=== PATIENT | male | born 1990 | race Caucasian/White ===

== ENCOUNTER 2020-04-01 19:19 | Emergency (ER) | payer OTHER, MEDICAID, SELFPAY ==
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
[2020-04-01 19:28] VITALS: BP 135/86; PULSE 89; RESP 20; TEMP 36.4; O2SAT 100; BMI 23.1
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
[2020-04-01] MEDS: IBUPROFEN 400 MG TABLET PO (20:22)
[2020-04-01] MEDS: ACETAMINOPHEN 325 MG TABLET 650 MG PO (20:22)
[2020-04-01] MEDS: LIDOCAINE PATCH 1 EACH ADH..PATCH 2 EACH TOP (20:22)
[2020-04-01 20:25] VITALS: BP 133/64; PULSE 72; RESP 18; O2SAT 99
== END 2020-04-01 20:36 | disposition home or self-care (01) ==
PROVIDERS: Emergency Provider Nurse Practitioner Family; PCP Family Medicine
DX: S20.20XA Contusion of thorax, unspecified, initial encounter (principal); R07.81 Pleurodynia; R06.02 Shortness of breath; R05 Cough; W51.XXXA Accidental striking against or bumped into by another person, initial encounter
CPT/HCPCS: 71111; 99283; 99284

== ENCOUNTER 2020-04-04 17:01 | Emergency (ER) | payer OTHER, MEDICAID, SELFPAY ==
[2020-04-04] VITALS (14 sets, daily range): BP systolic 114–120; BP diastolic 68–85; PULSE 80–109; RESP 12–25; TEMP 36.6; O2SAT 97–100; BMI 22.4
[2020-04-04] MEDS: SODIUM CHLORIDE 0.9% 1,000 ML 150 ML IV (17:41)
[2020-04-04 17:42] LABS: Add Manual Diff / Slide Review NO; Basophils Absolute Auto 0 /uL (0-100); Basophils Percent Auto 0.6 % (0-2); Eosinophils Absolute Auto 100 /uL (0-450); Eosinophils Percent Auto 1.6 % (2-4); Hemoglobin 13.7 g/dL (13.5-17.5); Lymphocytes Absolute Auto 1700 /uL (1100-4500); Lymphocytes Percent Auto 24.4 % (25-40); Mean Corpuscular HGB Conc 34.2 % (30-36); Mean Corpuscular Hemoglobin 32.4 PG (26-34); Mean Corpuscular Volume 94.8 fL (80-100); Monocytes Absolute Auto 1000 /uL (0-900); Monocytes Percent Auto 13.9 % (3-14); Neutrophils Absolute Auto 4100 /uL (1500-7000); Neutrophils Percent Auto 59.5 % (50-75); Platelet Count 250 X10^3/uL (150-400); Red Blood Cell Count 4.22 X10^6/uL (4.5-5.9); Red Cell Distribution Width 13.1 % (11.6-14.8); White Blood Cell Count 6.8 X10^3/uL (4.5-11.0)
--- NOTE | 2020-04-04 17:48 | ED_ITS ---
HPI - Psych <Lesia Coelho MD - Last Filed: 04/05/20 07:13> General Chief Complaint: Psychiatric Symptoms Stated Complaint: states borderline episode Time Seen by Provider: 04/04/20 17:13 Source: patient Mode of arrival: Ambulatory History of Present Illness HPI Narrative: 29-year-old gentleman with borderline personality disorder who comes in after an overdose. He states he took 10 1 mg clonazepam and ?a lot? of alcohol last night and then repeated a combination this morning with at least 30 1 mg clonazepam and alot of alcohol. He apparently called his primary care doctor's office and they advised him to come to the emergency room. He was able to write his skateboard to the emergency room by the time he arrives he is so somnolent it is difficult to carry on any type of conversation. He states that he has not done any other self-harm and the last time he did any cutting was about a month ago. He denies taking any other medications. States that he does not use any narcotics or amphetamines. He does note that he use some acid 5 days ago and ?it was quite nice?. Related Data Previous Rx's Medication Instructions Recorded bupropion HCl 200 mg tablet,12 hr See Rx Instructions .ROUTE 11/13/19 sustained-release .COMPLEX #180 tab clonazepam 1 mg tablet See Rx Instructions .ROUTE 02/15/20 .COMPLEX #60 tab lidocaine 2 patch TOP Q24H PRN #30 each 04/01/20 Allergies Allergy/AdvReac Type Severity Reaction Status Date / Time olanzapine AdvReac Severe suicidal Verified 04/04/20 17:14 ideations Review of Systems <Lesia Coelho MD - Last Filed: 04/05/20 07:13> Review of Systems ROS Unobtainable: Unobtainable due to medical condition <Destin Hopson MD - Last Filed: 04/05/20 06:04> Constitutional Constitutional: Denies chills, Denies fatigue, Denies fever(s), Denies frequent falls, Denies lethargy and Denies weakness Eyes Eyes: Denies change in vision, Denies eye discharge, Denies irritation and Denies loss of vision ENT Ears, Nose, Mouth, and Throat: Denies change in voice, Denies dizziness, Denies neck pain, Denies sore throat and Denies throat swelling Cardiovascular Cardiovascular: Denies chest pain, Denies irregular heart rhythm, Denies lightheadedness, Denies palpitations, Denies dyspnea, Denies dyspnea on exertion and Denies orthopnea Respiratory Respiratory: Denies cough, Denies dyspnea, Denies dyspnea on exertion and Denies wheezing Gastrointestinal Gastrointestinal: Denies abdominal pain, Denies change in bowel habits, Denies diarrhea, Denies nausea and Denies vomiting Musculoskeletal Musculoskeletal: Denies neck pain and Denies numbness Integumentary/Breasts Skin/Breast: Denies pruritus, Denies erythema, Denies rash and Denies wounds Neurologic Neurologic: Denies behavioral changes, Denies confusion, Denies dizziness, Denies frequent falls, Denies loss of vision, Denies numbness and Denies weakness Psychiatric Psychiatric: Denies anxiety, Denies behavioral changes, Denies confusion, Denies depression, Denies homicidal ideation and Denies suicidal ideation Endocrine Endocrine: Denies fatigue, Denies flushing and Denies palpitations Hematologic/Lymphatic Hematologic/Lymphatic: Denies easy bruising Allergic/Immunologic Allergic/Immunologic: Denies urticaria, Denies throat swelling and Denies w heezing Patient History <Lesia Coelho MD - Last Filed: 04/05/20 07:13> Medical History (Updated 04/05/20 @ 02:40 by Destin Hopson MD) ADHD (Chronic) Anxiety (Acute) Cervical somatic dysfunction (Acute) Chronic neck and back pain (Acute) Cranial somatic dysfunction (Acute) Depression (Acute) Fractures (Resolved) History of bipolar disorder (Chronic) Migraines (Acute) Overdose (Acute) Partial blindness (Chronic) Pelvic somatic dysfunction (Acute) Personality disorder (Chronic) PTSD (post-traumatic stress disorder) (Chronic) Right shoulder pain (Acute) Scoliosis (Chronic) Segmental and somatic dysfunction of abdomen and other regions (Acute) Segmental and somatic dysfunction of lumbar region (Acute) Segmental and somatic dysfunction of sacral region (Acute) Segmental and somatic dysfunction of thoracic region (Acute) Segmental and somatic dysfunction of upper extremity (Acute) Surgical History Anesthesia (Resolved) History of removal of cyst (Resolved ~2017) Family History Father Mental health problem Mother Thyroid cancer Breast cancer Social History Smoking Status: Current every day smoker Smokeless tobacco user: other alcohol intake: current substance use type: does not use and former substance user Smoking Status: Current every day smoker tobacco type: vaping alcohol intake frequency: a few times a week Substance Use Type: does not use Exam <Lesia Coelho MD - Last Filed: 04/05/20 07:13> Narrative Exam Narrative: General: Very somnolent but maintaining his airway. Mid position with sluggish pupils HEENT: Moist mucous membranes, normal sclera Mid position with sluggish pupils Neck: No JVD, supple Respiratory: Lungs are clear to auscultation, no wheezing no rales no rhonchi. Somewhat shallow but Full and symmetrical air movement Cardiac: Regular rate and rhythm no murmurs no bruits Abdomen: Soft nontender good bowel tones, no flank pain Skin: Warm and dry, no rashes. Healed scars on his left forearm from cutting. Wounds clearly healing with no evidence of infection on his left anterior boyle from self-harm Neurologic: Slowed but moving all extremities Extremities: No new trauma, well perfused Psych: Very somnolent Initial Vital Signs Initial Vital Signs: Vital Signs Temperature 97.9 F 04/04/20 17:14 Pulse Rate 109 H 04/04/20 17:14 Respiratory Rate 15 04/04/20 17:14 Blood Pressure 116/68 04/04/20 17:14 Pulse Oximetry 99 04/04/20 17:14 <Destin Hopson MD - Last Filed: 04/05/20 06:04> Initial Vital Signs Initial Vital Signs: Vital Signs Temperature 97.9 F 04/04/20 17:14 Pulse Rate 109 H 04/04/20 17:14 Respiratory Rate 15 04/04/20 17:14 Blood Pressure 116/68 04/04/20 17:14 Pulse Oximetry 99 04/04/20 17:14 Const General: cooperative and well developed Nutritional Appearance: well nourished HENMT Head: normocephalic and atraumatic Ears: external ears normal and TM's normal bilaterally Nose: external nose normal and No nasal discharge Face and sinus: sinuses nontender, face symmetric, no sinus tenderness and No dry mucous membranes Mouth: oral mucosae normal and moist mucous membranes Teeth and gingiva: dentition normal Throat: tonsils normal and uvula midline Eyes General: appearance normal, both eyes and all related structures Eyelids: eyelids normal Conjunctivae: conjunctivae normal Sclera: sclerae normal Pupils: PERRL EOM: EOM intact bilaterally Neck Neck: normal visual inspection, trachea midline, No lymphadenopathy, No midline deformity and No JVD Lymphatic: No lymphedema Chest Chest: normal inspection of the chest Resp Effort & Inspection: normal respiratory effort, able to speak in complete sentences, no respiratory distress and no use of accessory muscles Auscultation: clear to auscultation bilaterally, no rales, no rhonchi and no wheezes Cardio Rate: regular rate Rhythm: regular rhythm Heart Sounds: no click, no gallops, no murmurs and no rubs Pulses: normal peripheral pulses GI Inspection: non-distended Palpation: soft, no hepatosplenomegaly, No guarding, No pulsatile mass and No tender Auscultation: normal bowel sounds Back/Spine/Pelvis Back: No CVA tenderness Cervical Spine: cervical ROM normal and No pain with cervical ROM Thoracic/Lumbar Spine: thoracic and lumbar spine normal to inspection Skin General: no rashes or lesions noted, No jaundice and No petechiae Neuro General: patient alert, patient oriented x3, gait normal and no focal motor deficits Speech: speech normal Extrem General: full ROM, no clubbing, cyanosis or edema, no pedal edema and no calf tenderness Psych Appearance: well kempt Mental Status: mental status grossly normal Attitude: cooperative Thought Content: normal and suicidality Judgment: judgment good Course <Lesia Coelho MD - Last Filed: 04/05/20 07:13> Orders Ordered: Discontinued Medications Hydroxyzine Pamoate (Vistaril) 50 mg PO NOW ONE Stop: 04/05/20 01:14 Last Admin: 04/05/20 01:17 Dose: 50 mg Documented by: MMCFARL Sodium Chloride (Normal Saline 0.9%) 1,000 mls @ 150 mls/hr IV CONT DARLEEN Last Infusion: 04/04/20 23:25 Dose: 0 mls/hr Documented by: Admin: 04/04/20 17:41 Dose: 150 mls/hr Documented by: ROHAN Lidocaine (Lidoderm) 1 each TOP NOW ONE Stop: 04/04/20 19:25 Last Admin: 04/04/20 19:28 Dose: 1 each Documented by: JEVON Nicotine (Nicoderm) 21 mg TOP NOW ONE Stop: 04/04/20 20:59 Last Admin: 04/04/20 21:01 Dose: 21 mg Documented by: JEVON Vital Signs Vital signs: Vital Signs - 8 hr 04/04/20 23:30 04/05/20 00:00 04/05/20 00:01 Pulse Rate 101 H 103 H 103 H Respiratory Rate 22 20 23 Blood Pressure 114/85 120/72 Pulse Oximetry 98 97 97 04/05/20 00:30 04/05/20 01:00 04/05/20 01:30 Pulse Rate 109 H 102 H 102 H Respiratory Rate 19 16 17 Blood Pressure 128/74 127/71 133/78 Pulse Oximetry 98 97 04/05/20 02:00 04/05/20 02:30 04/05/20 03:00 Pulse Rate 93 H 95 H 92 H Respiratory Rate 22 21 23 Blood Pressure 123/76 Pulse Oximetry 96 97 04/05/20 03:30 Pulse Rate 104 H Respiratory Rate 17 Blood Pressure Pulse Oximetry 97 <Destin Hopson MD - Last Filed: 04/05/20 06:04> Course Course Narrative: Time 1805. Sign-out from Dr. Raya. Patient needs admission for observation for intentional overdose/suicide ideation/attempt. Benzodiaz epines taken as well as alcohol. At this time patient is awake alert oriented x4. Denies any fall or injury. Not combative. He is cooperative. Understands need for admission tonight. I spoke with patient and states a lot personal stress has triggered his actions. Decision to Admit Date: 04/04/20 Decision to Admit time: 20:21 Orders Ordered: Discontinued Medications Hydroxyzine Pamoate (Vistaril) 50 mg PO NOW ONE Stop: 04/05/20 01:14 Last Admin: 04/05/20 01:17 Dose: 50 mg Documented by: JEVON Sodium Chloride (Normal Saline 0.9%) 1,000 mls @ 150 mls/hr IV CONT DARLEEN Last Infusion: 04/04/20 23:25 Dose: 0 mls/hr Documented by: Admin: 04/04/20 17:41 Dose: 150 mls/hr Documented by: ROHAN Lidocaine (Lidoderm) 1 each TOP NOW ONE Stop: 04/04/20 19:25 Last Admin: 04/04/20 19:28 Dose: 1 each Documented by: JEVON Nicotine (Nicoderm) 21 mg TOP NOW ONE Stop: 04/04/20 20:59 Last Admin: 04/04/20 21:01 Dose: 21 mg Documented by: ALICIAFARL Reevaluation(s) Reevaluation #1: I did speak with patient. He admits taking clonazepam/Klonopin. He states past drug screens for employers were negative for benzodiazepines. At this time patient is awake alert and arousable to voice. Is somnolent Time: 20:21 Reevaluation #2: Patient is now awake alert. Is not not obtunded. No respiratory compromise. Awake alert oriented x4. Getting very anxious. Time: 22:44 Reevaluation #3: Patient aware needs to be admitted tonight. He is on a hold Time: 02:39 Consultations Consultation #1: Spoke with asaf, nurse practitioner/hospitalist as well as social Work Dago. At this time patient is not medically cleared. Will need intermittent. I did review with laboratory staff that there is a high false negative for Klonopin Time: 20:22 Consultation #2: s/w Jean with [facility], he will set up teleconference now with patient Time: 00:28 Consultation #3: Jean SPEAR, has approved hold and arranged for txr to [facility] Time: 02:39 Vital Signs Vital signs: Vital Signs - 8 hr 04/04/20 23:30 04/05/20 00:00 04/05/20 00:01 Pulse Rate 101 H 103 H 103 H Respiratory Rate 22 20 23 Blood Pressure 114/85 120/72 Pulse Oximetry 98 97 97 04/05/20 00:30 04/05/20 01:00 04/05/20 01:30 Pulse Rate 109 H 102 H 102 H Respiratory Rate 19 16 17 Blood Pressure 128/74 127/71 133/78 Pulse Oximetry 98 97 04/05/20 02:00 04/05/20 02:30 04/05/20 03:00 Pulse Rate 93 H 95 H 92 H Respiratory Rate 22 21 23 Blood Pressure 123/76 Pulse Oximetry 96 97 04/05/20 03:30 Pulse Rate 104 H Respiratory Rate 17 Blood Pressure Pulse Oximetry 97 MDM - Psych <Lesia Coelho MD - Last Filed: 04/05/20 07:13> Medical Records Attestation: I reviewed the patient's medical records. Lab Data Attestation: I reviewed the patient's lab results. Result diagrams: 04/04/20 17:28 04/04/20 17:28 Labs: Lab Results 04/04/20 04/04/20 04/04/20 Range/Units 17:28 17:28 17:38 WBC 6.8 (4.5-11.0) X10^3/uL RBC 4.22 L (4.5-5.9) X10^6/uL Hgb 13.7 (13.5-17.5) g/dL Hct 40.0 L (41-53) % MCV 94.8 (80-100) fL MCH 32.4 (26-34) PG MCHC 34.2 (30-36) % RDW 13.1 (11.6-14.8) % Plt Count 250 (150-400) X10^3/uL Neut % (Auto) 59.5 (50-75) % Lymph % (Auto) 24.4 L (25-40) % [place] % (Auto) 13.9 (3-14) % Eos % (Auto) 1.6 L (2-4) % Baso % (Auto) 0.6 (0-2) % Neut # (Auto) 4100 (8973-3989) /uL Lymph # (Auto) 1700 (0247-3538) /uL [place] # (Auto) 1000 H (0-900) /uL Eos # (Auto) 100 (0-450) /uL Baso # (Auto) 0 (0-100) /uL Sodium 139 (137-145) mmol/L Potassium 3.9 (3.4-5.1) mmol/L Chloride 103 (98-107) mmol/L Carbon Dioxide 29 (22-32) mmol/L BUN 10 (9-20) mg/dL Creatinine 0.89 (0.66-1.25) mg/dL Estimated GFR > 60.0 (>60) mL/min BUN/Creatinine Ratio 11.2 (6-22) Glucose 98 (70-100) mg/dL Calcium 8.8 (8.4-10.2) mg/dL Total Bilirubin 0.7 (0.2-1.3) mg/dL AST 39 (17-59) IU/L ALT 16 (<50) IU/L Alkaline Phosphatase 61 (38-126) U/L Total Protein 7.1 (6.3-8.2) g/dL Albumin 4.1 (3.5-5.0) g/dL Globulin 3.0 (1.7-4.1) g/dL Albumin/Globulin Ratio 1.4 (1.0-2.8) Lipase 46 (23-300) U/L Salicylates < 1.0 (<20) mg/dL U Opiates 300ng/mL cut Negative (Negative) Ur Oxycodone Screen Negative (Negative) Urine Methadone Screen Negative (Negative) Acetaminophen < 10 L (10-30) ug/mL Ur Barbiturates Screen Negative (Negative) U Tricyclic Antidepress Negative (Negative) Ur Phencyclidine Scrn Negative (Negative) Ur Amphetamines Screen Negative (Negative) U Methamphetamines Scrn Negative (Negative) Ur MDMA Scrn (Ecstasy) Negative (Negative) U Benzodiazepines Scrn Negative (Negative) Urine Cocaine Screen Negative (Negative) U Marijuana (THC) Screen Negative (Negative) Ethyl Alcohol 76 H ( - 10) mg/dL COVID-19 PCR (Negative) 04/04/20 04/04/20 Range/Units 20:04 21:00 WBC (4.5-11.0) X10^3/uL RBC (4.5-5.9) X10^6/uL Hgb (13.5-17.5) g/dL Hct (41-53) % MCV (80-100) fL MCH (26-34) PG MCHC (30-36) % RDW (11.6-14.8) % Plt Count (150-400) X10^3/uL Neut % (Auto) (50-75) % Lymph % (Auto) (25-40) % [place] % (Auto) (3-14) % Eos % (Auto) (2-4) % Baso % (Auto) (0-2) % Neut # (Auto) (8286-5124) /uL Lymph # (Auto) (4482-0048) /uL [place] # (Auto) (0-900) /uL Eos # (Auto) (0-450) /uL Baso # (Auto) (0-100) /uL Sodium (137-145) mmol/L Potassium (3.4-5.1) mmol/L Chloride (98-107) mmol/L Carbon Dioxide (22-32) mmol/L BUN (9-20) mg/dL Creatinine (0.66-1.25) mg/dL Estimated GFR (>60) mL/min BUN/Creatinine Ratio (6-22) Glucose (70-100) mg/dL Calcium (8.4-10.2) mg/dL Total Bilirubin (0.2-1.3) mg/dL AST (17-59) IU/L ALT (<50) IU/L Alkaline Phosphatase (38-126) U/L Total Protein (6.3-8.2) g/dL Albumin (3.5-5.0) g/dL Globulin (1.7-4.1) g/dL Albumin/Globulin Ratio (1.0-2.8) Lipase (23-300) U/L Salicylates (<20) mg/dL U Opiates 300ng/mL cut Negative (Negative) Ur Oxycodone Screen Negative (Negative) Urine Methadone Screen Negative (Negative) Acetaminophen (10-30) ug/mL Ur Barbiturates Screen Negative (Negative) U Tricyclic Antidepress Negative (Negative) Ur Phencyclidine Scrn Negative (Negative) Ur Amphetamines Screen Negative (Negative) U Methamphetamines Scrn Negative (Negative) Ur MDMA Scrn (Ecstasy) Negative (Negative) U Benzodiazepines Scrn Negative (Negative) Urine Cocaine Screen Negative (Negative) U Marijuana (THC) Screen Negative (Negative) Ethyl Alcohol ( - 10) mg/dL COVID-19 PCR Negative (Negative) MDM Narrative Medical decision making narrative: 29-year-old gentleman with borderline personality disorder with a suicide attempt last night with 10 mg of clonazepam and alcohol. States he continued to drink through the evening and this morning took an additional 30 mg of clonazepam and has continued to drink through the day. <Destin Hopson MD - Last Filed: 04/05/20 06:04> Lab Data Attestation: I reviewed the patient's lab results. Labs: Lab Results 04/04/20 04/04/2020 Range/Units 17:28 17:28 17:38 WBC 6.8 (4.5-11.0) X10^3/uL RBC 4.22 L (4.5-5.9) X10^6/uL Hgb 13.7 (13.5-17.5) g/dL Hct 40.0 L (41-53) % MCV 94.8 (80-100) fL MCH 32.4 (26-34) PG MCHC 34.2 (30-36) % RDW 13.1 (11.6-14.8) % Plt Count 250 (150-400) X10^3/uL Neut % (Auto) 59.5 (50-75) % Lymph % (Auto) 24.4 L (25-40) % [place] % (Auto) 13.9 (3-14) % Eos % (Auto) 1.6 L (2-4) % Baso % (Auto) 0.6 (0-2) % Neut # (Auto) 4100 (3865-2630) /uL Lymph # (Auto) 1700 (3267-0399) /uL [place] # (Auto) 1000 H (0-900) /uL Eos # (Auto) 100 (0-450) /uL Baso # (Auto) 0 (0-100) /uL Sodium 139 (137-145) mmol/L Potassium 3.9 (3.4-5.1) mmol/L Chloride 103 (98-107) mmol/L Carbon Dioxide 29 (22-32) mmol/L BUN 10 (9-20) mg/dL Creatinine 0.89 (0.66-1.25) mg/dL Estimated GFR > 60.0 (>60) mL/min BUN/Creatinine Ratio 11.2 (6-22) Glucose 98 (70-100) mg/dL Calcium 8.8 (8.4-10.2) mg/dL Total Bilirubin 0.7 (0.2-1.3) mg/dL AST 39 (17-59) IU/L ALT 16 (<50) IU/L Alkaline Phosphatase 61 (38-126) U/L Total Protein 7.1 (6.3-8.2) g/dL Albumin 4.1 (3.5-5.0) g/dL Globulin 3.0 (1.7-4.1) g/dL Albumin/Globulin Ratio 1.4 (1.0-2.8) Lipase 46 (23-300) U/L Salicylates < 1.0 (<20) mg/dL U Opiates 300ng/mL cut Negative (Negative) Ur Oxycodone Screen Negative (Negative) Urine Methadone Screen Negative (Negative) Acetaminophen < 10 L (10-30) ug/mL Ur Barbiturates Screen Negative (Negative) U Tricyclic Antidepress Negative (Negative) Ur Phencyclidine Scrn Negative (Negative) Ur Amphetamines Screen Negative (Negative) U Methamphetamines Scrn Negative (Negative) Ur MDMA Scrn (Ecstasy) Negative (Negative) U Benzodiazepines Scrn Negative (Negative) Urine Cocaine Screen Negative (Negative) U Marijuana (THC) Screen Negative (Negative) Ethyl Alcohol 76 H ( - 10) mg/dL COVID-19 PCR (Negative) 04/04/20 04/04/20 Range/Units 20:04 21:00 WBC (4.5-11.0) X10^3/uL RBC (4.5-5.9) X10^6/uL Hgb (13.5-17.5) g/dL Hct (41-53) % MCV (80-100) fL MCH (26-34) PG MCHC (30-36) % RDW (11.6-14.8) % Plt Count (150-400) X10^3/uL Neut % (Auto) (50-75) % Lymph % (Auto) (25-40) % [place] % (Auto) (3-14) % Eos % (Auto) (2-4) % Baso % (Auto) (0-2) % Neut # (Auto) (9375-9488) /uL Lymph # (Auto) (4741-6406) /uL [place] # (Auto) (0-900) /uL Eos # (Auto) (0-450) /uL Baso # (Auto) (0-100) /uL Sodium (137-145) mmol/L Potassium (3.4-5.1) mmol/L Chloride (98-107) mmol/L Carbon Dioxide (22-32) mmol/L BUN (9-20) mg/dL Creatinine (0.66-1.25) mg/dL Estimated GFR (>60) mL/min BUN/Creatinine Ratio (6-22) Glucose (70-100) mg/dL Calcium (8.4-10.2) mg/dL Total Bilirubin (0.2-1.3) mg/dL AST (17-59) IU/L ALT (<50) IU/L Alkaline Phosphatase (38-126) U/L Total Protein (6.3-8.2) g/dL Albumin (3.5-5.0) g/dL Globulin (1.7-4.1) g/dL Albumin/Globulin Ratio (1.0-2.8) Lipase (23-300) U/L Salicylates (<20) mg/dL U Opiates 300ng/mL cut Negative (Negative) Ur Oxycodone Screen Negative (Negative) Urine Methadone Screen Negative (Negative) Acetaminophen (10-30) ug/mL Ur Barbiturates Screen Negative (Negative) U Tricyclic Antidepress Negative (Negative) Ur Phencyclidine Scrn Negative (Negative) Ur Amphetamines Screen Negative (Negative) U Methamphetamines Scrn Negative (Negative) Ur MDMA Scrn (Ecstasy) Negative (Negative) U Benzodiazepines Scrn Negative (Negative) Urine Cocaine Screen Negative (Negative) U Marijuana (THC) Screen Negative (Negative) Ethyl Alcohol ( - 10) mg/dL COVID-19 PCR Negative (Negative) ECG Data Attestation: I personally reviewed and interpreted this ECG as follows: Interpretation: Normal sinus rhythm, normal EKG, ventricular rate 87. MDM Narrative Medical decision making narrative: After conversation with hospitalist, Asaf as well as social Work Dago, option for tonight is for patient to be boarded in the emergency department. Can be observed on monitor. DCR may be involved if patient tries to leave involuntary. At this time he is voluntary. Klonopin long half life and needs to be observed here. Patient would likely go Against Medical Advice if admitted to hospitalist. However, at this time he is voluntary to stay for help. <Destin Hopson MD - Last Filed: 04/05/20 06:04> Restraint [id number] Evaluation [id number] #1: Date: 04/04/20 Time: 23:04 Patient Appearance: Well Groomed Level of Consciousness: Alert and Restless Speech Pattern: Clear Mood Description: Anxious Ability to Follow Directions: Good Hallucination Type: None Thought Process: Goal-directed Respirations: Normal respiratory rate Cardiac: Regular Rate Circulation: Moves all extremities Behavior necessitating restraint: Attempt to self harm Other risks: Patient is not restraint by chemical or by physical restraints Restraint risks explained to patient: Yes Restraint risks explained to family: No (No family present) Patient's response to restraint use: Patient cooperative at this time. [id number] #2: Date: 04/05/20 Time: 03:05 Patient Appearance: Well Groomed Level of Consciousness: Alert Speech Pattern: Clear Mood Description: Calm Ability to Follow Directions: Good Hallucination Type: None Thought Process: Goal-directed Respirations: Normal respiratory rate Cardiac: Regular Rate Circulation: Moves all extremities Behavior necessitating restraint: Suicide attempt Other risks: Patient is on chemical or physical restraining Restraint risks explained to patient: Yes Restraint risks explained to family: No (Family not present) Patient's response to restraint use: Patient cooperative. Not combative Discharge Plan Departure Patient Disposition: [facility] Clinical Impression: Suicide attempt Overdose Qualifiers: Encounter type: initial encounter Injury intent: intentional self-harm Qualified Code(s): T50.902A - Poisoning by unspecified drugs, medicaments and biological substances, intentional self-harm, initial encounter Discharge Date/Time: 04/05/20 04:28 Prescriptions: No Action bupropion HCl 200 mg tablet sustained-release 12 hr See Rx Instructions .ROUTE .COMPLEX Qty: 180 RF: 1 clonazepam 1 mg tablet See Rx Instructions .ROUTE .COMPLEX Qty: 60 RF: 0 lidocaine 5 % adhesive patch,medicated 2 patch TOP Q24H PRN (Reason: Bilateral rib pain) Qty: 30 RF: 0 Referrals: Min Tinsley DO [Primary Care Provider] -
--- NOTE | 2020-04-04 17:52 | CM.SWNOTE ---
NETWORK PROJECT MANAGER note NETWORK PROJECT MANAGER consult requested for patient. Patient is a 29 y/o male who presents to ED by direction of his PCP, Dr. Tinsley. Patient attempted suicide by overdose on clonazapam earlier in day. NETWORK PROJECT MANAGER staffs with Dr. Coelho. Per Dr. Coelho, patient will not be medically cleared until tomorrow and will likely be admitted due to quantity of medication consumed. Per Dr. Coelho, patient did reach out to PCP after attempt, and voluntarily came to ED on his skateboard. Due to level of intoxication and time until medical clearance, NETWORK PROJECT MANAGER will meet with patient to complete assessment following day. Plan: NETWORK PROJECT MANAGER will meet with patient following day to complete MH/TAMAR assessment. LANEY Villafuerte
[2020-04-04 18:01] LABS: Acetaminophen < 10 ug/mL (10-30); Alanine Aminotransferase 16 IU/L (<50); Albumin 4.1 g/dL (3.5-5.0); Albumin Globulin Ratio 1.4 (1.0-2.8); Alkaline Phosphatase 61 U/L (38-126); Aspartate Aminotransferase 39 IU/L (17-59); BUN Creatinine Ratio 11.2 (6-22); Bilirubin Total 0.7 mg/dL (0.2-1.3); Blood Urea Nitrogen 10 mg/dL (9-20); Calcium 8.8 mg/dL (8.4-10.2); Carbon Dioxide 29 mmol/L (22-32); Chloride 103 mmol/L (98-107); Estimated Glomerular Filt Rate > 60.0 mL/min (>60); Ethanol (ETOH) 76 mg/dL; Glucose 98 mg/dL (70-100); HEMOLYSIS < 15 (0-50); Lipase 46 U/L (23-300); Potassium 3.9 mmol/L (3.4-5.1); Salicylate < 1.0 mg/dL (<20); Sodium 139 mmol/L (137-145); Total Protein 7.1 g/dL (6.3-8.2)
[2020-04-04 18:02] LABS: UR Morphine/Opiate cutoff 300 Negative (Negative); Ur Creatinine Normal (Normal); Ur Specific Gravity Normal (Normal); Urine Amphetamines Negative (Negative); Urine Barbiturates Negative (Negative); Urine Benzodiazepines Negative (Negative); Urine Cocaine Negative (Negative); Urine MDMA Negative (Negative); Urine Methadone Negative (Negative); Urine Methamphetamines Negative (Negative); Urine Oxycodone Negative (Negative); Urine Phencyclidine Negative (Negative); Urine Tetrahydrocannabinol Negative (Negative); Urine Tricyclic Antidepressant Negative (Negative); Urine pH Normal (Normal)
--- NOTE | 2020-04-04 18:49 | PC.NURSE ---
Ariadne Garnett on Pt 1:1 @6694. Pt just returned from CT. Pt Is calm and tearful lying on gurerin. Pt shares a variety of emotions surrounding a current break up and the concern he has surrounding his mothers cancer diagnosis. Pt is cooperative
[2020-04-04] MEDS: LIDOCAINE PATCH 1 EACH ADH..PATCH TOP (19:28)
[2020-04-04 20:13] LABS: UR Morphine/Opiate cutoff 300 Negative (Negative); Ur Creatinine Normal (Normal); Ur Specific Gravity Normal (Normal); Urine Amphetamines Negative (Negative); Urine Barbiturates Negative (Negative); Urine Benzodiazepines Negative (Negative); Urine Cocaine Negative (Negative); Urine MDMA Negative (Negative); Urine Methadone Negative (Negative); Urine Methamphetamines Negative (Negative); Urine Oxycodone Negative (Negative); Urine Phencyclidine Negative (Negative); Urine Tetrahydrocannabinol Negative (Negative); Urine Tricyclic Antidepressant Negative (Negative); Urine pH Normal (Normal)
--- NOTE | 2020-04-04 20:27 | PC.NURSE ---
ACCOUNT ASSOCIATE in Rm with Pt
--- NOTE | 2020-04-04 20:35 | CM.SWNOTE ---
PROPERTY TECHNICIAN note PROPERTY TECHNICIAN notified by Dr. Hopson that patient was not accepted for admission due to negative result for benzodiazepines on toxicology screen. Dr. Hopson asked patient again if he did indeed take the medication and patient answers yes. Per Dr. Hopson, patient not medically cleared at this time due to reported high dose of benzodiazepines taken earlier in day. Per report from chaz Loza, patient is voluntary and wants inpatient hospitalization. Shortly after this conversation, PROPERTY TECHNICIAN is informed that [facility]/DCR is on the phone regarding patient. PROPERTY TECHNICIAN is informed that hospitalist had instructed ED staff to call DCR to get DCR in the queue if patient needed to be detained. At this point, patient is voluntary and has not indicated that he is not voluntary. PROPERTY TECHNICIAN speaks to [facility] and informs them that patient is voluntary at this time, and [facility] ED will reach out to [facility] if patient becomes involuntary. PROPERTY TECHNICIAN calls Hospitalist Dr. To to discuss patient situation. Dr. To discusses that- due to no positive benzodiazepine lab, there is not an admittable diagnosis for patient. Dr. To explains that if patient were to be admitted as voluntary and attempt to leave, they cannot stop them if they decide to leave. Dr. To and PROPERTY TECHNICIAN discuss potential to board patient in ED overnight while waiting for medical clearance and assess for next steps following day. PROPERTY TECHNICIAN discusses this with Dr. Hopson, who indicates support for plan. PROPERTY TECHNICIAN enters room and meets with patient. Patient appears oriented, but very drowsy. PROPERTY TECHNICIAN explains role and briefly discusses patient's presentation to ED today and goals. Patient states he is wanting to be admitted, and describes wanting intensive psychiatric and group support. PROPERTY TECHNICIAN discusses patient remaining in ED overnight and working with PROPERTY TECHNICIAN following day on placement at a behavioral health hospital, and patient indicates agreement. Dr. To updated on plan. PROPERTY TECHNICIAN informs Dr. Hopson of this. Plan: Patient to remain voluntarily in ED until medically clear. Due to severity of reported suicide attempt, if patient attempt to leave prior to medical clearance or formal behavioral health assessment, ED staff will call [facility] and request DCR consult. LANEY Arango
--- NOTE | 2020-04-04 20:37 | PC.NURSE ---
technical planner alerted RN pt in room scratching L arm with fingernails making it bleed superficially. Pt was asked what happened, pt stated he was texting his Mom and got emotional and began scratching his L forearm to make it bleed. Pt phone removed from room and locked up with pt belongings. refinery pipeline operator placed directly at bedside, Dr Hopson and LANEY Loza notified.
--- NOTE | 2020-04-04 20:37 | PC.NURSE ---
Pt cutting Left forearm with fingernails, Nurse notified
[2020-04-04] MEDS: NICOTINE 21 MG PATCH TOP (21:01)
[2020-04-04 21:26] LABS: COVID19 -Nasal RAPID Negative (Negative)
--- NOTE | 2020-04-04 21:55 | PC.NURSE ---
Sitter at bedside
--- NOTE | 2020-04-04 22:03 | PC.NURSE ---
YEAST CAKE CUTTER: pt disconnected his own IV tubing before asking to go to the bathroom. Pt was told not to do that again and to let the nurse do it. Pt ambulated to the bathroom and was supervised during bathroom visit. Pt is in bed and YEAST CAKE CUTTER is at the door monitoring pt.
--- NOTE | 2020-04-04 23:20 | PC.NURSE ---
Pt taking off monitor equipment stating he wants to leave, Nurse notified
--- NOTE | 2020-04-04 23:39 | PC.NURSE ---
Pt is stating I am just going to leave and maybe come back Sitter encouraging Pt to remain calm and the staff is trying to locate a DCR to speak with him as soon as possible. Pt indicated he may wait
[2020-04-05] VITALS (9 sets, daily range): BP systolic 120–133; BP diastolic 71–78; PULSE 92–109; RESP 16–23; O2SAT 96–98
--- NOTE | 2020-04-05 00:29 | PC.NURSE ---
DCR Jean Barrera evaluating pt on ipad with sitter at Door.
--- NOTE | 2020-04-05 00:32 | PC.NURSE ---
Pt speaking with DCR via tablet
--- NOTE | 2020-04-05 01:00 | PC.NURSE ---
Pt on Rm phone with DCR
[2020-04-05] MEDS: hydrOXYzine pamoate 25 MG CAPSULE 50 MG PO (01:17)
--- NOTE | 2020-04-05 02:01 | PC.NURSE ---
Pt lying on gurney. Having difficulty falling asleep
--- NOTE | 2020-04-05 02:15 | PC.NURSE ---
Ambulate to Restroom. snacks provided
--- NOTE | 2020-04-05 02:55 | PC.NURSE ---
Pt requests phone call to family member, request granted by Nurse. Pt has returned to and is lying on gurney.
--- NOTE | 2020-04-05 04:00 | PC.NURSE ---
Pt accepted to [facility] Dr, PT received paperwork for admission from DCR Jean Hughes and video conferenced with DCR again to discuss admission details. [facility] given [facility]. Transportation scheduled for 0400 picker tender helper from ER. Dr. Hopson aware.
--- NOTE | 2020-04-05 04:01 | PC.NURSE ---
Pt speaking with DCR via tablet
--- NOTE | 2020-04-05 04:27 | PC.NURSE ---
Pt has left ED with NWA to care facility. End Pt 1:1
== END 2020-04-05 04:28 | disposition short-term general hospital (02) ==
PROVIDERS: Emergency Medicine; Emergency Provider Emergency Medicine; PCP Family Medicine
DX: T42.4X2A Poisoning by benzodiazepines, intentional self-harm, initial encounter (principal); T51.92XA Toxic effect of unspecified alcohol, intentional self-harm, initial encounter
CPT/HCPCS: 36415; 80053; 80305; 80320; 80329; 83690; 85025; 87635; 93005; 96360; 96361; 99285; G0480

== ENCOUNTER 2020-10-10 14:57 | Emergency (ER) | payer OTHER, MEDICAID, SELFPAY ==
[2020-10-10 15:00] VITALS: BP 126/90; PULSE 85; RESP 14; TEMP 36.8; O2SAT 96; BMI 22.4
--- NOTE | 2020-10-10 15:12 | DI.RAD.S_ITS ---
PROCEDURE: XR WRIST RT MIN 3V INDICATIONS: fx 2 weeks ago with continued pain TECHNIQUE: 4 views of the wrist were acquired. COMPARISON: None. FINDINGS: Bones: There is a comminuted distal radial metaphyseal fracture with intra-articular involvement. There is impaction and dorsal angulation. Displaced ulnar styloid fracture is present. There is an old 5th metacarpal head and neck fracture. The 5th metacarpal head is lucent. Scaphoid view: Scaphoid appears intact. Soft tissues: No suspicious soft tissue calcifications. Soft tissue swelling around the wrist. IMPRESSION: 1. Comminuted intra-articular fracture with impaction and dorsal angulation of the radial metaphysis. 2. Ulnar styloid fracture. 3. Old 5th metacarpal head and neck fracture. There is lucency of the 5th metacarpal head. Recommend x-ray of the hand for follow-up evaluation. Dictated by: Hiwot Miller M.D. on 10/10/2020 at 15:55 Approved by: Hiwot Miller M.D. on 10/10/2020 at 15:58
--- NOTE | 2020-10-10 15:12 | ED.GENADULT ---
HPI - General Adult General Chief complaint: Extremity Injury, Upper Stated complaint: rt wrist injury Time Seen by Provider: 10/10/20 15:02 Source: patient Mode of arrival: Ambulatory Limitations: no limitations History of Present Illness HPI narrative: Patient is a 30-year-old male who arrives with the splint on his right upper extremity that was [place] when he broke his wrist 2 weeks ago. He was told he needed follow-up with Orthopedics when he returns home. He contacted his primary doctor for referral and they could not get him in until the end of this month. He did not call any orthopedic facilities near here. He is having quite a bit of discomfort in his right wrist. Related Data Previous Rx's Medication Instructions Recorded lidocaine 2 patch TOP Q24H PRN #30 each 04/01/20 quetiapine 100 mg tablet See Rx Instructions .ROUTE 07/04/20 .COMPLEX #30 tab bupropion HCl 200 mg tablet,12 hr See Rx Instructions .ROUTE 10/09/20 sustained-release .COMPLEX #180 tab tramadol 50 mg tablet See Rx Instructions .ROUTE 10/09/20 .COMPLEX #60 tab tramadol [Ultram] 50 mg PO Q6H PRN #10 tab 10/10/20 Allergies Allergy/AdvReac Type Severity Reaction Status Date / Time risperidone [From Risperdal] Allergy Verified 10/10/20 15:04 olanzapine AdvReac Severe suicidal Verified 10/10/20 15:04 ideations Review of Systems Constitutional Constitutional: Denies fever(s) Musculoskeletal Comments: Right wrist pain Integumentary/Breasts Skin/Breast: Denies lesions and Denies rash Neurologic Neurologic: Denies behavioral changes Psychiatric Psychiatric: Denies behavioral changes Hematologic/Lymphatic On Anticoagulants: No Allergic/Immunologic Allergic/Immunologic: Denies urticaria Patient History Medical History ADHD Anxiety Cervical somatic dysfunction Chronic neck and back pain Cranial somatic dysfunction Depression Fractures History of bipolar disorder Migraines Overdose Partial blindness Pelvic somatic dysfunction Personality disorder PTSD (post-traumatic stress disorder) Right shoulder pain Scoliosis Segmental and somatic dysfunction of abdomen and other regions Segmental and somatic dysfunction of lumbar region Segmental and somatic dysfunction of sacral region Segmental and somatic dysfunction of thoracic region Segmental and somatic dysfunction of upper extremity Surgical History Anesthesia History of removal of cyst (~2018) Family History Father Mental health problem Mother Thyroid cancer Breast cancer Social History Smoking Status: Current every day smoker Smokeless tobacco user: other alcohol intake: current substance use type: does not use and former substance user Smoking Status: Current every day smoker tobacco type: vaping alcohol intake frequency: a few times a week Substance Use Type: does not use Exam Initial Vital Signs Initial Vital Signs: Vital Signs Temperature 98.3 F 10/10/20 15:00 Pulse Rate 85 10/10/20 15:00 Respiratory Rate 14 10/10/20 15:00 Blood Pressure 126/90 10/10/20 15:00 Pulse Oximetry 96 10/10/20 15:00 Const General: cooperative and comfortable Limitations: mental status not altered HENMT Head: normal to inspection and normocephalic Cardio Pulses: radial pulses present Skin Lesions: no lesions Rashes: no rashes Neuro General: patient alert and patient awake Sensory Exam: no sensory deficits noted Extrem Other: Right forearm in a volar and posterior splint Psych Appearance: grossly normal and well kempt Procedures Orthopedic Splinting/Casting Injury #1: Side: right Upper Extremity Injury Location: wrist Upper Extremity Immobilizer: thumb spica Post splinting neuro exam: no change Post splinting vascular exam: no change Placed by: Nursing Course Orders Ordered: ED Orders 10/10/20 15:12 XR wrist RT min 3V Stat Vital Signs Vital signs: Vital Signs - 8 hr 10/10/20 15:00 Temperature 98.3 F Pulse Rate 85 Respiratory Rate 14 Blood Pressure 126/90 Pulse Oximetry 96 Medical Decision Making Imaging Data Extremity x-ray #1: Attestation: I personally reviewed and interpreted this imaging study as follows: My Impression: Distal radius, ulnar styloid fracture MDM Narrative Medical decision making narrative: Patient is neurovascularly intact. X-rays obtained today do show a distal radius and ulnar styloid fracture. He was switched from the bulky splint that he was placed in at the prior facility to a thumb spica splint. I also contacted his primary doctor who placed a referral for him to see Orthopedics. I also gave the patient the contact information for orthopedic follow-up. He was given return precautions and follow-up instructions. He expressed understanding and agreement. Discharge Plan Departure Patient Disposition: Home Clinical Impression: Distal radius fracture, right, Fracture of right ulnar styloid Instructions: DI for Wrist Fracture, How to Take Care of Your Splint Activity Restrictions/Additional Instructions: The splint that was placed today needs to stay on and stay clean and stay dry. Dr. Tinsley placed a referral in for you to see Orthopedics. Your also given the phone number for the [facility]. Contact them at [phone] for a follow-up. The splint needs to stay on in stay clean and stay dry. Return to the emergency department for any new or worsening symptoms. Prescriptions: New tramadol [Ultram] 50 mg tablet 50 mg PO Q6H PRN (Reason: pain) Qty: 10 RF: 0 No Action quetiapine 100 mg tablet See Rx Instructions .ROUTE .COMPLEX Qty: 30 RF: 5 bupropion HCl 200 mg tablet sustained-release 12 hr See Rx Instructions .ROUTE .COMPLEX Qty: 180 RF: 1 tramadol 50 mg tablet See Rx Instructions .ROUTE .COMPLEX Qty: 60 RF: 0 lidocaine 5 % adhesive patch,medicated 2 patch TOP Q24H PRN (Reason: Bilateral rib pain) Qty: 30 RF: 0 Referrals: Oni Ovalle MD [Physician] - Min Tinsley DO [Primary Care Provider] -
== END 2020-10-10 16:38 | disposition home or self-care (01) ==
PROVIDERS: Emergency Provider Emergency Medicine; PCP Family Medicine
DX: S52.501A Unspecified fracture of the lower end of right radius, initial encounter for closed fracture (principal); S52.611A Displaced fracture of right ulna styloid process, initial encounter for closed fracture
CPT/HCPCS: 29125; 73110; 99282; 99283

== ENCOUNTER → 2020-10-17 12:21 | Outpatient (CLI) | payer OTHER, MEDICAID, SELFPAY ==
[2020-10-17 12:59] LABS: COVID19 -Nasal RAPID Negative (Negative)
== END ==
PROVIDERS: PCP Family Medicine; Visit Provider Physician Assistant
DX: Z20.822 Contact with and (suspected) exposure to COVID-19 (principal)
CPT/HCPCS: 87635

== ENCOUNTER 2020-10-18 09:44 | Day surgery (SDC) | payer OTHER, MEDICAID, SELFPAY ==
[2020-10-18] VITALS (10 sets, daily range): BP systolic 122–139; BP diastolic 81–94; PULSE 68–111; RESP 9–17; TEMP 36.2–36.9; O2SAT 96–99; BMI 22.6
[2020-10-18] MEDS: ACETAMINOPHEN 325 MG TABLET 975 MG PO (10:37)
[2020-10-18] MEDS: LACTATED RINGERS 1,000 ML 42 ML IV (10:37)
[2020-10-18] MEDS: SCOPOLAMINE 1 PATCH TOP (10:37)
--- NOTE | 2020-10-18 10:47 | PM.PREOP ---
Pre-operative Note Interval Note History & Physical reviewed/Exam performed by Physician: Yes Changes to H&P: No
--- NOTE | 2020-10-18 10:47 | PM.OP.1 ---
Operative Date/Time/Diagnoses Date of procedure: 10/18/20 Time of procedure: 10:59 Pre-op diagnosis: Right distal radius fracture displaced Post-op diagnosis: same Procedure & Clinicians Procedure: Right hip closed reduction and percutaneous pinning Same procedure as scheduled: Yes Indications: This is a 30-year-old gentleman who fell on his outstretched right hand and sustained a fracture of his right distal radius which was displaced is brought the operating room for closed reduction and pinning. Surgeon: Macey Walton Anesthesia Type: General Operative Notes Findings: Displaced right distal radius fracture which was reduced and fixed with 4 pins Closure Type: not applicable Specimen(s): none sent Blood products transfused: none Procedure in detail: Patient is brought to the operating room. He was given IV antibiotics. A time-out was performed. He underwent the induction of a general anesthesia. His right arm was meticulously reduced after it was prepped and draped sterilely. And Marcaine was injected. It was then fixed with 4 number 0.62 K-wires. Acceptable reduction was achieved. Fixation was stable. He was placed in short-arm sugar-tong splint. He tolerated the procedure well. He was transferred recovery room in satisfactory condition. Improved alignment was achieved. He had had some collapse of his fracture in the interval healing. Complications: none Post-operative Condition: stable Disposition: same day surgery Plan for aftercare: Elevate right wrist. Leave splint on. Follow-up x-rays in splint in 10 days or so.
--- NOTE | 2020-10-18 10:48 | SUR.PREOP ---
Pt ready for surgery. Declined Gabapentin as pt states causes stutter. Anesth notified by Renea MOE. Dr Walton at bedside. VVO received for Ancef 2mg IV.
[2020-10-18] MEDS: CEFAZOLIN 2 GM/100 ML FROZ.PIGGY IV (10:53)
--- NOTE | 2020-10-18 11:18 | SUR.OPER ---
Addendum entered by Renea Johnston R.N. 10/18/20 11:33: Warm blankets to patient prior to sterile draping. Original Note: Supine on padded OR bed, head on pillow, left arm secured on padded arm boards at <90 degrees abduction, Right arm on padded arm board extension and in control of the surgeon, legs uncrossed, safety belt at thigh, tape over blanket over lower legs.
[2020-10-18] MEDS: BUPIVACAINE 0.5% (PF) VIAL 30 ML INJ (11:25)
[2020-10-18] MEDS: HYDROMORPHONE 2 MG INJ IV ×4 (11:53→12:12)
[2020-10-18] MEDS: OXYCODONE IR 5 MG TABLET PO ×2 (12:07→12:56)
--- NOTE | 2020-10-18 12:09 | SUR.PHASEI ---
Pt arrived to PACU with patent airway, c/o pain to to arm, medicated with dilaudid and oxycodone. Dr. Walton to bedside spoke with pt and showed pt pictures.
--- NOTE | 2020-10-18 12:20 | SUR.PHASEI ---
Report to PAYAL Patel
== END 2020-10-18 13:21 | disposition home or self-care (01) ==
PROVIDERS: PCP Family Medicine; Referring Provider Orthopaedic Surgery; Visit Provider Orthopaedic Surgery
PROC: (CPT 25606; principal; 2020-10-18 10:45)
DX: S52.501A Unspecified fracture of the lower end of right radius, initial encounter for closed fracture (principal); S52.611A Displaced fracture of right ulna styloid process, initial encounter for closed fracture; Y93.72 Activity, wrestling; F17.210 Nicotine dependence, cigarettes, uncomplicated; F32.9 Major depressive disorder, single episode, unspecified
CPT/HCPCS: 25606; J0690; J1100; J1170; J1885; J2250; J2405; J2704; J3010

== ENCOUNTER 2020-11-08 18:41 | Emergency (ER) | payer OTHER, MEDICAID, SELFPAY ==
[2020-11-08 18:43] VITALS: BP 132/84; PULSE 126; RESP 12; TEMP 35.9; O2SAT 96; BMI 23.7
--- NOTE | 2020-11-08 19:51 | ED_ITS ---
HPI - Extremity Injury (Upper) General Chief Complaint: Extremity Injury, Upper Stated Complaint: RIGHT WRIST INJURY Time Seen by Provider: 11/08/20 19:51 Source: patient Mode of arrival: Ambulatory Limitations: no limitations History of Present Illness HPI narrative: Patient is a 30-year-old male who of right wrist on 10/18/2020. He is had sudden onset of intense increased pain today for an unknown reason he had a severe anxiety attack and cut his cast off. He states that he is supposed to have 4 pins that are sticking out of the skin however I only see 1 of them. He denies any fever or chills. He has some numbness between the 1st and 2nd digit. He is also having increased pain he is out of his pain medication. MD complaint: injury to: right Related Data Home Medications Medication Instructions Recorded Confirmed bupropion HCl 200 mg PO BID 10/18/20 11/08/20 ibuprofen 800 mg PO Q8H PRN 10/18/20 11/08/20 [id number] acid 1 tab PO DAILY 10/18/20 11/08/20 [Centrum] quetiapine 100 mg PO BEDTIME 10/18/20 11/08/20 tramadol 50 mg PO TID PRN 10/18/20 11/08/20 Previous Rx's Medication Instructions Recorded hydrocodone-acetaminophen 1 tab PO Q6H PRN #20 tab 10/18/20 clotrimazole 1 % topical cream 1 applic TOPICAL BID 28 Days #30 g 11/08/20 hydrocodone-acetaminophen 1 tab PO Q6H PRN #10 tab 11/08/20 Allergies Allergy/AdvReac Type Severity Reaction Status Date / Time risperidone [From Risperdal] Allergy Verified 11/08/20 18:48 olanzapine AdvReac Severe suicidal Verified 11/08/20 18:48 ideations Review of Systems Review of Systems Narrative: GENERAL: Denies chills,fever HEENT: Denies throat pain RESPIRATORY: Denies dyspnea, cough, wheezing CARDIOVASCULAR: Denies chest pain, palpitations GASTROINTESTINAL: Denies nausea, vomiting MUSCULOSKELETAL: See HPI SKIN: No rash, no laceration, no pruritus NEUROLOGIC: Denies weakness, dizziness, headache, numbness 8 point review of systems is negative except for those stated above and HPI Patient History Medical History ADHD Anxiety Cervical somatic dysfunction Chronic neck and back pain Cranial somatic dysfunction Depression Fractures History of bipolar disorder Migraines Overdose Partial blindness Pelvic somatic dysfunction Personality disorder PTSD (post-traumatic stress disorder) Right shoulder pain Scoliosis Segmental and somatic dysfunction of abdomen and other regions Segmental and somatic dysfunction of lumbar region Segmental and somatic dysfunction of sacral region Segmental and somatic dysfunction of thoracic region Segmental and somatic dysfunction of upper extremity Surgical History Anesthesia History of removal of cyst (~2018) Family History Father Mental health problem Mother Thyroid cancer Breast cancer Social History household members: family Smoking Status: Current every day smoker Smokeless tobacco user: other alcohol intake: current substance use type: does not use and former substance user Smoking Status: Current every day smoker tobacco type: vaping alcohol intake frequency: a few times a week Substance Use Type: does not use Exam Initial Vital Signs Initial Vital Signs: Vital Signs Temperature 96.6 F L 11/08/20 18:43 Pulse Rate 126 H 11/08/20 18:43 Respiratory Rate 12 11/08/20 18:43 Blood Pressure 132/84 11/08/20 18:43 Pulse Oximetry 96 11/08/20 18:43 GENERAL: Well-appearing, well-nourished and in no acute distress. CARDIOVASCULAR: peripheral pulses in tact, cap refill <2 sec RESPIRATORY: No respiratory distress, speaks in full sentences without difficulty EXTREMITIES: Normal range of motion, no clubbing or edema. Neurovascularly intact Right wrist of ulnar pain is visible however the other pins are not as visible however patient moves wrist I can see the tips of the pins. Pin sites are erythematous no significant drainage or streaking. NEUROLOGICAL: Cranial nerves II through XII grossly intact. Normal gait and speech. SKIN: Warm, dry, no petechiae, no rashes or lesions. Course Orders Ordered: ED Orders 11/08/20 20:00 XR wrist RT min 3V Stat Discontinued Medications Hydrocodone Bitart/Acetaminophen (Hydrocodone/Acet 5/325 Tablet) 2 tab PO NOW ONE Stop: 11/08/20 20:02 Last Admin: 11/08/20 20:10 Dose: 2 tab Documented by: JGODFREY Hydrocodone Bitart/Acetaminophen (Hydrocodone/Acet 5/325 Prepack) [facility] Stop: 11/08/20 21:22 Vital Signs Vital signs: Vital Signs - 8 hr 11/08/20 18:43 Temperature 96.6 F L Pulse Rate 126 H Respiratory Rate 12 Blood Pressure 132/84 Pulse Oximetry 96 [facility] - Extremity Injury (Upper) Imaging Data Extremity x-ray #1: Radiologist's Impression: PROCEDURE: XR WRIST RT MIN 3V INDICATIONS: post op abnormal hardware position TECHNIQUE: 3 views of the wrist were acquired. COMPARISON: [facility], CR, XR WRIST RT MIN 3V, 10/10/2020, 15:29. FINDINGS: Open reduction and internal fixation of distal radial metaphyseal fracture with 4 surgical pins. There is improved alignment. Ulnar styloid fracture is noted. Old 5th metacarpal fracture is noted. Soft tissue swelling. IMPRESSION: 1. ORIF of distal radial metaphyseal fracture. 2. Ulnar styloid fracture. 3. Old 5th metacarpal fracture. Dictated by: Hiwot Miller M.D. on 11/08/2020 at 20:36 [facility] Narrative Medical decision making narrative: 8:[address] Ovalle, stated on the patient's symptoms test results has reviewed x-rays. At this times recommends Santos wanting in follow-up in clinic. Patient is given prescription for hydrocodone stating that he will not be getting any more. Discharge Plan Departure Patient Disposition: Home Clinical Impression: Fracture of right wrist Qualifiers: Encounter type: subsequent encounter Fracture healing: with routine healing Instructions: DI for Wrist Fracture Activity Restrictions/Additional Instructions: *You have been diagnosed with right wrist fracture *What to do: Keep splint on at all times, use sling as needed *Continue to take medications as directed--> SENT TO [facility] 1 tablet every 6 hours only if needed for severe pain *Follow up with your primary care provider in 2-3 days *Return to ER if you should have increasing pain, weakness, fever, redness or any new, worsening or concerning symptoms CONTROLLED SUBSTANCE DISCHARGE (Narcotoic/benzodiazepine/Flexeril/Phenergan) 1. You have been prescribed narcotic medications, it does have acetaminophen/Tylenol/paracetamol in it, DO NOT TAKE MORE THAN 4,00mg in 24 hours of Tylenol. TRAMADOL DOES NOT CONTAIN TYLENOL 2. Please understand that we cannot provide further refills of narcotics, benzodiazepines or controlled substances through the ED and her pain management will need to be through your provider. 3. While on these medications you cannot drive or operate heavy machinery. 4. You cannot sign legal documents or perform any duties such as this. 5. As long as you're taking opiate pain medications he should also be taking a stool softener such as Colace, Dulcolax, MiraLAX or prune juice, to help avoid constipation. Prescriptions: New hydrocodone-acetaminophen 5-325 mg tablet 1 tab PO Q6H PRN (Reason: pain) Qty: 10 RF: 0 No Action clotrimazole 1 % cream 1 applic topical BID 28 Days Qty: 30 RF: 1 ibuprofen 800 mg Tablet 800 mg PO Q8H PRN (Reason: Pain (Scale Score 4-6)) RF: 0 Centrum 18-400 mg-mcg Tablet 1 tab PO DAILY RF: 0 tramadol 50 mg tablet 50 mg PO TID PRN (Reason: Moderate Pain (Scale Score 5-6)) RF: 0 quetiapine 100 mg tablet 100 mg PO BEDTIME RF: 0 bupropion HCl 200 mg tablet sustained-release 12 hr 200 mg PO BID RF: 0 hydrocodone-acetaminophen 5-325 mg tablet 1 tab PO Q6H PRN (Reason: pain) Qty: 20 RF: 0 Referrals: Macey Walton MD [Physician] - Min Tinsley DO [Primary Care Provider] -
--- NOTE | 2020-11-08 20:00 | DI.RAD.S_ITS ---
PROCEDURE: XR WRIST RT MIN 3V INDICATIONS: post op abnormal hardware position TECHNIQUE: 3 views of the wrist were acquired. COMPARISON: [facility], CR, XR WRIST RT MIN 3V, 10/10/2020, 15:29. FINDINGS: Open reduction and internal fixation of distal radial metaphyseal fracture with 4 surgical pins. There is improved alignment. Ulnar styloid fracture is noted. Old 5th metacarpal fracture is noted. Soft tissue swelling. IMPRESSION: 1. ORIF of distal radial metaphyseal fracture. 2. Ulnar styloid fracture. 3. Old 5th metacarpal fracture. Dictated by: Hiwot Miller M.D. on 11/08/2020 at 20:36 Approved by: Hiwot Miller M.D. on 11/08/2020 at 20:38
[2020-11-08] MEDS: HYDROCODONE/ACET 5/325 TABLET 2 TAB PO (20:10)
[2020-11-08] MEDS: HYDROCODONE/ACET 5/325 PREPACK 1 BOTTLE MISC (21:27)
[2020-11-08 21:29] VITALS: BP 132/87; PULSE 91; RESP 17; O2SAT 99
== END 2020-11-08 21:31 | disposition home or self-care (01) ==
PROVIDERS: Emergency Provider Emergency Medicine; PCP Family Medicine
DX: S62.101D Fracture of unspecified carpal bone, right wrist, subsequent encounter for fracture with routine healing (principal)
CPT/HCPCS: 29105; 73110; 99283

== ENCOUNTER → 2020-11-12 16:00 | Outpatient (CLI) | payer OTHER, MEDICAID, SELFPAY ==
[2020-11-12 17:47] LABS: Urine N gonorrhoeae NOT DETECTED
[2020-11-12 18:45] LABS: Urine Chlamydia NOT DETECTED
== END ==
PROVIDERS: PCP Family Medicine; Visit Provider Physician Assistant
DX: Z72.51 High risk heterosexual behavior (principal); Z11.3 Encounter for screening for infections with a predominantly sexual mode of transmission
CPT/HCPCS: 87491; 87591

== ENCOUNTER 2020-12-26 11:49 | Emergency (ER) | payer OTHER, MEDICAID, SELFPAY ==
[2020-12-26] VITALS (27 sets, daily range): BP systolic 97–129; BP diastolic 53–79; PULSE 74–133; RESP 12–29; O2SAT 91–99; BMI 22.4
[2020-12-26 12:10] LABS: Add Manual Diff / Slide Review NO; Basophils Absolute Auto 100 /uL (0-100); Basophils Percent Auto 0.7 % (0-2); Eosinophils Absolute Auto 200 /uL (0-450); Eosinophils Percent Auto 1.6 % (2-4); Hematocrit 41.6 % (41-53); Hemoglobin 13.8 g/dL (13.5-17.5); Lymphocytes Absolute Auto 2100 /uL (1100-4500); Lymphocytes Percent Auto 21.4 % (25-40); Mean Corpuscular HGB Conc 33.2 % (30-36); Mean Corpuscular Hemoglobin 31.5 PG (26-34); Mean Corpuscular Volume 94.9 fL (80-100); Monocytes Absolute Auto 900 /uL (0-900); Monocytes Percent Auto 9.6 % (3-14); Neutrophils Absolute Auto 6500 /uL (1500-7000); Neutrophils Percent Auto 66.7 % (50-75); Platelet Count 251 X10^3/uL (150-400); Red Blood Cell Count 4.39 X10^6/uL (4.5-5.9); Red Cell Distribution Width 12.8 % (11.6-14.8); White Blood Cell Count 9.7 X10^3/uL (4.5-11.0)
--- NOTE | 2020-12-26 12:13 | PC.NURSE ---
Patient is sitting in his room. He is calm and compliant at this time.
[2020-12-26] MEDS: METOCLOPRAMIDE 10 MG/2 ML INJ IV (12:15)
[2020-12-26] MEDS: ACTIVATED CHARCOAL/SORBIT 50 GM/240 ML PO (12:16)
[2020-12-26 12:21] LABS: Acetaminophen < 10 ug/mL (10-30); Alanine Aminotransferase 20 IU/L (<50); Albumin 4.6 g/dL (3.5-5.0); Albumin Globulin Ratio 1.5 (1.0-2.8); Alkaline Phosphatase 63 U/L (38-126); Aspartate Aminotransferase 31 IU/L (17-59); BUN Creatinine Ratio 13.1 (6-22); Bilirubin Total 0.7 mg/dL (0.2-1.3); Blood Urea Nitrogen 13 mg/dL (9-20); Calcium 9.2 mg/dL (8.4-10.2); Carbon Dioxide 20 mmol/L (22-32); Chloride 106 mmol/L (98-107); Estimated Glomerular Filt Rate > 60.0 mL/min (>60); Ethanol (ETOH) < 10 mg/dL; Globulin 3.1 g/dL (1.7-4.1); Glucose 121 mg/dL (70-100); HEMOLYSIS 25 (0-50); Potassium 4.1 mmol/L (3.4-5.1); Salicylate < 1.0 mg/dL (<20); Sodium 138 mmol/L (137-145); Total Protein 7.7 g/dL (6.3-8.2)
[2020-12-26] MEDS: SODIUM CHLORIDE 0.9% 1,000 ML 130 ML IV ×2 (12:45→22:17)
--- NOTE | 2020-12-26 12:54 | PC.NURSE ---
episode of increased heart rate and activity sinus tachycardia. pt states i dont feel good, i stopped breathing, im going to tonight. IVF rate changed to bolus infusion, pt on cardiac, nibp, pulse ox monitor. md aware will cont to monitor. resp even unlabored.
[2020-12-26 12:58] LABS: Free T4, Direct Thyroxine 1.05 ng/dL (0.78-2.19)
[2020-12-26 13:12] LABS: Thyroid Stimulating Hormone 1.48 uIU/mL (0.47-4.68)
--- NOTE | 2020-12-26 13:36 | CM.SWNOTE ---
PUBLISHING AGENT Assessment PUBLISHING AGENT - [employer] Sales Representative Assessment PUBLISHING AGENT/[employer] Sales Representative Assessment Time Spent with Patient Start date 12/26/20 Visit Start Time 12:10 End date 12/26/20 Visit End Time 12:30 Total time Care Management spent on 30 patient visit-in minutes Mental Health Screening Include Onset, Duration, Intensity Presenting Problem Patient presents to this ED 15 minutes after taking 20 tablets of his 100 mg Seroquel with intent to kill self, patient brought self to ED endorsing he no longer wanted to harm himself, stating I thought I was being dumb. Precipitating Event(s) Patient endorses ongoing SI Patient Strengths Patient shows some insight Current Behavioral Health Provider(s) Patient denies any current MH Include Facility, Provider, Ph. # provider and reports that his PCP Dr. Min Tinsley (Ph. # [phone]) prescribes his medication. Per medical note from March 2020, patient was going to set up appt with [facility]. Per patient's report he does not have any current providers but would be interested in establishing care. Psych. Hx Mental Health and Chemical Patient has hx of ADHD, Dependency Anxiety, Depression, Bipolar Disorder, overdoses, Borderline Personality Disorder, and PTSD Patient denies current substance use, medical reports show he was a former substance user (LSD). Patient endorses current rx of Wellbutrin 200 mg twice a day, Tremadol 50 mg three times a day and Seroquel 100 mg daily. Family Hx of Behavioral Abuse None reported Psychiatric Hospitalizations (date(s)/ Patient reports hx of 13 location) suicidal attempts and 10 previous hospitalizations. Patient reports he has been hospitalized in [place], [place] and locally in [facility]. PUBLISHING AGENT reviews medical history, patient was admitted for involuntary treatment on at [facility] in [place], [place]. Psychosocial information & Support Patient is a 30 year old male Systems who resides in [place]. Patient does not discuss his support system. PUBLISHING AGENT observes that patient is actively texting on his phone prior to and after meeting with patient . Patient's mother resides in [place]. School/Work Patient reports he works two jobs at the [employer] and at [employer] in the [employer]. Legal Concerns Legal Matters - Outstanding Issues Patient denies legal issues. Mental Status Orientation (Person/Place/Time) A/Ox4 Stated Mood sleepy Affect (Congruent with Mood?) Euthymic, full range, congruent with mood Thought Content - Specify/Describe Patient denies obsessions, Obsessions, Delusions, Hallucinations paranoia, delusions, hallucinations. Patient states I am not in a state of psychosis Thought Processes (Axpsefa-Xkukufmi-Vlak somewhat coherent Mtldpztd-Omijcyra-Aspuhvbqmc- Mrmmzwedwwdhzr-Ducdipb-Yfxcxxxsekfp- Thought Blocking) Speech (Fjzlln-Jelp-Dwfwhpb-Rapid-Soft- slurred, slow and soft Loud-Pressured) Motor (Vyamiu-Irnqejckx-Rucx-Other) slow Insight (Rgup-Tcge-Wkhl/Limited) Fair Judgement (Lhed-Dgrr-Rhpp/Limited) Poor/limited Impulse Control (Adequate-Impaired) Adequate during assessment Memory (Reojjydfm-Vsckvi-Tjoiqz, Adequate during assessment, Impaired-Intact) not formally assessed Concentration (Intact-Impaired) somewhat intact Attention (Intact-Impaired) somewhat intact Behavior (Appropriate-Inappropriate) Appropriate Risk Assessment Suicidal Ideation (Plan) Yes Homicidal Ideation (Plan) No Comment Patient denies HI. Patient endorses ongoing SI and patient has viable scars on left arm from self harm cuts. Patient endorses he last cut himself 4 months ago. Patient endorses SA today and previously this year with ways and means of overdosing on medication. Patient states he has a total of 13 suicide attempts in his life. Patient states his BPD dx and concern for a reaction to Zyprexa have played a role in his SI and SA. Per Randy, patient was seen at [facility] in [place], [place] on with endorsement of SI. Intervention Intervention PUBLISHING AGENT enters room and meets with patient. Patient discusses his recent SA today of taking 20 tablets of his Seroquel with remorse afterwords but endorses his intent to kill self when taking the medication. Patient endorses SA less than a year ago as well (March 2020). Patient endorses ongoing SI and self harm 4 months ago. Patient states he has no current MH provider and that his PCP is his prescriber of his medications and endorses that he would like to have a MH provider. PUBLISHING AGENT discusses that patient will need to stay at this ED until he is medically clear, patient indicates agreement and understanding. PUBLISHING AGENT discusses inpatient behavioral health hospitalization, patient states he is open to voluntary treatment. It is the opinion of this PUBLISHING AGENT that patient is appropriate and will benefit from voluntary inpatient behavioral health hospitalization. PUBLISHING AGENT reviews the above with ED provider Dr. Coelho who indicates agreement and understanding. Plan RA Plan PUBLISHING AGENT to seek voluntary inpatient behavioral health treatment when patient is medically clear LANEY Shea
--- NOTE | 2020-12-26 13:56 | CM.SWNOTE ---
Addendum entered by Teresa Everett 12/26/20 18:16: [facility] intake willing to take a look when medically clear, would like to see stable CK and ETG upon acceptance. It was reported that they will take another look at labs later tonight or tomorrow. [facility] intake reports that clinicals are still being reviewed. LANEY Shea Addendum entered by Teresa Everett 12/26/20 17:00: CONSTRUCTION SAFETY CONSULTANT faxes clinicals to [facility] for review, intake reports they have one bed available. LANEY Shea Addendum entered by Teresa Everett 12/26/20 14:04: After assessment with patient, patient provides consent for CONSTRUCTION SAFETY CONSULTANT to contact PCP Dr. Tinsley with [facility]. CONSTRUCTION SAFETY CONSULTANT leaves informing Dr. Tinsley that patient is present in this ED due to recent SA. LANEY Shea Original Note: CONSTRUCTION SAFETY CONSULTANT note CONSTRUCTION SAFETY CONSULTANT calls [facility] intake, it is reported that they have beds and will review clinicals with understanding that patient will be medically clear around 1800. CONSTRUCTION SAFETY CONSULTANT faxes clinicals. CONSTRUCTION SAFETY CONSULTANT calls [facility] intake, it is reported that they currently have beds and will review clinicals when patient is medically clear. CONSTRUCTION SAFETY CONSULTANT to call back if needed when patient is medically clear. Plan: CONSTRUCTION SAFETY CONSULTANT to continue to seek voluntary inpatient behavioral health hospitalization for patient LANEY Shea
--- NOTE | 2020-12-26 14:05 | ED_ITS ---
HPI - Psych <Lesia Coelho MD - Last Filed: 12/26/20 18:16> General Chief Complaint: Psychiatric Symptoms Stated Complaint: took 20 seroquel about 15 minutes ago Time Seen by Provider: 12/26/20 12:02 Source: patient Mode of arrival: Ambulatory History of Present Illness HPI Narrative: 30-year-old gentleman who took 200 mg (20, 100 mg pills) in attempt to kill himself just prior to arrival. Shortly after taking the pills he changed his mind and came voluntarily to the emergency department. He has had prior suicide attempts. Poison Control was contacted and they recommended a minimum of 6-8 hours of monitoring. Since he is evaluated within an hour of ingestion activated charcoal was also recommended. Patient was amenable to consuming this and not noting any nausea at this time. Poison Control suggests that he could be at risk for neuroleptic malignant syndrome due to the large dose of Seroquel. Related Data Home Medications Medication Instructions Recorded Confirmed bupropion HCl 200 mg PO BID 10/18/20 11/12/20 ibuprofen 800 mg PO Q8H PRN 10/18/20 11/12/20 [id number] acid 1 tab PO DAILY 10/18/20 11/12/20 [Centrum] quetiapine 100 mg PO BEDTIME 10/18/20 11/12/20 tramadol 50 mg PO TID PRN 10/18/20 11/12/20 Previous Rx's Medication Instructions Recorded hydrocodone-acetaminophen 1 tab PO Q6H PRN #20 tab 10/18/20 clotrimazole 1 % topical cream 1 applic TOPICAL BID 28 Days #30 g 11/08/20 hydrocodone-acetaminophen 1 tab PO Q6H PRN #10 tab 11/08/20 Allergies Allergy/AdvReac Type Severity Reaction Status Date / Time risperidone [From Risperdal] Allergy Verified 12/26/20 11:57 olanzapine AdvReac Severe suicidal Verified 12/26/20 11:57 ideations Review of Systems <Lesia Coelho MD - Last Filed: 12/26/20 18:16> Review of Systems ROS Unobtainable: Unobtainable due to mental status/LOC Patient History <Lesia Coelho MD - Last Filed: 12/26/20 18:16> Medical History ADHD Anxiety Cervical somatic dysfunction Chronic neck and back pain Cranial somatic dysfunction Depression Fractures History of bipolar disorder Migraines Overdose Partial blindness Pelvic somatic dysfunction Personality disorder PTSD (post-traumatic stress disorder) Right shoulder pain Routine screening for STI (sexually transmitted infection) Scoliosis Segmental and somatic dysfunction of abdomen and other regions Segmental and somatic dysfunction of lumbar region Segmental and somatic dysfunction of sacral region Segmental and somatic dysfunction of thoracic region Segmental and somatic dysfunction of upper extremity Surgical History Anesthesia History of removal of cyst (~2018) Family History Father Mental health problem Mother Thyroid cancer Breast cancer Social History household members: family Smoking Status: Current every day smoker Smokeless tobacco user: other alcohol intake: current substance use type: does not use and former substance user Smoking Status: Current every day smoker tobacco type: vaping alcohol intake frequency: a few times a week Substance Use Type: does not use Exam <Lesia Coelho MD - Last Filed: 12/26/20 18:16> Narrative Exam Narrative: General: Healthy appearing, 15 minutes after ingestion, in no acute distress. HEENT: Moist mucous membranes, normal sclera with reactive pupils, Respiratory: Lungs are clear to auscultation, no wheezing no rales no rhonchi. Full and symmetrical air movement Cardiac: Regular rate and rhythm no murmurs no bruits Abdomen: Soft, nontender, good bowel tones, no flank pain Skin: Warm and dry, no rashes Neurologic: Grossly neurologically intact with no obvious asymmetries or abnormalities Extremities: No trauma, well perfused Psych: Poor eye contact, unwilling to cooperate with history Initial Vital Signs Initial Vital Signs: Vital Signs Pulse Rate 133 H 12/26/20 11:57 Respiratory Rate 15 12/26/20 11:57 Blood Pressure 128/76 12/26/20 11:57 Pulse Oximetry 98 12/26/20 11:57 <Sarita Blum DO - Last Filed: 12/27/20 01:20> Initial Vital Signs Initial Vital Signs: Vital Signs Pulse Rate 133 H 12/26/20 11:57 Respiratory Rate 15 12/26/20 11:57 Blood Pressure 128/76 12/26/20 11:57 Pulse Oximetry 98 12/26/20 11:57 Course <Lesia Coelho MD - Last Filed: 12/26/20 18:16> Orders Ordered: ED Orders 12/26/20 16:25 Urinalysis and Microscopic Stat Urine Culture Stat Urine Drug Screen, Rapid Stat 12/26/20 18:36 EKG-12 Lead Stat 12/26/20 18:50 Creatine Kinase Stat Sodium Chloride (Normal Saline 0.9%) 1,000 mls @ 130 mls/hr IV CONT DARLEEN Last Admin: 12/26/20 22:17 Dose: 130 mls/hr Documented by: Infusion: 12/26/20 20:27 Dose: 130 mls/hr Documented by: Admin: 12/26/20 12:45 Dose: 130 mls/hr Documented by: JOSEPH Discontinued Medications Charcoal/Sorbitol (Activated Charcoal/Sorbit 50 Gm/240 Ml) 50 gm PO NOW ONE Stop: 12/26/20 12:03 Last Admin: 12/26/20 12:16 Dose: 50 gm Documented by: JOSEPH Metoclopramide HCl (Metoclopramide 10 Mg/2 Ml Inj) 10 mg IV NOW ONE Stop: 12/26/20 12:03 Last Admin: 12/26/20 12:15 Dose: 10 mg Documented by: JOSEPH Vital Signs Vital signs: Vital Signs - 8 hr 12/26/20 17:30 12/26/20 18:00 12/26/20 18:30 Pulse Rate 102 H 100 H 95 H Respiratory Rate 13 14 13 Blood Pressure 118/70 106/68 114/71 Pulse Oximetry 97 91 95 12/26/20 19:00 12/26/20 19:30 12/26/20 20:00 Pulse Rate 91 H 92 H 87 Respiratory Rate 17 13 17 Blood Pressure 119/73 118/69 118/73 Pulse Oximetry 96 96 97 12/26/20 20:30 12/26/20 21:00 12/26/20 21:30 Pulse Rate 87 87 85 Respiratory Rate 22 17 13 Blood Pressure Pulse Oximetry 98 95 97 12/26/20 22:00 12/26/20 22:30 12/26/20 22:51 Pulse Rate 83 81 93 H Respiratory Rate 12 19 Blood Pressure 129/79 Pulse Oximetry 98 99 97 12/26/20 23:00 12/26/20 23:30 12/27/20 00:00 Pulse Rate 74 77 73 Respiratory Rate 15 16 13 Blood Pressure 126/60 114/61 109/58 L Pulse Oximetry 98 98 100 12/27/20 00:30 Pulse Rate 72 Respiratory Rate 13 Blood Pressure 109/58 L Pulse Oximetry 97 <Sarita Blum, - Last Filed: 12/27/20 01:20> Orders Ordered: ED Orders 12/26/20 16:25 Urinalysis and Microscopic Stat Urine Culture Stat Urine Drug Screen, Rapid Stat 12/26/20 18:36 EKG-12 Lead Stat 12/26/20 18:50 Creatine Kinase Stat Sodium Chloride (Normal Saline 0.9%) 1,000 mls @ 130 mls/hr IV CONT DARLEEN Last Admin: 12/26/20 22:17 Dose: 130 mls/hr Documented by: Infusion: 12/26/20 20:27 Dose: 130 mls/hr Documented by: Admin: 12/26/20 12:45 Dose: 130 mls/hr Documented by: JOSEPH Discontinued Medications Charcoal/Sorbitol (Activated Charcoal/Sorbit 50 Gm/240 Ml) 50 gm PO NOW ONE Stop: 12/26/20 12:03 Last Admin: 12/26/20 12:16 Dose: 50 gm Documented by: JOSEPH Metoclopramide HCl (Metoclopramide 10 Mg/2 Ml Inj) 10 mg IV NOW ONE Stop: 12/26/20 12:03 Last Admin: 12/26/20 12:15 Dose: 10 mg Documented by: JOSEPH Vital Signs Vital signs: Vital Signs - 8 hr 12/26/20 17:30 12/26/20 18:00 12/26/20 18:30 Pulse Rate 102 H 100 H 95 H Respiratory Rate 13 14 13 Blood Pressure 118/70 106/68 114/71 Pulse Oximetry 97 91 95 12/26/20 19:00 12/26/20 19:30 12/26/20 20:00 Pulse Rate 91 H 92 H 87 Respiratory Rate 17 13 17 Blood Pressure 119/73 118/69 118/73 Pulse Oximetry 96 96 97 12/26/20 20:30 12/26/20 21:00 12/26/20 21:30 Pulse Rate 87 87 85 Respiratory Rate 22 17 13 Blood Pressure Pulse Oximetry 98 95 97 12/26/20 22:00 12/26/20 22:30 12/26/20 22:51 Pulse Rate 83 81 93 H Respiratory Rate 12 19 Blood Pressure 129/79 Pulse Oximetry 98 99 97 12/26/20 23:00 12/26/20 23:30 12/27/20 00:00 Pulse Rate 74 77 73 Respiratory Rate 15 16 13 Blood Pressure 126/60 114/61 109/58 L Pulse Oximetry 98 98 100 12/27/20 00:30 Pulse Rate 72 Respiratory Rate 13 Blood Pressure 109/58 L Pulse Oximetry 97 MDM - Psych <Lesia Coelho MD - Last Filed: 12/26/20 18:16> Medical Records Attestation: I reviewed the patient's medical records. Lab Data Attestation: I reviewed the patient's lab results. Result diagrams: 12/26/20 12:04 12/26/20 12:04 Labs: Lab Results 12/26/20 12/26/20 12/26/20 Range/Units 12:04 12:04 12:04 WBC 9.7 (4.5-11.0) X10^3/uL RBC 4.39 L (4.5-5.9) X10^6/uL Hgb 13.8 (13.5-17.5) g/dL Hct 41.6 (41-53) % MCV 94.9 (80-100) fL MCH 31.5 (26-34) PG MCHC 33.2 (30-36) % RDW 12.8 (11.6-14.8) % Plt Count 251 (150-400) X10^3/uL Neut % (Auto) 66.7 (50-75) % Lymph % (Auto) 21.4 L (25-40) % [place] % (Auto) 9.6 (3-14) % Eos % (Auto) 1.6 L (2-4) % Baso % (Auto) 0.7 (0-2) % Neut # (Auto) 6500 (7339-1120) /uL Lymph # (Auto) 2100 (0620-0236) /uL [place] # (Auto) 900 (0-900) /uL Eos # (Auto) 200 (0-450) /uL Baso # (Auto) 100 (0-100) /uL Sodium 138 (137-145) mmol/L Potassium 4.1 (3.4-5.1) mmol/L Chloride 106 (98-107) mmol/L Carbon Dioxide 20 L (22-32) mmol/L BUN 13 (9-20) mg/dL Creatinine 0.99 (0.66-1.25) mg/dL Estimated GFR > 60.0 (>60) mL/min BUN/Creatinine Ratio 13.1 (6-22) Glucose 121 H (70-100) mg/dL Calcium 9.2 (8.4-10.2) mg/dL Magnesium (1.6-2.3) mg/dL Total Bilirubin 0.7 (0.2-1.3) mg/dL AST 31 (17-59) IU/L ALT 20 (<50) IU/L Alkaline Phosphatase 63 (38-126) U/L Total Creatine Kinase (55-170) U/L Total Protein 7.7 (6.3-8.2) g/dL Albumin 4.6 (3.5-5.0) g/dL Globulin 3.1 (1.7-4.1) g/dL Albumin/Globulin Ratio 1.5 (1.0-2.8) TSH 1.48 (0.47-4.68) uIU/mL Free T4 1.05 (0.78-2.19) ng/dL Urine Color Urine Appearance Urine pH (4.5-8.0) Ur Specific [place] (1.000-1.035) Urine Protein (Negative) Urine Glucose (UA) (Negative) g/dL Urine Ketones (NEGATIVE) Urine Occult Blood (Negative) Urine Nitrate (Negative) Urine Bilirubin (NEGATIVE) Urine Urobilinogen (0.2) E.U./dL Ur Leukocyte Esterase (NEGATIVE) Urine RBC (0-5/HPF) Urine WBC (0-5/HPF) Urine Bacteria (None) Urine Mucus (Negative) Ur Culture Indicated? Salicylates < 1.0 (<20) mg/dL U Opiates 300ng/mL cut (Negative) Ur Oxycodone Screen (Negative) Urine Methadone Screen (Negative) Acetaminophen < 10 L (10-30) ug/mL Ur Barbiturates Screen (Negative) U Tricyclic Antidepress (Negative) Ur Phencyclidine Scrn (Negative) Ur Amphetamines Screen (Negative) U Methamphetamines Scrn (Negative) Ur MDMA Scrn (Ecstasy) (Negative) U Benzodiazepines Scrn (Negative) Urine Cocaine Screen (Negative) U Marijuana (THC) Screen (Negative) Ethyl Alcohol < 10 ( - 10) mg/dL SARS-CoV-2 (PCR) (Negative) 12/26/20 12/26/20 12/26/20 Range/Units 12:04 12:04 16:01 WBC (4.5-11.0) X10^3/uL RBC (4.5-5.9) X10^6/uL Hgb (13.5-17.5) g/dL Hct (41-53) % MCV (80-100) fL MCH (26-34) PG MCHC (30-36) % RDW (11.6-14.8) % Plt Count (150-400) X10^3/uL Neut % (Auto) (50-75) % Lymph % (Auto) (25-40) % [place] % (Auto) (3-14) % Eos % (Auto) (2-4) % Baso % (Auto) (0-2) % Neut # (Auto) (8913-2621) /uL Lymph # (Auto) (8398-2385) /uL [place] # (Auto) (0-900) /uL Eos # (Auto) (0-450) /uL Baso # (Auto) (0-100) /uL Sodium (137-145) mmol/L Potassium (3.4-5.1) mmol/L Chloride (98-107) mmol/L Carbon Dioxide (22-32) mmol/L BUN (9-20) mg/dL Creatinine (0.66-1.25) mg/dL Estimated GFR (>60) mL/min BUN/Creatinine Ratio (6-22) Glucose (70-100) mg/dL Calcium (8.4-10.2) mg/dL Magnesium 2.1 (1.6-2.3) mg/dL Total Bilirubin (0.2-1.3) mg/dL AST (17-59) IU/L ALT (<50) IU/L Alkaline Phosphatase (38-126) U/L Total Creatine Kinase 297 H (55-170) U/L Total Protein (6.3-8.2) g/dL Albumin (3.5-5.0) g/dL Globulin (1.7-4.1) g/dL Albumin/Globulin Ratio (1.0-2.8) TSH (0.47-4.68) uIU/mL Free T4 (0.78-2.19) ng/dL Urine Color Urine Appearance Urine pH (4.5-8.0) Ur Specific [place] (1.000-1.035) Urine Protein (Negative) Urine Glucose (UA) (Negative) g/dL Urine Ketones (NEGATIVE) Urine Occult Blood (Negative) Urine Nitrate (Negative) Urine Bilirubin (NEGATIVE) Urine Urobilinogen (0.2) E.U./dL Ur Leukocyte Esterase (NEGATIVE) Urine RBC (0-5/HPF) Urine WBC (0-5/HPF) Urine Bacteria (None) Urine Mucus (Negative) Ur Culture Indicated? Salicylates (<20) mg/dL U Opiates 300ng/mL cut (Negative) Ur Oxycodone Screen (Negative) Urine Methadone Screen (Negative) Acetaminophen (10-30) ug/mL Ur Barbiturates Screen (Negative) U Tricyclic Antidepress (Negative) Ur Phencyclidine Scrn (Negative) Ur Amphetamines Screen (Negative) U Methamphetamines Scrn (Negative) Ur MDMA Scrn (Ecstasy) (Negative) U Benzodiazepines Scrn (Negative) Urine Cocaine Screen (Negative) U Marijuana (THC) Screen (Negative) Ethyl Alcohol ( - 10) mg/dL SARS-CoV-2 (PCR) Negative (Negative) 12/26/20 12/26/20 12/26/20 Range/Units 16:25 16:25 18:50 WBC (4.5-11.0) X10^3/uL RBC (4.5-5.9) X10^6/uL Hgb (13.5-17.5) g/dL Hct (41-53) % MCV (80-100) fL MCH (26-34) PG MCHC (30-36) % RDW (11.6-14.8) % Plt Count (150-400) X10^3/uL Neut % (Auto) (50-75) % Lymph % (Auto) (25-40) % [place] % (Auto) (3-14) % Eos % (Auto) (2-4) % Baso % (Auto) (0-2) % Neut # (Auto) (2288-8993) /uL Lymph # (Auto) (0456-9337) /uL [place] # (Auto) (0-900) /uL Eos # (Auto) (0-450) /uL Baso # (Auto) (0-100) /uL Sodium (137-145) mmol/L Potassium (3.4-5.1) mmol/L Chloride (98-107) mmol/L Carbon Dioxide (22-32) mmol/L BUN (9-20) mg/dL Creatinine (0.66-1.25) mg/dL Estimated GFR (>60) mL/min BUN/Creatinine Ratio (6-22) Glucose (70-100) mg/dL Calcium (8.4-10.2) mg/dL Magnesium (1.6-2.3) mg/dL Total Bilirubin (0.2-1.3) mg/dL AST (17-59) IU/L ALT (<50) IU/L Alkaline Phosphatase (38-126) U/L Total Creatine Kinase 201 H (55-170) U/L Total Protein (6.3-8.2) g/dL Albumin (3.5-5.0) g/dL Globulin (1.7-4.1) g/dL Albumin/Globulin Ratio (1.0-2.8) TSH (0.47-4.68) uIU/mL Free T4 (0.78-2.19) ng/dL Urine Color Yellow Urine Appearance Clear Urine pH 6.5 (4.5-8.0) Ur Specific [place] >=1.030 H (1.000-1.035) Urine Protein 1+ H (Negative) Urine Glucose (UA) Negative (Negative) g/dL Urine Ketones Negative (NEGATIVE) Urine Occult Blood Negative (Negative) Urine Nitrate Negative (Negative) Urine Bilirubin Negative (NEGATIVE) Urine Urobilinogen 0.2 (0.2) E.U./dL Ur Leukocyte Esterase Trace H (NEGATIVE) Urine RBC None seen (0-5/HPF) Urine WBC 5-10/hpf H (0-5/HPF) Urine Bacteria None seen (None) Urine Mucus 3+ H (Negative) Ur Culture Indicated? Specimen cultured Salicylates (<20) mg/dL U Opiates 300ng/mL cut Negative (Negative) Ur Oxycodone Screen Negative (Negative) Urine Methadone Screen Negative (Negative) Acetaminophen (10-30) ug/mL Ur Barbiturates Screen Negative (Negative) U Tricyclic Antidepress Positive H (Negative) Ur Phencyclidine Scrn Negative (Negative) Ur Amphetamines Screen Negative (Negative) U Methamphetamines Scrn Negative (Negative) Ur MDMA Scrn (Ecstasy) Negative (Negative) U Benzodiazepines Scrn Negative (Negative) Urine Cocaine Screen Negative (Negative) U Marijuana (THC) Screen Negative (Negative) Ethyl Alcohol ( - 10) mg/dL SARS-CoV-2 (PCR) (Negative) MDM Narrative Medical decision making narrative: 30-year-old gentleman with a history of depression and suicide attempts as well as personality disorder presents within minutes of taking 2 g of Seroquel in a suicide attempt. In consultation with poison Control charcoal was administered. He actually tolerated this well. Did not want to interact or answer many questions on initial evaluation and within 30-45 minutes was sleeping soundly. Throughout his 6 hours of observation he has continued to sleep soundly. Labs are unremarkable. personal care worker has found to facilities that may be willing to consider him for inpatient care. Prior to falling completely asleep he did indicate that he would be willing to voluntarily cooperate with inpatient care and he did voluntarily present to the emergency department shortly after his ingestion He is medically cleared after 6 hours. Still quite sedated. Care is turned over to Dr. Blum <Sarita Blum, DO - Last Filed: 12/27/20 01:20> Lab Data Labs: Lab Results 12/26/20 12/26/20 12/26/20 Range/Units 12:04 12:04 12:04 WBC 9.7 (4.5-11.0) X10^3/uL RBC 4.39 L (4.5-5.9) X10^6/uL Hgb 13.8 (13.5-17.5) g/dL Hct 41.6 (41-53) % MCV 94.9 (80-100) fL MCH 31.5 (26-34) PG MCHC 33.2 (30-36) % RDW 12.8 (11.6-14.8) % Plt Count 251 (150-400) X10^3/uL Neut % (Auto) 66.7 (50-75) % Lymph % (Auto) 21.4 L (25-40) % [place] % (Auto) 9.6 (3-14) % Eos % (Auto) 1.6 L (2-4) % Baso % (Auto) 0.7 (0-2) % Neut # (Auto) 6500 (1108-1231) /uL Lymph # (Auto) 2100 (4016-3392) /uL [place] # (Auto) 900 (0-900) /uL Eos # (Auto) 200 (0-450) /uL Baso # (Auto) 100 (0-100) /uL Sodium 138 (137-145) mmol/L Potassium 4.1 (3.4-5.1) mmol/L Chloride 106 (98-107) mmol/L Carbon Dioxide 20 L (22-32) mmol/L BUN 13 (9-20) mg/dL Creatinine 0.99 (0.66-1.25) mg/dL Estimated GFR > 60.0 (>60) mL/min BUN/Creatinine Ratio 13.1 (6-22) Glucose 121 H (70-100) mg/dL Calcium 9.2 (8.4-10.2) mg/dL Magnesium (1.6-2.3) mg/dL Total Bilirubin 0.7 (0.2-1.3) mg/dL AST 31 (17-59) IU/L ALT 20 (<50) IU/L Alkaline Phosphatase 63 (38-126) U/L Total Creatine Kinase (55-170) U/L Total Protein 7.7 (6.3-8.2) g/dL Albumin 4.6 (3.5-5.0) g/dL Globulin 3.1 (1.7-4.1) g/dL Albumin/Globulin Ratio 1.5 (1.0-2.8) TSH 1.48 (0.47-4.68) uIU/mL Free T4 1.05 (0.78-2.19) ng/dL Urine Color Urine Appearance Urine pH (4.5-8.0) Ur Specific [place] (1.000-1.035) Urine Protein (Negative) Urine Glucose (UA) (Negative) g/dL Urine Ketones (NEGATIVE) Urine Occult Blood (Negative) Urine Nitrate (Negative) Urine Bilirubin (NEGATIVE) Urine Urobilinogen (0.2) E.U./dL Ur Leukocyte Esterase (NEGATIVE) Urine RBC (0-5/HPF) Urine WBC (0-5/HPF) Urine Bacteria (None) Urine Mucus (Negative) Ur Culture Indicated? Salicylates < 1.0 (<20) mg/dL U Opiates 300ng/mL cut (Negative) Ur Oxycodone Screen (Negative) Urine Methadone Screen (Negative) Acetaminophen < 10 L (10-30) ug/mL Ur Barbiturates Screen (Negative) U Tricyclic Antidepress (Negative) Ur Phencyclidine Scrn (Negative) Ur Amphetamines Screen (Negative) U Methamphetamines Scrn (Negative) Ur MDMA Scrn (Ecstasy) (Negative) U Benzodiazepines Scrn (Negative) Urine Cocaine Screen (Negative) U Marijuana (THC) Screen (Negative) Ethyl Alcohol < 10 ( - 10) mg/dL SARS-CoV-2 (PCR) (Negative) 12/26/20 12/26/20 12/26/20 Range/Units 12:04 12:04 16:01 WBC (4.5-11.0) X10^3/uL RBC (4.5-5.9) X10^6/uL Hgb (13.5-17.5) g/dL Hct (41-53) % MCV (80-100) fL MCH (26-34) PG MCHC (30-36) % RDW (11.6-14.8) % Plt Count (150-400) X10^3/uL Neut % (Auto) (50-75) % Lymph % (Auto) (25-40) % [place] % (Auto) (3-14) % Eos % (Auto) (2-4) % Baso % (Auto) (0-2) % Neut # (Auto) (9533-0962) /uL Lymph # (Auto) (7272-4844) /uL [place] # (Auto) (0-900) /uL Eos # (Auto) (0-450) /uL Baso # (Auto) (0-100) /uL Sodium (137-145) mmol/L Potassium (3.4-5.1) mmol/L Chloride (98-107) mmol/L Carbon Dioxide (22-32) mmol/L BUN (9-20) mg/dL Creatinine (0.66-1.25) mg/dL Estimated GFR (>60) mL/min BUN/Creatinine Ratio (6-22) Glucose (70-100) mg/dL Calcium (8.4-10.2) mg/dL Magnesium 2.1 (1.6-2.3) mg/dL Total Bilirubin (0.2-1.3) mg/dL AST (17-59) IU/L ALT (<50) IU/L Alkaline Phosphatase (38-126) U/L Total Creatine Kinase 297 H (55-170) U/L Total Protein (6.3-8.2) g/dL Albumin (3.5-5.0) g/dL Globulin (1.7-4.1) g/dL Albumin/Globulin Ratio (1.0-2.8) TSH (0.47-4.68) uIU/mL Free T4 (0.78-2.19) ng/dL Urine Color Urine Appearance Urine pH (4.5-8.0) Ur Specific [place] (1.000-1.035) Urine Protein (Negative) Urine Glucose (UA) (Negative) g/dL Urine Ketones (NEGATIVE) Urine Occult Blood (Negative) Urine Nitrate (Negative) Urine Bilirubin (NEGATIVE) Urine Urobilinogen (0.2) E.U./dL Ur Leukocyte Esterase (NEGATIVE) Urine RBC (0-5/HPF) Urine WBC (0-5/HPF) Urine Bacteria (None) Urine Mucus (Negative) Ur Culture Indicated? Salicylates (<20) mg/dL U Opiates 300ng/mL cut (Negative) Ur Oxycodone Screen (Negative) Urine Methadone Screen (Negative) Acetaminophen (10-30) ug/mL Ur Barbiturates Screen (Negative) U Tricyclic Antidepress (Negative) Ur Phencyclidine Scrn (Negative) Ur Amphetamines Screen (Negative) U Methamphetamines Scrn (Negative) Ur MDMA Scrn (Ecstasy) (Negative) U Benzodiazepines Scrn (Negative) Urine Cocaine Screen (Negative) U Marijuana (THC) Screen (Negative) Ethyl Alcohol ( - 10) mg/dL SARS-CoV-2 (PCR) Negative (Negative) 12/26/20 12/26/20 12/26/20 Range/Units 16:25 16:25 18:50 WBC (4.5-11.0) X10^3/uL RBC (4.5-5.9) X10^6/uL Hgb (13.5-17.5) g/dL Hct (41-53) % MCV (80-100) fL MCH (26-34) PG MCHC (30-36) % RDW (11.6-14.8) % Plt Count (150-400) X10^3/uL Neut % (Auto) (50-75) % Lymph % (Auto) (25-40) % [place] % (Auto) (3-14) % Eos % (Auto) (2-4) % Baso % (Auto) (0-2) % Neut # (Auto) (8450-6410) /uL Lymph # (Auto) (6811-6433) /uL [place] # (Auto) (0-900) /uL Eos # (Auto) (0-450) /uL Baso # (Auto) (0-100) /uL Sodium (137-145) mmol/L Potassium (3.4-5.1) mmol/L Chloride (98-107) mmol/L Carbon Dioxide (22-32) mmol/L BUN (9-20) mg/dL Creatinine (0.66-1.25) mg/dL Estimated GFR (>60) mL/min BUN/Creatinine Ratio (6-22) Glucose (70-100) mg/dL Calcium (8.4-10.2) mg/dL Magnesium (1.6-2.3) mg/dL Total Bilirubin (0.2-1.3) mg/dL AST (17-59) IU/L ALT (<50) IU/L Alkaline Phosphatase (38-126) U/L Total Creatine Kinase 201 H (55-170) U/L Total Protein (6.3-8.2) g/dL Albumin (3.5-5.0) g/dL Globulin (1.7-4.1) g/dL Albumin/Globulin Ratio (1.0-2.8) TSH (0.47-4.68) uIU/mL Free T4 (0.78-2.19) ng/dL Urine Color Yellow Urine Appearance Clear Urine pH 6.5 (4.5-8.0) Ur Specific [place] >=1.030 H (1.000-1.035) Urine Protein 1+ H (Negative) Urine Glucose (UA) Negative (Negative) g/dL Urine Ketones Negative (NEGATIVE) Urine Occult Blood Negative (Negative) Urine Nitrate Negative (Negative) Urine Bilirubin Negative (NEGATIVE) Urine Urobilinogen 0.2 (0.2) E.U./dL Ur Leukocyte Esterase Trace H (NEGATIVE) Urine RBC None seen (0-5/HPF) Urine WBC 5-10/hpf H (0-5/HPF) Urine Bacteria None seen (None) Urine Mucus 3+ H (Negative) Ur Culture Indicated? Specimen cultured Salicylates (<20) mg/dL U Opiates 300ng/mL cut Negative (Negative) Ur Oxycodone Screen Negative (Negative) Urine Methadone Screen Negative (Negative) Acetaminophen (10-30) ug/mL Ur Barbiturates Screen Negative (Negative) U Tricyclic Antidepress Positive H (Negative) Ur Phencyclidine Scrn Negative (Negative) Ur Amphetamines Screen Negative (Negative) U Methamphetamines Scrn Negative (Negative) Ur MDMA Scrn (Ecstasy) Negative (Negative) U Benzodiazepines Scrn Negative (Negative) Urine Cocaine Screen Negative (Negative) U Marijuana (THC) Screen Negative (Negative) Ethyl Alcohol ( - 10) mg/dL SARS-CoV-2 (PCR) (Negative) ECG Data Attestation: I personally reviewed and interpreted this ECG as follows: Prior ECG tracings: available for review Interpretation: Normal sinus rhythm rate 133 p.r. interval 118 QRS 80 QTC 464 his sinus tachycardia no ST changes EKG 2. Normal sinus rhythm rate 96 QRS [address] changes MDM Narrative Medical decision making narrative: Patient signed out to me by Dr. England. He has been monitored in the emergency department for over 6 hours and is currently medically cleared. His CPK of 297 is not clinically significant and his QTC is not elongated. I have seen evaluated patient myself. He remains sleepy but easily arousable. Not able to tell me much of what happened but is willing to be hospitalized. His social Work has been in to see and evaluate patient. He has been accepted at [facility]. Patient's prior QTC is 415, at this time none are greater than 500 and considered clinically significant. Discharge Plan Departure Patient Disposition: Xfer [facility] Clinical Impression: Suicide attempt Referrals: Min Tinsley DO [Primary Care Provider] -
[2020-12-26 16:25] LABS: COVID19 -Nasal RAPID Negative (Negative)
[2020-12-26 16:33] LABS: Bacteria Urine None Seen; RBC Urine None Seen (0-5/HPF)
[2020-12-26 16:37] LABS: Appearance Urine UA CLEAR; Bilirubin Urine UA NEGATIVE (NEGATIVE); Color Urine UA YELLOW; Glucose Urine UA NEGATIVE (Negative); Ketones Urine UA NEGATIVE (NEGATIVE); Leukocyte Esterase Urine UA TRACE (NEGATIVE); Nitrite Urine UA NEGATIVE (Negative); Occult Blood Urine UA NEGATIVE (Negative); Protein Urine UA 1+ (Negative); Specific Gravity Urine UA >=1.030 (1.000-1.035); Urobilinogen Urine UA 0.2 E.U./dL (0.2); pH Urine UA 6.5 (4.5-8.0)
[2020-12-26 16:41] LABS: UR Morphine/Opiate cutoff 300 Negative (Negative); Ur Creatinine Normal (Normal); Ur Specific Gravity Normal (Normal); Urine Amphetamines Negative (Negative); Urine Barbiturates Negative (Negative); Urine Benzodiazepines Negative (Negative); Urine Cocaine Negative (Negative); Urine MDMA Negative (Negative); Urine Methadone Negative (Negative); Urine Methamphetamines Negative (Negative); Urine Oxycodone Negative (Negative); Urine Phencyclidine Negative (Negative); Urine Tetrahydrocannabinol Negative (Negative); Urine Tricyclic Antidepressant Positive (Negative); Urine pH Normal (Normal)
--- NOTE | 2020-12-26 16:41 | PC.NURSE ---
Pt awakens to voice and light touch on shoulder. Pt able to independently use urinal for sample needed. Denies pain. Reports still feels drowsy. Warm blanket provided.
[2020-12-26 16:49] LABS: Culture Indicated Urine Specimen Cultured; Mucus Urine 3+ (Negative); WBC Urine 5-10/HPF (0-5/HPF)
[2020-12-26 17:20] LABS: Creatine Kinase 297 U/L (55-170)
[2020-12-26 17:21] LABS: Magnesium 2.1 mg/dL (1.6-2.3)
[2020-12-26 19:22] LABS: Creatine Kinase 201 U/L (55-170)
--- NOTE | 2020-12-26 20:31 | PC.NURSE ---
Pt awake, stands at bedside to use urinal. Snack offered and pt states I'm thirsty too. Water also provided. Given warm blanket.
--- NOTE | 2020-12-26 20:31 | PC.NURSE ---
At 20:30 patient stated he needed to use the restroom. After using the urinal he stated he needed to wash his hands, At 20:35 patient eating string cheese and drinking glass of water.
--- NOTE | 2020-12-26 21:15 | PC.NURSE ---
pt. changed into paper scrubs, personal belongings gathered and lock away including a vape. Pt. is calm and laying in bed comfortably, oral fluids offered. Pt. safety monitoring continued.
--- NOTE | 2020-12-26 22:00 | PC.NURSE ---
Pt. up to the bathroom with steady gait. back to bed and continues to sleep.
--- NOTE | 2020-12-26 22:46 | PC.NURSE ---
snacks provided, pt. is calm.
[2020-12-27] VITALS: BP 109/58; PULSE 73; RESP 13; O2SAT 100
[2020-12-27 00:30] VITALS: BP 109/58; PULSE 72; RESP 13; O2SAT 97
[2020-12-27 01:00] VITALS: BP 101/58; PULSE 69; RESP 14; O2SAT 97
--- NOTE | 2020-12-27 01:25 | PC.NURSE ---
Pt picked up by transport. Cooperative with care and ambulated to stretcher.
== END 2020-12-27 01:27 ==
PROVIDERS: Emergency Medicine; Emergency Provider Emergency Medicine; PCP Family Medicine
DX: T43.592A Poisoning by other antipsychotics and neuroleptics, intentional self-harm, initial encounter (principal); Z20.822 Contact with and (suspected) exposure to COVID-19; R00.0 Tachycardia, unspecified
CPT/HCPCS: 36415; 80053; 80305; 80320; 80329; 81001; 82550; 83735; 84439; 84443; 85025; 87086; 87635; 93005; 93010; 96361; 96374; 99285; C9803; G0480; J2765

== ENCOUNTER 2021-01-24 17:32 | Emergency (ER) | payer OTHER, MEDICAID, SELFPAY ==
[2021-01-24] VITALS (62 sets, daily range): BP systolic 69–135; BP diastolic 34–75; PULSE 57–126; RESP 11–30; TEMP 36.4; O2SAT 84–100
[2021-01-24] MEDS: SODIUM CHLORIDE 0.9% 1,000 ML 1000 ML IV ×2 (17:50→19:16)
[2021-01-24 17:53] LABS: Add Manual Diff / Slide Review NO; Basophils Absolute Auto 100 /uL (0-100); Eosinophils Absolute Auto 200 /uL (0-450); Eosinophils Percent Auto 2.6 % (2-4); Hematocrit 40.5 % (41-53); Hemoglobin 13.7 g/dL (13.5-17.5); Lymphocytes Absolute Auto 3100 /uL (1100-4500); Mean Corpuscular HGB Conc 33.8 % (30-36); Mean Corpuscular Hemoglobin 31.5 PG (26-34); Mean Corpuscular Volume 93.3 fL (80-100); Monocytes Absolute Auto 900 /uL (0-900); Monocytes Percent Auto 10.6 % (3-14); Neutrophils Absolute Auto 4300 /uL (1500-7000); Neutrophils Percent Auto 49.8 % (50-75); Platelet Count 265 X10^3/uL (150-400); Red Blood Cell Count 4.34 X10^6/uL (4.5-5.9); Red Cell Distribution Width 12.6 % (11.6-14.8); White Blood Cell Count 8.6 X10^3/uL (4.5-11.0)
[2021-01-24 17:55] LABS: Bacteria Urine None Seen
[2021-01-24 17:57] LABS: Appearance Urine UA CLEAR; Bilirubin Urine UA NEGATIVE (NEGATIVE); Color Urine UA YELLOW; Glucose Urine UA NEGATIVE (Negative); Ketones Urine UA NEGATIVE (NEGATIVE); Leukocyte Esterase Urine UA NEGATIVE (NEGATIVE); Nitrite Urine UA NEGATIVE (Negative); Occult Blood Urine UA NEGATIVE (Negative); Protein Urine UA NEGATIVE (Negative); Specific Gravity Urine UA 1.015 (1.000-1.035); Urobilinogen Urine UA 0.2 E.U./dL (0.2)
[2021-01-24 18:01] LABS: UR Morphine/Opiate cutoff 300 Positive (Negative); Ur Creatinine Normal (Normal); Ur Specific Gravity Normal (Normal); Urine Amphetamines Negative (Negative); Urine Barbiturates Negative (Negative); Urine Benzodiazepines Negative (Negative); Urine Cocaine Negative (Negative); Urine MDMA Negative (Negative); Urine Methadone Negative (Negative); Urine Methamphetamines Negative (Negative); Urine Oxycodone Negative (Negative); Urine Phencyclidine Negative (Negative); Urine Tetrahydrocannabinol Negative (Negative); Urine Tricyclic Antidepressant Negative (Negative); Urine pH Normal (Normal)
[2021-01-24 18:09] LABS: Acetaminophen < 10 ug/mL (10-30); Alanine Aminotransferase 17 IU/L (<50); Albumin 4.5 g/dL (3.5-5.0); Albumin Globulin Ratio 1.6 (1.0-2.8); Alkaline Phosphatase 55 U/L (38-126); Aspartate Aminotransferase 28 IU/L (17-59); Bilirubin Total 0.3 mg/dL (0.2-1.3); Blood Urea Nitrogen 12 mg/dL (9-20); Calcium 8.9 mg/dL (8.4-10.2); Carbon Dioxide 25 mmol/L (22-32); Chloride 103 mmol/L (98-107); Estimated Glomerular Filt Rate > 60.0 mL/min (>60); Ethanol (ETOH) 99 mg/dL; Globulin 2.8 g/dL (1.7-4.1); Glucose 93 mg/dL (70-100); HEMOLYSIS < 15 (0-50); Salicylate < 1.0 mg/dL (<20); Sodium 139 mmol/L (137-145); Total Protein 7.3 g/dL (6.3-8.2)
[2021-01-24 18:13] LABS: Culture Indicated Urine Cult Not Indicated; Mucus Urine 1+ (Negative); RBC Urine 0-1/HPF (0-5/HPF); Squamous Epithelial Cell Urine 0-1 /HPF (0-5/HPF); Transitional Epi Cells Urine 0-1/HPF (0-5/HPF); WBC Urine 0-1/HPF (0-5/HPF)
[2021-01-24 18:16] LABS: Lithium < 0.2 mmol/L (0.6-1.2)
[2021-01-24] MEDS: SODIUM CHLORIDE 0.9% 1,000 ML 125 ML IV (18:32)
[2021-01-24 18:35] LABS: Free T4, Direct Thyroxine 1.03 ng/dL (0.78-2.19)
[2021-01-24 18:49] LABS: Thyroid Stimulating Hormone 1.26 uIU/mL (0.47-4.68)
[2021-01-24 18:50] LABS: COVID19 - ADMIT (NP swab/PCR) Negative (Negative)
--- NOTE | 2021-01-24 19:59 | ED_ITS ---
HPI - Overdose <Lesia Coelho MD - Last Filed: 01/26/21 04:24> General Chief Complaint: Unresponsive Stated Complaint: BIPOLAR DISORDER Time Seen by Provider: 01/24/21 17:45 Source: family Mode of arrival: Family Vehicle History of Present Illness HPI Narrative: Gentleman with bipolar type 1 disorder, a history of cutting, multiple prior suicide attempts most recent exactly 1 month ago with Seroquel, presents after another suicide attempt. Mother he was gone all of last night and when he got home this morning he took a handful of pills including Seroquel, Klonopin possibly fluoxetine and Wellbutrin and has been drinking alcohol as well. He has some significant cuts self-induced on his left thigh. Mom was able to get him in to the car but he was unarousable upon arrival in the emergency department. He was protecting his airway and poison Control was contacted. Labs were drawn, fluids were started and initially he was observed. With combination medications described an unknown doses their recommendation was propofol for sedation due to his risk of seizure consider bicarb and magnesium sulfate. Risk for increasing sedation, respiratory rest seizure as well as agitation. Related Data Home Medications Medication Instructions Recorded Confirmed multivitamin-ferrous 1 tab PO DAILY 10/18/20 01/24/21 fumarate-folic acid 18 mg-400 mcg tablet (Centrum) omega-3 fatty acids 1,000 mg 1,000 mg PO DAILY 01/03/21 01/24/21 capsule (Fish Oil Concentrate) vitamin E 200 unit capsule 200 unit PO DAILY 01/03/21 01/24/21 clonazepam 1 mg tablet 1 mg PO TID 01/24/21 01/24/21 Previous Rx's Medication Instructions Recorded bupropion HCl 200 mg tablet,12 hr 200 mg PO BID #60 ea 01/23/21 sustained-release cholecalciferol (vitamin D3) 1,250 1,250 mcg PO QWEEK #8 cap 01/23/21 mcg (50,000 unit) capsule fluoxetine 40 mg capsule 40 mg PO DAILY #90 cap 01/23/21 quetiapine 100 mg tablet 100 mg PO BEDTIME #90 tab 01/23/21 Allergies Allergy/AdvReac Type Severity Reaction Status Date / Time risperidone [From Risperdal] Allergy Verified 01/23/21 14:44 olanzapine AdvReac Severe suicidal Verified 01/23/21 14:44 ideations Review of Systems <Lesia Coelho MD - Last Filed: 01/26/21 04:24> Review of Systems ROS Unobtainable: Unobtainable due to mental status/LOC Patient History <Lesia Coelho MD - Last Filed: 01/26/21 04:24> Medical History ADHD Anxiety Cervical somatic dysfunction Chronic neck and back pain Cranial somatic dysfunction Depression Fractures History of bipolar disorder Migraines Overdose Partial blindness Pelvic somatic dysfunction Personality disorder PTSD (post-traumatic stress disorder) Right shoulder pain Routine screening for STI (sexually transmitted infection) Scoliosis Segmental and somatic dysfunction of abdomen and other regions Segmental and somatic dysfunction of lumbar region Segmental and somatic dysfunction of sacral region Segmental and somatic dysfunction of thoracic region Segmental and somatic dysfunction of upper extremity Surgical History Anesthesia History of removal of cyst (~2018) Family History Father Mental health problem Mother Thyroid cancer Breast cancer Social History household members: family Smoking Status: Current every day smoker Smokeless tobacco user: other alcohol intake: current substance use type: does not use and former substance user Smoking Status: Current every day smoker tobacco type: vaping alcohol intake frequency: a few times a week Substance Use Type: does not use Exam <Lesia Coelho MD - Last Filed: 01/26/21 04:24> Narrative Exam Narrative: General: Obtunded but maintaining airway HEENT: Moist mucous membranes, normal sclera with minimally reactive pupils 2-3 mm. Small cut to the right lower lip Neck: No JVD, supple Respiratory: Lungs are clear to auscultation, no wheezing no rales no rhonchi. Full and symmetrical air movement Cardiac: Regular rate and rhythm no murmurs no bruits Abdomen: Soft, nontender, good bowel tones, no flank pain Skin: Pale but otherwise Warm and dry, sq section to the left anterior thigh approximately 10 x 10 cm with multiple lacerations self-induced in that area total of 12 cm of linear wound deep enough to require repair, multiple more superficial wounds Neurologic: Responding to pain and moving all extremities, GCS equal 7 Extremities: Self induce wounds to the left thigh otherwise well perfused Psych: obtunded Initial Vital Signs Initial Vital Signs: Vital Signs Temperature 97.5 F L 01/24/21 17:42 Pulse Rate 87 01/24/21 17:42 Respiratory Rate 29 H 01/24/21 17:42 Blood Pressure 113/69 01/24/21 17:42 Pulse Oximetry 99 01/24/21 17:42 <Avery Brand DO - Last Filed: 01/25/21 10:37> Initial Vital Signs Initial Vital Signs: Vital Signs Temperature 97.5 F L 01/24/21 17:42 Pulse Rate 87 01/24/21 17:42 Respiratory Rate 29 H 01/24/21 17:42 Blood Pressure 113/69 01/24/21 17:42 Pulse Oximetry 99 01/24/21 17:42 Procedures <Lesia Coelho MD - Last Filed: 01/26/21 04:24> Central Line Placement Right IJ: Time of procedure: 04:45 Time Out Performed: Yes Patient Placed on Monitor/Pulse Ox: Yes MD Prep: mask, gown and gloves Central Line Prep: Chlorhexidine scrub and sterile drapes applied Ultrasound Used for Placement: Yes Central Line Lumen Inserted: triple Post Procedure: good blood return, all ports aspirated, flushed, capped and sterile dressing applied Post Procedure X-Ray: tip of catheter in good position and no pneumothorax seen Patient Tolerated Procedure: Well Intubation Time of Intubation: 20:42 Time out performed: Yes sedative: Etomidate (20mg) paralytic: Succinylcholine (100mg) Assist Device Used: fiber optic device ET Tube Size: 8 (cuffed) Tube Secured Depth (cm): 25 Tube Secured Location: teeth Tube Placement Confirmation: Visualized tube passing through cords, Equal breath sounds bilaterally, No breath sounds over epigastrium, Confirmation by capnometry and Chest Xray Patient Tolerated Procedure: Well Laceration Repair left thigh: Time of procedure: 02:40 Site: lower extremity Side (If applicable): left Size (cm): 12 (total of all wounds repaired) Description: linear (multiple, self induced) Depth: simple, single layer Pre-repair: wound explored, irrigated extensively and deep structures intact Skin layer closed with: nylon Size (cm): 3-0 Number of sutures: 7 Technique: simple, interrupted Course <Lesia Coelho MD - Last Filed: 01/26/21 04:24> Course Course Narrative: increasing hypotention after 2 L of fluid. Levophed started. Increasing sedation in the ER and no longer protecting his airway, intubated no beds avialable at [facility] no beds available at [facility] [place] remains intubated, 15mcg levophed with relative bradycardia in upper 40's, BP 114/51 (map 87) Orders Ordered: Discontinued Medications Bacitracin (Bacitracin Oint 0.9 Gm Pckt) 5 applic TOP NOW ONE Stop: 01/24/21 20:22 Last Admin: 01/25/21 02:24 Dose: 5 applic Documented by: BIENVENIDO Etomidate (Etomidate 2 Mg/Ml 10 Ml Vial) 20 mg IV NOW ONE Stop: 01/24/21 20:17 Last Admin: 01/24/21 20:36 Dose: 20 mg Documented by: MARIA C Fentanyl (Fentanyl 100 Mcg/2 Ml Inj) 50 mcg IV Q1HR PRN PRN Reason: Pain, Severe (7-10) Last Admin: 01/24/21 22:39 Dose: 50 mcg Documented by: MARIA C Admin: 01/24/21 20:55 Dose: 50 mcg Documented by: CELESTINAYLJAS Fentanyl (Fentanyl 100 Mcg/2 Ml Inj) 75 mcg 1 mcg/kg (75 mcg) NASAL NOW ONE Stop: 01/25/21 01:45 Last Admin: 01/25/21 02:27 Dose: Not Given Documented by: BIENVENIDO Sodium Chloride (Normal Saline 0.9%) 1,000 mls @ 1,000 mls/hr IV BOLUS ONE Stop: 01/24/21 18:41 Last Infusion: 01/24/21 18:32 Dose: 0 mls/hr Documented by: MARIA C Admin: 01/24/21 17:50 Dose: 1,000 mls/hr Documented by: MARIA C Sodium Chloride (Normal Saline 0.9%) 1,000 mls @ 125 mls/hr IV CONT DARLEEN Last Infusion: 01/25/21 10:55 Dose: 0 mls/hr Documented by: Admin: 01/25/21 09:49 Dose: 125 mls/hr Documented by: Infusion: 01/25/21 09:48 Dose: 0 mls/hr Documented by: Admin: 01/25/21 02:25 Dose: 125 mls/hr Documented by: Infusion: 01/25/21 02:22 Dose: 0 mls/hr Documented by: Admin: 01/24/21 18:32 Dose: 125 mls/hr Documented by: MARIA C Sodium Chloride (Normal Saline 0.9%) 1,000 mls @ 1,000 mls/hr IV BOLUS ONE Stop: 01/24/21 20:11 Last Infusion: 01/24/21 20:28 Dose: 0 mls/hr Documented by: Admin: 01/24/21 19:16 Dose: 1,000 mls/hr Documented by: FABIO Norepinephrine Bitartrate 4 mg (/ Dextrose) 254 mls @ 30.48 mls/hr IV TITRATE DARLEEN; Protocol Last Titration: 01/25/21 10:57 Dose: 0 mcg/min, 0 mls/hr Documented by: Titration: 01/25/21 09:33 Dose: 0 mcg/min, 0 mls/hr Documented by: Titration: 01/25/21 08:51 Dose: 1 mcg/min, 3.81 mls/hr Documented by: Titration: 01/25/21 08:19 Dose: 2 mcg/min, 7.62 mls/hr Documented by: Titration: 01/24/21 23:06 Dose: 4 mcg/min, 15.24 mls/hr Documented by: Titration: 01/24/21 22:41 Dose: 5 mcg/min, 19.05 mls/hr Documented by: Titration: 01/24/21 22:18 Dose: 6 mcg/min, 22.86 mls/hr Documented by: Titration: 01/24/21 22:07 Dose: 7 mcg/min, 26.67 mls/hr Documented by: Admin: 01/24/21 20:24 Dose: 8 mcg/min, 30.48 mls/hr Documented by: BIENVENIDO Propofol (Propofol) 1,000 mg in 100 mls @ 4.491 mls/hr IV TITRATE DARLEEN; Protocol Last Titration: 01/25/21 10:55 Dose: 0 mcg/kg/min, 0 mls/hr Documented by: Titration: 01/25/21 10:21 Dose: 30 mcg/kg/min, 13.472 mls/hr Documented by: Titration: 01/25/21 10:13 Dose: 20 mcg/kg/min, 8.981 mls/hr Documented by: Titration: 01/25/21 10:02 Dose: 10 mcg/kg/min, 4.491 mls/hr Documented by: Titration: 01/25/21 09:46 Dose: 3 mcg/kg/min, 1.347 mls/hr Documented by: Titration: 01/25/21 08:51 Dose: 5 mcg/kg/min, 2.245 mls/hr Documented by: Titration: 01/25/21 08:13 Dose: 9 mcg/kg/min, 4.042 mls/hr Documented by: Titration: 01/25/21 03:41 Dose: 30 mcg/kg/min, 13.472 mls/hr Documented by: Titration: 01/25/21 02:52 Dose: 40 mcg/kg/min, 17.962 mls/hr Documented by: Admin: 01/25/21 02:15 Dose: 50 mcg/kg/min, 22.453 mls/hr Documented by: Titration: 01/25/21 02:15 Dose: 50 mcg/kg/min, 22.453 mls/hr Documented by: Titration: 01/24/21 22:41 Dose: 60 mcg/kg/min, 26.943 mls/hr Documented by: Titration: 01/24/21 22:35 Dose: 55 mcg/kg/min, 24.698 mls/hr Documented by: Titration: 01/24/21 21:25 Dose: 45 mcg/kg/min, 20.208 mls/hr Documented by: Titration: 01/24/21 21:18 Dose: 45 mcg/kg/min, 20.208 mls/hr Documented by: Titration: 01/24/21 21:08 Dose: 40 mcg/kg/min, 17.962 mls/hr Documented by: Titration: 01/24/21 21:01 Dose: 30 mcg/kg/min, 13.472 mls/hr Documented by: Titration: 01/24/21 20:56 Dose: 20 mcg/kg/min, 8.981 mls/hr Documented by: Admin: 01/24/21 20:46 Dose: 10 mcg/kg/min, 4.491 mls/hr Documented by: ATAYLOR Fentanyl 1,000 mcg/ Dextrose 250 mls @ 13.098 mls/hr IV TITRATE DARLEEN; Protocol Last Titration: 01/25/21 10:56 Dose: 0 mcg/kg/hr, 0 mls/hr Documented by: Titration: 01/25/21 10:14 Dose: 1 mcg/kg/hr, 18.711 mls/hr Documented by: Titration: 01/25/21 10:03 Dose: 0.5 mcg/kg/hr, 9.355 mls/hr Documented by: Titration: 01/25/21 08:52 Dose: 0.27 mcg/kg/hr, 5.052 mls/hr Documented by: Titration: 01/25/21 08:17 Dose: 0.5 mcg/kg/hr, 9.355 mls/hr Documented by: Titration: 01/25/21 02:35 Dose: 1 mcg/kg/hr, 18.711 mls/hr Documented by: Titration: 01/25/21 02:23 Dose: 0.9 mcg/kg/hr, 16.84 mls/hr Documented by: Admin: 01/24/21 23:16 Dose: 0.7 mcg/kg/hr, 13.098 mls/hr Documented by: MARIA C Midazolam HCl (Midazolam 2 Mg/2 Ml Vial) 5 mg IV NOW ONE Stop: 01/25/21 10:19 Last Admin: 01/25/21 10:24 Dose: 5 mg Documented by: FABIO Succinylcholine Chloride (Succinylcholine 200 Mg/10 Ml Vial) 120 mg IV NOW ONE Stop: 01/24/21 20:17 Last Admin: 01/24/21 20:38 Dose: 120 mg Documented by: ATAYLOR Vital Signs Vital signs: Vital Signs - 8 hr 01/25/21 02:50 01/25/21 02:55 01/25/21 03:00 Temperature Pulse Rate 46 L 44 L Respiratory Rate 16 16 Blood Pressure 110/70 107/70 109/71 Pulse Oximetry 100 100 01/25/21 03:05 01/25/21 03:10 01/25/21 03:15 Temperature Pulse Rate 44 L 46 L 46 L Respiratory Rate 16 16 16 Blood Pressure 111/72 111/70 109/68 Pulse Oximetry 100 100 100 01/25/21 03:20 01/25/21 03:25 01/25/21 03:30 Temperature Pulse Rate 45 L 45 L 43 L Respiratory Rate 16 16 16 Blood Pressure 111/70 109/70 110/71 Pulse Oximetry 100 100 100 01/25/21 03:35 01/25/21 03:40 01/25/21 03:45 Temperature Pulse Rate 43 L 44 L 43 L Respiratory Rate 16 16 16 Blood Pressure 114/75 111/74 112/73 Pulse Oximetry 100 100 100 01/25/21 03:50 01/25/21 03:55 01/25/21 04:00 Temperature Pulse Rate 43 L 43 L 43 L Respiratory Rate 16 16 16 Blood Pressure 114/76 115/74 113/75 Pulse Oximetry 100 100 100 01/25/21 04:05 01/25/21 04:10 01/25/21 04:15 Temperature Pulse Rate 42 L 42 L 43 L Respiratory Rate 16 16 16 Blood Pressure 116/76 114/74 117/77 Pulse Oximetry 100 100 100 01/25/21 04:20 01/25/21 04:25 01/25/21 04:30 Temperature Pulse Rate 43 L 42 L 46 L Respiratory Rate 16 16 16 Blood Pressure 114/76 116/76 134/80 Pulse Oximetry 100 100 100 01/25/21 04:35 01/25/21 04:36 01/25/21 04:40 Temperature Pulse Rate 60 61 52 L Respiratory Rate 16 16 16 Blood Pressure 151/92 H 133/82 Pulse Oximetry 100 100 100 01/25/21 04:45 01/25/21 04:50 01/25/21 04:55 Temperature Pulse Rate 47 L 47 L 48 L Respiratory Rate 16 16 16 Blood Pressure 112/71 113/70 109/69 Pulse Oximetry 100 100 100 01/25/21 05:00 01/25/21 05:05 01/25/21 05:10 Temperature Pulse Rate 48 L 47 L 47 L Respiratory Rate 16 16 16 Blood Pressure 108/68 112/68 111/71 Pulse Oximetry 100 100 100 01/25/21 05:15 01/25/21 05:20 01/25/21 05:25 Temperature Pulse Rate 46 L 45 L 45 L Respiratory Rate 16 16 16 Blood Pressure 115/79 113/69 114/70 Pulse Oximetry 100 100 100 01/25/21 05:30 01/25/21 05:35 01/25/21 05:40 Temperature Pulse Rate 45 L 47 L 47 L Respiratory Rate 16 16 16 Blood Pressure 111/69 111/71 108/67 Pulse Oximetry 100 100 100 01/25/21 05:45 01/25/21 05:50 01/25/21 05:55 Temperature Pulse Rate 48 L 53 L 61 Respiratory Rate 16 16 16 Blood Pressure 107/64 108/61 112/63 Pulse Oximetry 100 100 100 01/25/21 06:00 01/25/21 06:05 01/25/21 06:10 Temperature Pulse Rate 63 64 63 Respiratory Rate 16 16 16 Blood Pressure 111/63 113/60 108/57 L Pulse Oximetry 100 100 100 01/25/21 06:15 01/25/21 06:20 01/25/21 06:25 Temperature Pulse Rate 60 50 L 48 L Respiratory Rate 16 16 16 Blood Pressure 109/62 108/65 109/67 Pulse Oximetry 100 100 100 01/25/21 06:30 01/25/21 06:35 01/25/21 06:40 Temperature Pulse Rate 47 L 46 L 45 L Respiratory Rate 16 16 16 Blood Pressure 110/68 114/70 110/70 Pulse Oximetry 100 100 100 01/25/21 06:45 01/25/21 06:50 01/25/21 06:55 Temperature Pulse Rate 45 L 44 L 44 L Respiratory Rate 16 16 16 Blood Pressure 113/72 112/73 114/73 Pulse Oximetry 100 100 100 01/25/21 07:00 01/25/21 07:05 01/25/21 07:10 Temperature Pulse Rate 44 L 44 L 44 L Respiratory Rate 16 16 16 Blood Pressure 114/77 115/77 116/77 Pulse Oximetry 100 100 100 01/25/21 07:15 01/25/21 07:20 01/25/21 07:25 Temperature Pulse Rate 44 L 44 L 43 L Respiratory Rate 16 16 16 Blood Pressure 115/75 115/77 118/78 Pulse Oximetry 100 100 100 01/25/21 07:30 01/25/21 07:35 01/25/21 07:40 Temperature Pulse Rate 43 L 43 L 43 L Respiratory Rate 16 16 16 Blood Pressure 116/75 117/77 118/80 Pulse Oximetry 100 100 100 01/25/21 07:45 01/25/21 07:50 01/25/21 07:55 Temperature Pulse Rate 42 L 42 L 42 L Respiratory Rate 16 16 16 Blood Pressure 119/80 120/81 117/78 Pulse Oximetry 100 100 100 01/25/21 08:00 01/25/21 08:05 01/25/21 08:10 Temperature Pulse Rate 41 L 41 L 41 L Respiratory Rate 16 16 16 Blood Pressure 121/81 121/80 123/89 Pulse Oximetry 100 100 100 01/25/21 08:15 01/25/21 08:20 01/25/21 08:24 Temperature Pulse Rate 42 L 43 L 42 L Respiratory Rate 16 16 16 Blood Pressure 114/73 114/74 114/74 Pulse Oximetry 100 100 100 01/25/21 08:25 01/25/21 08:30 01/25/21 08:35 Temperature Pulse Rate 42 L 43 L 43 L Respiratory Rate 16 16 16 Blood Pressure 113/76 110/73 113/75 Pulse Oximetry 100 100 100 01/25/21 08:40 01/25/21 08:45 01/25/21 08:50 Temperature Pulse Rate 43 L 44 L 44 L Respiratory Rate 16 16 16 Blood Pressure 113/75 112/71 110/72 Pulse Oximetry 100 100 100 01/25/21 08:55 01/25/21 09:00 01/25/21 09:05 Temperature Pulse Rate 45 L 46 L 46 L Respiratory Rate 16 16 16 Blood Pressure 110/71 109/73 106/71 Pulse Oximetry 100 100 100 01/25/21 09:10 01/25/21 09:15 01/25/21 09:20 Temperature Pulse Rate 46 L 46 L 46 L Respiratory Rate 16 16 16 Blood Pressure 108/71 106/69 105/69 Pulse Oximetry 100 100 100 01/25/21 09:25 01/25/21 09:30 01/25/21 09:35 Temperature Pulse Rate 48 L 48 L 49 L Respiratory Rate 16 16 16 Blood Pressure 102/66 102/64 103/66 Pulse Oximetry 100 100 100 01/25/21 09:40 01/25/21 09:45 01/25/21 09:50 Temperature Pulse Rate 48 L 48 L 48 L Respiratory Rate 16 16 16 Blood Pressure 104/67 104/69 103/66 Pulse Oximetry 100 100 100 01/25/21 09:55 01/25/21 10:00 01/25/21 10:01 Temperature Pulse Rate 47 L 82 95 H Respiratory Rate 16 31 H 18 Blood Pressure 104/68 116/75 Pulse Oximetry 100 100 100 01/25/21 10:05 01/25/21 10:10 01/25/21 10:15 Temperature Pulse Rate 53 L 55 L 66 Respiratory Rate 16 16 16 Blood Pressure 115/76 112/75 119/81 Pulse Oximetry 100 100 01/25/21 10:18 01/25/21 10:20 01/25/21 10:25 Temperature 96.6 F L Pulse Rate 59 L 57 L Respiratory Rate 16 16 Blood Pressure 109/68 112/70 Pulse Oximetry 100 100 <Avery Brand DO - Last Filed: 01/25/21 10:37> Orders Ordered: Discontinued Medications Bacitracin (Bacitracin Oint 0.9 Gm Pckt) 5 applic TOP NOW ONE Stop: 01/24/21 20:22 Last Admin: 01/25/21 02:24 Dose: 5 applic Documented by: BIENVENIDO Etomidate (Etomidate 2 Mg/Ml 10 Ml Vial) 20 mg IV NOW ONE Stop: 01/24/21 20:17 Last Admin: 01/24/21 20:36 Dose: 20 mg Documented by: ATAYLOR Fentanyl (Fentanyl 100 Mcg/2 Ml Inj) 50 mcg IV Q1HR PRN PRN Reason: Pain, Severe (7-10) Last Admin: 01/24/21 22:39 Dose: 50 mcg Documented by: MARIA C Admin: 01/24/21 20:55 Dose: 50 mcg Documented by: ATAYLOR Fentanyl (Fentanyl 100 Mcg/2 Ml Inj) 75 mcg 1 mcg/kg (75 mcg) NASAL NOW ONE Stop: 01/25/21 01:45 Last Admin: 01/25/21 02:27 Dose: Not Given Documented by: BIENVENIDO Sodium Chloride (Normal Saline 0.9%) 1,000 mls @ 1,000 mls/hr IV BOLUS ONE Stop: 01/24/21 18:41 Last Infusion: 01/24/21 18:32 Dose: 0 mls/hr Documented by: MARIA C Admin: 01/24/21 17:50 Dose: 1,000 mls/hr Documented by: ATAYLOR Sodium Chloride (Normal Saline 0.9%) 1,000 mls @ 125 mls/hr IV CONT DARLEEN Last Infusion: 01/25/21 10:55 Dose: 0 mls/hr Documented by: Admin: 01/25/21 09:49 Dose: 125 mls/hr Documented by: Infusion: 01/25/21 09:48 Dose: 0 mls/hr Documented by: Admin: 01/25/21 02:25 Dose: 125 mls/hr Documented by: Infusion: 01/25/21 02:22 Dose: 0 mls/hr Documented by: Admin: 01/24/21 18:32 Dose: 125 mls/hr Documented by: ATAYLOR Sodium Chloride (Normal Saline 0.9%) 1,000 mls @ 1,000 mls/hr IV BOLUS ONE Stop: 01/24/21 20:11 Last Infusion: 01/24/21 20:28 Dose: 0 mls/hr Documented by: Admin: 01/24/21 19:16 Dose: 1,000 mls/hr Documented by: FABIO Norepinephrine Bitartrate 4 mg (/ Dextrose) 254 mls @ 30.48 mls/hr IV TITRATE DARLEEN; Protocol Last Titration: 01/25/21 10:57 Dose: 0 mcg/min, 0 mls/hr Documented by: Titration: 01/25/21 09:33 Dose: 0 mcg/min, 0 mls/hr Documented by: Titration: 01/25/21 08:51 Dose: 1 mcg/min, 3.81 mls/hr Documented by: Titration: 01/25/21 08:19 Dose: 2 mcg/min, 7.62 mls/hr Documented by: Titration: 01/24/21 23:06 Dose: 4 mcg/min, 15.24 mls/hr Documented by: Titration: 01/24/21 22:41 Dose: 5 mcg/min, 19.05 mls/hr Documented by: Titration: 01/24/21 22:18 Dose: 6 mcg/min, 22.86 mls/hr Documented by: Titration: 01/24/21 22:07 Dose: 7 mcg/min, 26.67 mls/hr Documented by: Admin: 01/24/21 20:24 Dose: 8 mcg/min, 30.48 mls/hr Documented by: BIENVENIDO Propofol (Propofol) 1,000 mg in 100 mls @ 4.491 mls/hr IV TITRATE DARLEEN; Protocol Last Titration: 01/25/21 10:55 Dose: 0 mcg/kg/min, 0 mls/hr Documented by: Titration: 01/25/21 10:21 Dose: 30 mcg/kg/min, 13.472 mls/hr Documented by: Titration: 01/25/21 10:13 Dose: 20 mcg/kg/min, 8.981 mls/hr Documented by: Titration: 01/25/21 10:02 Dose: 10 mcg/kg/min, 4.491 mls/hr Documented by: Titration: 01/25/21 09:46 Dose: 3 mcg/kg/min, 1.347 mls/hr Documented by: Titration: 01/25/21 08:51 Dose: 5 mcg/kg/min, 2.245 mls/hr Documented by: Titration: 01/25/21 08:13 Dose: 9 mcg/kg/min, 4.042 mls/hr Documented by: Titration: 01/25/21 03:41 Dose: 30 mcg/kg/min, 13.472 mls/hr Documented by: Titration: 01/25/21 02:52 Dose: 40 mcg/kg/min, 17.962 mls/hr Documented by: Admin: 01/25/21 02:15 Dose: 50 mcg/kg/min, 22.453 mls/hr Documented by: Titration: 01/25/21 02:15 Dose: 50 mcg/kg/min, 22.453 mls/hr Documented by: Titration: 01/24/21 22:41 Dose: 60 mcg/kg/min, 26.943 mls/hr Documented by: Titration: 01/24/21 22:35 Dose: 55 mcg/kg/min, 24.698 mls/hr Documented by: Titration: 01/24/21 21:25 Dose: 45 mcg/kg/min, 20.208 mls/hr Documented by: Titration: 01/24/21 21:18 Dose: 45 mcg/kg/min, 20.208 mls/hr Documented by: Titration: 01/24/21 21:08 Dose: 40 mcg/kg/min, 17.962 mls/hr Documented by: Titration: 01/24/21 21:01 Dose: 30 mcg/kg/min, 13.472 mls/hr Documented by: Titration: 01/24/21 20:56 Dose: 20 mcg/kg/min, 8.981 mls/hr Documented by: Admin: 01/24/21 20:46 Dose: 10 mcg/kg/min, 4.491 mls/hr Documented by: ATAYLOR Fentanyl 1,000 mcg/ Dextrose 250 mls @ 13.098 mls/hr IV TITRATE DARLEEN; Protocol Last Titration: 01/25/21 10:56 Dose: 0 mcg/kg/hr, 0 mls/hr Documented by: Titration: 01/25/21 10:14 Dose: 1 mcg/kg/hr, 18.711 mls/hr Documented by: Titration: 01/25/21 10:03 Dose: 0.5 mcg/kg/hr, 9.355 mls/hr Documented by: Titration: 01/25/21 08:52 Dose: 0.27 mcg/kg/hr, 5.052 mls/hr Documented by: Titration: 01/25/21 08:17 Dose: 0.5 mcg/kg/hr, 9.355 mls/hr Documented by: Titration: 01/25/21 02:35 Dose: 1 mcg/kg/hr, 18.711 mls/hr Documented by: Titration: 01/25/21 02:23 Dose: 0.9 mcg/kg/hr, 16.84 mls/hr Documented by: Admin: 01/24/21 23:16 Dose: 0.7 mcg/kg/hr, 13.098 mls/hr Documented by: MARIA C Midazolam HCl (Midazolam 2 Mg/2 Ml Vial) 5 mg IV NOW ONE Stop: 01/25/21 10:19 Last Admin: 01/25/21 10:24 Dose: 5 mg Documented by: FABIO Succinylcholine Chloride (Succinylcholine 200 Mg/10 Ml Vial) 120 mg IV NOW ONE Stop: 01/24/21 20:17 Last Admin: 01/24/21 20:38 Dose: 120 mg Documented by: MARIA C Vital Signs Vital signs: Vital Signs - 8 hr 01/25/21 02:50 01/25/21 02:55 01/25/21 03:00 Temperature Pulse Rate 46 L 44 L Respiratory Rate 16 16 Blood Pressure 110/70 107/70 109/71 Pulse Oximetry 100 100 01/25/21 03:05 01/25/21 03:10 01/25/21 03:15 Temperature Pulse Rate 44 L 46 L 46 L Respiratory Rate 16 16 16 Blood Pressure 111/72 111/70 109/68 Pulse Oximetry 100 100 100 01/25/21 03:20 01/25/21 03:25 01/25/21 03:30 Temperature Pulse Rate 45 L 45 L 43 L Respiratory Rate 16 16 16 Blood Pressure 111/70 109/70 110/71 Pulse Oximetry 100 100 100 01/25/21 03:35 01/25/21 03:40 01/25/21 03:45 Temperature Pulse Rate 43 L 44 L 43 L Respiratory Rate 16 16 16 Blood Pressure 114/75 111/74 112/73 Pulse Oximetry 100 100 100 01/25/21 03:50 01/25/21 03:55 01/25/21 04:00 Temperature Pulse Rate 43 L 43 L 43 L Respiratory Rate 16 16 16 Blood Pressure 114/76 115/74 113/75 Pulse Oximetry 100 100 100 01/25/21 04:05 01/25/21 04:10 01/25/21 04:15 Temperature Pulse Rate 42 L 42 L 43 L Respiratory Rate 16 16 16 Blood Pressure 116/76 114/74 117/77 Pulse Oximetry 100 100 100 01/25/21 04:20 01/25/21 04:25 01/25/21 04:30 Temperature Pulse Rate 43 L 42 L 46 L Respiratory Rate 16 16 16 Blood Pressure 114/76 116/76 134/80 Pulse Oximetry 100 100 100 01/25/21 04:35 01/25/21 04:36 01/25/21 04:40 Temperature Pulse Rate 60 61 52 L Respiratory Rate 16 16 16 Blood Pressure 151/92 H 133/82 Pulse Oximetry 100 100 100 01/25/21 04:45 01/25/21 04:50 01/25/21 04:55 Temperature Pulse Rate 47 L 47 L 48 L Respiratory Rate 16 16 16 Blood Pressure 112/71 113/70 109/69 Pulse Oximetry 100 100 100 01/25/21 05:00 01/25/21 05:05 01/25/21 05:10 Temperature Pulse Rate 48 L 47 L 47 L Respiratory Rate 16 16 16 Blood Pressure 108/68 112/68 111/71 Pulse Oximetry 100 100 100 01/25/21 05:15 01/25/21 05:20 01/25/21 05:25 Temperature Pulse Rate 46 L 45 L 45 L Respiratory Rate 16 16 16 Blood Pressure 115/79 113/69 114/70 Pulse Oximetry 100 100 100 01/25/21 05:30 01/25/21 05:35 01/25/21 05:40 Temperature Pulse Rate 45 L 47 L 47 L Respiratory Rate 16 16 16 Blood Pressure 111/69 111/71 108/67 Pulse Oximetry 100 100 100 01/25/21 05:45 01/25/21 05:50 01/25/21 05:55 Temperature Pulse Rate 48 L 53 L 61 Respiratory Rate 16 16 16 Blood Pressure 107/64 108/61 112/63 Pulse Oximetry 100 100 100 01/25/21 06:00 01/25/21 06:05 01/25/21 06:10 Temperature Pulse Rate 63 64 63 Respiratory Rate 16 16 16 Blood Pressure 111/63 113/60 108/57 L Pulse Oximetry 100 100 100 01/25/21 06:15 01/25/21 06:20 01/25/21 06:25 Temperature Pulse Rate 60 50 L 48 L Respiratory Rate 16 16 16 Blood Pressure 109/62 108/65 109/67 Pulse Oximetry 100 100 100 01/25/21 06:30 01/25/21 06:35 01/25/21 06:40 Temperature Pulse Rate 47 L 46 L 45 L Respiratory Rate 16 16 16 Blood Pressure 110/68 114/70 110/70 Pulse Oximetry 100 100 100 01/25/21 06:45 01/25/21 06:50 01/25/21 06:55 Temperature Pulse Rate 45 L 44 L 44 L Respiratory Rate 16 16 16 Blood Pressure 113/72 112/73 114/73 Pulse Oximetry 100 100 100 01/25/21 07:00 01/25/21 07:05 01/25/21 07:10 Temperature Pulse Rate 44 L 44 L 44 L Respiratory Rate 16 16 16 Blood Pressure 114/77 115/77 116/77 Pulse Oximetry 100 100 100 01/25/21 07:15 01/25/21 07:20 01/25/21 07:25 Temperature Pulse Rate 44 L 44 L 43 L Respiratory Rate 16 16 16 Blood Pressure 115/75 115/77 118/78 Pulse Oximetry 100 100 100 01/25/21 07:30 01/25/21 07:35 01/25/21 07:40 Temperature Pulse Rate 43 L 43 L 43 L Respiratory Rate 16 16 16 Blood Pressure 116/75 117/77 118/80 Pulse Oximetry 100 100 100 01/25/21 07:45 01/25/21 07:50 01/25/21 07:55 Temperature Pulse Rate 42 L 42 L 42 L Respiratory Rate 16 16 16 Blood Pressure 119/80 120/81 117/78 Pulse Oximetry 100 100 100 01/25/21 08:00 01/25/21 08:05 01/25/21 08:10 Temperature Pulse Rate 41 L 41 L 41 L Respiratory Rate 16 16 16 Blood Pressure 121/81 121/80 123/89 Pulse Oximetry 100 100 100 01/25/21 08:15 01/25/21 08:20 01/25/21 08:24 Temperature Pulse Rate 42 L 43 L 42 L Respiratory Rate 16 16 16 Blood Pressure 114/73 114/74 114/74 Pulse Oximetry 100 100 100 01/25/21 08:25 01/25/21 08:30 01/25/21 08:35 Temperature Pulse Rate 42 L 43 L 43 L Respiratory Rate 16 16 16 Blood Pressure 113/76 110/73 113/75 Pulse Oximetry 100 100 100 01/25/21 08:40 01/25/21 08:45 01/25/21 08:50 Temperature Pulse Rate 43 L 44 L 44 L Respiratory Rate 16 16 16 Blood Pressure 113/75 112/71 110/72 Pulse Oximetry 100 100 100 01/25/21 08:55 01/25/21 09:00 01/25/21 09:05 Temperature Pulse Rate 45 L 46 L 46 L Respiratory Rate 16 16 16 Blood Pressure 110/71 109/73 106/71 Pulse Oximetry 100 100 100 01/25/21 09:10 01/25/21 09:15 01/25/21 09:20 Temperature Pulse Rate 46 L 46 L 46 L Respiratory Rate 16 16 16 Blood Pressure 108/71 106/69 105/69 Pulse Oximetry 100 100 100 01/25/21 09:25 01/25/21 09:30 01/25/21 09:35 Temperature Pulse Rate 48 L 48 L 49 L Respiratory Rate 16 16 16 Blood Pressure 102/66 102/64 103/66 Pulse Oximetry 100 100 100 01/25/21 09:40 01/25/21 09:45 01/25/21 09:50 Temperature Pulse Rate 48 L 48 L 48 L Respiratory Rate 16 16 16 Blood Pressure 104/67 104/69 103/66 Pulse Oximetry 100 100 100 01/25/21 09:55 01/25/21 10:00 01/25/21 10:01 Temperature Pulse Rate 47 L 82 95 H Respiratory Rate 16 31 H 18 Blood Pressure 104/68 116/75 Pulse Oximetry 100 100 100 01/25/21 10:05 01/25/21 10:10 01/25/21 10:15 Temperature Pulse Rate 53 L 55 L 66 Respiratory Rate 16 16 16 Blood Pressure 115/76 112/75 119/81 Pulse Oximetry 100 100 01/25/21 10:18 01/25/21 10:20 01/25/21 10:25 Temperature 96.6 F L Pulse Rate 59 L 57 L Respiratory Rate 16 16 Blood Pressure 109/68 112/70 Pulse Oximetry 100 100 MDM - Overdose <Lesia Coelho MD - Last Filed: 01/26/21 04:24> Lab Data Result diagrams: 01/24/21 17:40 01/24/21 17:40 Labs: Lab Results 01/24/21 01/24/21 01/24/21 Range/Units 17:40 17:40 17:40 WBC 8.6 (4.5-11.0) X10^3/uL RBC 4.34 L (4.5-5.9) X10^6/uL Hgb 13.7 (13.5-17.5) g/dL Hct 40.5 L (41-53) % MCV 93.3 (80-100) fL MCH 31.5 (26-34) PG MCHC 33.8 (30-36) % RDW 12.6 (11.6-14.8) % Plt Count 265 (150-400) X10^3/uL Neut % (Auto) 49.8 L (50-75) % Lymph % (Auto) 36.0 (25-40) % Imperial % (Auto) 10.6 (3-14) % Eos % (Auto) 2.6 (2-4) % Baso % (Auto) 1.0 (0-2) % Neut # (Auto) 4300 (7148-5797) /uL Lymph # (Auto) 3100 (4243-5469) /uL Imperial # (Auto) 900 (0-900) /uL Eos # (Auto) 200 (0-450) /uL Baso # (Auto) 100 (0-100) /uL ABG pH (7.35-7.45) ABG pCO2 (35-45) mmHg ABG pO2 (80-100) mmHg ABG HCO3 (22-26) mmol/L ABG Total CO2 (21-31) mmol/L ABG O2 Saturation (95-100) % ABG Base Excess (-2-2) mmol/L FiO2 Sodium 139 (137-145) mmol/L Potassium 4.0 (3.4-5.1) mmol/L Chloride 103 (98-107) mmol/L Carbon Dioxide 25 (22-32) mmol/L BUN 12 (9-20) mg/dL Creatinine 0.75 (0.66-1.25) mg/dL Estimated GFR > 60.0 (>60) mL/min BUN/Creatinine Ratio 16.0 (6-22) Glucose 93 (70-100) mg/dL Calcium 8.9 (8.4-10.2) mg/dL Total Bilirubin 0.3 (0.2-1.3) mg/dL AST 28 (17-59) IU/L ALT 17 (<50) IU/L Alkaline Phosphatase 55 (38-126) U/L Total Protein 7.3 (6.3-8.2) g/dL Albumin 4.5 (3.5-5.0) g/dL Globulin 2.8 (1.7-4.1) g/dL Albumin/Globulin Ratio 1.6 (1.0-2.8) TSH 1.26 (0.47-4.68) uIU/mL Free T4 1.03 (0.78-2.19) ng/dL Urine Color Urine Appearance Urine pH (4.5-8.0) Ur Specific Channing (1.000-1.035) Urine Protein (Negative) Urine Glucose (UA) (Negative) g/dL Urine Ketones (NEGATIVE) Urine Occult Blood (Negative) Urine Nitrate (Negative) Urine Bilirubin (NEGATIVE) Urine Urobilinogen (0.2) E.U./dL Ur Leukocyte Esterase (NEGATIVE) Urine RBC (0-5/HPF) Urine WBC (0-5/HPF) Ur Squamous Epith Cells (0-5/HPF) Ur Transition Epith Cell (0-5/HPF) Urine Bacteria (None) Urine Mucus (Negative) Ur Culture Indicated? Salicylates < 1.0 (<20) mg/dL U Opiates 300ng/mL cut (Negative) Ur Oxycodone Screen (Negative) Urine Methadone Screen (Negative) Acetaminophen < 10 L (10-30) ug/mL Ur Barbiturates Screen (Negative) U Tricyclic Antidepress (Negative) Ur Phencyclidine Scrn (Negative) Ur Amphetamines Screen (Negative) U Methamphetamines Scrn (Negative) Ur MDMA Scrn (Ecstasy) (Negative) U Benzodiazepines Scrn (Negative) Hassell < 0.2 L (0.6-1.2) mmol/L Urine Cocaine Screen (Negative) U Marijuana (THC) Screen (Negative) Ethyl Alcohol 99 H ( - 10) mg/dL SARS-CoV-2 (PCR) (Negative) 01/24/21 01/24/21 01/24/21 Range/Units 17:40 17:40 17:45 WBC (4.5-11.0) X10^3/uL RBC (4.5-5.9) X10^6/uL Hgb (13.5-17.5) g/dL Hct (41-53) % MCV (80-100) fL MCH (26-34) PG MCHC (30-36) % RDW (11.6-14.8) % Plt Count (150-400) X10^3/uL Neut % (Auto) (50-75) % Lymph % (Auto) (25-40) % Imperial % (Auto) (3-14) % Eos % (Auto) (2-4) % Baso % (Auto) (0-2) % Neut # (Auto) (3381-8144) /uL Lymph # (Auto) (6405-7859) /uL Imperial # (Auto) (0-900) /uL Eos # (Auto) (0-450) /uL Baso # (Auto) (0-100) /uL ABG pH (7.35-7.45) ABG pCO2 (35-45) mmHg ABG pO2 (80-100) mmHg ABG HCO3 (22-26) mmol/L ABG Total CO2 (21-31) mmol/L ABG O2 Saturation (95-100) % ABG Base Excess (-2-2) mmol/L FiO2 Sodium (137-145) mmol/L Potassium (3.4-5.1) mmol/L Chloride (98-107) mmol/L Carbon Dioxide (22-32) mmol/L BUN (9-20) mg/dL Creatinine (0.66-1.25) mg/dL Estimated GFR (>60) mL/min BUN/Creatinine Ratio (6-22) Glucose (70-100) mg/dL Calcium (8.4-10.2) mg/dL Total Bilirubin (0.2-1.3) mg/dL AST (17-59) IU/L ALT (<50) IU/L Alkaline Phosphatase (38-126) U/L Total Protein (6.3-8.2) g/dL Albumin (3.5-5.0) g/dL Globulin (1.7-4.1) g/dL Albumin/Globulin Ratio (1.0-2.8) TSH (0.47-4.68) uIU/mL Free T4 (0.78-2.19) ng/dL Urine Color Yellow Urine Appearance Clear Urine pH 6.0 (4.5-8.0) Ur Specific Channing 1.015 (1.000-1.035) Urine Protein Negative (Negative) Urine Glucose (UA) Negative (Negative) g/dL Urine Ketones Negative (NEGATIVE) Urine Occult Blood Negative (Negative) Urine Nitrate Negative (Negative) Urine Bilirubin Negative (NEGATIVE) Urine Urobilinogen 0.2 (0.2) E.U./dL Ur Leukocyte Esterase Negative (NEGATIVE) Urine RBC 0-1/hpf (0-5/HPF) Urine WBC 0-1/hpf (0-5/HPF) Ur Squamous Epith Cells 0-1 /hpf (0-5/HPF) Ur Transition Epith Cell 0-1/hpf (0-5/HPF) Urine Bacteria None seen (None) Urine Mucus 1+ H (Negative) Ur Culture Indicated? Cult not indicated Salicylates (<20) mg/dL U Opiates 300ng/mL cut Positive H (Negative) Ur Oxycodone Screen Negative (Negative) Urine Methadone Screen Negative (Negative) Acetaminophen (10-30) ug/mL Ur Barbiturates Screen Negative (Negative) U Tricyclic Antidepress Negative (Negative) Ur Phencyclidine Scrn Negative (Negative) Ur Amphetamines Screen Negative (Negative) U Methamphetamines Scrn Negative (Negative) Ur MDMA Scrn (Ecstasy) Negative (Negative) U Benzodiazepines Scrn Negative (Negative) Hassell (0.6-1.2) mmol/L Urine Cocaine Screen Negative (Negative) U Marijuana (THC) Screen Negative (Negative) Ethyl Alcohol ( - 10) mg/dL SARS-CoV-2 (PCR) Negative (Negative) 01/24/21 01/25/21 Range/Units 21:34 02:49 WBC (4.5-11.0) X10^3/uL RBC (4.5-5.9) X10^6/uL Hgb (13.5-17.5) g/dL Hct (41-53) % MCV (80-100) fL MCH (26-34) PG MCHC (30-36) % RDW (11.6-14.8) % Plt Count (150-400) X10^3/uL Neut % (Auto) (50-75) % Lymph % (Auto) (25-40) % Imperial % (Auto) (3-14) % Eos % (Auto) (2-4) % Baso % (Auto) (0-2) % Neut # (Auto) (1048-5278) /uL Lymph # (Auto) (9468-1919) /uL Imperial # (Auto) (0-900) /uL Eos # (Auto) (0-450) /uL Baso # (Auto) (0-100) /uL ABG pH 7.36 7.42 (7.35-7.45) ABG pCO2 41.4 39.7 (35-45) mmHg ABG pO2 265 H* 159 H (80-100) mmHg ABG HCO3 24 26 (22-26) mmol/L ABG Total CO2 25 27 (21-31) mmol/L ABG O2 Saturation 100 99 (95-100) % ABG Base Excess -2.0 1.0 (-2-2) mmol/L FiO2 50 30 Sodium (137-145) mmol/L Potassium (3.4-5.1) mmol/L Chloride (98-107) mmol/L Carbon Dioxide (22-32) mmol/L BUN (9-20) mg/dL Creatinine (0.66-1.25) mg/dL Estimated GFR (>60) mL/min BUN/Creatinine Ratio (6-22) Glucose (70-100) mg/dL Calcium (8.4-10.2) mg/dL Total Bilirubin (0.2-1.3) mg/dL AST (17-59) IU/L ALT (<50) IU/L Alkaline Phosphatase (38-126) U/L Total Protein (6.3-8.2) g/dL Albumin (3.5-5.0) g/dL Globulin (1.7-4.1) g/dL Albumin/Globulin Ratio (1.0-2.8) TSH (0.47-4.68) uIU/mL Free T4 (0.78-2.19) ng/dL Urine Color Urine Appearance Urine pH (4.5-8.0) Ur Specific Channing (1.000-1.035) Urine Protein (Negative) Urine Glucose (UA) (Negative) g/dL Urine Ketones (NEGATIVE) Urine Occult Blood (Negative) Urine Nitrate (Negative) Urine Bilirubin (NEGATIVE) Urine Urobilinogen (0.2) E.U./dL Ur Leukocyte Esterase (NEGATIVE) Urine RBC (0-5/HPF) Urine WBC (0-5/HPF) Ur Squamous Epith Cells (0-5/HPF) Ur Transition Epith Cell (0-5/HPF) Urine Bacteria (None) Urine Mucus (Negative) Ur Culture Indicated? Salicylates (<20) mg/dL U Opiates 300ng/mL cut (Negative) Ur Oxycodone Screen (Negative) Urine Methadone Screen (Negative) Acetaminophen (10-30) ug/mL Ur Barbiturates Screen (Negative) U Tricyclic Antidepress (Negative) Ur Phencyclidine Scrn (Negative) Ur Amphetamines Screen (Negative) U Methamphetamines Scrn (Negative) Ur MDMA Scrn (Ecstasy) (Negative) U Benzodiazepines Scrn (Negative) Hassell (0.6-1.2) mmol/L Urine Cocaine Screen (Negative) U Marijuana (THC) Screen (Negative) Ethyl Alcohol ( - 10) mg/dL SARS-CoV-2 (PCR) (Negative) Imaging Data Chest x-ray: Radiologist's Impression: FINDINGS: Surgical changes and devices: ETT tip is approximately 5.6 cm above the asiya. Lungs and pleura: Mild pulmonary vascular congestion is seen. No focal infiltrate. No pleural effusions or pneumothorax. Mediastinum: Mediastinal contours appear normal. Heart size is normal. Bones and chest wall: No suspicious bony lesions. Overlying soft tissues appear unremarkable. IMPRESSION: ETT tip is approximately 5.6 cm above the asiya. No NG tube is seen. Mild pulmonary vascular congestion. No definite focal infiltrate. No pleural effusion or pneumothorax. Dictated by: Sandeep Broussard M.D. on 01/24/2021 at 20:54 ECG Data Interpretation: #17:46 Sinus rhythm at a rate of 89 Normal intervals, normal axis QTC 440 millisecond #2 21:38 Sinus Joe at a rate of 59 No ischemic changes QTC 437 milliseconds Normal intervals, normal axis MDM Narrative Medical decision making narrative: 30-year-old gentleman with suicide attempt. Unknown amount of Seroquel, clonidine, fluoxetine, Wellbutrin and alcohol along with cuts to his left thigh. Over the initial course of his emergency room evaluation became more and more obtunded to the point he was no longer protecting his airway and he was electively intubated without complication. He was resuscitated with 2 L of fluid and Levophed was started prior to intubation. He continues to remain moderately hypotensive and increasingly more bradycardic. Currently sedated with propofol and fentanyl. Wounds to the left thigh were repaired and dressing applied. Continuing to work on bed placement. Beds are not available at [facility], [facility] in [place], [facility], [facility] in [place], [facility] in [place]. At this time phone calls out to [facility] and will continue to work on options. It does not look like there will be ICU beds available at [facility] until at least Wednesday at the very earliest. In the meantime, continuing to board in the ER with continuous management. In consultation with poison Control, thus he continues to have increasing bradycardia we can switch from Levophed over to dopamine and can also use interm ittent rounds of atropine. [address] [facility]. Call to [facility] Pt remains stable on vent. HR mid 40s, BP 114/75. Decreasing propofol, still with fentanyl gtt. Repeat ABG is reassuring. Down to RA with sats maintained. 430 Discussed with [facility]. ICU beds are available. Discussed with Hospitalist who accepts. Requests central line for continue pressors as he re joyce at 15mcg levophed currently. Will place Right IJ central line and arrange for transport. <Avery Brand, - Last Filed: 01/25/21 10:37> Lab Data Labs: Lab Results 01/24/21 01/24/21 01/24/21 Range/Units 17:40 17:40 17:40 WBC 8.6 (4.5-11.0) X10^3/uL RBC 4.34 L (4.5-5.9) X10^6/uL Hgb 13.7 (13.5-17.5) g/dL Hct 40.5 L (41-53) % MCV 93.3 (80-100) fL MCH 31.5 (26-34) PG MCHC 33.8 (30-36) % RDW 12.6 (11.6-14.8) % Plt Count 265 (150-400) X10^3/uL Neut % (Auto) 49.8 L (50-75) % Lymph % (Auto) 36.0 (25-40) % Imperial % (Auto) 10.6 (3-14) % Eos % (Auto) 2.6 (2-4) % Baso % (Auto) 1.0 (0-2) % Neut # (Auto) 4300 (8543-4958) /uL Lymph # (Auto) 3100 (6284-4530) /uL Imperial # (Auto) 900 (0-900) /uL Eos # (Auto) 200 (0-450) /uL Baso # (Auto) 100 (0-100) /uL ABG pH (7.35-7.45) ABG pCO2 (35-45) mmHg ABG pO2 (80-100) mmHg ABG HCO3 (22-26) mmol/L ABG Total CO2 (21-31) mmol/L ABG O2 Saturation (95-100) % ABG Base Excess (-2-2) mmol/L FiO2 Sodium 139 (137-145) mmol/L Potassium 4.0 (3.4-5.1) mmol/L Chloride 103 (98-107) mmol/L Carbon Dioxide 25 (22-32) mmol/L BUN 12 (9-20) mg/dL Creatinine 0.75 (0.66-1.25) mg/dL Estimated GFR > 60.0 (>60) mL/min BUN/Creatinine Ratio 16.0 (6-22) Glucose 93 (70-100) mg/dL Calcium 8.9 (8.4-10.2) mg/dL Total Bilirubin 0.3 (0.2-1.3) mg/dL AST 28 (17-59) IU/L ALT 17 (<50) IU/L Alkaline Phosphatase 55 (38-126) U/L Total Protein 7.3 (6.3-8.2) g/dL Albumin 4.5 (3.5-5.0) g/dL Globulin 2.8 (1.7-4.1) g/dL Albumin/Globulin Ratio 1.6 (1.0-2.8) TSH 1.26 (0.47-4.68) uIU/mL Free T4 1.03 (0.78-2.19) ng/dL Urine Color Urine Appearance Urine pH (4.5-8.0) Ur Specific Channing (1.000-1.035) Urine Protein (Negative) Urine Glucose (UA) (Negative) g/dL Urine Ketones (NEGATIVE) Urine Occult Blood (Negative) Urine Nitrate (Negative) Urine Bilirubin (NEGATIVE) Urine Urobilinogen (0.2) E.U./dL Ur Leukocyte Esterase (NEGATIVE) Urine RBC (0-5/HPF) Urine WBC (0-5/HPF) Ur Squamous Epith Cells (0-5/HPF) Ur Transition Epith Cell (0-5/HPF) Urine Bacteria (None) Urine Mucus (Negative) Ur Culture Indicated? Salicylates < 1.0 (<20) mg/dL U Opiates 300ng/mL cut (Negative) Ur Oxycodone Screen (Negative) Urine Methadone Screen (Negative) Acetaminophen < 10 L (10-30) ug/mL Ur Barbiturates Screen (Negative) U Tricyclic Antidepress (Negative) Ur Phencyclidine Scrn (Negative) Ur Amphetamines Screen (Negative) U Methamphetamines Scrn (Negative) Ur MDMA Scrn (Ecstasy) (Negative) U Benzodiazepines Scrn (Negative) Hassell < 0.2 L (0.6-1.2) mmol/L Urine Cocaine Screen (Negative) U Marijuana (THC) Screen (Negative) Ethyl Alcohol 99 H ( - 10) mg/dL SARS-CoV-2 (PCR) (Negative) 01/24/21 01/24/21 01/24/21 Range/Units 17:40 17:40 17:45 WBC (4.5-11.0) X10^3/uL RBC (4.5-5.9) X10^6/uL Hgb (13.5-17.5) g/dL Hct (41-53) % MCV (80-100) fL MCH (26-34) PG MCHC (30-36) % RDW (11.6-14.8) % Plt Count (150-400) X10^3/uL Neut % (Auto) (50-75) % Lymph % (Auto) (25-40) % Imperial % (Auto) (3-14) % Eos % (Auto) (2-4) % Baso % (Auto) (0-2) % Neut # (Auto) (0665-5558) /uL Lymph # (Auto) (3780-5980) /uL Imperial # (Auto) (0-900) /uL Eos # (Auto) (0-450) /uL Baso # (Auto) (0-100) /uL ABG pH (7.35-7.45) ABG pCO2 (35-45) mmHg ABG pO2 (80-100) mmHg ABG HCO3 (22-26) mmol/L ABG Total CO2 (21-31) mmol/L ABG O2 Saturation (95-100) % ABG Base Excess (-2-2) mmol/L FiO2 Sodium (137-145) mmol/L Potassium (3.4-5.1) mmol/L Chloride (98-107) mmol/L Carbon Dioxide (22-32) mmol/L BUN (9-20) mg/dL Creatinine (0.66-1.25) mg/dL Estimated GFR (>60) mL/min BUN/Creatinine Ratio (6-22) Glucose (70-100) mg/dL Calcium (8.4-10.2) mg/dL Total Bilirubin (0.2-1.3) mg/dL AST (17-59) IU/L ALT (<50) IU/L Alkaline Phosphatase (38-126) U/L Total Protein (6.3-8.2) g/dL Albumin (3.5-5.0) g/dL Globulin (1.7-4.1) g/dL Albumin/Globulin Ratio (1.0-2.8) TSH (0.47-4.68) uIU/mL Free T4 (0.78-2.19) ng/dL Urine Color Yellow Urine Appearance Clear Urine pH 6.0 (4.5-8.0) Ur Specific Channing 1.015 (1.000-1.035) Urine Protein Negative (Negative) Urine Glucose (UA) Negative (Negative) g/dL Urine Ketones Negative (NEGATIVE) Urine Occult Blood Negative (Negative) Urine Nitrate Negative (Negative) Urine Bilirubin Negative (NEGATIVE) Urine Urobilinogen 0.2 (0.2) E.U./dL Ur Leukocyte Esterase Negative (NEGATIVE) Urine RBC 0-1/hpf (0-5/HPF) Urine WBC 0-1/hpf (0-5/HPF) Ur Squamous Epith Cells 0-1 /hpf (0-5/HPF) Ur Transition Epith Cell 0-1/hpf (0-5/HPF) Urine Bacteria None seen (None) Urine Mucus 1+ H (Negative) Ur Culture Indicated? Cult not indicated Salicylates (<20) mg/dL U Opiates 300ng/mL cut Positive H (Negative) Ur Oxycodone Screen Negative (Negative) Urine Methadone Screen Negative (Negative) Acetaminophen (10-30) ug/mL Ur Barbiturates Screen Negative (Negative) U Tricyclic Antidepress Negative (Negative) Ur Phencyclidine Scrn Negative (Negative) Ur Amphetamines Screen Negative (Negative) U Methamphetamines Scrn Negative (Negative) Ur MDMA Scrn (Ecstasy) Negative (Negative) U Benzodiazepines Scrn Negative (Negative) Hassell (0.6-1.2) mmol/L Urine Cocaine Screen Negative (Negative) U Marijuana (THC) Screen Negative (Negative) Ethyl Alcohol ( - 10) mg/dL SARS-CoV-2 (PCR) Negative (Negative) 01/24/21 01/25/21 Range/Units 21:34 02:49 WBC (4.5-11.0) X10^3/uL RBC (4.5-5.9) X10^6/uL Hgb (13.5-17.5) g/dL Hct (41-53) % MCV (80-100) fL MCH (26-34) PG MCHC (30-36) % RDW (11.6-14.8) % Plt Count (150-400) X10^3/uL Neut % (Auto) (50-75) % Lymph % (Auto) (25-40) % Imperial % (Auto) (3-14) % Eos % (Auto) (2-4) % Baso % (Auto) (0-2) % Neut # (Auto) (2142-5739) /uL Lymph # (Auto) (1057-5520) /uL Imperial # (Auto) (0-900) /uL Eos # (Auto) (0-450) /uL Baso # (Auto) (0-100) /uL ABG pH 7.36 7.42 (7.35-7.45) ABG pCO2 41.4 39.7 (35-45) mmHg ABG pO2 265 H* 159 H (80-100) mmHg ABG HCO3 24 26 (22-26) mmol/L ABG Total CO2 25 27 (21-31) mmol/L ABG O2 Saturation 100 99 (95-100) % ABG Base Excess -2.0 1.0 (-2-2) mmol/L FiO2 50 30 Sodium (137-145) mmol/L Potassium (3.4-5.1) mmol/L Chloride (98-107) mmol/L Carbon Dioxide (22-32) mmol/L BUN (9-20) mg/dL Creatinine (0.66-1.25) mg/dL Estimated GFR (>60) mL/min BUN/Creatinine Ratio (6-22) Glucose (70-100) mg/dL Calcium (8.4-10.2) mg/dL Total Bilirubin (0.2-1.3) mg/dL AST (17-59) IU/L ALT (<50) IU/L Alkaline Phosphatase (38-126) U/L Total Protein (6.3-8.2) g/dL Albumin (3.5-5.0) g/dL Globulin (1.7-4.1) g/dL Albumin/Globulin Ratio (1.0-2.8) TSH (0.47-4.68) uIU/mL Free T4 (0.78-2.19) ng/dL Urine Color Urine Appearance Urine pH (4.5-8.0) Ur Specific Channing (1.000-1.035) Urine Protein (Negative) Urine Glucose (UA) (Negative) g/dL Urine Ketones (NEGATIVE) Urine Occult Blood (Negative) Urine Nitrate (Negative) Urine Bilirubin (NEGATIVE) Urine Urobilinogen (0.2) E.U./dL Ur Leukocyte Esterase (NEGATIVE) Urine RBC (0-5/HPF) Urine WBC (0-5/HPF) Ur Squamous Epith Cells (0-5/HPF) Ur Transition Epith Cell (0-5/HPF) Urine Bacteria (None) Urine Mucus (Negative) Ur Culture Indicated? Salicylates (<20) mg/dL U Opiates 300ng/mL cut (Negative) Ur Oxycodone Screen (Negative) Urine Methadone Screen (Negative) Acetaminophen (10-30) ug/mL Ur Barbiturates Screen (Negative) U Tricyclic Antidepress (Negative) Ur Phencyclidine Scrn (Negative) Ur Amphetamines Screen (Negative) U Methamphetamines Scrn (Negative) Ur MDMA Scrn (Ecstasy) (Negative) U Benzodiazepines Scrn (Negative) Hassell (0.6-1.2) mmol/L Urine Cocaine Screen (Negative) U Marijuana (THC) Screen (Negative) Ethyl Alcohol ( - 10) mg/dL SARS-CoV-2 (PCR) (Negative) MDM Narrative Medical decision making narrative: 30-year-old gentleman with suicide attempt. Unknown amount of Seroquel, clonidine, fluoxetine, Wellbutrin and alcohol along with cuts to his left thigh. Over the initial course of his emergency room evaluation became more and more obtunded to the point he was no longer protecting his airway and he was electively intubated without complication. He was resuscitated with 2 L of fluid and Levophed was started prior to intubation. He continues to remain moderately hypotensive and increasingly more bradycardic. Currently sedated with propofol and fentanyl. Wounds to the left thigh were repaired and dressing applied. Continuing to work on bed placement. Beds are not available at [facility], [facility] in [place], [facility], [facility] in [place]. At this time phone calls out to [facility] and will continue to work on options. It does not look like there will be ICU beds available at [facility] until at least Wednesday at the very earliest. In the meantime, continuing to board in the ER with continuous management. In consultation with poison Control, thus he continues to have increasing bradycardia we can switch from Levophed over to dopamine and can also use intermittent rounds of atropine. [address] [facility]. Call to [facility] Pt remains stable on vent. HR mid 40s, BP 114/75. Decreasing propofol, still with fentanyl gtt. Repeat ABG is reassuring. Down to RA with sats maintained. 430 Discussed with [facility]. ICU beds are available. Discussed with Hospitalist who accepts. Requests central line for continue pressors as he remains at 15mcg levophed currently. Will place Right IJ central line and arrange for transport. Dr Brand: Received turned over. Patient continues to be stable. We were able to wean him off of the pressors. He continues to be sedated. Heart rate has ranged anywhere from 40-60. Blood pressure now is a systolic above 100 with a map in the mid 60s. Patient has been accepted at [place]. He continues to be stable for transport. Critical Care Time <Lesia Coelho MD - Last Filed: 01/26/21 04:24> Critical Care Time Critical Care Time: Yes Total Critical Care Time: 187 Attestation: Critical care time is separate from other billable procedures. There is a high probability of a significant, sudden or life-threatening deterioration that requires my full and direct attention, intervention and personal management. This critical care time includes consultation with family and other consulting doctors, review of records, and interpretation of data from labs, EKGs and imaging as well as managements of acute overdose, polypharmacy, respiratory compromise, circulatory and cardiac compromise. Extended medical management of pressors, fluids, ventilator in the ER due to lack of bed availability. Discharge Plan Departure Patient Disposition: [facility] Clinical Impression: Respirations compromised, Laceration, Suicide attempt Overdose Qualifiers: Encounter type: initial encounter Injury intent: intentional self-harm Qualified Code(s): T50.902A - Poisoning by unspecified drugs, medicaments and biological substances, intentional self-harm, initial encounter Bipolar disorder Qualifiers: Active/Remission status: currently active Current bipolar episode type: depressed Current episode severity: severe Psychotic features: with psychotic features Qualified Code(s): F31.5 - Bipolar disorder, current episode depressed, severe, with psychotic features Prescriptions: No Action bupropion HCl 200 mg tablet sustained-release 12 hr 200 mg PO BID Qty: 60 RF: 3 cholecalciferol (vitamin D3) 1,250 mcg (50,000 unit) capsule 1,250 mcg PO QWEEK Qty: 8 RF: 0 fluoxetine 40 mg capsule 40 mg PO DAILY Qty: 90 RF: 3 quetiapine 100 mg tablet 100 mg PO BEDTIME Qty: 90 RF: 1 vitamin E 200 unit capsule 200 unit PO DAILY RF: 0 omega-3 fatty acids [Fish Oil Concentrate] 1,000 mg capsule 1,000 mg PO DAILY RF: 0 clonazepam 1 mg tablet 1 mg PO TID RF: 0 Centrum 18-400 mg-mcg Tablet 1 tab PO DAILY RF: 0 Referrals: Min Tinsley DO [Primary Care Provider] -
--- NOTE | 2021-01-24 20:17 | DI.RAD.S_ITS ---
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 COMPARISON: None. FINDINGS: Surgical changes and devices: ETT tip is approximately 5.6 cm above the asiya. Lungs and pleura: Mild pulmonary vascular congestion is seen. No focal infiltrate. No pleural effusions or pneumothorax. Mediastinum: Mediastinal contours appear normal. Heart size is normal. Bones and chest wall: No suspicious bony lesions. Overlying soft tissues appear unremarkable. IMPRESSION: ETT tip is approximately 5.6 cm above the asiya. No NG tube is seen. Mild pulmonary vascular congestion. No definite focal infiltrate. No pleural effusion or pneumothorax. Dictated by: Sandeep Broussard M.D. on 01/24/2021 at 20:54 Approved by: Sandeep Broussard M.D. on 01/24/2021 at 20:54
[2021-01-24] MEDS: NOREPINEPHRINE 4 MG in DEXTROSE 5% IN WATER 250 ML 30.48 ML IV (20:24)
[2021-01-24] MEDS: ETOMIDATE 2 MG/ML 10 ML VIAL 20 MG IV (20:36)
[2021-01-24] MEDS: SUCCINYLCHOLINE 200 MG/10 ML VIAL 120 MG IV (20:38)
[2021-01-24] MEDS: propofoL 1,000 MG/100 ML VIAL 4.491 MG IV (20:46)
[2021-01-24] MEDS: fentaNYL 100 MCG/2 ML INJ 50 MCG IV ×2 (20:55→22:39)
[2021-01-24 21:48] LABS: PCO2 ABG 41.4 mmHg (35-45); PO2 ABG 265 mmHg (80-100); pH ABG 7.36 (7.35-7.45)
[2021-01-24 21:49] LABS: Fractionated Inspired Oxygen 50; HCO3 ABG 24 mmol/L (22-26); Oxygen Saturation ABG 100 % (95-100); TCO2 ABG 25 mmol/L (21-31)
[2021-01-24] MEDS: fentaNYL 1,000 MCG in DEXTROSE 5% IN WATER 230 ML 13.098 ML IV (23:16)
[2021-01-25] VITALS (129 sets, daily range): BP systolic 96–151; BP diastolic 56–92; PULSE 41–95; RESP 16–31; TEMP 35.9; O2SAT 99–100
[2021-01-25] MEDS: propofoL 1,000 MG/100 ML VIAL 22.453 MG IV (02:15)
[2021-01-25] MEDS: BACITRACIN OINT 0.9 GM PCKT 5 APPLIC TOP (02:24)
[2021-01-25] MEDS: SODIUM CHLORIDE 0.9% 1,000 ML 125 ML IV ×2 (02:25→09:49)
[2021-01-25 03:14] LABS: Fractionated Inspired Oxygen 30; HCO3 ABG 26 mmol/L (22-26); Oxygen Saturation ABG 99 % (95-100); PCO2 ABG 39.7 mmHg (35-45); PO2 ABG 159 mmHg (80-100); TCO2 ABG 27 mmol/L (21-31); pH ABG 7.42 (7.35-7.45)
--- NOTE | 2021-01-25 04:36 | DI.RAD.S_ITS ---
PROCEDURE: XR CHEST 1V INDICATIONS: central line placement TECHNIQUE: One view of the chest was acquired. COMPARISON: [facility], CR, XR CHEST 1V, 01/24/2021, 20:42. FINDINGS: Surgical changes and devices: Right IJ venous central line tip is at the cavoatrial junction. Nasogastric tube in the stomach, and the endotracheal tube is 6.6 cm above the asiya. Lungs and pleura: Lungs are clear. No pleural effusions or pneumothorax. Mediastinum: Mediastinal contours appear normal. Heart size is normal. Bones and chest wall: No suspicious bony lesions. Overlying soft tissues appear unremarkable. IMPRESSION: Lines and tubes in good position. No pneumothorax. Note: Final report is concordant with preliminary interpretation by [facility] Dictated by: Donny Francois M.D. on 01/25/2021 at 7:21 Approved by: Donny Francois M.D. on 01/25/2021 at 7:24
--- NOTE | 2021-01-25 08:24 | PC.NURSE ---
pt is on ACV 16, TV 500, fio2 21 percent. lungs CTA. oral care done by RT. ogt to low continuos suction. titrating drips.
[2021-01-25] MEDS: MIDAZOLAM 2 MG/2 ML VIAL 5 MG IV (10:24)
--- NOTE | 2021-01-25 12:09 | PC.NURSE ---
Mother called and updated on transfer. given number for [facility]. Questions answered.
[2021-01-26 08:44] LABS: Valproic Acid (Depakene) Total < 4 ug/mL (50-100)
--- NOTE | 2021-01-26 16:12 | PC.NURSE ---
Mother Shyanne Multani called to verify if patients belongings were left behind. Confirmed bag of belongings with patients name was left behind in ER locked cabinet. Mother will be by at some point to get belongings.
== END 2021-01-25 12:04 | disposition short-term general hospital (02) ==
PROVIDERS: Emergency Medicine; Emergency Provider Emergency Medicine; PCP Family Medicine
DX: T14.91XA Suicide attempt, initial encounter (principal); T50.912A Poisoning by multiple unspecified drugs, medicaments and biological substances, intentional self-harm, initial encounter; F31.5 Bipolar disorder, current episode depressed, severe, with psychotic features; S81.812A Laceration without foreign body, left lower leg, initial encounter; X78.9XXA Intentional self-harm by unspecified sharp object, initial encounter; R09.89 Other specified symptoms and signs involving the circulatory and respiratory systems; R00.1 Bradycardia, unspecified; Z20.822 Contact with and (suspected) exposure to COVID-19
CPT/HCPCS: 12004; 31500; 36415; 36573; 36600; 51702; 71045; 80053; 80164; 80178; 80305; 80320; 80329; 81001; 82805; 84439; 84443; 85025; 87635; 93005; 93010; 94002; 94003; 94799; 96361; 96365; 96366; 96368; 96375; 96376; 99285; 99291; 99292; C9803; G0480; J0330; J2250; J2704; J3010

== ENCOUNTER 2021-02-02 03:17 | Emergency (ER) | payer OTHER, MEDICAID, SELFPAY ==
[2021-01-27 12:48] VITALS: PULSE 42; RESP 16; O2SAT 100
[2021-02-02 03:35] VITALS: BP 124/69; PULSE 112; RESP 21; TEMP 36.8; O2SAT 100; BMI 23.1
--- NOTE | 2021-02-02 03:44 | ED.WOUNDLAC ---
HPI - Wound/Laceration General Chief Complaint: Wound/Laceration Stated Complaint: needs stitches left mid thigh Time Seen by Provider: 02/02/21 03:28 Source: patient Mode of arrival: Ambulatory Limitations: no limitations History of Present Illness HPI narrative: Patient is a 30-year-old male who is here for evaluation of a laceration to his left thigh. Patient has a known history of mental health issues and has had cutting issues in the past. He states that earlier today he did cut himself in his left thigh. This is not an attempt to kill himself. He knew that it was deep enough that he needed stitches. Related Data Home Medications Medication Instructions Recorded Confirmed multivitamin-ferrous 1 tab PO DAILY 10/18/20 01/24/21 fumarate-folic acid 18 mg-400 mcg tablet (Centrum) omega-3 fatty acids 1,000 mg 1,000 mg PO DAILY 01/03/21 01/24/21 capsule (Fish Oil Concentrate) vitamin E 200 unit capsule 200 unit PO DAILY 01/03/21 01/24/21 clonazepam 1 mg tablet 1 mg PO TID 01/24/21 01/24/21 Previous Rx's Medication Instructions Recorded bupropion HCl 200 mg tablet,12 hr 200 mg PO BID #60 ea 01/23/21 sustained-release cholecalciferol (vitamin D3) 1,250 1,250 mcg PO QWEEK #8 cap 01/23/21 mcg (50,000 unit) capsule fluoxetine 40 mg capsule 40 mg PO DAILY #90 cap 01/23/21 quetiapine 100 mg tablet 100 mg PO BEDTIME #90 tab 01/23/21 Allergies Allergy/AdvReac Type Severity Reaction Status Date / Time risperidone [From Risperdal] Allergy Verified 01/23/21 14:44 olanzapine AdvReac Severe suicidal Verified 01/23/21 14:44 ideations Review of Systems Musculoskeletal Comments: Pain to left upper thigh Integumentary/Breasts Comments: Cut to left upper thigh Neurologic Neurologic: Denies behavioral changes Psychiatric Psychiatric: Denies behavioral changes, Reports depression and Denies suicidal ideation Hematologic/Lymphatic On Anticoagulants: No Patient History Medical History ADHD Anxiety Cervical somatic dysfunction Chronic neck and back pain Cranial somatic dysfunction Depression Fractures History of bipolar disorder Migraines Overdose Partial blindness Pelvic somatic dysfunction Personality disorder PTSD (post-traumatic stress disorder) Right shoulder pain Routine screening for STI (sexually transmitted infection) Scoliosis Segmental and somatic dysfunction of abdomen and other regions Segmental and somatic dysfunction of lumbar region Segmental and somatic dysfunction of sacral region Segmental and somatic dysfunction of thoracic region Segmental and somatic dysfunction of upper extremity Surgical History Anesthesia History of removal of cyst (~2018) Family History Father Mental health problem Mother Thyroid cancer Breast cancer Social History household members: family Smoking Status: Current every day smoker Smokeless tobacco user: other alcohol intake: current substance use type: does not use and former substance user Smoking Status: Current every day smoker tobacco type: vaping alcohol intake frequency: a few times a week Substance Use Type: does not use Exam Initial Vital Signs Initial Vital Signs: Vital Signs Temperature 98.2 F 02/02/21 03:35 Pulse Rate 112 H 02/02/21 03:35 Respiratory Rate 21 02/02/21 03:35 Blood Pressure 124/69 02/02/21 03:35 Pulse Oximetry 100 02/02/21 03:35 Const General: cooperative HENMT Head: normal to inspection and normocephalic Resp Effort & Inspection: normal respiratory effort Cardio Rate: regular rate Skin Other: Patient with multiple lacerations to his left leg. There is 1 laceration that is 5 cm long. No active bleeding Neuro General: patient alert, patient awake and moves all extremities Extrem Other: Cut the left lower extremity Psych Appearance: grossly normal and well kempt Procedures Laceration Repair Laceration 1: Site: lower extremity Side (If applicable): left Size (cm): 5 Description: linear Depth: simple, single layer Local Anesthetic: lidocaine 1% and with bicarb Amount of anesthesia used (mL): 5 Pre-repair: wound explored and deep structures intact Skin layer closed with: nylon Size (cm): 5-0 Number of sutures: 6 Technique: simple, interrupted Course Orders Ordered: Discontinued Medications Bacitracin (Bacitracin Oint 0.9 Gm Pckt) 1 applic TOP NOW ONE Stop: 02/02/21 03:44 Lidocaine/Sodium Bicarbonate (Lido 1%/Sod Bicarb 8.4% (10ml) 10 Ml Syringe) 10 ml INJ NOW ONE Stop: 02/02/21 03:44 Vital Signs Vital signs: Vital Signs - 8 hr 02/02/21 03:35 Temperature 98.2 F Pulse Rate 112 H Respiratory Rate 21 Blood Pressure 124/69 Pulse Oximetry 100 MDM - Wound/Laceration MDM Narrative Medical decision making narrative: Patient denies suicidal homicidal ideation. The laceration was closed as described above. He was given care instructions and return precautions. He expressed understanding and agreement. Discharge Plan Departure Patient Disposition: Home Clinical Impression: Laceration Instructions: DI for Laceration Repair Activity Restrictions/Additional Instructions: The stitches do need to be removed in 7-10 days. Until then keep them covered with a bandage. You can shower like normal use soap and water like normal. You can also use topical antibiotic ointment. Contact your primary doctor for follow-up. Return to the emergency department for any new or worsening symptoms Prescriptions: No Action bupropion HCl 200 mg tablet sustained-release 12 hr 200 mg PO BID Qty: 60 RF: 3 cholecalciferol (vitamin D3) 1,250 mcg (50,000 unit) capsule 1,250 mcg PO QWEEK Qty: 8 RF: 0 fluoxetine 40 mg capsule 40 mg PO DAILY Qty: 90 RF: 3 quetiapine 100 mg tablet 100 mg PO BEDTIME Qty: 90 RF: 1 vitamin E 200 unit capsule 200 unit PO DAILY RF: 0 omega-3 fatty acids [Fish Oil Concentrate] 1,000 mg capsule 1,000 mg PO DAILY RF: 0 clonazepam 1 mg tablet 1 mg PO TID RF: 0 Centrum 18-400 mg-mcg Tablet 1 tab PO DAILY RF: 0 Referrals: Min Tinsley DO [Primary Care Provider] -
[2021-02-02 04:19] VITALS: BP 117/71; PULSE 91; RESP 18; O2SAT 97
[2021-02-02] MEDS: LIDO 1%/SOD BICARB 8.4% (10ML) 10 ML SYRINGE INJ (04:21)
[2021-02-02] MEDS: BACITRACIN OINT 0.9 GM PCKT 1 APPLIC TOP (04:22)
== END 2021-02-02 04:21 | disposition home or self-care (01) ==
PROVIDERS: Emergency Provider Emergency Medicine; PCP Family Medicine
DX: S71.112A Laceration without foreign body, left thigh, initial encounter (principal); X78.9XXA Intentional self-harm by unspecified sharp object, initial encounter
CPT/HCPCS: 12002; 99283

== ENCOUNTER 2021-03-04 19:29 | Emergency (ER) | payer OTHER, MEDICAID, SELFPAY ==
[2021-01-27 12:48] VITALS: PULSE 42; RESP 16; O2SAT 100
[2021-03-04 19:36] VITALS: PULSE 101; O2SAT 96
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
[2021-03-04 19:44] VITALS: BP 126/86; PULSE 99; RESP 15; TEMP 37.1; O2SAT 98; BMI 21.8
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
[2021-03-04 20:00] VITALS: BP 121/78; PULSE 94; O2SAT 95
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
--- NOTE | 2021-03-04 22:01 | PC.NURSE ---
Addendum entered by Tiffany Bhakta R.N. 03/04/21 22:15: Pt denied SI/HI Original Note: Patient left AMA at 2763
== END 2021-03-04 21:57 | disposition left against medical advice (07) ==
PROVIDERS: Emergency Provider Emergency Medicine; PCP Family Medicine
DX: R07.89 Other chest pain (principal); F10.10 Alcohol abuse, uncomplicated; V89.2XXA Person injured in unspecified motor-vehicle accident, traffic, initial encounter; Z91.5 Personal history of self-harm
CPT/HCPCS: 70450; 71045; 72125; 93005; 93010; 99284

== ENCOUNTER 2021-03-31 01:11 | Emergency (ER) | payer OTHER, MEDICAID, SELFPAY ==
[2021-01-27 12:48] VITALS: PULSE 42; RESP 16; O2SAT 100
[2021-03-31] VITALS (12 sets, daily range): BP systolic 119–144; BP diastolic 69–74; PULSE 83–117; RESP 14–24; TEMP 37.3; O2SAT 96–100; BMI 23.7
--- NOTE | 2021-03-31 01:19 | ED.PSYCH ---
HPI - Psych <Alfredo Marcus, DO - Last Filed: 04/04/21 03:26> General Chief Complaint: Psychiatric Symptoms Stated Complaint: Left Wrist cut, Time Seen by Provider: 03/31/21 01:13 Source: patient and EMS Mode of arrival: EMS History of Present Illness HPI Narrative: 30-year-old male nonsmoker, heavy drinker with history of anxiety, depression, suicidality presents by EMS for evaluation of severe depression and suicide attempt. The circumstances are unclear on arrival but patient was significantly drunk and had performed a deep cut to the left wrist and attempt to kill himself. He states he drinks a 0.5 gal of alcohol daily so his consumption today is unchanged. Additionally he took his routine nighttime meds including Wellbutrin, Klonopin, Seroquel. He denies any additional medications or street drugs. He states that he is actively suicidal. He denies any homicidal ideation. Patient has been hospitalized at mental health institutions is recently is a few months ago at [facility]. He is not currently under the care of a psychologist or therapist. While EMS was bring patient into the emergency department he reached out to grab 1 of their multi tools on their belt an attempt to continue hurting himself. He was taken to room 6 and was violent, punching and kicking at people, attempts at verbal deescalation did not work and soft restraints were placed. Related Data Home Medications Medication Instructions Recorded Confirmed multivitamin-ferrous 1 tab PO DAILY 10/18/20 03/31/21 fumarate-folic acid 18 mg-400 mcg tablet (Centrum) omega-3 fatty acids 1,000 mg 1,000 mg PO DAILY 01/03/21 03/31/21 capsule (Fish Oil Concentrate) vitamin E 200 unit capsule 200 unit PO DAILY 01/03/21 03/31/21 Previous Rx's Medication Instructions Recorded cholecalciferol (vitamin D3) 1,250 1,250 mcg PO QWEEK #8 cap 01/23/21 mcg (50,000 unit) capsule bupropion HCl 200 mg tablet,12 hr 200 mg PO BID #60 ea 03/14/21 sustained-release clonazepam 1 mg tablet 1 mg PO TID PRN #90 tab 03/14/21 quetiapine 100 mg tablet See Rx Instructions .ROUTE 03/24/21 .COMPLEX #30 tab Allergies Allergy/AdvReac Type Severity Reaction Status Date / Time risperidone [From Risperdal] Allergy Verified 03/31/21 18:32 olanzapine AdvReac Severe suicidal Verified 03/31/21 18:32 ideations Review of Systems <Alfredo Marcus DO - Last Filed: 04/04/21 03:26> Review of Systems Narrative: GENERAL: Denies chills, fatigue, malaise, fever, sweats. HEENT: Denies sinus pain, ear pain, sore throat, difficulty swallowing, dizziness. RESPIRATORY: Denies dyspnea, cough, wheezing, hemoptysis, sputum. CARDIOVASCULAR: Denies chest pain, palpitations, orthopnea, edema, GASTROINTESTINAL: Denies nausea, vomiting, abdominal pain, diarrhea, constipation, melena. : Denies dysuria, frequency, incontinence, hematuria, urinary retention. MUSCULOSKELETAL: denies weakness, joint pain, or bony pain SKIN: See HPI NEUROLOGIC: Denies weakness, headache, numbness, change in speech, confusion, seizures, incoordination. PSYCHIATRIC: See HPI 12 point review of systems is negative except for those stated above Patient History <Alfredo Marcus DO - Last Filed: 04/04/21 03:26> Medical History ADHD Anxiety Cervical somatic dysfunction Chronic neck and back pain Cranial somatic dysfunction Depression Fractures History of bipolar disorder History of suicide attempt Migraines Overdose Partial blindness Pelvic somatic dysfunction Personality disorder PTSD (post-traumatic stress disorder) Rib pain on right side Right shoulder pain Routine screening for STI (sexually transmitted infection) Scoliosis Segmental and somatic dysfunction of abdomen and other regions Segmental and somatic dysfunction of lumbar region Segmental and somatic dysfunction of rib cage Segmental and somatic dysfunction of sacral region Segmental and somatic dysfunction of thoracic region Segmental and somatic dysfunction of upper extremity Surgical History Anesthesia History of removal of cyst (~2018) Family History Father Mental health problem Mother Thyroid cancer Breast cancer Social History household members: family Smoking Status: Current every day smoker Smokeless tobacco user: other alcohol intake: current substance use type: does not use and former substance user Smoking Status: Current every day smoker tobacco type: vaping alcohol intake frequency: 3 or more drinks per day Alcohol type: hard liquor Substance Use Type: does not use Exam <Alfredo Marcus, DO - Last Filed: 04/04/21 03:26> Narrative Exam Narrative: GENERAL: [30 year old patient appears stated age. Tearful, crying, agitated, violent speech is largely clear HEAD: Atraumatic. Normocephalic. EYES: Pupils equal round and reactive. Extraocular motions intact. No scleral icterus. No injection or drainage. ENT: Nose without bleeding, purulent drainage. Throat without erythema, tonsillar hypertrophy or exudate. Airway patent. NECK: Trachea midline. Non tender CARDIOVASCULAR: Tachycardic but regular rhythm without murmurs, gallops, or rubs. RESPIRATORY: Clear to auscultation. Breath sounds equal bilaterally. No wheezes, rales, or rhonchi. GASTROINTESTINAL: Abdomen soft, non-tender, nondistended. EXTREMITIES:8cm deep laceration on volar surface of left forearm. No FB noted. When visualized in bloodless field a complete transection of flexor carpi radialis is noted. No numbness, tingling, or weakness noted. Cap refill <2s No edema or joint tenderness. No arterial involvement noted. Compartments soft. BACK: Nontender without deformity or crepitance. No flank tenderness. NEURO: AOx3. SKIN: No rash or erythema of visible areas Initial Vital Signs Initial Vital Signs: Vital Signs Temperature 99.1 F 03/31/21 01:12 Pulse Rate 117 H 03/31/21 01:12 Respiratory Rate 14 03/31/21 01:12 Blood Pressure 136/69 03/31/21 01:12 Pulse Oximetry 98 03/31/21 01:12 <Avery Brand, DO - Last Filed: 04/01/21 08:20> Initial Vital Signs Initial Vital Signs: Vital Signs Temperature 99.1 F 03/31/21 01:12 Pulse Rate 117 H 03/31/21 01:12 Respiratory Rate 14 03/31/21 01:12 Blood Pressure 136/69 03/31/21 01:12 Pulse Oximetry 98 03/31/21 01:12 <Sarita Blum, DO - Last Filed: 04/03/21 00:07> Initial Vital Signs Initial Vital Signs: Vital Signs Temperature 99.1 F 03/31/21 01:12 Pulse Rate 117 H 03/31/21 01:12 Respiratory Rate 14 03/31/21 01:12 Blood Pressure 136/69 03/31/21 01:12 Pulse Oximetry 98 03/31/21 01:12 Procedures <Alfredo Marcus DO - Last Filed: 04/04/21 03:26> Laceration Repair Laceration 1: Site: upper extremity Side (If applicable): left Size (cm): 8 Description: linear and clean Depth: involves muscle layer and involves tendon Local Anesthetic: bupivacaine 0.5% Pre-repair: wound explored Skin layer closed with: nylon Size (cm): 4-0 Number of sutures: 8 Course <Alfredo Marcus DO - Last Filed: 04/04/21 03:26> Orders Ordered: Discontinued Medications Bupivacaine HCl (Bupivacaine 0.5% (Pf) Vial) 5 ml SUBCUT NOW ONE Stop: 03/31/21 01:15 Last Admin: 03/31/21 02:20 Dose: 5 ml Documented by: RUSSELL Bupropion HCl (Bupropion Xl 150 Mg Tab) 200 mg PO NOW ONE Stop: 03/31/21 09:28 Last Admin: 03/31/21 09:44 Dose: Not Given Documented by: KATHLEEN Bupropion HCl (Bupropion Sr 100 Mg Tab) 200 mg PO NOW ONE Stop: 03/31/21 09:46 Last Admin: 03/31/21 10:10 Dose: 200 mg Documented by: FABIO Bupropion HCl (Bupropion Sr 100 Mg Tab) 200 mg PO BID DARLEEN Last Admin: 04/02/21 07:44 Dose: 200 mg Documented by: Admin: 04/01/21 20:51 Dose: 200 mg Documented by: Admin: 04/01/21 09:31 Dose: 200 mg Documented by: MIKE Clonazepam (Clonazepam 0.5 Mg Tablet) 1 mg PO NOW ONE Stop: 03/31/21 09:28 Last Admin: 03/31/21 10:10 Dose: 1 mg Documented by: FABIO Clonazepam (Clonazepam 0.5 Mg Tablet) 1 mg PO NOW ONE Stop: 03/31/21 15:48 Last Admin: 03/31/21 16:02 Dose: 1 mg Documented by: MIKE Clonazepam (Clonazepam 0.5 Mg Tablet) 1 mg PO TID PRN PRN Reason: Anxiety Last Admin: 04/02/21 03:35 Dose: 1 mg Documented by: Admin: 04/01/21 12:54 Dose: 1 mg Documented by: Admin: 04/01/21 09:31 Dose: 1 mg Documented by: MIKE Fish Oil (Fish Oil 1,000 Mg Capsule) 1,000 mg PO DAILY [facility] Last Admin: 04/02/21 07:43 Dose: 1,000 mg Documented by: Admin: 04/01/21 09:50 Dose: 1,000 mg Documented by: MIKE Fluoxetine HCl (Fluoxetine 20 Mg Capsule) 60 mg PO NOW ONE Stop: 03/31/21 09:28 Last Admin: 03/31/21 10:10 Dose: 60 mg Documented by: FABIO Fluoxetine HCl (Fluoxetine 20 Mg Capsule) 20 mg PO NOW ONE Stop: 03/31/21 10:12 Last Admin: 03/31/21 10:34 Dose: 20 mg Documented by: KATHLEEN Fluoxetine HCl (Fluoxetine 20 Mg Capsule) 80 mg PO DAILY [facility] Last Admin: 04/02/21 07:44 Dose: 80 mg Documented by: Admin: 04/01/21 09:31 Dose: 80 mg Documented by: MIKE Lorazepam (Lorazepam 2 Mg/Ml Inj) 1 mg IV NOW ONE Stop: 03/31/21 02:16 Last Admin: 03/31/21 02:20 Dose: 1 mg Documented by: RUSSELL Lorazepam (Lorazepam 2 Mg/Ml Inj) 1 mg IV NOW ONE Stop: 03/31/21 03:45 Last Admin: 03/31/21 03:47 Dose: 1 mg Documented by: LAWRENCE Lorazepam (Lorazepam 2 Mg/Ml Inj) 1 mg IV NOW ONE Stop: 03/31/21 13:13 Last Admin: 03/31/21 13:19 Dose: 1 mg Documented by: FABIO Lorazepam (Lorazepam 0.5 Mg Tablet) 1 mg PO NOW ONE Stop: 03/31/21 20:40 Last Admin: 03/31/21 21:15 Dose: 1 mg Documented by: LAWRENCE Lorazepam (Lorazepam 0.5 Mg Tablet) 1 mg PO NOW ONE Stop: 04/01/21 10:29 Last Admin: 04/01/21 10:47 Dose: 1 mg Documented by: MIKE Lorazepam (Lorazepam 0.5 Mg Tablet) 1 mg PO NOW ONE Stop: 04/01/21 15:59 Last Admin: 04/01/21 16:03 Dose: 1 mg Documented by: CAMELIA Lorazepam (Lorazepam 0.5 Mg Tablet) 1 mg PO NOW ONE Stop: 04/01/21 20:23 Last Admin: 04/01/21 20:51 Dose: 1 mg Documented by: MIKE Lorazepam (Lorazepam 0.5 Mg Tablet) 1 mg PO NOW ONE Stop: 04/02/21 07:32 Last Admin: 04/02/21 07:39 Dose: 1 mg Documented by: JOSEPH Multivitamins (Multivitamin 1 Tablet) 1 tab PO DAILY [facility] Last Admin: 04/02/21 07:43 Dose: 1 tab Documented by: Admin: 04/01/21 09:50 Dose: 1 tab Documented by: MIKE Nicotine (Nicotine 21 Mg Patch) 21 mg TOP NOW ONE Stop: 03/31/21 01:31 Last Admin: 03/31/21 01:38 Dose: 21 mg Documented by: LAWRENCE Nicotine (Nicotine 21 Mg Patch) 21 mg TOP NOW ONE Stop: 03/31/21 13:13 Last Admin: 03/31/21 13:19 Dose: 21 mg Documented by: FABIO Nicotine (Nicotine 21 Mg Patch) 21 mg TOP DAILY [facility] Last Admin: 04/02/21 07:42 Dose: 21 mg Documented by: Admin: 04/01/21 12:54 Dose: 21 mg Documented by: MIKE Ondansetron HCl (Ondansetron 4 Mg/2 Ml Inj) 4 mg IV NOW ONE Stop: 03/31/21 02:54 Last Admin: 03/31/21 05:07 Dose: Not Given Documented by: LAWRENCE Quetiapine Fumarate (Quetiapine 25 Mg Tablet) 100 mg PO NOW ONE Stop: 03/31/21 20:40 Last Admin: 03/31/21 21:15 Dose: 100 mg Documented by: LAWRENCE Quetiapine Fumarate (Quetiapine 100 Mg Tablet) 100 mg PO BEDTIME [facility] Last Admin: 04/01/21 20:51 Dose: 100 mg Documented by: MIKE Quetiapine Fumarate (Quetiapine 25 Mg Tablet) 100 mg PO NOW ONE Stop: 04/01/21 20:23 Last Admin: 04/01/21 20:51 Dose: Not Given Documented by: MIKE Consultations Consultation #1: discussed tendon injury with orthopedics. Skin closure only for now, can be seen in follow up. Vital Signs Vital signs: Vital Signs - 8 hr 04/01/21 23:03 Temperature 97.9 F Pulse Rate 80 Respiratory Rate 18 Blood Pressure 103/60 Pulse Oximetry 97 <Avery Brand DO - Last Filed: 04/01/21 08:20> Orders Ordered: Discontinued Medications Bupivacaine HCl (Bupivacaine 0.5% (Pf) Vial) 5 ml SUBCUT NOW ONE Stop: 03/31/21 01:15 Last Admin: 03/31/21 02:20 Dose: 5 ml Documented by: RUSSELL Bupropion HCl (Bupropion Xl 150 Mg Tab) 200 mg PO NOW ONE Stop: 03/31/21 09:28 Last Admin: 03/31/21 09:44 Dose: Not Given Documented by: KATHLEEN Bupropion HCl (Bupropion Sr 100 Mg Tab) 200 mg PO NOW ONE Stop: 03/31/21 09:46 Last Admin: 03/31/21 10:10 Dose: 200 mg Documented by: FABIO Bupropion HCl (Bupropion Sr 100 Mg Tab) 200 mg PO BID DARLEEN Last Admin: 04/02/21 07:44 Dose: 200 mg Documented by: Admin: 04/01/21 20:51 Dose: 200 mg Documented by: Admin: 04/01/21 09:31 Dose: 200 mg Documented by: MIKE Clonazepam (Clonazepam 0.5 Mg Tablet) 1 mg PO NOW ONE Stop: 03/31/21 09:28 Last Admin: 03/31/21 10:10 Dose: 1 mg Documented by: FABIO Clonazepam (Clonazepam 0.5 Mg Tablet) 1 mg PO NOW ONE Stop: 03/31/21 15:48 Last Admin: 03/31/21 16:02 Dose: 1 mg Documented by: MIKE Clonazepam (Clonazepam 0.5 Mg Tablet) 1 mg PO TID PRN PRN Reason: Anxiety Last Admin: 04/02/21 03:35 Dose: 1 mg Documented by: Admin: 04/01/21 12:54 Dose: 1 mg Documented by: Admin: 04/01/21 09:31 Dose: 1 mg Documented by: MIKE Fish Oil (Fish Oil 1,000 Mg Capsule) 1,000 mg PO DAILY [facility] Last Admin: 04/02/21 07:43 Dose: 1,000 mg Documented by: Admin: 04/01/21 09:50 Dose: 1,000 mg Documented by: MIKE Fluoxetine HCl (Fluoxetine 20 Mg Capsule) 60 mg PO NOW ONE Stop: 03/31/21 09:28 Last Admin: 03/31/21 10:10 Dose: 60 mg Documented by: FABIO Fluoxetine HCl (Fluoxetine 20 Mg Capsule) 20 mg PO NOW ONE Stop: 03/31/21 10:12 Last Admin: 03/31/21 10:34 Dose: 20 mg Documented by: KATHLEEN Fluoxetine HCl (Fluoxetine 20 Mg Capsule) 80 mg PO DAILY [facility] Last Admin: 04/02/21 07:44 Dose: 80 mg Documented by: Admin: 04/01/21 09:31 Dose: 80 mg Documented by: MIKE Lorazepam (Lorazepam 2 Mg/Ml Inj) 1 mg IV NOW ONE Stop: 03/31/21 02:16 Last Admin: 03/31/21 02:20 Dose: 1 mg Documented by: RUSSELL Lorazepam (Lorazepam 2 Mg/Ml Inj) 1 mg IV NOW ONE Stop: 03/31/21 03:45 Last Admin: 03/31/21 03:47 Dose: 1 mg Documented by: LAWRENCE Lorazepam (Lorazepam 2 Mg/Ml Inj) 1 mg IV NOW ONE Stop: 03/31/21 13:13 Last Admin: 03/31/21 13:19 Dose: 1 mg Documented by: FABIO Lorazepam (Lorazepam 0.5 Mg Tablet) 1 mg PO NOW ONE Stop: 03/31/21 20:40 Last Admin: 03/31/21 21:15 Dose: 1 mg Documented by: LAWRENCE Lorazepam (Lorazepam 0.5 Mg Tablet) 1 mg PO NOW ONE Stop: 04/01/21 10:29 Last Admin: 04/01/21 10:47 Dose: 1 mg Documented by: MIKE Lorazepam (Lorazepam 0.5 Mg Tablet) 1 mg PO NOW ONE Stop: 04/01/21 15:59 Last Admin: 04/01/21 16:03 Dose: 1 mg Documented by: CAMELIA Lorazepam (Lorazepam 0.5 Mg Tablet) 1 mg PO NOW ONE Stop: 04/01/21 20:23 Last Admin: 04/01/21 20:51 Dose: 1 mg Documented by: MIKE Lorazepam (Lorazepam 0.5 Mg Tablet) 1 mg PO NOW ONE Stop: 04/02/21 07:32 Last Admin: 04/02/21 07:39 Dose: 1 mg Documented by: JOSEPH Multivitamins (Multivitamin 1 Tablet) 1 tab PO DAILY [facility] Last Admin: 04/02/21 07:43 Dose: 1 tab Documented by: Admin: 04/01/21 09:50 Dose: 1 tab Documented by: MIKE Nicotine (Nicotine 21 Mg Patch) 21 mg TOP NOW ONE Stop: 03/31/21 01:31 Last Admin: 03/31/21 01:38 Dose: 21 mg Documented by: LAWRENCE Nicotine (Nicotine 21 Mg Patch) 21 mg TOP NOW ONE Stop: 03/31/21 13:13 Last Admin: 03/31/21 13:19 Dose: 21 mg Documented by: FABIO Nicotine (Nicotine 21 Mg Patch) 21 mg TOP DAILY [facility] Last Admin: 04/02/21 07:42 Dose: 21 mg Documented by: Admin: 04/01/21 12:54 Dose: 21 mg Documented by: MIKE Ondansetron HCl (Ondansetron 4 Mg/2 Ml Inj) 4 mg IV NOW ONE Stop: 03/31/21 02:54 Last Admin: 03/31/21 05:07 Dose: Not Given Documented by: LAWRENCE Quetiapine Fumarate (Quetiapine 25 Mg Tablet) 100 mg PO NOW ONE Stop: 03/31/21 20:40 Last Admin: 03/31/21 21:15 Dose: 100 mg Documented by: LAWRENCE Quetiapine Fumarate (Quetiapine 100 Mg Tablet) 100 mg PO BEDTIME [facility] Last Admin: 04/01/21 20:51 Dose: 100 mg Documented by: MIKE Quetiapine Fumarate (Quetiapine 25 Mg Tablet) 100 mg PO NOW ONE Stop: 04/01/21 20:23 Last Admin: 04/01/21 20:51 Dose: Not Given Documented by: MIKE Vital Signs Vital signs: Vital Signs - 8 hr 04/01/21 23:03 Temperature 97.9 F Pulse Rate 80 Respiratory Rate 18 Blood Pressure 103/60 Pulse Oximetry 97 <Sarita Blum, - Last Filed: 04/03/21 00:07> Orders Ordered: Discontinued Medications Bupivacaine HCl (Bupivacaine 0.5% (Pf) Vial) 5 ml SUBCUT NOW ONE Stop: 03/31/21 01:15 Last Admin: 03/31/21 02:20 Dose: 5 ml Documented by: RUSSELL Bupropion HCl (Bupropion Xl 150 Mg Tab) 200 mg PO NOW ONE Stop: 03/31/21 09:28 Last Admin: 03/31/21 09:44 Dose: Not Given Documented by: KATHLEEN Bupropion HCl (Bupropion Sr 100 Mg Tab) 200 mg PO NOW ONE Stop: 03/31/21 09:46 Last Admin: 03/31/21 10:10 Dose: 200 mg Documented by: FABIO Bupropion HCl (Bupropion Sr 100 Mg Tab) 200 mg PO BID [facility] Last Admin: 04/02/21 07:44 Dose: 200 mg Documented by: Admin: 04/01/21 20:51 Dose: 200 mg Documented by: Admin: 04/01/21 09:31 Dose: 200 mg Documented by: MIKE Clonazepam (Clonazepam 0.5 Mg Tablet) 1 mg PO NOW ONE Stop: 03/31/21 09:28 Last Admin: 03/31/21 10:10 Dose: 1 mg Documented by: FABIO Clonazepam (Clonazepam 0.5 Mg Tablet) 1 mg PO NOW ONE Stop: 03/31/21 15:48 Last Admin: 03/31/21 16:02 Dose: 1 mg Documented by: MIKE Clonazepam (Clonazepam 0.5 Mg Tablet) 1 mg PO TID PRN PRN Reason: Anxiety Last Admin: 04/02/21 03:35 Dose: 1 mg Documented by: Admin: 04/01/21 12:54 Dose: 1 mg Documented by: Admin: 04/01/21 09:31 Dose: 1 mg Documented by: MIKE Fish Oil (Fish Oil 1,000 Mg Capsule) 1,000 mg PO DAILY [facility] Last Admin: 04/02/21 07:43 Dose: 1,000 mg Documented by: Admin: 04/01/21 09:50 Dose: 1,000 mg Documented by: MIKE Fluoxetine HCl (Fluoxetine 20 Mg Capsule) 60 mg PO NOW ONE Stop: 03/31/21 09:28 Last Admin: 03/31/21 10:10 Dose: 60 mg Documented by: FABIO Fluoxetine HCl (Fluoxetine 20 Mg Capsule) 20 mg PO NOW ONE Stop: 03/31/21 10:12 Last Admin: 03/31/21 10:34 Dose: 20 mg Documented by: KATHLEEN Fluoxetine HCl (Fluoxetine 20 Mg Capsule) 80 mg PO DAILY DARLEEN Last Admin: 04/02/21 07:44 Dose: 80 mg Documented by: Admin: 04/01/21 09:31 Dose: 80 mg Documented by: MIKE Lorazepam (Lorazepam 2 Mg/Ml Inj) 1 mg IV NOW ONE Stop: 03/31/21 02:16 Last Admin: 03/31/21 02:20 Dose: 1 mg Documented by: RUSSELL Lorazepam (Lorazepam 2 Mg/Ml Inj) 1 mg IV NOW ONE Stop: 03/31/21 03:45 Last Admin: 03/31/21 03:47 Dose: 1 mg Documented by: LAWRENCE Lorazepam (Lorazepam 2 Mg/Ml Inj) 1 mg IV NOW ONE Stop: 03/31/21 13:13 Last Admin: 03/31/21 13:19 Dose: 1 mg Documented by: FABIO Lorazepam (Lorazepam 0.5 Mg Tablet) 1 mg PO NOW ONE Stop: 03/31/21 20:40 Last Admin: 03/31/21 21:15 Dose: 1 mg Documented by: LAWRENCE Lorazepam (Lorazepam 0.5 Mg Tablet) 1 mg PO NOW ONE Stop: 04/01/21 10:29 Last Admin: 04/01/21 10:47 Dose: 1 mg Documented by: MIKE Lorazepam (Lorazepam 0.5 Mg Tablet) 1 mg PO NOW ONE Stop: 04/01/21 15:59 Last Admin: 04/01/21 16:03 Dose: 1 mg Documented by: CAMELIA Lorazepam (Lorazepam 0.5 Mg Tablet) 1 mg PO NOW ONE Stop: 04/01/21 20:23 Last Admin: 04/01/21 20:51 Dose: 1 mg Documented by: MIKE Lorazepam (Lorazepam 0.5 Mg Tablet) 1 mg PO NOW ONE Stop: 04/02/21 07:32 Last Admin: 04/02/21 07:39 Dose: 1 mg Documented by: JOSEPH Multivitamins (Multivitamin 1 Tablet) 1 tab PO DAILY [facility] Last Admin: 04/02/21 07:43 Dose: 1 tab Documented by: Admin: 04/01/21 09:50 Dose: 1 tab Documented by: MIKE Nicotine (Nicotine 21 Mg Patch) 21 mg TOP NOW ONE Stop: 03/31/21 01:31 Last Admin: 03/31/21 01:38 Dose: 21 mg Documented by: LAWRENCE Nicotine (Nicotine 21 Mg Patch) 21 mg TOP NOW ONE Stop: 03/31/21 13:13 Last Admin: 03/31/21 13:19 Dose: 21 mg Documented by: FABIO Nicotine (Nicotine 21 Mg Patch) 21 mg TOP DAILY [facility] Last Admin: 04/02/21 07:42 Dose: 21 mg Documented by: Admin: 04/01/21 12:54 Dose: 21 mg Documented by: MIKE Ondansetron HCl (Ondansetron 4 Mg/2 Ml Inj) 4 mg IV NOW ONE Stop: 03/31/21 02:54 Last Admin: 03/31/21 05:07 Dose: Not Given Documented by: LAWRENCE Quetiapine Fumarate (Quetiapine 25 Mg Tablet) 100 mg PO NOW ONE Stop: 03/31/21 20:40 Last Admin: 03/31/21 21:15 Dose: 100 mg Documented by: LAWRENCE Quetiapine Fumarate (Quetiapine 100 Mg Tablet) 100 mg PO BEDTIME [facility] Last Admin: 04/01/21 20:51 Dose: 100 mg Documented by: MIKE Quetiapine Fumarate (Quetiapine 25 Mg Tablet) 100 mg PO NOW ONE Stop: 04/01/21 20:23 Last Admin: 04/01/21 20:51 Dose: Not Given Documented by: MIKE Vital Signs Vital signs: Vital Signs - 8 hr 04/01/21 23:03 Temperature 97.9 F Pulse Rate 80 Respiratory Rate 18 Blood Pressure 103/60 Pulse Oximetry 97 MDM - Psych <Alfredo Marcus DO - Last Filed: 04/04/21 03:26> Lab Data Result diagrams: 03/31/21 01:23 03/31/21 01:23 Labs: Lab Results 03/31/21 03/31/21 03/31/21 Range/Units 01: 01:23 02:00 WBC 5.2 (4.5-11.0) X10^3/uL RBC 4.26 L (4.5-5.9) X10^6/uL Hgb 13.6 (13.5-17.5) g/dL Hct 41.1 (41-53) % MCV 96.4 (80-100) fL MCH 31.9 (26-34) PG MCHC 33.1 (30-36) % RDW 13.4 (11.6-14.8) % Plt Count 292 (150-400) X10^3/uL Neut % (Auto) 67.0 (50-75) % Lymph % (Auto) 24.5 L (25-40) % [place] % (Auto) 7.0 (3-14) % Eos % (Auto) 0.3 L (2-4) % Baso % (Auto) 1.2 (0-2) % Neut # (Auto) 3500 (4514-2005) /uL Lymph # (Auto) 1300 (4161-7484) /uL [place] # (Auto) 400 (0-900) /uL Eos # (Auto) 0 (0-450) /uL Baso # (Auto) 100 (0-100) /uL Sodium 144 (137-145) mmol/L Potassium 4.2 (3.4-5.1) mmol/L Chloride 109 H (98-107) mmol/L Carbon Dioxide 23 (22-32) mmol/L BUN 8 L (9-20) mg/dL Creatinine 0.94 (0.66-1.25) mg/dL Estimated GFR > 60.0 (>60) mL/min BUN/Creatinine Ratio 8.5 (6-22) Glucose 99 (70-100) mg/dL Calcium 8.6 (8.4-10.2) mg/dL Total Bilirubin 0.3 (0.2-1.3) mg/dL AST 41 (17-59) IU/L ALT 24 (<50) IU/L Alkaline Phosphatase 76 (38-126) U/L Total Protein 7.5 (6.3-8.2) g/dL Albumin 4.5 (3.5-5.0) g/dL Globulin 3.0 (1.7-4.1) g/dL Albumin/Globulin Ratio 1.5 (1.0-2.8) U Opiates 300ng/mL cut Negative (Negative) Ur Oxycodone Screen Negative (Negative) Urine Methadone Screen Negative (Negative) Ur Barbiturates Screen Negative (Negative) U Tricyclic Antidepress Negative (Negative) Ur Phencyclidine Scrn Negative (Negative) Ur Amphetamines Screen Negative (Negative) U Methamphetamines Scrn Negative (Negative) Ur MDMA Scrn (Ecstasy) Negative (Negative) U Benzodiazepines Scrn Negative (Negative) Urine Cocaine Screen Negative (Negative) U Marijuana (THC) Screen Negative (Negative) Ethyl Alcohol 252 H ( - 10) mg/dL SARS-CoV-2 (PCR) (Negative) 03/31/21 03/31/21 03/31/21 Range/Units 09:50 13:10 13:25 WBC (4.5-11.0) X10^3/uL RBC (4.5-5.9) X10^6/uL Hgb (13.5-17.5) g/dL Hct (41-53) % MCV (80-100) fL MCH (26-34) PG MCHC (30-36) % RDW (11.6-14.8) % Plt Count (150-400) X10^3/uL Neut % (Auto) (50-75) % Lymph % (Auto) (25-40) % [place] % (Auto) (3-14) % Eos % (Auto) (2-4) % Baso % (Auto) (0-2) % Neut # (Auto) (6223-0191) /uL Lymph # (Auto) (9542-4269) /uL [place] # (Auto) (0-900) /uL Eos # (Auto) (0-450) /uL Baso # (Auto) (0-100) /uL Sodium (137-145) mmol/L Potassium (3.4-5.1) mmol/L Chloride (98-107) mmol/L Carbon Dioxide (22-32) mmol/L BUN (9-20) mg/dL Creatinine (0.66-1.25) mg/dL Estimated GFR (>60) mL/min BUN/Creatinine Ratio (6-22) Glucose (70-100) mg/dL Calcium (8.4-10.2) mg/dL Total Bilirubin (0.2-1.3) mg/dL AST (17-59) IU/L ALT (<50) IU/L Alkaline Phosphatase (38-126) U/L Total Protein (6.3-8.2) g/dL Albumin (3.5-5.0) g/dL Globulin (1.7-4.1) g/dL Albumin/Globulin Ratio (1.0-2.8) U Opiates 300ng/mL cut (Negative) Ur Oxycodone Screen (Negative) Urine Methadone Screen (Negative) Ur Barbiturates Screen (Negative) U Tricyclic Antidepress (Negative) Ur Phencyclidine Scrn (Negative) Ur Amphetamines Screen (Negative) U Methamphetamines Scrn (Negative) Ur MDMA Scrn (Ecstasy) (Negative) U Benzodiazepines Scrn (Negative) Urine Cocaine Screen (Negative) U Marijuana (THC) Screen (Negative) Ethyl Alcohol 101 H 19 H ( - 10) mg/dL SARS-CoV-2 (PCR) Negative (Negative) Urine Dip Bedside Urine Glucose Negative Bedside Urine Bilirubin - Negative Bedside Urine Ketone - Negative Urine Specific [place] 1.015 Bedside Urine Occult Blood - Negative Bedside Urine pH 6 Bedside Urine Protein - Negative Bedside Urine Urobilinogen - Negative Bedside Urine Nitrite - Negative Bedside Urine Leukocytes - Negative Esterase <Avery Brand, DO - Last Filed: 04/01/21 08:20> Lab Data Labs: Lab Results 03/31/21 03/31/21 03/31/21 Range/Units 01:23 01:23 02:00 WBC 5.2 (4.5-11.0) X10^3/uL RBC 4.26 L (4.5-5.9) X10^6/uL Hgb 13.6 (13.5-17.5) g/dL Hct 41.1 (41-53) % MCV 96.4 (80-100) fL MCH 31.9 (26-34) PG MCHC 33.1 (30-36) % RDW 13.4 (11.6-14.8) % Plt Count 292 (150-400) X10^3/uL Neut % (Auto) 67.0 (50-75) % Lymph % (Auto) 24.5 L (25-40) % [place] % (Auto) 7.0 (3-14) % Eos % (Auto) 0.3 L (2-4) % Baso % (Auto) 1.2 (0-2) % Neut # (Auto) 3500 (4886-9415) /uL Lymph # (Auto) 1300 (1781-4416) /uL [place] # (Auto) 400 (0-900) /uL Eos # (Auto) 0 (0-450) /uL Baso # (Auto) 100 (0-100) /uL Sodium 144 (137-145) mmol/L Potassium 4.2 (3.4-5.1) mmol/L Chloride 109 H (98-107) mmol/L Carbon Dioxide 23 (22-32) mmol/L BUN 8 L (9-20) mg/dL Creatinine 0.94 (0.66-1.25) mg/dL Estimated GFR > 60.0 (>60) mL/min BUN/Creatinine Ratio 8.5 (6-22) Glucose 99 (70-100) mg/dL Calcium 8.6 (8.4-10.2) mg/dL Total Bilirubin 0.3 (0.2-1.3) mg/dL AST 41 (17-59) IU/L ALT 24 (<50) IU/L Alkaline Phosphatase 76 (38-126) U/L Total Protein 7.5 (6.3-8.2) g/dL Albumin 4.5 (3.5-5.0) g/dL Globulin 3.0 (1.7-4.1) g/dL Albumin/Globulin Ratio 1.5 (1.0-2.8) U Opiates 300ng/mL cut Negative (Negative) Ur Oxycodone Screen Negative (Negative) Urine Methadone Screen Negative (Negative) Ur Barbiturates Screen Negative (Negative) U Tricyclic Antidepress Negative (Negative) Ur Phencyclidine Scrn Negative (Negative) Ur Amphetamines Screen Negative (Negative) U Methamphetamines Scrn Negative (Negative) Ur MDMA Scrn (Ecstasy) Negative (Negative) U Benzodiazepines Scrn Negative (Negative) Urine Cocaine Screen Negative (Negative) U Marijuana (THC) Screen Negative (Negative) Ethyl Alcohol 252 H ( - 10) mg/dL SARS-CoV-2 (PCR) (Negative) 03/31/21 03/31/21 03/31/21 Range/Units 09:50 13:10 13:25 WBC (4.5-11.0) X10^3/uL RBC (4.5-5.9) X10^6/uL Hgb (13.5-17.5) g/dL Hct (41-53) % MCV (80-100) fL MCH (26-34) PG MCHC (30-36) % RDW (11.6-14.8) % Plt Count (150-400) X10^3/uL Neut % (Auto) (50-75) % Lymph % (Auto) (25-40) % [place] % (Auto) (3-14) % Eos % (Auto) (2-4) % Baso % (Auto) (0-2) % Neut # (Auto) (4382-5210) /uL Lymph # (Auto) (8780-2249) /uL [place] # (Auto) (0-900) /uL Eos # (Auto) (0-450) /uL Baso # (Auto) (0-100) /uL Sodium (137-145) mmol/L Potassium (3.4-5.1) mmol/L Chloride (98-107) mmol/L Carbon Dioxide (22-32) mmol/L BUN (9-20) mg/dL Creatinine (0.66-1.25) mg/dL Estimated GFR (>60) mL/min BUN/Creatinine Ratio (6-22) Glucose (70-100) mg/dL Calcium (8.4-10.2) mg/dL Total Bilirubin (0.2-1.3) mg/dL AST (17-59) IU/L ALT (<50) IU/L Alkaline Phosphatase (38-126) U/L Total Protein (6.3-8.2) g/dL Albumin (3.5-5.0) g/dL Globulin (1.7-4.1) g/dL Albumin/Globulin Ratio (1.0-2.8) U Opiates 300ng/mL cut (Negative) Ur Oxycodone Screen (Negative) Urine Methadone Screen (Negative) Ur Barbiturates Screen (Negative) U Tricyclic Antidepress (Negative) Ur Phencyclidine Scrn (Negative) Ur Amphetamines Screen (Negative) U Methamphetamines Scrn (Negative) Ur MDMA Scrn (Ecstasy) (Negative) U Benzodiazepines Scrn (Negative) Urine Cocaine Screen (Negative) U Marijuana (THC) Screen (Negative) Ethyl Alcohol 101 H 19 H ( - 10) mg/dL SARS-CoV-2 (PCR) Negative (Negative) Urine Dip Bedside Urine Glucose Negative Bedside Urine Bilirubin - Negative Bedside Urine Ketone - Negative Urine Specific [place] 1.015 Bedside Urine Occult Blood - Negative Bedside Urine pH 6 Bedside Urine Protein - Negative Bedside Urine Urobilinogen - Negative Bedside Urine Nitrite - Negative Bedside Urine Leukocytes - Negative Esterase MDM Narrative Medical decision making narrative: Dr Brand 0930: Received turned over. Reviewed patient's history and physical exam. Patient is calm. He is out of restraints. He is alert oriented x3. His morning medicines were ordered. I re-evaluated his left arm wound. It appears well. No active bleeding. He is able to flex his wrist and also his fingers but does have some discomfort with this. A bandage was replaced. Patient reports that he still is having thoughts of hurting himself. He has a very flat affect. States that he is feeling anxious. Plan will be is to get him his morning medicines. Will continue to observe until high school social science teacher available most likely with placement afterwards. 1730: Patient is medically cleared. Patient has been seen by social work. Patient remains suicidal. This appears to be a chronic issue for him but I suspect that the alcohol use/abuse is a disinhibition which then makes the chances of suicide attempts/completion is a higher. DCR was contacted who will come and evaluate the patient the emergency department. Care was turned over to Dr. Blum to follow up and disposition. <Sarita Blum, DO - Last Filed: 04/03/21 00:07> Lab Data Labs: Lab Results 03/31/21 03/31/21 03/31/21 Range/Units 01:23 01:23 02:00 WBC 5.2 (4.5-11.0) X10^3/uL RBC 4.26 L (4.5-5.9) X10^6/uL Hgb 13.6 (13.5-17.5) g/dL Hct 41.1 (41-53) % MCV 96.4 (80-100) fL MCH 31.9 (26-34) PG MCHC 33.1 (30-36) % RDW 13.4 (11.6-14.8) % Plt Count 292 (150-400) X10^3/uL Neut % (Auto) 67.0 (50-75) % Lymph % (Auto) 24.5 L (25-40) % [place] % (Auto) 7.0 (3-14) % Eos % (Auto) 0.3 L (2-4) % Baso % (Auto) 1.2 (0-2) % Neut # (Auto) 3500 (8313-6640) /uL Lymph # (Auto) 1300 (7607-8088) /uL [place] # (Auto) 400 (0-900) /uL Eos # (Auto) 0 (0-450) /uL Baso # (Auto) 100 (0-100) /uL Sodium 144 (137-145) mmol/L Potassium 4.2 (3.4-5.1) mmol/L Chloride 109 H (98-107) mmol/L Carbon Dioxide 23 (22-32) mmol/L BUN 8 L (9-20) mg/dL Creatinine 0.94 (0.66-1.25) mg/dL Estimated GFR > 60.0 (>60) mL/min BUN/Creatinine Ratio 8.5 (6-22) Glucose 99 (70-100) mg/dL Calcium 8.6 (8.4-10.2) mg/dL Total Bilirubin 0.3 (0.2-1.3) mg/dL AST 41 (17-59) IU/L ALT 24 (<50) IU/L Alkaline Phosphatase 76 (38-126) U/L Total Protein 7.5 (6.3-8.2) g/dL Albumin 4.5 (3.5-5.0) g/dL Globulin 3.0 (1.7-4.1) g/dL Albumin/Globulin Ratio 1.5 (1.0-2.8) U Opiates 300ng/mL cut Negative (Negative) Ur Oxycodone Screen Negative (Negative) Urine Methadone Screen Negative (Negative) Ur Barbiturates Screen Negative (Negative) U Tricyclic Antidepress Negative (Negative) Ur Phencyclidine Scrn Negative (Negative) Ur Amphetamines Screen Negative (Negative) U Methamphetamines Scrn Negative (Negative) Ur MDMA Scrn (Ecstasy) Negative (Negative) U Benzodiazepines Scrn Negative (Negative) Urine Cocaine Screen Negative (Negative) U Marijuana (THC) Screen Negative (Negative) Ethyl Alcohol 252 H ( - 10) mg/dL SARS-CoV-2 (PCR) (Negative) 03/31/21 03/31/21 03/31/21 Range/Units 09:50 13:10 13:25 WBC (4.5-11.0) X10^3/uL RBC (4.5-5.9) X10^6/uL Hgb (13.5-17.5) g/dL Hct (41-53) % MCV (80-100) fL MCH (26-34) PG MCHC (30-36) % RDW (11.6-14.8) % Plt Count (150-400) X10^3/uL Neut % (Auto) (50-75) % Lymph % (Auto) (25-40) % [place] % (Auto) (3-14) % Eos % (Auto) (2-4) % Baso % (Auto) (0-2) % Neut # (Auto) (8626-2011) /uL Lymph # (Auto) (2282-9161) /uL [place] # (Auto) (0-900) /uL Eos # (Auto) (0-450) /uL Baso # (Auto) (0-100) /uL Sodium (137-145) mmol/L Potassium (3.4-5.1) mmol/L Chloride (98-107) mmol/L Carbon Dioxide (22-32) mmol/L BUN (9-20) mg/dL Creatinine (0.66-1.25) mg/dL Estimated GFR (>60) mL/min BUN/Creatinine Ratio (6-22) Glucose (70-100) mg/dL Calcium (8.4-10.2) mg/dL Total Bilirubin (0.2-1.3) mg/dL AST (17-59) IU/L ALT (<50) IU/L Alkaline Phosphatase (38-126) U/L Total Protein (6.3-8.2) g/dL Albumin (3.5-5.0) g/dL Globulin (1.7-4.1) g/dL Albumin/Globulin Ratio (1.0-2.8) U Opiates 300ng/mL cut (Negative) Ur Oxycodone Screen (Negative) Urine Methadone Screen (Negative) Ur Barbiturates Screen (Negative) U Tricyclic Antidepress (Negative) Ur Phencyclidine Scrn (Negative) Ur Amphetamines Screen (Negative) U Methamphetamines Scrn (Negative) Ur MDMA Scrn (Ecstasy) (Negative) U Benzodiazepines Scrn (Negative) Urine Cocaine Screen (Negative) U Marijuana (THC) Screen (Negative) Ethyl Alcohol 101 H 19 H ( - 10) mg/dL SARS-CoV-2 (PCR) Negative (Negative) Urine Dip Bedside Urine Glucose Negative Bedside Urine Bilirubin - Negative Bedside Urine Ketone - Negative Urine Specific [place] 1.015 Bedside Urine Occult Blood - Negative Bedside Urine pH 6 Bedside Urine Protein - Negative Bedside Urine Urobilinogen - Negative Bedside Urine Nitrite - Negative Bedside Urine Leukocytes - Negative Esterase MDM Narrative Medical decision making narrative: Dr Brand 0930: Received turned over. Reviewed patient's history and physical exam. Patient is calm. He is out of restraints. He is alert oriented x3. His morning medicines were ordered. I re-evaluated his left arm wound. It appears well. No active bleeding. He is able to flex his wrist and also his fingers but does have some discomfort with this. A bandage was replaced. Patient reports that he still is having thoughts of hurting himself. He has a very flat affect. States that he is feeling anxious. Plan will be is to get him his morning medicines. Will continue to observe until high school social science teacher available most likely with placement afterwards. 1730: Patient is medically cleared. Patient has been seen by social work. Patient remains suicidal. This appears to be a chronic issue for him but I suspect that the alcohol use/abuse is a disinhibition which then makes the chances of suicide attempts/completion is a higher. DCR was contacted who will come and evaluate the patient the emergency department. Care was turned over to Dr. Blum to follow up and disposition. I have seen and evaluated patient myself. He is coming cooperative asking for Ativan and his Seroquel. I have spoken with Giovani the DCR who reports that unfortunately at this time no facility is willing to take patient. This is because of his tendon laceration and worried about orthopedic follow-up. A no facility with hospital services has a bed. At this time patient is a walk way. Recommend social work follow-up in the morning to continue looking for bed placement. Nevin 04/02 The patient has been calm and cooperative. He has been accepted at a facility. Transportation has been arranged Restraint Jimi-ak-Hjmk <Alfredo Marcus DO - Last Filed: 04/04/21 03:26> Restraint Sbrr-ek-Aoay Evaluation Mjxu-xu-Ogmt #1: Time: 01:20 Patient Appearance: Disheveled Level of Consciousness: Alert, Appropriate, Awake and Combative Speech Pattern: Clear and Coherent Mood Description: Angry, Anxious, Depressed, Fearful and Hostile Ability to Follow Directions: Good Hallucination Type: None Thought Process: Normal Cardiac: Regular Rate (tachycardic) and Regular Rhythm Circulation: Moves all extremities Behavior necessitating restraint: Agitated, Pulling at lines/tubes, Suicidal, ETOH/Substance Abuse and Attempt to self harm Restraint Risks: Restricted blood flow, Damaged nerves and Damaged tissue Restraint risks explained to patient: No Restraint risks explained to family: No Reaction to Intervention: Awake, Resting Quietly and Pulling at Restraints Discharge Plan Departure Patient Disposition: Xfer Psychiatric Hosp Clinical Impression: Suicidal ideation, Laceration of left forearm Referrals: Min Tinsley DO [Primary Care Provider] -
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
[2021-03-31 01:29] LABS: Add Manual Diff / Slide Review NO; Basophils Absolute Auto 100 /uL (0-100); Basophils Percent Auto 1.2 % (0-2); Eosinophils Absolute Auto 0 /uL (0-450); Eosinophils Percent Auto 0.3 % (2-4); Hematocrit 41.1 % (41-53); Hemoglobin 13.6 g/dL (13.5-17.5); Lymphocytes Absolute Auto 1300 /uL (1100-4500); Lymphocytes Percent Auto 24.5 % (25-40); Mean Corpuscular HGB Conc 33.1 % (30-36); Mean Corpuscular Hemoglobin 31.9 PG (26-34); Mean Corpuscular Volume 96.4 fL (80-100); Monocytes Absolute Auto 400 /uL (0-900); Neutrophils Absolute Auto 3500 /uL (1500-7000); Platelet Count 292 X10^3/uL (150-400); Red Blood Cell Count 4.26 X10^6/uL (4.5-5.9); Red Cell Distribution Width 13.4 % (11.6-14.8); White Blood Cell Count 5.2 X10^3/uL (4.5-11.0)
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
[2021-03-31] MEDS: NICOTINE 21 MG PATCH TOP ×2 (01:38→13:19)
[2021-03-31 01:40] LABS: Alanine Aminotransferase 24 IU/L (<50); Albumin 4.5 g/dL (3.5-5.0); Albumin Globulin Ratio 1.5 (1.0-2.8); Alkaline Phosphatase 76 U/L (38-126); Aspartate Aminotransferase 41 IU/L (17-59); BUN Creatinine Ratio 8.5 (6-22); Bilirubin Total 0.3 mg/dL (0.2-1.3); Blood Urea Nitrogen 8 mg/dL (9-20); Calcium 8.6 mg/dL (8.4-10.2); Carbon Dioxide 23 mmol/L (22-32); Chloride 109 mmol/L (98-107); Estimated Glomerular Filt Rate > 60.0 mL/min (>60); Ethanol (ETOH) 252 mg/dL; Glucose 99 mg/dL (70-100); HEMOLYSIS 35 (0-50); Potassium 4.2 mmol/L (3.4-5.1); Sodium 144 mmol/L (137-145); Total Protein 7.5 g/dL (6.3-8.2)
[2021-03-31 02:09] LABS: UR Morphine/Opiate cutoff 300 Negative (Negative); Ur Creatinine Normal (Normal); Ur Specific Gravity Normal (Normal); Urine Amphetamines Negative (Negative); Urine Barbiturates Negative (Negative); Urine Benzodiazepines Negative (Negative); Urine Cocaine Negative (Negative); Urine MDMA Negative (Negative); Urine Methadone Negative (Negative); Urine Methamphetamines Negative (Negative); Urine Oxycodone Negative (Negative); Urine Phencyclidine Negative (Negative); Urine Tetrahydrocannabinol Negative (Negative); Urine Tricyclic Antidepressant Negative (Negative); Urine pH Normal (Normal)
[2021-03-31] MEDS: LORazepam 2 MG/ML INJ 1 MG IV ×3 (02:20→13:19)
[2021-03-31] MEDS: BUPIVACAINE 0.5% (PF) VIAL 5 ML SUBCUT (02:20)
--- NOTE | 2021-03-31 08:02 | PC.NURSE ---
patient resting in bed
--- NOTE | 2021-03-31 09:35 | PC.NURSE ---
patient calm and cooperative. I heated up his breakfast and he is comfortable in bed now.
[2021-03-31] MEDS: FLUoxetine 20 MG CAPSULE 60 MG PO (10:10)
[2021-03-31] MEDS: clonazePAM 0.5 MG TABLET 1 MG PO ×2 (10:10→16:02)
[2021-03-31] MEDS: buPROPion SR 100 MG TAB 200 MG PO (10:10)
[2021-03-31 10:16] LABS: Ethanol (ETOH) 101 mg/dL
[2021-03-31] MEDS: FLUoxetine 20 MG CAPSULE PO (10:34)
--- NOTE | 2021-03-31 11:45 | PC.NURSE ---
moved patient in bed to room 13 due to emergency department census.
--- NOTE | 2021-03-31 12:30 | PC.NURSE ---
Pt. refused lunch and is laying down in bed calm and quietly. TELEPHONE CLERK at bedside talking w/patient. RN notified and will continue to monitor 1:1.
[2021-03-31 13:28] LABS: Ethanol (ETOH) 19 mg/dL
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
[2021-03-31 14:11] LABS: COVID19 -Nasal RAPID Negative (Negative)
--- NOTE | 2021-03-31 14:42 | PC.NURSE ---
Spoke with RN over at [facility] for possible placement.
--- NOTE | 2021-03-31 15:47 | PC.NURSE ---
went in to see pt, informed him that he will be admitted to a psych facility. Pt seems okay with this at the moment. IV removed per MD verbal order. Pt requesting fish for dinner. Pt is calm and cooperative, laying in bed quietly.
--- NOTE | 2021-03-31 16:06 | PC.NURSE ---
Mother at bedside, okayed by pt
--- NOTE | 2021-03-31 17:33 | PC.NURSE ---
Mother still present at bedside. Pt interacting pleasantly.
--- NOTE | 2021-03-31 18:16 | PC.NURSE ---
Talking with DCR
--- NOTE | 2021-03-31 18:46 | PC.NURSE ---
Patient just got off the phone with DCR, I asked patient if he wanted anything to drink, water? He said yes nicely. And I also asked if he wanted a warm blanket. He did not.
--- NOTE | 2021-03-31 19:52 | CM.SWNOTE ---
CUSTOMER SUPPORT PROFESSIONAL Note Patient meets with DCR via video conference. DCR Giovani speaks with ED provider Dr. Blum afterwards, and is seeking [facility] placement for patient. CUSTOMER SUPPORT PROFESSIONAL calls patient's mother and provides update. Mother states that she would like to be contacted if he gets placement tonight and she can bring by some of patient's belongings. LANEY Shea
--- NOTE | 2021-03-31 20:21 | PC.NURSE ---
Patient just got off the phone with DCR. DCR faxed report. I just checked in with patient to see if he wanted food or anything to drink, warm blankets. He did not want anything. is now in the room talking with patient about the plan for the evening.
--- NOTE | 2021-03-31 21:14 | PC.NURSE ---
Nurse is giving patient night meds and checking in with patient
[2021-03-31] MEDS: QUETIAPINE 25 MG TABLET 100 MG PO (21:15)
[2021-03-31] MEDS: LORazepam 0.5 MG TABLET 1 MG PO (21:15)
--- NOTE | 2021-03-31 21:18 | PC.NURSE ---
Stitches: Last night patients left wrist was stitched back up. Xeroform gauze applied, covered with nonadherent gauze, wrapped in kerlix
--- NOTE | 2021-03-31 22:29 | PC.NURSE ---
Patient has been asleep for over an hour now, tossing and turning every so often.
--- NOTE | 2021-04-01 07:43 | PC.NURSE ---
[facility] in [place] called to inform us they are unable to take patient due to wound care management.
--- NOTE | 2021-04-01 08:55 | PC.NURSE ---
MD called ortho and pt will need a o/p f/u in 1-2 wks. DCR called and updated that ortho will not be an issue for placement. Will inform Teresa DAVISON when she gets in at 1200
[2021-04-01 09:14] VITALS: BP 128/71; PULSE 102; RESP 20; TEMP 37.4; O2SAT 96
[2021-04-01] MEDS: buPROPion SR 100 MG TAB 200 MG PO ×2 (09:31→20:51)
[2021-04-01] MEDS: clonazePAM 0.5 MG TABLET 1 MG PO ×2 (09:31→12:54)
[2021-04-01] MEDS: FLUoxetine 20 MG CAPSULE 80 MG PO (09:31)
[2021-04-01] MEDS: FISH OIL 1,000 MG CAPSULE 1000 MG PO (09:50)
[2021-04-01] MEDS: MULTIVITAMIN 1 TABLET 1 TAB PO (09:50)
[2021-04-01] MEDS: LORazepam 0.5 MG TABLET 1 MG PO ×3 (10:47→20:51)
[2021-04-01] MEDS: NICOTINE 21 MG PATCH TOP (12:54)
--- NOTE | 2021-04-01 14:15 | CM.SWNOTE ---
Addendum entered by Teresa Everett 04/01/21 19:46: BAKERY SUPERVISOR Note BAKERY SUPERVISOR calls [facility] intake, it is reported that they have beds and can review patient. BAKERY SUPERVISOR faxes clinicals. BAKERY SUPERVISOR calls for f/u with [facility], [facility] and [facility]. It is reported that [facility] is still reviewing, [facility] is still reviewing and [facility] conducted nurse to nurse and further f/u is needed with provider. BAKERY SUPERVISOR to dispatch D[facility] at aprox 2000 for needed assessment for [facility] bed. Teresa Everett, BAKERY SUPERVISOR Original Note: BAKERY SUPERVISOR Note BAKERY SUPERVISOR enters room to check in with patient. Patient is calm and communicative, requesting Ativan or Clonazepam for ongoing management of patient's anxiety. BAKERY SUPERVISOR receives call from patient's mother. BAKERY SUPERVISOR informs mother that patient is still present in the ED and no [facility] bed was found for patient last evening. BAKERY SUPERVISOR endorses that BAKERY SUPERVISOR will seek bed for patient today and continue to update mother. Mother endorses that she will visit with patient later today. BAKERY SUPERVISOR calls [facility] for [facility] bed census. BAKERY SUPERVISOR calls [facility] intake, it is reported that they currently have no beds. BAKERY SUPERVISOR calls [facility] intake, it is reported that they have beds and can review patient, BAKERY SUPERVISOR faxes clinicals. [facility] calls back at 1425 to report that they no longer have bed availability for patient. BAKERY SUPERVISOR calls [facility] intake, it is reported that they currently have no beds. BAKERY SUPERVISOR calls [facility] intake, it is reported that they are at capacity. BAKERY SUPERVISOR calls [facility], it is reported that they have beds. BAKERY SUPERVISOR faxes clinicals for review. BAKERY SUPERVISOR calls [facility] in [facility], intake reports that they are not accepting patients outside of [facility]. BAKERY SUPERVISOR calls [facility], it is reported that they have beds and can review patient, BAKERY SUPERVISOR faxes clinicals. BAKERY SUPERVISOR calls [facility] intake, it is reported that they have no male [facility]O beds. BAKERY SUPERVISOR calls [facility] intake, it is reported that they have no beds today but will possibly have beds tomorrow 04/02. BAKERY SUPERVISOR calls [facility] intake, it is reported that they do not have any high acuity beds but could review a lower acuity patient. BAKERY SUPERVISOR reviews patient over the phone and intake reports they do not provide co-occurring treatment and BAKERY SUPERVISOR should review with other hospitals first and then check back with Mack Aguilar. Plan: BAKERY SUPERVISOR to f/u with [facility] and [facility] regarding [facility] referral for patient, continue to seek [facility] bed. LANEY Shea
--- NOTE | 2021-04-01 17:06 | PC.NURSE ---
Spoke with Sandra RN at [facility] in [place], [place]. Report given. Sandra states she will be in touch with LANEY Moore after MD looks over pt's chart.
--- NOTE | 2021-04-01 18:03 | PC.NURSE ---
Patient's girlfriend has come to visit while mom is still in the room. Patient's girlfriend has brought up what place he will be going to. Patient started speaking a bit loud and slight annoyed about what place he will be going to. Nurse has come to speak with girlfriend about needing to go outside of the ER, because patient is only allowed one visitor. Patient is waiting by the door watching everything staff is doing.
--- NOTE | 2021-04-01 19:01 | PC.NURSE ---
Patient got to take a shower and use restroom as needed. Patient was very understanding of the rules and respectful of staff during this time. Patient got to brush teeth and put on new clothing provided by the ER. Patient also got a new cover over his left wrist.
--- NOTE | 2021-04-01 19:04 | PC.NURSE ---
Dressing changed after shower. Non stick with gauze wrap.
--- NOTE | 2021-04-01 19:46 | PC.NURSE ---
Patient is laying down in bed, blankets have been given and lights have been dimmed, just in case patient would like to sleep.
--- NOTE | 2021-04-01 20:15 | PC.NURSE ---
Patient nicely asked for some Ativan, and wanted to know which nurse was taking over his care after shift change.
[2021-04-01] MEDS: QUETIAPINE 100 MG TABLET PO (20:51)
--- NOTE | 2021-04-01 21:15 | PC.NURSE ---
patient is coloring in a coloring book
--- NOTE | 2021-04-01 21:59 | PC.NURSE ---
Patient is talking with DCR about what the latest plan/update. the patient let me know that DCR will call his mom and maybe call him back. Patient also let me know that he is wondering about food/medications.
--- NOTE | 2021-04-01 22:50 | PC.NURSE ---
patient is being very understand of whats going on around him with other patients. and has started falling asleep for the night.
--- NOTE | 2021-04-01 23:02 | PC.NURSE ---
Spoke with Laura with [facility] and gave her a full report. She states that she will have his chart reviewed and call us back. PAYAL Jane informed
[2021-04-01 23:03] VITALS: BP 103/60; PULSE 80; RESP 18; TEMP 36.6; O2SAT 97
--- NOTE | 2021-04-01 23:06 | PC.NURSE ---
Vitals done by [facility]. RN on the phone with a possible location to be placed. Vitals wanted by location
--- NOTE | 2021-04-02 02:08 | PC.NURSE ---
This RN assumed care of patient @ 2300; patient was asleep at that time.
[2021-04-02] MEDS: clonazePAM 0.5 MG TABLET 1 MG PO (03:35)
--- NOTE | 2021-04-02 04:03 | PC.NURSE ---
DARIAN Mackenzie from [facility], called to get report on this patient.
--- NOTE | 2021-04-02 07:28 | PC.NURSE ---
dressing to left forearm changed, old dsg removed, new dsg is abx ointment, with nonadherent gauze and tape.
[2021-04-02] MEDS: LORazepam 0.5 MG TABLET 1 MG PO (07:39)
[2021-04-02] MEDS: NICOTINE 21 MG PATCH TOP (07:42)
[2021-04-02] MEDS: MULTIVITAMIN 1 TABLET 1 TAB PO (07:43)
[2021-04-02] MEDS: FISH OIL 1,000 MG CAPSULE 1000 MG PO (07:43)
[2021-04-02] MEDS: buPROPion SR 100 MG TAB 200 MG PO (07:44)
[2021-04-02] MEDS: FLUoxetine 20 MG CAPSULE 80 MG PO (07:44)
[2021-04-02 07:50] VITALS: BP 120/82; PULSE 90; RESP 18; TEMP 37; O2SAT 99
== END 2021-04-02 07:50 ==
PROVIDERS: Emergency Medicine; Emergency Provider Emergency Medicine; PCP Family Medicine
DX: T14.91XA Suicide attempt, initial encounter (principal); X78.9XXA Intentional self-harm by unspecified sharp object, initial encounter; F10.129 Alcohol abuse with intoxication, unspecified; Y90.8 Blood alcohol level of 240 mg/100 ml or more; Z20.822 Contact with and (suspected) exposure to COVID-19
CPT/HCPCS: 13121; 13122; 36415; 80053; 80305; 80320; 81003; 85025; 87635; 93005; 93010; 96374; 96376; 99285; C9803; A9270; J2060; J2405

== ENCOUNTER 2021-04-08 20:33 | Emergency (ER) | payer OTHER, MEDICAID, SELFPAY ==
[2021-01-27 12:48] VITALS: PULSE 42; RESP 16; O2SAT 100
[2021-04-08 20:35] VITALS: BP 145/64; PULSE 88; RESP 14; TEMP 37; O2SAT 97; BMI 22.4
--- NOTE | 2021-04-08 21:57 | ED_ITS ---
HPI - Wound/Laceration General Chief Complaint: Wound/Laceration Stated Complaint: lt forearm wound check Time Seen by Provider: 04/08/21 21:55 Source: patient Mode of arrival: Ambulatory Limitations: no limitations History of Present Illness HPI narrative: 30-year-old male with left forearm who arrives for wound check. Patient had self-inflicted wound to the left forearm with tendon laceration which is described as complete in his prior chart. This is approximately March 31. He had suture repair of the skin and referral to orthopedic surgery. Patient states that he removed his sutures yesterday and the wound has since opened up. He states otherwise it had been healing well. He has had some serous drainage but no purulent drainage, no rapidly increasing or changing pain, no warmth, no fevers. He does not appreciate major changes to the pain but occasionally will have sharp pain at that location with movement. Patient states from a mental health perspective he has been fairly stable but does not feel that he has had rapid improvement. He feels his Strattera give him ?a weird vibe.He follows with his primary who adjust his medication as the direction of Psychiatry. He used to see local psychiatry but does not currently. He has left a message with [facility] who he is enrolled with currently. He did have a call back but did not answer because he was at work. He does note that he is not always compliant with setting up or following up with phone calls. We discussed some options and ways to help him deal with this particular problem. He does feel safe at this time and does not endorse any thoughts of harming himself or others. Related Data Home Medications Medication Instructions Recorded Confirmed multivitamin-ferrous 1 tab PO DAILY 10/18/20 03/31/21 fumarate-folic acid 18 mg-400 mcg tablet (Centrum) omega-3 fatty acids 1,000 mg 1,000 mg PO DAILY 01/03/21 03/31/21 capsule (Fish Oil Concentrate) vitamin E 200 unit capsule 200 unit PO DAILY 01/03/21 03/31/21 Previous Rx's Medication Instructions Recorded cholecalciferol (vitamin D3) 1,250 1,250 mcg PO QWEEK #8 cap 01/23/21 mcg (50,000 unit) capsule bupropion HCl 200 mg tablet,12 hr 200 mg PO BID #60 ea 03/14/21 sustained-release clonazepam 1 mg tablet 1 mg PO TID PRN #90 tab 03/14/21 quetiapine 100 mg tablet See Rx Instructions .ROUTE 03/24/21 .COMPLEX #30 tab Allergies Allergy/AdvReac Type Severity Reaction Status Date / Time aripiprazole [From Abilify] Allergy Verified 04/08/21 20:40 risperidone [From Risperdal] Allergy Verified 04/08/21 20:40 olanzapine AdvReac Severe suicidal Verified 04/08/21 20:40 ideations Review of Systems Review of Systems ROS Unobtainable: All systems reviewed & are unremarkable except as noted in HPI and below Patient History Medical History ADHD Anxiety Cervical somatic dysfunction Chronic neck and back pain Cranial somatic dysfunction Depression Fractures History of bipolar disorder History of suicide attempt Migraines Overdose Partial blindness Pelvic somatic dysfunction Personality disorder PTSD (post-traumatic stress disorder) Rib pain on right side Right shoulder pain Routine screening for STI (sexually transmitted infection) Scoliosis Segmental and somatic dysfunction of abdomen and other regions Segmental and somatic dysfunction of lumbar region Segmental and somatic dysfunction of rib cage Segmental and somatic dysfunction of sacral region Segmental and somatic dysfunction of thoracic region Segmental and somatic dysfunction of upper extremity Surgical History Anesthesia History of removal of cyst (~2018) Family History Father Mental health problem Mother Thyroid cancer Breast cancer Social History household members: family Smoking Status: Current every day smoker Smokeless tobacco user: other alcohol intake: current substance use type: does not use and former substance user Smoking Status: Current every day smoker tobacco type: vaping alcohol intake frequency: 3 or more drinks per day Alcohol type: hard liquor Substance Use Type: does not use Exam Narrative Exam Narrative: GENERAL: Alert and oriented x three, mild distress. HEENT: Head normocephalic, atraumatic, EOMI, pupils reactive, face symmetric, moist mucous membranes NECK: Supple, full range of motion CARDIOVASCULAR: Regular rate and rhythm without murmurs, rubs or gallops. RESPIRATORY: Breath sounds equal bilaterally, no wheezes rales or rhonchi. EXTREMITIES: Normal range of motion, no clubbing or edema. Neurovascularly intact. Patient has laceration of the left forearm on the flexor side which has some gap edge. There is a small amount of subcutaneous tissue exposure with gap <2.5mm. There is some serous drainage but no purulent drainage. No warmth or erythema. 2+ radial pulse. Full flexion extension at the wrist as well as fingers with active and passive range of motion. No new or additional lacerations or injuries appreciated. All sutures appear to have been removed. NEUROLOGICAL: Cranial nerves II through XII grossly intact. Moving all extremities SKIN: Warm, dry, no petechiae, no rashes or lesions. PSYCH: no suicidal, homicidal ideation. No hallucinations. Initial Vital Signs Initial Vital Signs: Vital Signs Temperature 98.6 F 04/08/21 20:35 Pulse Rate 88 04/08/21 20:35 Respiratory Rate 14 04/08/21 20:35 Blood Pressure 145/64 H 04/08/21 20:35 Pulse Oximetry 97 04/08/21 20:35 Course Orders Ordered: ED Orders 04/08/21 22:15 Wound Culture and Gram Stain Stat Vital Signs Vital signs: Vital Signs - 8 hr 04/08/21 20:35 04/08/21 22:01 04/08/21 22:31 Temperature 98.6 F Pulse Rate 88 91 H 84 Respiratory Rate 14 20 Blood Pressure 145/64 H 132/80 136/79 Pulse Oximetry 97 100 98 MDM - Wound/Laceration MDM Narrative Medical decision making narrative: This is a 30-year-old male who returns for wound check. Patient had a self-inflicted laceration, he did have tendon involvement. He is to follow-up with orthopedic surgery and states he has set up an appointment. He removed his sutures yesterday and what would be a fairly timely manner it approximately 7 days. Patient states that it began to gap in the last 24 hours since moving but he has not appreciate any other infectious changes. He has some localized pain with movements but not any movement in particular and denies any other new injuries. From a mental health perspective he states he is still struggling but feels safe at this time. He has been contacted by [facility] as well as [facility] but has not been able to return there as he has been at work. He is open to having our social human services assistants touch base and he feels that his primary care physician is in good resource for assistance and help him manage his medications. Patient's wound does not appear infected, it is somewhat gapped and will have to heal by secondary intention. Discharge Plan Departure Patient Disposition: Home Clinical Impression: Dehiscence of wound Instructions: Wound Dehiscence Activity Restrictions/Additional Instructions: Follow-up with Dr. Walton for your tendon laceration. It is very important that you see them. Wound today has not completely healed but does not appear infected. It will have to heal by secondary intention or over time. You may put triple antibiotic ointment such as Neosporin on it twice daily. Wound Care: Keep wound(s) clean and dry. Wash daily with soap and water only. Do not use over the counter products (alcohol or peroxide)on the wounds unless instructed by a physician. If wound condition worsens (increased/expanding redness, developing fluid blisters, or worsening pain), either contact your doctor for an urgent re- assessment , or return to the Emergency Department. Return to the Emergency Department for any new or worsening symptoms. Return to the ED, urgent care, or vist a primary care doctor for removal or suture or elijah Return if fever greater than 100.4 Fahrenheit, increased swelling, increasing pain or worsening symptoms such as increased discharge or spreading redness. New weakness, numbness or tingling, inability to move or flex or extend your arm or other new or worsening symptoms. Our social human services assistants will be reaching out to touch base. Healthy continue to have improvement and feel free to return here or reach out to your physician if you may find it helpful. Prescriptions: No Action quetiapine 100 mg tablet See Rx Instructions .ROUTE .COMPLEX Qty: 30 RF: 0 cholecalciferol (vitamin D3) 1,250 mcg (50,000 unit) capsule 1,250 mcg PO QWEEK Qty: 8 RF: 0 bupropion HCl 200 mg tablet sustained-release 12 hr 200 mg PO BID Qty: 60 RF: 3 clonazepam 1 mg tablet 1 mg PO TID PRN (Reason: anxiety) Qty: 90 RF: 0 vitamin E 200 unit capsule 200 unit PO DAILY RF: 0 omega-3 fatty acids [Fish Oil Concentrate] 1,000 mg capsule 1,000 mg PO DAILY RF: 0 Centrum 18-400 mg-mcg Tablet 1 tab PO DAILY RF: 0 Referrals: Min Tinsley DO [Primary Care Provider] -
[2021-04-08 22:01] VITALS: BP 132/80; PULSE 91; O2SAT 100
[2021-04-08 22:31] VITALS: BP 136/79; PULSE 84; RESP 20; O2SAT 98
== END 2021-04-08 22:32 | disposition home or self-care (01) ==
PROVIDERS: Emergency Provider Emergency Medicine; PCP Family Medicine
DX: T81.30XA Disruption of wound, unspecified, initial encounter (principal)
CPT/HCPCS: 87070; 87075; 87205; 99282; 99283

== ENCOUNTER 2021-04-20 16:18 | Emergency (ER) | payer OTHER, MEDICAID, SELFPAY ==
[2021-01-27 12:48] VITALS: PULSE 42; RESP 16; O2SAT 100
[2021-04-20 16:34] VITALS: BP 126/83; PULSE 94; RESP 19; TEMP 36.1; O2SAT 97; BMI 21.2
--- NOTE | 2021-04-20 16:41 | ED_ITS ---
HPI - General Adult General Chief complaint: Urogenital-Male Stated complaint: testicular pain- coming from walk in Time Seen by Provider: 04/20/21 16:33 Source: patient Mode of arrival: Family Vehicle Limitations: no limitations History of Present Illness HPI narrative: Patient is a 30-year-old male. Was sent over from the walk-in clinic for evaluation of bilateral testicular pain. He states that this is been going off and on for the past several weeks. He denies any urinary symptoms. Has had chlamydia in the past. Is not currently having any concern for sexually transmitted infections. He states that he is having ?a bunch? of unprotected sex. He states that there is a lump on his left testicle that is been there for years. It has not enlarged. Denies any abdominal pain. No change in bowel habits. No skin changes. Patient is intoxicated. Related Data Home Medications Medication Instructions Recorded Confirmed multivitamin-ferrous 1 tab PO DAILY 10/18/20 04/15/21 fumarate-folic acid 18 mg-400 mcg tablet (Centrum) omega-3 fatty acids 1,000 mg 1,000 mg PO DAILY 01/03/21 04/15/21 capsule (Fish Oil Concentrate) vitamin E 200 unit capsule 200 unit PO DAILY 01/03/21 04/15/21 Previous Rx's Medication Instructions Recorded cholecalciferol (vitamin D3) 1,250 1,250 mcg PO QWEEK #8 cap 01/23/21 mcg (50,000 unit) capsule bupropion HCl 200 mg tablet,12 hr 200 mg PO BID #60 ea 03/14/21 sustained-release clonazepam 1 mg tablet See Rx Instructions .ROUTE 04/09/21 .COMPLEX #90 tab quetiapine 200 mg tablet 200 mg PO DAILY #30 tab 04/15/21 Allergies Allergy/AdvReac Type Severity Reaction Status Date / Time aripiprazole [From Abilify] Allergy Verified 04/15/21 15:17 risperidone [From Risperdal] Allergy Verified 04/15/21 15:17 olanzapine AdvReac Severe suicidal Verified 04/15/21 15:17 ideations Review of Systems Constitutional Constitutional: Reports system reviewed and no additional complaints, except as documented Gastrointestinal Gastrointestinal: Reports as per HPI and Reports system reviewed and no additional complaints, except as documented Genitourinary Genitourinary: Reports system reviewed and no additional complaints, except as documented and Reports as per HPI Integumentary/Breasts Skin/Breast: Reports system reviewed and no additional complaints, except as documented and Reports as per HPI Hematologic/Lymphatic On Anticoagulants: No Patient History Medical History ADHD Anxiety Cervical somatic dysfunction Chronic neck and back pain Cranial somatic dysfunction Depression Fractures History of bipolar disorder History of suicide attempt Migraines Overdose Partial blindness Pelvic somatic dysfunction Personality disorder PTSD (post-traumatic stress disorder) Rib pain on right side Right shoulder pain Routine screening for STI (sexually transmitted infection) Scoliosis Segmental and somatic dysfunction of abdomen and other regions Segmental and somatic dysfunction of lumbar region Segmental and somatic dysfunction of rib cage Segmental and somatic dysfunction of sacral region Segmental and somatic dysfunction of thoracic region Segmental and somatic dysfunction of upper extremity Suicide attempt by cutting of wrist Surgical History Anesthesia History of removal of cyst (~2018) Family History Father Mental health problem Mother Thyroid cancer Breast cancer Social History household members: family Smoking Status: Current every day smoker Smokeless tobacco user: other alcohol intake: current substance use type: does not use and former substance user Smoking Status: Current every day smoker tobacco type: vaping alcohol intake frequency: 3 or more drinks per day Alcohol type: hard liquor Substance Use Type: does not use Exam Initial Vital Signs Initial Vital Signs: Vital Signs Temperature 97.0 F L 04/20/21 16:34 Pulse Rate 94 H 04/20/21 16:34 Respiratory Rate 19 04/20/21 16:34 Blood Pressure 126/83 04/20/21 16:34 Pulse Oximetry 97 04/20/21 16:34 Const General: cooperative and healthy appearing HENSC Head: normal to inspection and normocephalic Resp Effort & Inspection: normal respiratory effort Auscultation: clear to auscultation bilaterally Cardio Rate: regular rate Rhythm: regular rhythm GI Inspection: normal to inspection Palpation: soft, No firm and No tender External: uncircumcised and no hernia Penis: normal penis Meatus: meatus normal Scrotum: scrotum normal Testes: normal, testicular lie normal, no epidiymal masses, no testicular mass, no testicular swelling and no testicular tenderness Skin General: no rashes or lesions noted Neuro General: patient alert, patient awake and moves all extremities Extrem General: normal to inspection Psych Other: Intoxicated Course Orders Ordered: ED Orders 04/20/21 16:39 US scrotum Stat Vital Signs Vital signs: Vital Signs - 8 hr 04/20/21 16:34 Temperature 97.0 F L Pulse Rate 94 H Respiratory Rate 19 Blood Pressure 126/83 Pulse Oximetry 97 Medical Decision Making Imaging Data Testicular ultrasound: Radiologist's Impression: [address] [id number] ReportSigned Patient: Trav Wong TMR#: [id number]: [id number]:[id number]/Sex: MDate of Service: 04/20/21Loc: EDAccession Number: [id number] Procedure: US scrotum Ordering Provider: Avery Brand D.O. PROCEDURE: US SCROTUM INDICATIONS: BILATERAL TESTICULAR PAIN TECHNIQUE: Real-time scanning was performed of the scrotum and testicles, with image documentation. Color and pulse Doppler interrogation was performed of both testicles. COMPARISON: None. FINDINGS: Right: Testicle is normal in size at 4.1 x 2.9 x 3.4 cm, and homogenous in echotexture. Epididymis is normal in overall size and morphology. No hydrocele. Overlying scrotal skin is normal in thickness. Left: Testicle is normal in size at 4.4 x 2.9 x 3.8 cm, and homogeneous in echotexture. Epididymis is normal in overall size and morphology. No hydrocele. Overlying scrotal skin is normal in thickness. Doppler: Color and pulse Doppler demonstrate normal and symmetric arterial flow in both testicles. Bilateral varicocele can be seen. IMPRESSION: Normal appearing, symmetric testicles, with normal appearing, symmetric intratesticular flow. Bilateral varicoceles are seen. Dictated by: Prasad Gaona M.D. on 04/20/2021 at 16:12 Approved by: Prasad Gaona M.D. on 04/20/2021 at 16:13 [facility] Narrative Medical decision making narrative: Patient is intoxicated. He denies any concern for sexually transmitted infections. His testicular pain today has been going on for several weeks now. Ultrasound does not show any signs of epidi dymitis. No masses seen on ultrasound. No signs of torsion. No indication for antibiotics. Patient stated that his mother can come and pick him up. We will contact his mother. He was given return precautions follow-up instructions. Discharge Plan Departure Patient Disposition: Home Clinical Impression: Pain in both testicles Instructions: Orchitis Activity Restrictions/Additional Instructions: The ultrasound today is reassuring. There is no signs of any twisting of the testicles. No signs of any infection. There was no masses or tumors noted. You can take Tylenol/ibuprofen for any discomfort. You can also wear supportive clothing as needed. Contact your primary doctor for follow-up. Prescriptions: No Action clonazepam 1 mg tablet See Rx Instructions .ROUTE .COMPLEX Qty: 90 RF: 0 cholecalciferol (vitamin D3) 1,250 mcg (50,000 unit) capsule 1,250 mcg PO QWEEK Qty: 8 RF: 0 bupropion HCl 200 mg tablet sustained-release 12 hr 200 mg PO BID Qty: 60 RF: 3 quetiapine 200 mg tablet 200 mg PO DAILY Qty: 30 RF: 5 vitamin E 200 unit capsule 200 unit PO DAILY RF: 0 omega-3 fatty acids [Fish Oil Concentrate] 1,000 mg capsule 1,000 mg PO DAILY RF: 0 Centrum 18-400 mg-mcg Tablet 1 tab PO DAILY RF: 0 Referrals: Min Tinsley DO [Primary Care Provider] -
[2021-04-20 18:00] VITALS: BP 126/75; PULSE 96; RESP 16; O2SAT 96
--- NOTE | 2021-04-20 18:01 | PC.NURSE ---
Pt rouses to staff presence in the room. Remains very intoxicated but is able to answer questions somewhat appropriately. Ambulates with independent gait. Mother present to take him home.
== END 2021-04-20 18:04 | disposition home or self-care (01) ==
PROVIDERS: Emergency Provider Emergency Medicine; PCP Family Medicine
DX: N50.812 Left testicular pain (principal); N50.811 Right testicular pain
CPT/HCPCS: 76870; 99281; 99283

== ENCOUNTER 2021-05-05 20:02 | Emergency (ER) | payer OTHER, MEDICAID, SELFPAY ==
[2021-04-28 10:54] VITALS: PULSE 42; RESP 16; O2SAT 100
[2021-05-05 20:07] VITALS: BP 158/75; PULSE 105; RESP 18; TEMP 36.6; O2SAT 93; BMI 22.8
[2021-05-05 20:47] LABS: Appearance Urine UA CLEAR; Bilirubin Urine UA NEGATIVE (NEGATIVE); Color Urine UA YELLOW; Glucose Urine UA NEGATIVE (Negative); Ketones Urine UA NEGATIVE (NEGATIVE); Leukocyte Esterase Urine UA NEGATIVE (NEGATIVE); Nitrite Urine UA NEGATIVE (Negative); Occult Blood Urine UA NEGATIVE (Negative); Protein Urine UA NEGATIVE (Negative); Urobilinogen Urine UA 0.2 E.U./dL (0.2)
[2021-05-05 20:55] LABS: Bacteria Urine None Seen; Culture Indicated Urine Cult Not Indicated; RBC Urine 0-1/HPF (0-5/HPF); WBC Urine None Seen (0-5/HPF)
[2021-05-05 22:16] LABS: Urine N gonorrhoeae NOT DETECTED
[2021-05-05 22:24] LABS: Urine Chlamydia NOT DETECTED
--- NOTE | 2021-05-05 22:35 | ED.GENADULT ---
HPI - General Adult General Chief complaint: Urogenital-Male Stated complaint: Testicular pain- reoccuring often Time Seen by Provider: 05/05/21 20:15 Source: patient Mode of arrival: Ambulatory History of Present Illness HPI narrative: Patient is a 30-year-old male. He is here for evaluation of bilateral testicular pain. He has had testicular pain in the past. I evaluated him here in the emergency department past for these symptoms. Ultrasound was performed. Showed no abnormalities. He states that his symptoms have continued since his last visit here. No urinary symptoms. No skin rashes. No abdominal pain. Related Data Home Medications Medication Instructions Recorded Confirmed multivitamin-ferrous 1 tab PO DAILY 10/18/20 04/15/21 fumarate-folic acid 18 mg-400 mcg tablet (Centrum) omega-3 fatty acids 1,000 mg 1,000 mg PO DAILY 01/03/21 04/15/21 capsule (Fish Oil Concentrate) vitamin E 200 unit capsule 200 unit PO DAILY 01/03/21 04/15/21 atomoxetine 40 mg capsule 40 mg PO BID 05/05/21 05/05/21 fluoxetine 20 mg capsule 80 mg PO DAILY 05/05/21 05/05/21 lithium carbonate 300 mg capsule 300 mg PO BID 05/05/21 05/05/21 Previous Rx's Medication Instructions Recorded cholecalciferol (vitamin D3) 1,250 1,250 mcg PO QWEEK #8 cap 01/23/21 mcg (50,000 unit) capsule bupropion HCl 200 mg tablet,12 hr 200 mg PO BID #60 ea 03/14/21 sustained-release clonazepam 1 mg tablet See Rx Instructions .ROUTE 04/09/21 .COMPLEX #90 tab quetiapine 200 mg tablet 200 mg PO DAILY #30 tab 04/15/21 tramadol 50 mg tablet See Rx Instructions .ROUTE 04/21/21 .COMPLEX #60 tab Allergies Allergy/AdvReac Type Severity Reaction Status Date / Time aripiprazole [From Abilify] Allergy Verified 05/05/21 20:12 risperidone [From Risperdal] Allergy Verified 05/05/21 20:12 olanzapine AdvReac Severe suicidal Verified 05/05/21 20:12 ideations Review of Systems Gastrointestinal Gastrointestinal: Reports system reviewed and no additional complaints, except as documented Genitourinary Genitourinary: Reports system reviewed and no additional complaints, except as documented and Reports as per HPI Integumentary/Breasts Skin/Breast: Reports system reviewed and no additional complaints, except as documented Patient History Medical History ADHD Anxiety Cervical somatic dysfunction Chronic neck and back pain Cranial somatic dysfunction Depression Fractures History of bipolar disorder History of suicide attempt Migraines Overdose Partial blindness Pelvic somatic dysfunction Personality disorder PTSD (post-traumatic stress disorder) Rib pain on right side Right shoulder pain Routine screening for STI (sexually transmitted infection) Scoliosis Segmental and somatic dysfunction of abdomen and other regions Segmental and somatic dysfunction of lumbar region Segmental and somatic dysfunction of rib cage Segmental and somatic dysfunction of sacral region Segmental and somatic dysfunction of thoracic region Segmental and somatic dysfunction of upper extremity Suicide attempt by cutting of wrist Surgical History Anesthesia History of removal of cyst (~2018) Family History Father Mental health problem Mother Thyroid cancer Breast cancer Social History household members: family Smoking Status: Current every day smoker Smokeless tobacco user: other alcohol intake: current substance use type: does not use and former substance user Smoking Status: Current every day smoker tobacco type: vaping alcohol intake frequency: 3 or more drinks per day Alcohol type: hard liquor Substance Use Type: does not use Exam Initial Vital Signs Initial Vital Signs: Vital Signs Temperature 97.8 F 05/05/21 20:07 Pulse Rate 105 H 05/05/21 20:07 Respiratory Rate 18 05/05/21 20:07 Blood Pressure 158/75 H 05/05/21 20:07 Pulse Oximetry 93 05/05/21 20:07 HENMT Head: normal to inspection and normocephalic GI Inspection: normal to inspection Palpation: soft External: normal external exam and uncircumcised Penis: normal penis Scrotum: scrotum normal Testes: normal, testicular lie normal, epididymides normal and no testicular swelling Skin General: no rashes or lesions noted Neuro General: patient alert, patient awake, patient oriented x3 and moves all extremities Extrem General: normal to inspection and capillary refill normal Course Orders Ordered: ED Orders 05/05/21 20:15 Chlamydia Gonorrhea PCR -URINE Stat Urinalysis and Microscopic Stat Vital Signs Vital signs: Vital Signs - 8 hr 05/05/21 20:07 Temperature 97.8 F Pulse Rate 105 H Respiratory Rate 18 Blood Pressure 158/75 H Pulse Oximetry 93 Medical Decision Making Lab Data Labs: Lab Results 05/05/21 05/05/21 Range/Units 20:15 20:15 Urine Color Yellow Urine Appearance Clear Urine pH 6.0 (4.5-8.0) Ur Specific [place] 1.020 (1.000-1.035) Urine Protein Negative (Negative) Urine Glucose (UA) Negative (Negative) g/dL Urine Ketones Negative (NEGATIVE) Urine Occult Blood Negative (Negative) Urine Nitrate Negative (Negative) Urine Bilirubin Negative (NEGATIVE) Urine Urobilinogen 0.2 (0.2) E.U./dL Ur Leukocyte Esterase Negative (NEGATIVE) Urine RBC 0-1/hpf (0-5/HPF) Urine WBC None seen (0-5/HPF) Urine Bacteria None seen (None) Ur Culture Indicated? Cult not indicated Ur Chlamydia DNA (PCR) Not detected N gonorrhoeae DNA (PCR) Not detected MDM Narrative Medical decision making narrative: Patient has he normal exam. Labs are normal. No fevers. No indication for antibiotics. No indication for repeat ultrasound today. Provided reassurance to the patient. Discharge Plan Departure Patient Disposition: Home Clinical Impression: Persistent testicular pain Instructions: Orchitis Activity Restrictions/Additional Instructions: Your workup here in the emergency department today does not show any signs of an infection. I recommend that you talk with your primary doctor about the indications for referral to see Urology. I also recommended follow-up with your primary doctor. Take all of your medications as directed. Return to the emergency department for any new or worsening symptoms Prescriptions: No Action clonazepam 1 mg tablet See Rx Instructions .ROUTE .COMPLEX Qty: 90 RF: 0 tramadol 50 mg tablet See Rx Instructions .ROUTE .COMPLEX Qty: 60 RF: 0 cholecalciferol (vitamin D3) 1,250 mcg (50,000 unit) capsule 1,250 mcg PO QWEEK Qty: 8 RF: 0 bupropion HCl 200 mg tablet sustained-release 12 hr 200 mg PO BID Qty: 60 RF: 3 quetiapine 200 mg tablet 200 mg PO DAILY Qty: 30 RF: 5 vitamin E 200 unit capsule 200 unit PO DAILY RF: 0 omega-3 fatty acids [Fish Oil Concentrate] 1,000 mg capsule 1,000 mg PO DAILY RF: 0 Centrum 18-400 mg-mcg Tablet 1 tab PO DAILY RF: 0 lithium carbonate 300 mg capsule 300 mg PO BID RF: 0 fluoxetine 20 mg capsule 80 mg PO DAILY RF: 0 atomoxetine 40 mg capsule 40 mg PO BID RF: 0 Referrals: Min Tinsley DO [Primary Care Provider] - Stand Alone Forms: Work Release Note
== END 2021-05-05 22:46 | disposition home or self-care (01) ==
PROVIDERS: Emergency Provider Emergency Medicine; PCP Family Medicine
DX: N50.812 Left testicular pain (principal); N50.811 Right testicular pain
CPT/HCPCS: 81001; 87491; 87591; 99281; 99282

== ENCOUNTER → 2021-05-18 13:19 | Outpatient (CLI) | payer OTHER, MEDICAID, SELFPAY ==
[2021-04-28 10:54] VITALS: PULSE 42; RESP 16; O2SAT 100
--- NOTE | 2021-05-18 13:20 | DI.RAD.S_ITS ---
PROCEDURE: XR SHOULDER LT MIN 2V INDICATIONS: possible dislocation TECHNIQUE: 3 views of the shoulder were acquired. COMPARISON: [facility], CR, XR CHEST 1V, 03/04/2021, 20:14. FINDINGS: Bones: No dislocation is seen. There is an apparent Bankart fracture. The visualized ribs appear intact. Soft tissues: No suspicious soft tissue calcifications. The visualized lung demonstrates an unremarkable appearance. IMPRESSION: No dislocation is seen. Bankart fracture, which reflects prior dislocation. If it would be helpful for clinical management decision making, please consider a dedicated, scheduled shoulder MRI for further evaluation (assuming that there is no contraindication). Dictated by: Prasad Gaona M.D. on 05/18/2021 at 12:39 Approved by: Prasad Gaona M.D. on 05/18/2021 at 12:41
== END ==
PROVIDERS: PCP Family Medicine; Referring Provider Physician Assistant; Visit Provider Physician Assistant
DX: M25.512 Pain in left shoulder (principal)
CPT/HCPCS: 73030

== ENCOUNTER 2021-05-25 16:47 | Emergency (ER) | payer OTHER, MEDICAID, SELFPAY ==
[2021-04-28 10:54] VITALS: PULSE 42; RESP 16; O2SAT 100
[2021-05-25 16:51] VITALS: BP 138/77; PULSE 95; RESP 18; TEMP 36.9; O2SAT 99; BMI 22.4
--- NOTE | 2021-05-25 18:51 | ED_ITS ---
HPI - Extremity Injury (Upper) General Chief Complaint: Extremity Injury, Upper Stated Complaint: LEFT SHOULDER DISLOCATION Time Seen by Provider: 05/25/21 17:28 Source: patient Mode of arrival: Ambulatory Limitations: no limitations History of Present Illness HPI narrative: 30-year-old male daily smoker with history of migraines, bipolar, ADHD, PTSD and substance abuse presents with a chief complaint of ongoing s houlder issues. Patient states that he has chronic issues with his left shoulder and frequently has episodes of dislocation which she has to ?put it back in place ?himself. He denies any specific injury but states that it is come out today few times and he popped it back in. He denies any numbness, tingling or weakness but does have residual ongoing pain. He states that he has attempted to see orthopedics in the past without any success in getting an appointment Related Data Home Medications Medication Instructions Recorded Confirmed multivitamin-ferrous 1 tab PO DAILY 10/18/20 04/15/21 fumarate-folic acid 18 mg-400 mcg tablet (Centrum) omega-3 fatty acids 1,000 mg 1,000 mg PO DAILY 01/03/21 04/15/21 capsule (Fish Oil Concentrate) vitamin E 200 unit capsule 200 unit PO DAILY 01/03/21 04/15/21 fluoxetine 20 mg capsule 80 mg PO DAILY 05/05/21 05/05/21 Previous Rx's Medication Instructions Recorded cholecalciferol (vitamin D3) 1,250 1,250 mcg PO QWEEK #8 cap 01/23/21 mcg (50,000 unit) capsule bupropion HCl 200 mg tablet,12 hr 200 mg PO BID #60 ea 03/14/21 sustained-release clonazepam 1 mg tablet See Rx Instructions .ROUTE 04/09/21 .COMPLEX #90 tab quetiapine 200 mg tablet 200 mg PO DAILY #30 tab 04/15/21 tramadol 50 mg tablet See Rx Instructions .ROUTE 04/21/21 .COMPLEX #60 tab atomoxetine 40 mg capsule 40 mg PO BID #60 cap 05/13/21 lithium carbonate 300 mg capsule 300 mg PO BID #60 cap 05/13/21 hydrocodone 5 mg-acetaminophen 325 1 tab PO Q6H PRN #10 tab 05/18/21 mg tablet Allergies Allergy/AdvReac Type Severity Reaction Status Date / Time aripiprazole [From Abilify] Allergy Verified 05/05/21 20:12 risperidone [From Risperdal] Allergy Verified 05/05/21 20:12 olanzapine AdvReac Severe suicidal Verified 05/05/21 20:12 ideations Review of Systems Review of Systems Narrative: GENERAL: Denies chills, fatigue, malaise, fever, sweats. HEENT: Denies sinus pain, ear pain, sore throat, difficulty swallowing, dizziness. RESPIRATORY: Denies dyspnea, cough, wheezing, hemoptysis, sputum. CARDIOVASCULAR: Denies chest pain, palpitations, orthopnea, edema, GASTROINTESTINAL: Denies nausea, vomiting, abdominal pain, diarrhea, constipation, melena. : Denies dysuria, frequency, incontinence, hematuria, urinary retention. MUSCULOSKELETAL: See HPI SKIN: Denies rash, skin lesions, or other NEUROLOGIC: Denies weakness, headache, numbness, change in speech, confusion, seizures, incoordination. PSYCHIATRIC: No concerning psychosocial issues. 12 point review of systems is negative except for those stated above Patient History Medical History ADHD Anxiety Bankart lesion of left shoulder Cervical somatic dysfunction Chronic neck and back pain Cranial somatic dysfunction Depression Fractures History of bipolar disorder History of suicide attempt Left shoulder pain Migraines Overdose Partial blindness Pelvic somatic dysfunction Personality disorder PTSD (post-traumatic stress disorder) Rib pain on right side Right shoulder pain Routine screening for STI (sexually transmitted infection) Scoliosis Segmental and somatic dysfunction of abdomen and other regions Segmental and somatic dysfunction of lumbar region Segmental and somatic dysfunction of rib cage Segmental and somatic dysfunction of sacral region Segmental and somatic dysfunction of thoracic region Segmental and somatic dysfunction of upper extremity Suicide attempt by cutting of wrist Surgical History Anesthesia History of removal of cyst (~2018) Family History Father Mental health problem Mother Thyroid cancer Breast cancer Social History household members: family Smoking Status: Current every day smoker Smokeless tobacco user: other alcohol intake: current substance use type: does not use and former substance user Smoking Status: Current every day smoker tobacco type: vaping alcohol intake frequency: 3 or more drinks per day Alcohol type: hard liquor Substance Use Type: does not use Exam Narrative Exam Narrative: GEN: AOx3 and in mild distress EYES: Pupils are equal, round, and reactive to light and accommodation. Extraoccular muscles are intact bilaterally. There is no subconjunctival hemorrhage or exudate. CHEST: Lungs are clear to auscultation bilaterally and free of wheezes, rales, or rhonchi. Heart rate is regular rhythm, there are no murmurs, clicks, rubs, or gallops. There is no chest wall tenderness. ABD: Abdomen is soft and nontender. There is no guarding or rebound. Bowel sounds are normal in all 4 quadrants. There is no mass or organomegaly. EXT: Decreased range of motion of the left shoulder secondary to pain, no obvious deformity, step-offs or effusion. This is closed, isolated and neurovascularly intact SKIN: Warm, pink, and dry. No erythema or rash Initial Vital Signs Initial Vital Signs: Vital Signs Temperature 98.5 F 05/25/21 16:51 Pulse Rate 95 H 05/25/21 16:51 Respiratory Rate 18 05/25/21 16:51 Blood Pressure 138/77 05/25/21 16:51 Pulse Oximetry 99 05/25/21 16:51 Procedures Orthopedic Splinting/Casting Injury #1: Side: left Upper Extremity Injury Location: shoulder Upper Extremity Immobilizer: sling/shoulder immobilizer Post splinting neuro exam: intact Post splinting vascular exam: intact Placed by: Nursing Course Orders Ordered: Discontinued Medications Hydrocodone Bitart/Acetaminophen (Hydrocodone/Acet 5/325 Prepack) 1 bottle MISC SEEINSTR ONE Stop: 05/25/21 18:59 Last Admin: 05/25/21 19:08 Dose: 1 bottle Documented by: JENIFER Vital Signs Vital signs: Vital Signs - 8 hr 05/25/21 16:51 Temperature 98.5 F Pulse Rate 95 H Respiratory Rate 18 Blood Pressure 138/77 Pulse Oximetry 99 MDM - Extremity Injury (Upper) Imaging Data Extremity x-ray #1: Radiologist's Impression: [address] [id number] ReportSigned Patient: Trav Wong TMR#: [id number]: [id number]:[id number]/Sex: 30 / MDate of Service: 05/18/21Loc: RADAccession Number: [id number] Procedure: XR shoulder LT min 2V Ordering Provider: Andrew Sharif P.A-C PROCEDURE: XR SHOULDER LT MIN 2V INDICATIONS: possible dislocation TECHNIQUE: 3 views of the shoulder were acquired. COMPARISON: [facility], CR, XR CHEST 1V, 03/04/2021, 20:14. FINDINGS: Bones: No dislocation is seen. There is an apparent Bankart fracture. The visualized ribs appear intact. Soft tissues: No suspicious soft tissue calcifications. The visualized lung demonstrates an unremarkable appearance. IMPRESSION: No dislocation is seen. Bankart fracture, which reflects prior dislocation. If it would be helpful for clinical management decision making, please consider a dedicated, scheduled shoulder MRI for further evaluation (assuming that there is no contraindication). Dictated by: Prasad Gaona M.D. on 05/18/2021 at 12:39 Approved by: Prasad Gaona M.D. on 05/18/2021 at 12:41 Discharge Plan Departure Patient Disposition: Home Clinical Impression: Shoulder pain, left Qualifiers: Chronicity: acute Qualified Code(s): M25.512 - Pain in left shoulder Instructions: DI for Shoulder Sprain Activity Restrictions/Additional Instructions: *You have been diagnosed with [left shoulder pain] *What to do: *Please continue to take your regular medications as directed. [ ] New medication prescriptions sent to your pharmacy: [ ] [ ] New medication written as a paper prescription [ x] No new medications given *Please follow up with [facility] in 2-3 days, call for an appointment. Let them know you were seen in the Emergency Department and that we ask that you be seen in follow up. We will electronically transmit a record of today's note *If you do not have a primary care provider please contact the [facility] Resource line at [phone]. They will ask some questions about your medical history and help get you set up with a doctor in the community. *Return to Emergency Department if you should have any new, worsening or concerning symptoms, such as [fever greater than 101 F, shaking chills, worsening pain, persistent vomiting or other bothersome symptoms] Prescriptions: No Action hydrocodone-acetaminophen 5-325 mg tablet 1 tab PO Q6H PRN (Reason: pain) Qty: 10 RF: 0 clonazepam 1 mg tablet See Rx Instructions .ROUTE .COMPLEX Qty: 90 RF: 0 tramadol 50 mg tablet See Rx Instructions .ROUTE .COMPLEX Qty: 60 RF: 0 atomoxetine 40 mg capsule 40 mg PO BID Qty: 60 RF: 1 lithium carbonate 300 mg capsule 300 mg PO BID Qty: 60 RF: 5 cholecalciferol (vitamin D3) 1,250 mcg (50,000 unit) capsule 1,250 mcg PO QWEEK Qty: 8 RF: 0 bupropion HCl 200 mg tablet sustained-release 12 hr 200 mg PO BID Qty: 60 RF: 3 quetiapine 200 mg tablet 200 mg PO DAILY Qty: 30 RF: 5 vitamin E 200 unit capsule 200 unit PO DAILY RF: 0 omega-3 fatty acids [Fish Oil Concentrate] 1,000 mg capsule 1,000 mg PO DAILY RF: 0 Centrum 18-400 mg-mcg Tablet 1 tab PO DAILY RF: 0 fluoxetine 20 mg capsule 80 mg PO DAILY RF: 0 Referrals: Deedee Casillas MD [Physician] - Min Tinsley DO [Primary Care Provider] -
[2021-05-25] MEDS: HYDROCODONE/ACET 5/325 PREPACK 1 BOTTLE MISC (19:08)
== END 2021-05-25 19:14 | disposition home or self-care (01) ==
PROVIDERS: Emergency Provider Emergency Medicine; PCP Family Medicine
DX: M25.512 Pain in left shoulder (principal)
CPT/HCPCS: 99281

== ENCOUNTER 2021-06-13 11:02 | Emergency (ER) | payer OTHER, SELFPAY ==
[2021-04-28 10:54] VITALS: PULSE 42; RESP 16; O2SAT 100
[2021-06-13] VITALS (38 sets, daily range): BP systolic 120–140; BP diastolic 74–89; PULSE 85–117; RESP 14–45; TEMP 36.1; O2SAT 95–100; BMI 22.4
--- NOTE | 2021-06-13 11:16 | DI.RAD.S_ITS ---
PROCEDURE: XR CHEST 1V INDICATIONS: chest pain TECHNIQUE: One view of the chest was acquired. COMPARISON: [facility], CT, CT SHOULDER LEFT WITHOUT CONTRAST, 05/27/2021, 9:59. [facility], CR, XR CHEST 1V, 03/04/2021, 20:14. FINDINGS: Suboptimal evaluation secondary to patient positioning this is reportedly due to severe shoulder pain. Surgical changes and devices: None. Lungs and pleura: 8 mm nodule opacity projecting in the left upper lobe could represent calcified granuloma, statistically based on patient age. However this is not well confirmed on the comparison CT dated 05/27/21 therefore recommend radiographic follow-up. Scattered subsegmental atelectasis and/or scarring. No focal consolidation. No pleural effusion or pneumothorax. Mediastinum: Mediastinal contours appear normal. Heart size is normal. Bones and chest wall: No suspicious bony lesions. Overlying soft tissues appear unremarkable. IMPRESSION: No acute disease. Ill-defined high-density nodule projecting in the left upper lobe as commented above. Recommend follow-up with three-month interval lordotic chest radiographs. Dictated by: Geovanni Agudelo M.D. on 06/13/2021 at 12:04 Approved by: Geovanni gAudelo M.D. on 06/13/2021 at 12:07
--- NOTE | 2021-06-13 11:17 | DI.RAD.S_ITS ---
PROCEDURE: XR SHOULDER RT MIN 2V INDICATIONS: pain after fall TECHNIQUE: 3 views of the shoulder were acquired. COMPARISON: [facility], CR, XR SHOULDER LT MIN 2V, 05/18/2021, 13:14. FINDINGS: Bones: Displaced fracture of the greater tuberosity with inferior placement of the humeral head in relation to the glenoid, compatible with anterior dislocation. The AC joint is maintained. Soft tissues: No suspicious soft tissue calcifications. IMPRESSION: Anterior dislocation with displaced fracture of the humeral greater tuberosity. Dictated by: John Carbajal M.D. on 06/13/2021 at 11:49 Approved by: John Carbajal M.D. on 06/13/2021 at 11:51
--- NOTE | 2021-06-13 11:17 | DI.RAD.S_ITS ---
PROCEDURE: XR FINGER LT MIN 2V INDICATIONS: pain after fall TECHNIQUE: AP hand, 2 views of the 4th finger(s) acquired. COMPARISON: None. FINDINGS: Bones: Slight cortical irregularity of the 4th distal phalanx tuft, which appears remote. The remaining visualized osseous structures appear maintained. Remote fracture deformity of the distal 5th metacarpal. Soft tissues: No suspicious soft tissue calcifications. IMPRESSION: Slight cortical irregularity of the 4th distal phalanx, which appears remote. An acute on chronic process can not cannot be excluded. Dictated by: John Carbajal M.D. on 06/13/2021 at 11:47 Approved by: John Carbajal M.D. on 06/13/2021 at 11:49
[2021-06-13] MEDS: SODIUM CHLORIDE 0.9% 1,000 ML 1000 ML IV (12:00)
[2021-06-13 12:06] LABS: COVID19 -Nasal RAPID Negative (Negative)
[2021-06-13 12:07] LABS: Add Manual Diff / Slide Review NO; Basophils Absolute Auto 100 /uL (0-100); Basophils Percent Auto 0.7 % (0-2); Eosinophils Absolute Auto 400 /uL (0-450); Eosinophils Percent Auto 3.2 % (2-4); Hematocrit 39.7 % (41-53); Hemoglobin 13.3 g/dL (13.5-17.5); Lymphocytes Absolute Auto 1900 /uL (1100-4500); Lymphocytes Percent Auto 14.9 % (25-40); Mean Corpuscular HGB Conc 33.5 % (30-36); Mean Corpuscular Hemoglobin 31.7 PG (26-34); Mean Corpuscular Volume 94.5 fL (80-100); Monocytes Absolute Auto 900 /uL (0-900); Monocytes Percent Auto 7.1 % (3-14); Neutrophils Absolute Auto 9300 /uL (1500-7000); Neutrophils Percent Auto 74.1 % (50-75); Platelet Count 381 X10^3/uL (150-400); Red Cell Distribution Width 12.9 % (11.6-14.8); White Blood Cell Count 12.5 X10^3/uL (4.5-11.0)
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
[2021-06-13] MEDS: HYDROMORPHONE 0.5 MG INJ IV (12:09)
[2021-06-13 12:13] LABS: Alanine Aminotransferase 20 IU/L (<50); Albumin 4.8 g/dL (3.5-5.0); Albumin Globulin Ratio 1.6 (1.0-2.8); Alkaline Phosphatase 77 U/L (38-126); Aspartate Aminotransferase 28 IU/L (17-59); BUN Creatinine Ratio 10.8 (6-22); Bilirubin Total 0.5 mg/dL (0.2-1.3); Blood Urea Nitrogen 12 mg/dL (9-20); Calcium 9.8 mg/dL (8.4-10.2); Carbon Dioxide 29 mmol/L (22-32); Chloride 104 mmol/L (98-107); Creatine Kinase 242 U/L (55-170); Estimated Glomerular Filt Rate > 60.0 mL/min (>60); Ethanol (ETOH) < 10 mg/dL; Glucose 126 mg/dL (70-100); HEMOLYSIS < 15 (0-50); Lipase 56 U/L (23-300); Magnesium 2.6 mg/dL (1.6-2.3); Potassium 4.7 mmol/L (3.4-5.1); Sodium 140 mmol/L (137-145); Total Protein 7.8 g/dL (6.3-8.2)
[2021-06-13 12:14] LABS: Lactate (Lactic Acid) 2.5 mmol/L (0.7-2.1)
[2021-06-13] MEDS: ONDANSETRON 4 MG/2 ML INJ IV (12:16)
[2021-06-13 12:24] LABS: Troponin I < 0.012 ng/mL (0.01-0.034)
[2021-06-13 12:28] LABS: CKMB % Relative Index 0.5 % (1.5-5.0)
[2021-06-13 12:36] LABS: UR Morphine/Opiate cutoff 300 Negative (Negative); Ur Creatinine Normal (Normal); Ur Specific Gravity Normal (Normal); Urine Amphetamines Negative (Negative); Urine Barbiturates Negative (Negative); Urine Benzodiazepines Negative (Negative); Urine Cocaine Negative (Negative); Urine MDMA Negative (Negative); Urine Methadone Negative (Negative); Urine Methamphetamines Negative (Negative); Urine Oxycodone Negative (Negative); Urine Phencyclidine Negative (Negative); Urine Tetrahydrocannabinol Negative (Negative); Urine Tricyclic Antidepressant Positive (Negative); Urine pH Normal (Normal)
[2021-06-13 12:40] LABS: Prothrombin Time 11.3 SECONDS (10.1-12.7)
[2021-06-13 12:41] LABS: Bacteria Urine None Seen; Mucus Urine 2+ (Negative); RBC Urine 30-100/HPF (0-5/HPF); WBC Urine 1-5/HPF (0-5/HPF)
[2021-06-13 12:42] LABS: Culture Indicated Urine Specimen Cultured
[2021-06-13 12:43] LABS: PTT Partial Thromboplastin Tim 23 SECONDS (26.4-36.2)
[2021-06-13 12:59] LABS: D Dimer 2123 ng/mL (<230)
[2021-06-13] MEDS: propofoL 200 MG/20 ML VIAL 80 MG IV (14:00)
[2021-06-13] MEDS: MIDAZOLAM 5 MG/ML VIAL (14:04)
[2021-06-13 14:07] LABS: Reflexed Lactate in 2 Hours Y
[2021-06-13] MEDS: ETOMIDATE 2 MG/ML 10 ML VIAL 20 MG IV (14:09)
--- NOTE | 2021-06-13 14:14 | DI.RAD.S_ITS ---
PROCEDURE: XR SHOULDER RT MIN 2V INDICATIONS: Post reduction TECHNIQUE: 2 views of the shoulder were acquired. COMPARISON: [facility], CR, XR SHOULDER RT MIN 2V, 06/13/2021, 11:19. FINDINGS: Bones: Humeral head has been relocated. Previously seen proximal humeral fracture old demonstrates decreased displacement with moderate residual displacement of the greater tuberosity. Soft tissues: No suspicious soft tissue calcifications. IMPRESSION: Relocation of humeral head and partial reduction of humeral head fracture. Dictated by: Gasper Garcia M.D. on 06/13/2021 at 14:51 Approved by: Gasper Garcia M.D. on 06/13/2021 at 14:54
[2021-06-13] MEDS: propofoL 200 MG/20 ML VIAL 40 MG IV (14:31)
== END 2021-06-13 15:35 | disposition home or self-care (01) ==
PROVIDERS: Emergency Provider Emergency Medicine; PCP Family Medicine
DX: S42.251A Displaced fracture of greater tuberosity of right humerus, initial encounter for closed fracture (principal); S43.014A Anterior dislocation of right humerus, initial encounter; R55 Syncope and collapse; W18.30XA Fall on same level, unspecified, initial encounter; Y99.0 Civilian activity done for income or pay; Z20.822 Contact with and (suspected) exposure to COVID-19
CPT/HCPCS: 23665; 36415; 71045; 73030; 73140; 80053; 80305; 80320; 81003; 81015; 82550; 82553; 83605; 83690; 83735; 84484; 85025; 85379; 85610; 85730; 87086; 87635; 93005; 96374; 96375; 99152; 99284; 99285; 99291; C9803; J1170; J2250; J2405; J2704

== ENCOUNTER 2021-06-13 20:01 | Emergency (ER) | payer OTHER, SELFPAY ==
[2021-04-28 10:54] VITALS: PULSE 42; RESP 16; O2SAT 100
--- NOTE | 2021-06-13 20:07 | DI.CT.S_ITS ---
PROCEDURE: CT ANGIO CHEST PE PROTOCOL INDICATIONS: syncope, critical D Dimer TECHNIQUE: After the administration of intravenous contrast, 2 mm thick sections acquired from the pulmonary apices to the posterior costophrenic angles. 3-dimensional maximum intensity projection (MIP) coronal and sagittal reformats were then acquired through the thorax. For radiation dose reduction, the following was used: automated exposure control, adjustment of mA and/or kV according to patient size. COMPARISON: [facility], CR, XR SHOULDER RT MIN 2V, 06/13/2021, 14:18. FINDINGS: Image quality: Excellent. Pulmonary arteries: Pulmonary arteries are normal in size, and demonstrate no intraluminal filling defects to suggest central pulmonary embolism. Lungs and pleura: Focal small area of consolidation in the right upper lobe, suggesting possible focal pneumonia versus pulmonary contusion. No pleural effusions or pneumothorax. Central and peripheral airways are patent. Mediastinum: Heart size is normal, without pericardial effusion. No mediastinal or hilar adenopathy. Thoracic aorta is normal in caliber and enhancement. Esophagus is normal in caliber, without hiatal hernia. Bones and chest wall: No suspicious bony lesions. Displaced bony glenoid fracture on the left. The known right humeral head and neck fracture is not included on the images. There is a right shoulder joint effusion. Ribs and thoracic spine appear intact throughout. Thyroid gland is unremarkable as visualized. No axillary or supraclavicular adenopathy. Abdomen: Visualized upper abdominal solid organs appear normal in the early arterial phase of enhancement. IMPRESSION: 1. Displaced inferior left bony glenoid fracture. 2. Right humeral fracture not included on the study. There is a right shoulder joint effusion. 3. Focal area of consolidation in the right upper lobe may represent focal pneumonia versus pulmonary contusion. 4. No evidence of acute pulmonary emboli. Dictated by: Gerson Rockwell M.D. on 06/13/2021 at 21:11 Approved by: Gerson Rockwell M.D. on 06/13/2021 at 21:14
[2021-06-13 20:12] VITALS: BP 130/80; PULSE 80; RESP 18; TEMP 36.6; O2SAT 98
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
[2021-06-13 22:00] VITALS: BP 131/77; PULSE 76; RESP 18; O2SAT 98
[2021-06-13] MEDS: HYDROCODONE/ACET 5/325 PREPACK 1 BOTTLE MISC (22:00)
== END 2021-06-13 22:00 | disposition home or self-care (01) ==
PROVIDERS: Emergency Provider Emergency Medicine; PCP Family Medicine
DX: R79.1 Abnormal coagulation profile (principal); S42.291A Other displaced fracture of upper end of right humerus, initial encounter for closed fracture; W18.30XA Fall on same level, unspecified, initial encounter; Y99.0 Civilian activity done for income or pay; S42.251A Displaced fracture of greater tuberosity of right humerus, initial encounter for closed fracture; S43.014A Anterior dislocation of right humerus, initial encounter; R55 Syncope and collapse; Z20.822 Contact with and (suspected) exposure to COVID-19
CPT/HCPCS: 23665; 36415; 71045; 71275; 73030; 73140; 80053; 80305; 80320; 81003; 81015; 82550; 82553; 83605; 83690; 83735; 84484; 85025; 85379; 85610; 85730; 87086; 87635; 93005; 93010; 96374; 96375; 99152; 99283; 99284; C9803; J1170; J2250; J2405; J2704; Q9967

== ENCOUNTER 2021-06-23 07:50 | Inpatient (IN) | payer OTHER, MEDICAID, SELFPAY ==
[2021-04-28 10:54] VITALS: PULSE 42; RESP 16; O2SAT 100
[2021-06-23] VITALS (169 sets, daily range): BP systolic 94–136; BP diastolic 54–85; PULSE 79–97; RESP 16–26; TEMP 35.6–36.3; O2SAT 95–100; BMI 22.4; BMI 23.4
--- NOTE | 2021-06-23 07:51 | DI.RAD.S_ITS ---
PROCEDURE: XR HIP W PEL IF DONE RT 2V INDICATIONS: Bruising right hip after found down TECHNIQUE: AP pelvis with lateral view(s) of the right hip(s). COMPARISON: None. FINDINGS: Bones: No fractures or dislocations. Pelvic ring appears intact. No suspicious bony lesions. Soft tissues: The visualized bowel gas pattern is normal. No suspicious soft tissue calcifications. IMPRESSION: No acute osseous abnormalities. Dictated by: Hiwot Miller M.D. on 06/23/2021 at 8:45 Approved by: Hiwot Miller M.D. on 06/23/2021 at 8:46
--- NOTE | 2021-06-23 07:51 | DI.RAD.S_ITS ---
PROCEDURE: XR HUMERUS RT 2V INDICATIONS: Bruising after being found down TECHNIQUE: 2 views of the humerus were acquired. COMPARISON: None. FINDINGS: Bones: There is a fracture of the humeral head involving greater tuberosity with minimal displacement. No suspicious bony lesions. Soft tissues: No suspicious soft tissue calcifications. IMPRESSION: Humeral head fracture. Dictated by: Hiwot Miller M.D. on 06/23/2021 at 8:46 Approved by: Hiwot Miller M.D. on 06/23/2021 at 8:49
--- NOTE | 2021-06-23 07:53 | DI.RAD.S_ITS ---
PROCEDURE: XR CHEST 1V INDICATIONS: Post intubation TECHNIQUE: One view of the chest was acquired. COMPARISON: [facility], CR, XR CHEST 1V, 06/13/2021, 11:19. FINDINGS: Surgical changes and devices: There is an endotracheal tube 6 cm above asiya. Lungs and pleura: Lungs are clear. No pleural effusions or pneumothorax. Mediastinum: Mediastinal contours appear normal. Heart size is normal. Bones and chest wall: No suspicious bony lesions. Overlying soft tissues appear unremarkable. IMPRESSION: 1. The tip of the endotracheal tube is 6 cm above asiya. The result was discussed with Dr. Brand. Dictated by: Hiwot Miller M.D. on 06/23/2021 at 8:43 Approved by: Hiwot Miller M.D. on 06/23/2021 at 8:50
--- NOTE | 2021-06-23 07:56 | ED.GENADULT ---
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 Mild paranasal sinus disease.? Dictated by: Hiwot Miller M.D. on 06/23/2021 at 8:39 ? ? Approved by: Hiwot Miller M.D. on 06/23/2021 at 8:42?? Chest x-ray: Radiologist's Impression: [address] [address] XRay Report Signed Patient: Trav Wong MR#: [id number] : 1990 Acct:[id number] Age/Sex: 30 / M Date of Service: 06/23/21 Loc: ED Accession Number: [id number] ?? Procedure: XR chest 1V Ordering Provider: Avery Brand D.O. PROCEDURE:? XR CHEST 1V ? INDICATIONS:? Post intubation ? TECHNIQUE:? One view of the chest was acquired.? ? COMPARISON:? [facility], , XR CHEST 1V, 06/13/2021, 11:19. ? FINDINGS:? ? Surgical changes and devices:? There is an endotracheal tube 6 cm above asiya.? ? Lungs and pleura:? Lungs are clear.? No pleural effusions or pneumothorax.? ? Mediastinum:? Mediastinal contours appear normal.? Heart size is normal.? ? Bones and chest wall:? No suspicious bony lesions.? Overlying soft tissues appear unremarkable.? ? IMPRESSION:? ? 1. The tip of the endotracheal tube is 6 cm above asiya. ? The result was discussed with Dr. Brand.? ? ? Dictated by: Hiwot Miller M.D. on 06/23/2021 at 8:43 ? ? Approved by: Hiwot Miller M.D. on 06/23/2021 at 8:50?? XR humerus: Radiologist's Impression: [address] [address] XRay Report Signed Patient: Trav Wong MR#: [id number] : 1990 Acct:[id number] Age/Sex: 30 / M Date of Service: 06/23/21 Loc: ED Accession Number: [id number] ?? Procedure: XR humerus RT 2V Ordering Provider: Avery Brand D.O. PROCEDURE:? XR HUMERUS RT 2V ? INDICATIONS:? Bruising after being found down ? TECHNIQUE:? 2 views of the humerus were acquired.? ? COMPARISON:? None. ? FINDINGS:? ? Bones:? There is a fracture of the humeral head involving greater tuberosity with minimal displacement.? No suspicious bony lesions.? ? Soft tissues:? No suspicious soft tissue calcifications.? ? IMPRESSION:? Humeral head fracture. ? ? Dictated by: Hiwot Miller M.D. on 06/23/2021 at 8:46 ? ? Approved by: Hiwot Miller M.D. on 06/23/2021 at 8:49?? XR hip: Radiologist's Impression: [place] [address] XRay Report Signed Patient: Trav Wong MR#: [id number] : 1990 Acct:[id number] Age/Sex: 30 / M Date of Service: 06/23/21 Loc: ED Accession Number: [id number] ?? Procedure: XR hip w pel if done RT 2V Ordering Provider: Avery Brand D.O. PROCEDURE:? XR HIP W PEL IF DONE RT 2V ? INDICATIONS:? Bruising right hip after found down ? TECHNIQUE:? AP pelvis with lateral view(s) of the right hip(s).? ? COMPARISON:? None. ? FINDINGS:? ? Bones:? No fractures or dislocations.? Pelvic ring appears intact.? No suspicious bony lesions.? ? Soft tissues:? The visualized bowel gas pattern is normal.? No suspicious soft tissue calcifications.? ? ? IMPRESSION:? No acute osseous abnormalities. ? ? ? Dictated by: Hiwot Miller M.D. on 06/23/2021 at 8:45 ? ? Approved by: Hiwot Miller M.D. on 06/23/2021 at 8:46?? Shoulder x-ray: Radiologist's Impression: [address] [address] XRay Report Signed Patient: Trav Wong MR#: [id number] : 1990 Acct:[id number] Age/Sex: 30 / M Date of Service: 06/23/21 Loc: ED Accession Number: [id number] ?? Procedure: XR shoulder RT min 2V Ordering Provider: Avery Brand D.O. PROCEDURE:? XR SHOULDER RT MIN 2V ? INDICATIONS:? Greater tuberosity fracture ? TECHNIQUE:? 3 views of the shoulder were acquired.? ? COMPARISON:? [facility], CR, XR SHOULDER RT MIN 2V, 06/13/2021, 14:18. ? FINDINGS:? ? Bones:? A mildly displaced greater tuberosity fracture appears similar in position.? There is increased lucency and sclerosis along the fracture margins consistent with bony remodeling.? No discrete bridging callus.? Visualized ribs appear intact.? ? Soft tissues:? No suspicious soft tissue calcifications.? ? IMPRESSION:? ? 1. Mildly displaced evolving greater tuberosity fracture appears similar in alignment.? ? ? Dictated by: Trav Daly M.D. on 06/23/2021 at 9:42 ? ? Approved by: Trav Daly M.D. on 06/23/2021 at 9:56? ECG Data Attestation: I personally reviewed and interpreted this ECG as follows: Interpretation: Sinus rhythm Ventricular rate 90 to Normal axis Normal QRS QTC [address] T wave changes MDM Narrative Medical decision making narrative: Patient's toxicologic workup here in the emergency department is relatively unremarkable. The right shoulder fracture is not new. Review of his medical record shows that he was seen here approximately 10 days ago after a fall where he was diagnosed with a dislocation. I did discuss this with Dr. Walton who is on-call for orthopedics who recommended that the patient be treated with a sling. Patient does have unequal pupils. His head CT is unremarkable. After the initial chest x-ray his endotracheal tube was advanced. During his stay here in the emergency department he did spontaneously move all 4 extremities. Just before admission he did start to make purposeful movements towards the endotracheal tube specifically with his left arm. Unsure the exact etiology the patient's altered mental status that brought him here to the emergency department. I did discuss the case with Dr. garcia with internal medicine who will admit for further evaluation and treatment. Critical Care Time Critical Care Time Critical Care Time: Yes Total Critical Care Time: 45 Attestation: The high probability of a clinically significant, sudden or life threatening deterioration of the respiratory, neurologic, cardiovascular system(s) required my full and direct attention, intervention and personal management. The aggregate critical care time was [45 minutes. This time is in addition to time spent performing reported procedures but includes the following: [x] Data Review and interpretation [x] Patient assessment and monitoring of vital signs [x] Documentation [x] Medication orders and management Discharge Plan Departure Patient Disposition: Admitted As Inpatient Clinical Impression: Altered mental status, Closed fracture of proximal end of right humerus Admit Date/Time: 06/23/21 10:25 Admit Provider: Mony Garcia
--- NOTE | 2021-06-23 08:26 | DI.CT.S_ITS ---
PROCEDURE: CT FACIAL BONES WO CON INDICATIONS: Found unresponsive with facial bruising TECHNIQUE: Noncontrast 2.5 mm thick axial images acquired from the mandible through the frontal sinuses, with coronal and sagittal reformatting. For radiation dose reduction, the following was used: automated exposure control, adjustment of mA and/or kV according to patient size. COMPARISON: [facility], CT, CT CERVICAL SPINE WO CON, 06/23/2021, 8:10. FINDINGS: Image quality: Excellent. Bones and teeth: Orbital more are intact. Sinus more show no fracture or deformity. Nasal bones and septum are intact. Visualized portions of the mandible demonstrate no fractures or subluxation. Zygomatic arches are intact. Pterygoid plates are intact. Visualized portions of the skull base and auditory canals are intact. Sinuses: Mild mucosal thickening in ethmoidal and maxillary sinuses bilaterally. There are mucous retention cysts in maxillary sinuses bilaterally. Mastoid air cells are aerated. Soft tissues: No edema, masses, or fluid collections. No enlarged lymph nodes. No soft tissue lacerations or debris. Note is made of an endotracheal tube in the central airway. Vascular: Visualized vascular structures appear normal in the absence of contrast. Bony vascular foramina and canals are intact. IMPRESSION: 1. No facial bone fractures. 2. Mild paranasal sinus disease. Dictated by: Hiwot Miller M.D. on 06/23/2021 at 8:39 Approved by: Hiwot Miller M.D. on 06/23/2021 at 8:42
--- NOTE | 2021-06-23 08:26 | DI.CT.S_ITS ---
PROCEDURE: CT CERVICAL SPINE WO CON INDICATIONS: Found unresponsive TECHNIQUE: Noncontrast 3 mm thick sections acquired from the skull base to the T4 level. Sagittal and coronal reformats were then constructed. For radiation dose reduction, the following was used: automated exposure control, adjustment of mA and/or kV according to patient size. COMPARISON: [facility], CR, XR CHEST 1V, 06/23/2021, 7:53. [facility], CT, CT HEAD/BRAIN WO CON, 03/04/2021, 20:17. [facility], CT, CT CERVICAL SPINE WO CON, 03/04/2021, 20:17. FINDINGS: Image quality: Excellent. Bones: No fractures or dislocations. Moderate degenerative disc disease at C6-C7, and mild degenerative disc disease at C5-C6. Mild bilateral facet arthropathy scattered in cervical spine. Small bone island in C5. Visualized superior ribs are intact. Soft tissues: Prevertebral soft tissues are normal in thickness. No paravertebral hematomas. No apical pneumothoraces. There is an endotracheal tube above asiya. IMPRESSION: 1. No acute cervical spine injury. 2. Degenerative disc and facet disease in cervical spine. Dictated by: Hiwot Miller M.D. on 06/23/2021 at 8:35 Approved by: Hiwot Miller M.D. on 06/23/2021 at 8:38
--- NOTE | 2021-06-23 08:26 | DI.CT.S_ITS ---
PROCEDURE: CT HEAD/BRAIN WO CON INDICATIONS: Found unresponsive TECHNIQUE: Noncontrast 4.5 mm thick angled axial sections acquired from the foramen magnum to the vertex, with coronal and sagittal reformats. For radiation dose reduction, the following was used: automated exposure control, adjustment of mA and/or kV according to patient size. COMPARISON: [facility], CT, BRAIN W/O CONTRAST, 11/26/2009, 17:39. [facility], CT, CT HEAD/BRAIN WO CON, 03/04/2021, 20:17. FINDINGS: Image quality: Excellent. CSF spaces: Basal cisterns are patent. No extra-axial fluid collections. Ventricles are normal in size and shape. Brain: No midline shift. No intracranial masses or hemorrhage. Queen-white matter interface is normal. Skull and face: Calvarium and visualized facial bones are intact, without suspicious lesions. Sinuses: Note is made of an endotracheal tube. Mild mucosal thickening of the ethmoid sinuses bilaterally, left greater than right. Mucosal thickening of the septated left maxillary sinus. The mastoids are clear. IMPRESSION: 1. No acute intracranial abnormalities. 2. Paranasal sinus mucosal thickening. Dictated by: Hiwot Miller M.D. on 06/23/2021 at 8:30 Approved by: Hiwot Miller M.D. on 06/23/2021 at 8:34
[2021-06-23] MEDS: SODIUM CHLORIDE 0.9% 1,000 ML 125 ML IV (08:32)
--- NOTE | 2021-06-23 08:50 | DI.RAD.S_ITS ---
PROCEDURE: XR SHOULDER RT MIN 2V INDICATIONS: Greater tuberosity fracture TECHNIQUE: 3 views of the shoulder were acquired. COMPARISON: [facility], CR, XR SHOULDER RT MIN 2V, 06/13/2021, 14:18. FINDINGS: Bones: A mildly displaced greater tuberosity fracture appears similar in position. There is increased lucency and sclerosis along the fracture margins consistent with bony remodeling. No discrete bridging callus. Visualized ribs appear intact. Soft tissues: No suspicious soft tissue calcifications. IMPRESSION: 1. Mildly displaced evolving greater tuberosity fracture appears similar in alignment. Dictated by: Trav Daly M.D. on 06/23/2021 at 9:42 Approved by: Trav Daly M.D. on 06/23/2021 at 9:56
--- NOTE | 2021-06-23 09:11 | DI.RAD.S_ITS ---
PROCEDURE: XR CHEST 1V INDICATIONS: tube advancement TECHNIQUE: One view of the chest was acquired. COMPARISON: [facility], CT, CT ANGIO CHEST PE PROTOCOL, 06/13/2021, 20:23. [facility], CR, XR CHEST 1V, 06/23/2021, 7:53. FINDINGS: Surgical changes and devices: Endotracheal tube projects 5 cm from the asiya. Lungs and pleura: No consolidation, pleural effusions or pneumothorax. Reticulonodular density in the right upper lung zone, which may represent a post infectious or inflammatory process. Mediastinum: Mediastinal contours appear normal. Heart size is normal. Bones and chest wall: No suspicious bony lesions. Overlying soft tissues appear unremarkable. IMPRESSION: Endotracheal tube as detailed above. Dictated by: John Carbajal M.D. on 06/23/2021 at 13:39 Approved by: John Carbajal M.D. on 06/23/2021 at 13:41
[2021-06-23 09:12] LABS: Add Manual Diff / Slide Review NO; Basophils Absolute Auto 0 /uL (0-100); Basophils Percent Auto 0.5 % (0-2); Eosinophils Absolute Auto 100 /uL (0-450); Eosinophils Percent Auto 0.7 % (2-4); Hemoglobin 12.8 g/dL (13.5-17.5); Lymphocytes Absolute Auto 1400 /uL (1100-4500); Lymphocytes Percent Auto 15.5 % (25-40); Mean Corpuscular HGB Conc 33.7 % (30-36); Mean Corpuscular Hemoglobin 31.7 PG (26-34); Mean Corpuscular Volume 94.1 fL (80-100); Monocytes Absolute Auto 1100 /uL (0-900); Monocytes Percent Auto 12.3 % (3-14); Neutrophils Absolute Auto 6300 /uL (1500-7000); Platelet Count 303 X10^3/uL (150-400); Red Blood Cell Count 4.03 X10^6/uL (4.5-5.9); Red Cell Distribution Width 12.7 % (11.6-14.8); White Blood Cell Count 8.9 X10^3/uL (4.5-11.0)
[2021-06-23 09:16] LABS: Ammonia (NH3) < 9 umol/L (9-30); Lactate (Lactic Acid) 1.4 mmol/L (0.7-2.1)
[2021-06-23 09:25] LABS: Appearance Urine UA CLEAR; Bilirubin Urine UA NEGATIVE (NEGATIVE); Color Urine UA YELLOW; Glucose Urine UA NEGATIVE (Negative); Ketones Urine UA NEGATIVE (NEGATIVE); Leukocyte Esterase Urine UA NEGATIVE (NEGATIVE); Nitrite Urine UA NEGATIVE (Negative); Occult Blood Urine UA 3+ (Negative); Protein Urine UA NEGATIVE (Negative); Specific Gravity Urine UA 1.015 (1.000-1.035); Urobilinogen Urine UA 0.2 E.U./dL (0.2)
[2021-06-23 09:26] LABS: Acetaminophen < 10 ug/mL (10-30); Alanine Aminotransferase 19 IU/L (<50); Albumin 4.4 g/dL (3.5-5.0); Albumin Globulin Ratio 1.5 (1.0-2.8); Alkaline Phosphatase 89 U/L (38-126); Aspartate Aminotransferase 35 IU/L (17-59); BUN Creatinine Ratio 20.5 (6-22); Bilirubin Total 0.7 mg/dL (0.2-1.3); Blood Urea Nitrogen 15 mg/dL (9-20); Calcium 9.7 mg/dL (8.4-10.2); Carbon Dioxide 30 mmol/L (22-32); Chloride 102 mmol/L (98-107); Creatine Kinase 356 U/L (55-170); Estimated Glomerular Filt Rate > 60.0 mL/min (>60); Ethanol (ETOH) < 10 mg/dL; Glucose 99 mg/dL (70-100); HEMOLYSIS < 15 (0-50); Lipase 39 U/L (23-300); Magnesium 2.3 mg/dL (1.6-2.3); Salicylate < 1.0 mg/dL (<20); Sodium 141 mmol/L (137-145); Total Protein 7.4 g/dL (6.3-8.2)
[2021-06-23 09:30] LABS: Ur Creatinine Normal (Normal); Ur Specific Gravity Normal (Normal); Urine pH Normal (Normal)
[2021-06-23 09:31] LABS: UR Morphine/Opiate cutoff 300 Negative (Negative); Urine Amphetamines Negative (Negative); Urine Barbiturates Negative (Negative); Urine Benzodiazepines Negative (Negative); Urine Cocaine Negative (Negative); Urine MDMA Negative (Negative); Urine Methadone Negative (Negative); Urine Methamphetamines Negative (Negative); Urine Oxycodone Negative (Negative); Urine Phencyclidine Negative (Negative); Urine Tetrahydrocannabinol Negative (Negative); Urine Tricyclic Antidepressant Positive (Negative)
[2021-06-23 09:36] LABS: Lithium 0.4 mmol/L (0.6-1.2); Troponin I < 0.012 ng/mL (0.01-0.034)
[2021-06-23 09:38] LABS: RBC Urine 5-10/HPF (0-5/HPF); WBC Urine 0-1/HPF (0-5/HPF)
[2021-06-23 09:39] LABS: Bacteria Urine Occasional (0-1); Culture Indicated Urine Cult Not Indicated; Squamous Epithelial Cell Urine 0-1 /HPF (0-5/HPF)
[2021-06-23 09:40] LABS: CKMB % Relative Index 0.5 % (1.5-5.0); Creatine Kinase MB 1.95 ng/mL (<2.37)
[2021-06-23] MEDS: propofoL 1,000 MG/100 ML VIAL 2.245 MG IV (09:52)
[2021-06-23 10:10] LABS: Thyroid Stimulating Hormone 3.86 uIU/mL (0.47-4.68)
--- NOTE | 2021-06-23 10:13 | PC.NURSE ---
placement confirmed by auscultation, hooked to LIs, pt drained 400 cc. coffee ground . heme positive drainage. aware.
--- NOTE | 2021-06-23 10:17 | PC.NURSE ---
Cervical collar changed to [place] collar.
--- NOTE | 2021-06-23 10:17 | PC.NURSE ---
c-collar changed to an aspen collar.
[2021-06-23 10:34] LABS: Fractionated Inspired Oxygen 30; HCO3 ABG 31 mmol/L (22-26); Oxygen Saturation ABG 99 % (95-100); PO2 ABG 155 mmHg (80-100); TCO2 ABG 32 mmol/L (21-31)
--- NOTE | 2021-06-23 10:35 | PC.NURSE ---
pt arrived to er with multiple bruising. self inflicted cuts on his leg. brusiing over eye, bruising on right shoulder and arm.
[2021-06-23] MEDS: fentaNYL 100 MCG/2 ML INJ 25 MCG IV (10:57)
[2021-06-23 11:43] LABS: COVID19 - ADMIT (NP swab/PCR) Negative (Negative)
--- NOTE | 2021-06-23 12:24 | PC.NURSE ---
dr. pope gave a 50 mg bolus iv of propofol.
--- NOTE | 2021-06-23 12:43 | PC.NURSE ---
Addendum entered by Kasey Pereira R.N. 06/24/21 12:11: Late entry correction to previous note at 1243: ET tube 27 cm at the lip. Addendum entered by Kasey Pereira R.N. 06/23/21 18:27: Fentanyl gtt started at 1500 for additional sedation, currently at 1 mcg/kg/hr. Propofol at 30 mcg/kg/hr. BP stable at this time. Turning every two hours. Pulling legs up to chest and moving both arms to ET tube when repositioning, titrated gtts accordingly, see emar for trends. Currently resting calmly, RASS -3. Mother (Rhonda Multani) called and was updated via phone. Addendum entered by Kasey Pereira R.N. 06/23/21 13:04: Pupils unequal, right pupil 2 mm and nonreactive and left pupil 4 mm and sluggish. Original Note: Admit Note Patient arrived to room 228 from ER at 1205 with RT at bedside. Patient agitated and moving all extremities and attempting to remove tubes when transferred to bed via slider board. Propofol increased from 10 to 40 mcg/kg/min. Pt at RASS of -2 at this time. BP stable 110s/60s. SR in the 80-90s. SpO2 100% on 21% FiO2. TV 460, PEEP5, RR 16. ET tube 72 at the lip. OG tube connected to LIS, brown fluid resulting. Soft wrist restraints in place to protect airway. Belongings in room closet and include shoes, sweatpants, black jacket, socks, 3 silver colored bracelets, charging alutiiq, black watch, lanyard with keys and other assorted items. Dr. Garcia at bedside and Dr. Delgado notified. Bed alarm on for safety and HOB at 30 deg.
--- NOTE | 2021-06-23 13:53 | P.TELICUCN_ITS ---
History of Present Illness Consult details Chief complaint: Unresponsive :: This patient was seen via real time interactive two-way audiovisual telecommunication. Narrative: 30-year-old male, with medical H/o of polysubstance abuse, suicidal attempts, bipolar, ADHD, PTSD, last week was in ER for syncopal episode and right shoulder pain, found to have humeral #, today was brought by EMS for AMS after was found down for unknown time, intubated in the field for airway protection, urine drug screen and CT head neg, per nurse patient was confused, agitated and had no motor deficit prior to increasing sedation. ? ? Assessment: Acute metabolic encephalopathy could be 2/2 poly substance abuse / synthetic drug QTC prolongation (500) ? Rec: Sedation propfole and fentanyl, may require small dose of Levo support Continue IV fluid NS at 125 ml/hr ETT high, Advance the ET 2 cm and recheck CXR I/O hourly, notify MD if drops below o.5 ml/ kg CMP, CK Q6h Continuous QTc monitoring PPX : IV Pepcid & Lovenox Rt Humeral #/ mgt per ortho Plan discussed with RN CCT 60 min [facility] Medical History ADHD Anxiety Bankart lesion of left shoulder Cervical somatic dysfunction Chronic neck and back pain Cranial somatic dysfunction Depression Fractures History of bipolar disorder History of suicide attempt Left shoulder pain Migraines Overdose Partial blindness Pelvic somatic dysfunction Personality disorder PTSD (post-traumatic stress disorder) Rib pain on right side Right shoulder pain Routine screening for STI (sexually transmitted infection) Scoliosis Segmental and somatic dysfunction of abdomen and other regions Segmental and somatic dysfunction of lumbar region Segmental and somatic dysfunction of rib cage Segmental and somatic dysfunction of sacral region Segmental and somatic dysfunction of thoracic region Segmental and somatic dysfunction of upper extremity Suicide attempt by cutting of wrist Surgical History Anesthesia History of removal of cyst (~2018) Family History Father Mental health problem Mother Thyroid cancer Breast cancer Social History household members: family Smoking Status: Current every day smoker Smokeless tobacco user: other alcohol intake: current substance use type: does not use and former substance user Current Medications Current Medications Medications: Home Medications multivitamin-ferrous fumarate-folic acid 18 mg-400 mcg tablet (Centrum) 1 tab PO DAILY 10/18/20 [History Confirmed 04/15/21] omega-3 fatty acids 1,000 mg capsule (Fish Oil Concentrate) 1,000 mg PO DAILY 01/03/21 [History Confirmed 04/15/21] vitamin E 200 unit capsule 200 unit PO DAILY 01/03/21 [History Confirmed 04/15/21] cholecalciferol (vitamin D3) 1,250 mcg (50,000 unit) capsule 1,250 mcg PO QWEEK #8 cap 01/23/21 [Rx Confirmed 04/15/21] bupropion HCl 200 mg tablet,12 hr sustained-release 200 mg PO BID #60 ea 03/14/21 [Rx Confirmed 05/05/21] quetiapine 200 mg tablet 200 mg PO DAILY #30 tab 04/15/21 [Rx Confirmed 05/05/21] tramadol 50 mg tablet See Rx Instructions .ROUTE .COMPLEX #60 tab 04/21/21 [Rx Confirmed 05/05/21] fluoxetine 20 mg capsule 80 mg PO DAILY 05/05/21 [History Confirmed 05/05/21] atomoxetine 40 mg capsule 40 mg PO BID #60 cap 05/13/21 [Rx] lithium carbonate 300 mg capsule 300 mg PO BID #60 cap 05/13/21 [Rx] hydrocodone 5 mg-acetaminophen 325 mg tablet 1 tab PO Q6H PRN #10 tab 05/18/21 [Rx Confirmed 05/18/21] hydrocodone 5 mg-acetaminophen 325 mg tablet 1 tab PO Q6H PRN #10 tab 06/13/21 [Rx] clonazepam 1 mg tablet See Rx Instructions .ROUTE .COMPLEX #90 tab 06/16/21 [Rx] Visit Medications (administered) Generic Name Dose Route Start Last Admin Trade Name Freq PRN Reason Stop Dose Admin Fentanyl 25 mcg 06/23/21 10:51 06/23/21 10:57 Fentanyl 100 Mcg/2 Ml Inj IV 25 mcg Q1H PRN Administration Pain, Moderate (4-6) Sodium Chloride 1,000 mls @ 125 mls/hr 06/23/21 08:00 06/23/21 12:25 Normal Saline 0.9% IV 125 mls/hr CONT DARLEEN Infusion Exam Vital Signs (past 8 hours): - 06/23/21 07:54 06/23/21 08:29 06/23/21 08:30 Temperature 96.1 F L Pulse Rate 90 91 H 87 Respiratory Rate 16 16 Blood Pressure 107/68 133/85 Pulse Oximetry 100 100 100 06/23/21 08:35 06/23/21 08:40 06/23/21 08:45 Temperature Pulse Rate 85 86 85 Respiratory Rate 16 16 16 Blood Pressure Pulse Oximetry 100 100 100 06/23/21 08:50 06/23/21 08:55 06/23/21 09:00 Temperature Pulse Rate 86 85 97 H Respiratory Rate 16 17 18 Blood Pressure Pulse Oximetry 100 100 100 06/23/21 09:05 06/23/21 09:10 06/23/21 09:15 Temperature Pulse Rate 88 87 85 Respiratory Rate 16 16 16 Blood Pressure Pulse Oximetry 100 100 100 06/23/21 09:20 06/23/21 09:25 06/23/21 09:27 Temperature Pulse Rate 91 H 86 85 Respiratory Rate 16 16 16 Blood Pressure 113/68 Pulse Oximetry 100 100 100 06/23/21 09:30 06/23/21 09:35 06/23/21 09:40 Temperature Pulse Rate 85 85 85 Respiratory Rate 16 16 16 Blood Pressure 114/68 Pulse Oximetry 100 100 100 06/23/21 09:45 06/23/21 09:50 06/23/21 09:55 Temperature Pulse Rate 85 86 85 Respiratory Rate 16 16 16 Blood Pressure 119/70 Pulse Oximetry 100 100 100 06/23/21 10:00 06/23/21 10:05 06/23/21 10:10 Temperature Pulse Rate 85 91 H 89 Respiratory Rate 16 20 17 Blood Pressure 101/64 Pulse Oximetry 100 100 100 06/23/21 10:15 06/23/21 10:20 06/23/21 10:25 Temperature Pulse Rate 90 87 86 Respiratory Rate 17 16 16 Blood Pressure 98/64 Pulse Oximetry 100 100 100 06/23/21 10:30 06/23/21 10:35 06/23/21 10:40 Temperature Pulse Rate 85 86 86 Respiratory Rate 16 16 16 Blood Pressure 104/67 Pulse Oximetry 100 100 100 06/23/21 10:45 06/23/21 10:50 06/23/21 10:55 Temperature Pulse Rate 86 88 85 Respiratory Rate 16 16 16 Blood Pressure 105/69 Pulse Oximetry 100 100 100 06/23/21 11:00 06/23/21 11:05 06/23/21 11:10 Temperature Pulse Rate 85 86 86 Respiratory Rate 16 16 16 Blood Pressure 106/68 Pulse Oximetry 100 100 100 06/23/21 11:15 06/23/21 11:20 06/23/21 11:25 Temperature Pulse Rate 86 85 84 Respiratory Rate 16 16 16 Blood Pressure 103/68 Pulse Oximetry 100 100 100 06/23/21 11:30 Temperature Pulse Rate 84 Respiratory Rate 16 Blood Pressure 100/66 Pulse Oximetry 100 Fraction of Inspired Oxygen 21 Oxygen Delivery Method Mechanical Ventilation Objective Labs Result Diagrams: 06/23/21 08:49 06/23/21 08:49 Labs: Laboratory Results - last 24 hr 06/23/21 06/23/21 06/23/21 07:52 08:49 08:49 WBC 8.9 RBC 4.03 L Hgb 12.8 L Hct 38.0 L MCV 94.1 MCH 31.7 MCHC 33.7 RDW 12.7 Plt Count 303 Neut % (Auto) 71.0 Lymph % (Auto) 15.5 L [place] % (Auto) 12.3 Eos % (Auto) 0.7 L Baso % (Auto) 0.5 Neut # (Auto) 6300 Lymph # (Auto) 1400 Bacon # (Auto) 1100 H Eos # (Auto) 100 Baso # (Auto) 0 ABG pH ABG pCO2 ABG pO2 ABG HCO3 ABG Total CO2 ABG O2 Saturation ABG Base Excess FiO2 Sodium 141 Potassium 4.0 Chloride 102 Carbon Dioxide 30 BUN 15 Creatinine 0.73 Estimated GFR > 60.0 BUN/Creatinine Ratio 20.5 Glucose 99 Lactate Calcium 9.7 Magnesium 2.3 Total Bilirubin 0.7 AST 35 ALT 19 Alkaline Phosphatase 89 Ammonia Total Creatine Kinase 356 H CK-MB (CK-2) 1.95 CK-MB (CK-2) Rel Index 0.5 L Troponin I < 0.012 Total Protein 7.4 Albumin 4.4 Globulin 3.0 Albumin/Globulin Ratio 1.5 Lipase 39 TSH Urine Color Urine Appearance Urine pH Ur Specific [place] Urine Protein Urine Glucose (UA) Urine Ketones Urine Occult Blood Urine Nitrate Urine Bilirubin Urine Urobilinogen Ur Leukocyte Esterase Urine RBC Urine WBC Ur Squamous Epith Cells Urine Bacteria Ur Culture Indicated? Salicylates < 1.0 U Opiates 300ng/mL cut Ur Oxycodone Screen Urine Methadone Screen Acetaminophen < 10 L Ur Barbiturates Screen U Tricyclic Antidepress Ur Phencyclidine Scrn Ur Amphetamines Screen U Methamphetamines Scrn Ur MDMA Scrn (Ecstasy) U Benzodiazepines Scrn [place] Urine Cocaine Screen U Marijuana (THC) Screen Ethyl Alcohol < 10 SARS-CoV-2 (PCR) Negative 06/23/21 06/23/21 06/23/21 08:49 08:49 08:49 WBC RBC Hgb Hct MCV MCH MCHC RDW Plt Count Neut % (Auto) Lymph % (Auto) [place] % (Auto) Eos % (Auto) Baso % (Auto) Neut # (Auto) Lymph # (Auto) [place] # (Auto) Eos # (Auto) Baso # (Auto) ABG pH ABG pCO2 ABG pO2 ABG HCO3 ABG Total CO2 ABG O2 Saturation ABG Base Excess FiO2 Sodium Potassium Chloride Carbon Dioxide BUN Creatinine Estimated GFR BUN/Creatinine Ratio Glucose Lactate 1.4 Calcium Magnesium Total Bilirubin AST ALT Alkaline Phosphatase Ammonia < 9 L Total Creatine Kinase CK-MB (CK-2) CK-MB (CK-2) Rel Index Troponin I Total Protein Albumin Globulin Albumin/Globulin Ratio Lipase TSH 3.86 Urine Color Urine Appearance Urine pH Ur Specific [place] Urine Protein Urine Glucose (UA) Urine Ketones Urine Occult Blood Urine Nitrate Urine Bilirubin Urine Urobilinogen Ur Leukocyte Esterase Urine RBC Urine WBC Ur Squamous Epith Cells Urine Bacteria Ur Culture Indicated? Salicylates U Opiates 300ng/mL cut Ur Oxycodone Screen Urine Methadone Screen Acetaminophen Ur Barbiturates Screen U Tricyclic Antidepress Ur Phencyclidine Scrn Ur Amphetamines Screen U Methamphetamines Scrn Ur MDMA Scrn (Ecstasy) U Benzodiazepines Scrn [place] Urine Cocaine Screen U Marijuana (THC) Screen Ethyl Alcohol SARS-CoV-2 (PCR) 06/23/21 06/23/21 06/23/21 08:49 09:20 09:20 WBC RBC Hgb Hct MCV MCH MCHC RDW Plt Count Neut % (Auto) Lymph % (Auto) [place] % (Auto) Eos % (Auto) Baso % (Auto) Neut # (Auto) Lymph # (Auto) [place] # (Auto) Eos # (Auto) Baso # (Auto) ABG pH ABG pCO2 ABG pO2 ABG HCO3 ABG Total CO2 ABG O2 Saturation ABG Base Excess FiO2 Sodium Potassium Chloride Carbon Dioxide BUN Creatinine Estimated GFR BUN/Creatinine Ratio Glucose Lactate Calcium Magnesium Total Bilirubin AST ALT Alkaline Phosphatase Ammonia Total Creatine Kinase CK-MB (CK-2) CK-MB (CK-2) Rel Index Troponin I Total Protein Albumin Globulin Albumin/Globulin Ratio Lipase TSH Urine Color Yellow Urine Appearance Clear Urine pH 6.0 Ur Specific [place] 1.015 Urine Protein Negative Urine Glucose (UA) Negative Urine Ketones Negative Urine Occult Blood 3+ H Urine Nitrate Negative Urine Bilirubin Negative Urine Urobilinogen 0.2 Ur Leukocyte Esterase Negative Urine RBC 5-10/hpf H Urine WBC 0-1/hpf Ur Squamous Epith Cells 0-1 /hpf Urine Bacteria Occasional (0-1) Ur Culture Indicated? Cult not indicated Salicylates U Opiates 300ng/mL cut Negative Ur Oxycodone Screen Negative Urine Methadone Screen Negative Acetaminophen Ur Barbiturates Screen Negative U Tricyclic Antidepress Positive H Ur Phencyclidine Scrn Negative Ur Amphetamines Screen Negative U Methamphetamines Scrn Negative Ur MDMA Scrn (Ecstasy) Negative U Benzodiazepines Scrn Negative [place] 0.4 L Urine Cocaine Screen Negative U Marijuana (THC) Screen Negative Ethyl Alcohol SARS-CoV-2 (PCR) 06/23/21 10:03 WBC RBC Hgb Hct MCV MCH MCHC RDW Plt Count Neut % (Auto) Lymph % (Auto) [place] % (Auto) Eos % (Auto) Baso % (Auto) Neut # (Auto) Lymph # (Auto) [place] # (Auto) Eos # (Auto) Baso # (Auto) ABG pH 7.40 ABG pCO2 50.0 H ABG pO2 155 H ABG HCO3 31 H ABG Total CO2 32 H ABG O2 Saturation 99 ABG Base Excess 6.0 H FiO2 30 Sodium Potassium Chloride Carbon Dioxide BUN Creatinine Estimated GFR BUN/Creatinine Ratio Glucose Lactate Calcium Magnesium Total Bilirubin AST ALT Alkaline Phosphatase Ammonia Total Creatine Kinase CK-MB (CK-2) CK-MB (CK-2) Rel Index Troponin I Total Protein Albumin Globulin Albumin/Globulin Ratio Lipase TSH Urine Color Urine Appearance Urine pH Ur Specific [place] Urine Protein Urine Glucose (UA) Urine Ketones Urine Occult Blood Urine Nitrate Urine Bilirubin Urine Urobilinogen Ur Leukocyte Esterase Urine RBC Urine WBC Ur Squamous Epith Cells Urine Bacteria Ur Culture Indicated? Salicylates U Opiates 300ng/mL cut Ur Oxycodone Screen Urine Methadone Screen Acetaminophen Ur Barbiturates Screen U Tricyclic Antidepress Ur Phencyclidine Scrn Ur Amphetamines Screen U Methamphetamines Scrn Ur MDMA Scrn (Ecstasy) U Benzodiazepines Scrn [place] Urine Cocaine Screen U Marijuana (THC) Screen Ethyl Alcohol SARS-CoV-2 (PCR) Assessment & Plan Time Spent With Patient Critical Care time: I spent a total of [] minutes of critical care time on this patient's care today; this time is exclusive of procedural time.
--- NOTE | 2021-06-23 14:40 | DIET.CONS ---
Dietary Consultation Note Admission Date: 06/23/2021 10:25 Assessment: 30y M admitted found down unresponsive this am, intubated in field referred to nutrition for NPO on vent status. RD visited c [employer] team, pt currently c OG to LIS 400cc coffee ground resulted. Team to try SBT tomorrow, if pt not ready for extubation RD to give tube feeding reccs. Ht: 182.88 cm Wt: 78.5 kg BMI: 23.4 Last BM: () MNA: Jose Alejandro Score: 13 Labs: RBC 4.03 X10^6/uL (4.5-5.9) L 06/23/21 08:49 Hgb 12.8 g/dL (13.5-17.5) L 06/23/21 08:49 Hct 38.0 % (41-53) L 06/23/21 08:49 Creatinine 0.73 mg/dL (0.66-1.25) 06/23/21 08:49 Lactate 1.4 mmol/L (0.7-2.1) 06/23/21 08:49 Monitoring/Evaluations: following daily Electronically Signed by: Kylee Vu 06/23/21 14:40 Clinical Dietitian [address] [id number]
[2021-06-23] MEDS: DEXTROSE 5%-0.45NS W/KCL 20MEQ 1,000 ML 150 MEQ IV ×2 (14:55→20:56)
[2021-06-23] MEDS: FAMOTIDINE 20 MG/2 ML VIAL IV ×2 (14:56→20:26)
[2021-06-23] MEDS: fentaNYL 1,000 MCG in DEXTROSE 5% IN WATER 250 ML 14.837 ML IV (14:57)
[2021-06-23] MEDS: propofoL 1,000 MG/100 ML VIAL 9.42 MG IV (15:02)
[2021-06-23 16:02] LABS: Hematocrit 36.2 % (41-53); Hemoglobin 11.9 g/dL (13.5-17.5); Mean Corpuscular HGB Conc 32.8 % (30-36); Mean Corpuscular Hemoglobin 31.1 PG (26-34); Mean Corpuscular Volume 94.8 fL (80-100); Platelet Count 283 X10^3/uL (150-400); Red Blood Cell Count 3.81 X10^6/uL (4.5-5.9); Red Cell Distribution Width 12.7 % (11.6-14.8); White Blood Cell Count 13.5 X10^3/uL (4.5-11.0)
[2021-06-23 16:07] LABS: Add Manual Diff / Slide Review YES
[2021-06-23 16:30] LABS: Alanine Aminotransferase 18 IU/L (<50); Albumin 4.1 g/dL (3.5-5.0); Albumin Globulin Ratio 1.5 (1.0-2.8); Alkaline Phosphatase 88 U/L (38-126); Aspartate Aminotransferase 33 IU/L (17-59); BUN Creatinine Ratio 19.2 (6-22); Bilirubin Total 0.7 mg/dL (0.2-1.3); Blood Urea Nitrogen 14 mg/dL (9-20); Calcium 9.2 mg/dL (8.4-10.2); Carbon Dioxide 31 mmol/L (22-32); Chloride 104 mmol/L (98-107); Creatine Kinase 264 U/L (55-170); Estimated Glomerular Filt Rate > 60.0 mL/min (>60); Globulin 2.7 g/dL (1.7-4.1); Glucose 97 mg/dL (70-100); HEMOLYSIS < 15 (0-50); Potassium 3.7 mmol/L (3.4-5.1); Sodium 140 mmol/L (137-145); Total Protein 6.8 g/dL (6.3-8.2)
--- NOTE | 2021-06-23 16:32 | PM.HP.1 ---
History of Present Illness History of Present Illness Date Patient Seen: 06/23/21 Chief complaint: Unresponsive Narrative: The patient is a of ADHD, anxiety, depression, bipolar affective disorder, multiple suicide attempts, PTSD, admitted to the hospital after being found down at home in the front yard. There is no one to corroborate history. We were informed that the patient had an verbal altercation with family members, he was in found unconscious this morning. The patient was transported to the hospital via EMS. He was unable to protect his airway and intubated in the field. Upon arrival the patient was evaluated with a head CT which was unremarkable, cervical spine CT which showed no evidence of fracture, chest x-ray which was negative for infiltrate. The patient had been seen in the emergency department on the for a humeral fracture. The patient is sedated on the ventilator at this time and unable to provide any further history. He does have multiple ecchymoses including bruising on the right arm, abrasions on the left leg, in addition to some bruising on the right buttock. Patient is admitted to the hospital for presumed overdose. Patient History Medical History ADHD Anxiety Bankart lesion of left shoulder Cervical somatic dysfunction Chronic neck and back pain Cranial somatic dysfunction Depression Fractures History of bipolar disorder History of suicide attempt Left shoulder pain Migraines Overdose Partial blindness Pelvic somatic dysfunction Personality disorder PTSD (post-traumatic stress disorder) Rib pain on right side Right shoulder pain Routine screening for STI (sexually transmitted infection) Scoliosis Segmental and somatic dysfunction of abdomen and other regions Segmental and somatic dysfunction of lumbar region Segmental and somatic dysfunction of rib cage Segmental and somatic dysfunction of sacral region Segmental and somatic dysfunction of thoracic region Segmental and somatic dysfunction of upper extremity Suicide attempt by cutting of wrist Surgical History Anesthesia History of removal of cyst (~2018) Family & Social History Family History Father Mental health problem Mother Thyroid cancer Breast cancer Social History: household members family Safety & Behavioral: Feels Safe in Current Unwilling to Answer Environment Been Physically Hurt or Unwilling to Answer Threatened By a Person Tobacco & Substance use: Tobacco type e-cigarettes Smoking Status Current every day smoker alcohol intake current alcohol intake frequency 3 or more drinks per day Substance Use Type does not use Meds Home Medications and Allergies Home Medications Medication Instructions Recorded Confirmed Type multivitamin-ferrous 1 tab PO DAILY 10/18/20 06/23/21 History fumarate-folic acid 18 mg-400 mcg tablet (Centrum) omega-3 fatty acids 1,000 mg 1,000 mg PO DAILY 01/03/21 06/23/21 History capsule (Fish Oil Concentrate) vitamin E 200 unit capsule 200 unit PO DAILY 01/03/21 06/23/21 History bupropion HCl 200 mg tablet,12 hr 200 mg PO BID #60 ea 03/14/21 06/23/21 Rx sustained-release quetiapine 200 mg tablet 200 mg PO DAILY #30 tab 04/15/21 06/23/21 Rx tramadol 50 mg tablet See Rx Instructions .ROUTE 04/21/21 06/23/21 Rx .COMPLEX #60 tab fluoxetine 20 mg capsule 80 mg PO DAILY 05/05/21 06/23/21 History atomoxetine 40 mg capsule 40 mg PO BID #60 cap 05/13/21 06/23/21 Rx lithium carbonate 300 mg capsule 300 mg PO BID #60 cap 05/13/21 06/23/21 Rx clonazepam 1 mg tablet See Rx Instructions .ROUTE 06/16/21 06/23/21 Rx .COMPLEX #90 tab Allergies Allergy/AdvReac Type Severity Reaction Status Date / Time aripiprazole [From Abilify] Allergy Verified 06/13/21 11:12 risperidone [From Risperdal] Allergy Verified 06/13/21 11:12 olanzapine AdvReac Severe suicidal Verified 06/13/21 11:12 ideations Review of Systems Review of Systems Narrative: Unobtainable Exam Vital Signs (past 8 hours): - 06/23/21 08:35 06/23/21 08:40 06/23/21 08:45 Temperature Pulse Rate 85 86 85 Respiratory Rate 16 16 16 Blood Pressure Pulse Oximetry 100 100 100 06/23/21 08:50 06/23/21 08:55 06/23/21 09:00 Temperature Pulse Rate 86 85 97 H Respiratory Rate 16 17 18 Blood Pressure Pulse Oximetry 100 100 100 06/23/21 09:05 06/23/21 09:10 06/23/21 09:15 Temperature Pulse Rate 88 87 85 Respiratory Rate 16 16 16 Blood Pressure Pulse Oximetry 100 100 100 06/23/21 09:20 06/23/21 09:25 06/23/21 09:27 Temperature Pulse Rate 91 H 86 85 Respiratory Rate 16 16 16 Blood Pressure 113/68 Pulse Oximetry 100 100 100 06/23/21 09:30 06/23/21 09:35 06/23/21 09:40 Temperature Pulse Rate 85 85 85 Respiratory Rate 16 16 16 Blood Pressure 114/68 Pulse Oximetry 100 100 100 06/23/21 09:45 06/23/21 09:50 06/23/21 09:55 Temperature Pulse Rate 85 86 85 Respiratory Rate 16 16 16 Blood Pressure 119/70 Pulse Oximetry 100 100 100 06/23/21 10:00 06/23/21 10:05 06/23/21 10:10 Temperature Pulse Rate 85 91 H 89 Respiratory Rate 16 20 17 Blood Pressure 101/64 Pulse Oximetry 100 100 100 06/23/21 10:15 06/23/21 10:20 06/23/21 10:25 Temperature Pulse Rate 90 87 86 Respiratory Rate 17 16 16 Blood Pressure 98/64 Pulse Oximetry 100 100 100 06/23/21 10:30 06/23/21 10:35 06/23/21 10:40 Temperature Pulse Rate 85 86 86 Respiratory Rate 16 16 16 Blood Pressure 104/67 Pulse Oximetry 100 100 100 06/23/21 10:45 06/23/21 10:50 06/23/21 10:55 Temperature Pulse Rate 86 88 85 Respiratory Rate 16 16 16 Blood Pressure 105/69 Pulse Oximetry 100 100 100 06/23/21 11:00 06/23/21 11:05 06/23/21 11:10 Temperature Pulse Rate 85 86 86 Respiratory Rate 16 16 16 Blood Pressure 106/68 Pulse Oximetry 100 100 100 06/23/21 11:15 06/23/21 11:20 06/23/21 11:25 Temperature Pulse Rate 86 85 84 Respiratory Rate 16 16 16 Blood Pressure 103/68 Pulse Oximetry 100 100 100 06/23/21 11:30 06/23/21 11:35 06/23/21 11:40 Temperature Pulse Rate 84 82 81 Respiratory Rate 16 16 16 Blood Pressure 100/66 Pulse Oximetry 100 100 100 06/23/21 11:45 06/23/21 11:50 06/23/21 11:55 Temperature Pulse Rate 83 96 H 91 H Respiratory Rate 16 26 H 16 Blood Pressure 103/69 Pulse Oximetry 100 100 99 06/23/21 12:00 06/23/21 12:05 Temperature 96.7 F L Pulse Rate 87 88 Respiratory Rate 16 16 Blood Pressure 103/69 113/70 Pulse Oximetry 100 95 Fraction of Inspired Oxygen 21 Oxygen Delivery Method Mechanical Ventilation Narrative Exam Narrative: Intubated sedated male lying in bed [facility] Other: Normocephalic atraumatic, the left pupil is 4 mm dilated, right pupil is pinpoint, patient is intubated with an ET tube and oral gastric tube in place Resp Other: Lungs are clear to auscultation Cardio Other: Cardiac exam: Regular rate and rhythm normal S1-S2 GI Other: Abdomen: Soft and nontender, Other: Normal fail is no lesion Back/Spine/Pelvis Other: Right arm with ecchymoses in various stages of healing Skin Other: Left lower extremity with abrasions on the left leg, there is a bruise on the right buttock, Extrem Other: No edema, bruising on the right upper extremity is noted Psych Other: The patient is intubated and sedated Objective ECG Impression: Normal sinus rhythm with prolonged QT interval Imaging CT scan - head: Radiologist's impression: No acute intracranial abnormalities. 2. Paranasal sinus mucosal thickening. ? ? CT of face/cervical spine: Radiologist's impression: No facial bone fractures.? 2. Mild paranasal sinus disease.? ? ?CT of cervical spine ?No acute cervical spine injury. 2.? Degenerative disc and facet disease in cervical spine.? ? Labs Result Diagrams: 06/23/21 15:40 06/23/21 08:49 Labs: Laboratory Results - last 24 hr 06/23/21 06/23/21 06/23/21 07:52 08:49 08:49 WBC 8.9 RBC 4.03 L Hgb 12.8 L Hct 38.0 L MCV 94.1 MCH 31.7 MCHC 33.7 RDW 12.7 Plt Count 303 Neut % (Auto) 71.0 Lymph % (Auto) 15.5 L [place] % (Auto) 12.3 Eos % (Auto) 0.7 L Baso % (Auto) 0.5 Neut # (Auto) 6300 Lymph # (Auto) 1400 [place] # (Auto) 1100 H Eos # (Auto) 100 Baso # (Auto) 0 ABG pH ABG pCO2 ABG pO2 ABG HCO3 ABG Total CO2 ABG O2 Saturation ABG Base Excess FiO2 Sodium 141 Potassium 4.0 Chloride 102 Carbon Dioxide 30 BUN 15 Creatinine 0.73 Estimated GFR > 60.0 BUN/Creatinine Ratio 20.5 Glucose 99 Lactate Calcium 9.7 Magnesium 2.3 Total Bilirubin 0.7 AST 35 ALT 19 Alkaline Phosphatase 89 Ammonia Total Creatine Kinase 356 H CK-MB (CK-2) 1.95 CK-MB (CK-2) Rel Index 0.5 L Troponin I < 0.012 Total Protein 7.4 Albumin 4.4 Globulin 3.0 Albumin/Globulin Ratio 1.5 Lipase 39 TSH Urine Color Urine Appearance Urine pH Ur Specific [place] Urine Protein Urine Glucose (UA) Urine Ketones Urine Occult Blood Urine Nitrate Urine Bilirubin Urine Urobilinogen Ur Leukocyte Esterase Urine RBC Urine WBC Ur Squamous Epith Cells Urine Bacteria Ur Culture Indicated? Nasal Screen MRSA (PCR) Salicylates < 1.0 U Opiates 300ng/mL cut Ur Oxycodone Screen Urine Methadone Screen Acetaminophen < 10 L Ur Barbiturates Screen U Tricyclic Antidepress Ur Phencyclidine Scrn Ur Amphetamines Screen U Methamphetamines Scrn Ur MDMA Scrn (Ecstasy) U Benzodiazepines Scrn [place] Urine Cocaine Screen U Marijuana (THC) Screen Ethyl Alcohol < 10 SARS-CoV-2 (PCR) Negative 06/23/21 06/23/21 06/23/21 08:49 08:49 08:49 WBC RBC Hgb Hct MCV MCH MCHC RDW Plt Count Neut % (Auto) Lymph % (Auto) [place] % (Auto) Eos % (Auto) Baso % (Auto) Neut # (Auto) Lymph # (Auto) [place] # (Auto) Eos # (Auto) Baso # (Auto) ABG pH ABG pCO2 ABG pO2 ABG HCO3 ABG Total CO2 ABG O2 Saturation ABG Base Excess FiO2 Sodium Potassium Chloride Carbon Dioxide BUN Creatinine Estimated GFR BUN/Creatinine Ratio Glucose Lactate 1.4 Calcium Magnesium Total Bilirubin AST ALT Alkaline Phosphatase Ammonia < 9 L Total Creatine Kinase CK-MB (CK-2) CK-MB (CK-2) Rel Index Troponin I Total Protein Albumin Globulin Albumin/Globulin Ratio Lipase TSH 3.86 Urine Color Urine Appearance Urine pH Ur Specific [place] Urine Protein Urine Glucose (UA) Urine Ketones Urine Occult Blood Urine Nitrate Urine Bilirubin Urine Urobilinogen Ur Leukocyte Esterase Urine RBC Urine WBC Ur Squamous Epith Cells Urine Bacteria Ur Culture Indicated? Nasal Screen MRSA (PCR) Salicylates U Opiates 300ng/mL cut Ur Oxycodone Screen Urine Methadone Screen Acetaminophen Ur Barbiturates Screen U Tricyclic Antidepress Ur Phencyclidine Scrn Ur Amphetamines Screen U Methamphetamines Scrn Ur MDMA Scrn (Ecstasy) U Benzodiazepines Scrn [place] Urine Cocaine Screen U Marijuana (THC) Screen Ethyl Alcohol SARS-CoV-2 (PCR) 06/23/21 06/23/21 06/23/21 08:49 09:20 09:20 WBC RBC Hgb Hct MCV MCH MCHC RDW Plt Count Neut % (Auto) Lymph % (Auto) [place] % (Auto) Eos % (Auto) Baso % (Auto) Neut # (Auto) Lymph # (Auto) [place] # (Auto) Eos # (Auto) Baso # (Auto) ABG pH ABG pCO2 ABG pO2 ABG HCO3 ABG Total CO2 ABG O2 Saturation ABG Base Excess FiO2 Sodium Potassium Chloride Carbon Dioxide BUN Creatinine Estimated GFR BUN/Creatinine Ratio Glucose Lactate Calcium Magnesium Total Bilirubin AST ALT Alkaline Phosphatase Ammonia Total Creatine Kinase CK-MB (CK-2) CK-MB (CK-2) Rel Index Troponin I Total Protein Albumin Globulin Albumin/Globulin Ratio Lipase TSH Urine Color Yellow Urine Appearance Clear Urine pH 6.0 Ur Specific [place] 1.015 Urine Protein Negative Urine Glucose (UA) Negative Urine Ketones Negative Urine Occult Blood 3+ H Urine Nitrate Negative Urine Bilirubin Negative Urine Urobilinogen 0.2 Ur Leukocyte Esterase Negative Urine RBC 5-10/hpf H Urine WBC 0-1/hpf Ur Squamous Epith Cells 0-1 /hpf Urine Bacteria Occasional (0-1) Ur Culture Indicated? Cult not indicated Nasal Screen MRSA (PCR) Salicylates U Opiates 300ng/mL cut Negative Ur Oxycodone Screen Negative Urine Methadone Screen Negative Acetaminophen Ur Barbiturates Screen Negative U Tricyclic Antidepress Positive H Ur Phencyclidine Scrn Negative Ur Amphetamines Screen Negative U Methamphetamines Scrn Negative Ur MDMA Scrn (Ecstasy) Negative U Benzodiazepines Scrn Negative [place] 0.4 L Urine Cocaine Screen Negative U Marijuana (THC) Screen Negative Ethyl Alcohol SARS-CoV-2 (PCR) 06/23/21 06/23/21 06/23/21 10:03 12:25 15:40 WBC 13.5 H D RBC 3.81 L Hgb 11.9 L Hct 36.2 L MCV 94.8 MCH 31.1 MCHC 32.8 RDW 12.7 Plt Count 283 Neut % (Auto) Not Reportable Lymph % (Auto) Not Reportable [place] % (Auto) Not Reportable Eos % (Auto) Not Reportable Baso % (Auto) Not Reportable Neut # (Auto) Lymph # (Auto) Not Reportable [place] # (Auto) Not Reportable Eos # (Auto) Baso # (Auto) Not Reportable ABG pH 7.40 ABG pCO2 50.0 H ABG pO2 155 H ABG HCO3 31 H ABG Total CO2 32 H ABG O2 Saturation 99 ABG Base Excess 6.0 H FiO2 30 Sodium Potassium Chloride Carbon Dioxide BUN Creatinine Estimated GFR BUN/Creatinine Ratio Glucose Lactate Calcium Magnesium Total Bilirubin AST ALT Alkaline Phosphatase Ammonia Total Creatine Kinase CK-MB (CK-2) CK-MB (CK-2) Rel Index Troponin I Total Protein Albumin Globulin Albumin/Globulin Ratio Lipase TSH Urine Color Urine Appearance Urine pH Ur Specific [place] Urine Protein Urine Glucose (UA) Urine Ketones Urine Occult Blood Urine Nitrate Urine Bilirubin Urine Urobilinogen Ur Leukocyte Esterase Urine RBC Urine WBC Ur Squamous Epith Cells Urine Bacteria Ur Culture Indicated? Nasal Screen MRSA (PCR) Negative for mrsa Salicylates U Opiates 300ng/mL cut Ur Oxycodone Screen Urine Methadone Screen Acetaminophen Ur Barbiturates Screen U Tricyclic Antidepress Ur Phencyclidine Scrn Ur Amphetamines Screen U Methamphetamines Scrn Ur MDMA Scrn (Ecstasy) U Benzodiazepines Scrn [place] Urine Cocaine Screen U Marijuana (THC) Screen Ethyl Alcohol SARS-CoV-2 (PCR) Assessment & Plan Assessment & Plan narrative: 30-year-old male with a history of PTSD, ADHD, depression, bipolar affective disorder, history of suicide attempt, found unresponsive at home felt to be a presumed intentional overdose. -patient was intubated in the field for airway protection -he remains intubated, chest x-ray is negative, head CT, cervical spine CT, facial CT all negative -urine drug screen positive for tricyclic X which is listed as 1 of the patient's medication -QT prolongation associated with triceps switches present on EKG -all usual home medications have been discontinued -the patient will remain sedated with fentanyl and propofol -will complain continue to follow daily labs -chest x-ray in the morning -DVT prophylaxis -H2 allan for GI protection -will monitor QT interval closely -continue IV hydration -spontaneous breathing trial in the morning -the patient will be made a full code, unable to determine surrogate decision maker as he is unresponsive -patient is admitted as an inpatient Time Spent With Patient Critical Care time: I spent a total of [] minutes of critical care time on this patient's care today; this time is exclusive of procedural time.
[2021-06-23] MEDS: CHLORHEXIDINE GLUCONATE 15 ML CUP PO (18:07)
[2021-06-23 18:13] LABS: Neutrophils Absolute Manual 9990 /uL (3000-5900); Total Cells Counted 100
[2021-06-23 18:15] LABS: Anisocytosis 1+
[2021-06-23 20:17] LABS: Creatine Kinase 221 U/L (55-170)
[2021-06-23] MEDS: propofoL 1,000 MG/100 ML VIAL 14.13 MG IV (20:23)
--- NOTE | 2021-06-23 20:42 | PM.ICURNDS ---
- Note: Pt d/w bedside staff (RN and RT). He remains on vent mainly for airway protection. He is down to 21% O2 on vent. He is on prop (30) and fent (1 mcg/kghr) due to agitation when sedation is weaned. Trial of SBT in AM. Awaiting improvement in mental status.
[2021-06-24] VITALS (95 sets, daily range): BP systolic 99–126; BP diastolic 56–76; PULSE 78–111; RESP 14–28; TEMP 36.6–37.2; O2SAT 97–100; BMI 23.4
[2021-06-24] MEDS: CHLORHEXIDINE GLUCONATE 15 ML CUP PO ×2 (00:29→06:25)
[2021-06-24] MEDS: propofoL 1,000 MG/100 ML VIAL 14.13 MG IV (03:17)
[2021-06-24] MEDS: fentaNYL 1,000 MCG in DEXTROSE 5% IN WATER 250 ML 21.195 ML IV (03:18)
[2021-06-24] MEDS: DEXTROSE 5%-0.45NS W/KCL 20MEQ 1,000 ML 150 MEQ IV (03:20)
[2021-06-24 05:52] LABS: Add Manual Diff / Slide Review NO; Basophils Absolute Auto 200 /uL (0-100); Basophils Percent Auto 2.7 % (0-2); Eosinophils Absolute Auto 300 /uL (0-450); Hematocrit 33.1 % (41-53); Hemoglobin 11.2 g/dL (13.5-17.5); Lymphocytes Absolute Auto 1700 /uL (1100-4500); Lymphocytes Percent Auto 20.6 % (25-40); Mean Corpuscular HGB Conc 33.9 % (30-36); Mean Corpuscular Volume 94.4 fL (80-100); Monocytes Absolute Auto 900 /uL (0-900); Monocytes Percent Auto 11.2 % (3-14); Neutrophils Absolute Auto 5100 /uL (1500-7000); Neutrophils Percent Auto 61.5 % (50-75); Platelet Count 271 X10^3/uL (150-400); Red Cell Distribution Width 12.8 % (11.6-14.8); White Blood Cell Count 8.2 X10^3/uL (4.5-11.0)
[2021-06-24 06:05] LABS: Alanine Aminotransferase 15 IU/L (<50); Albumin 3.4 g/dL (3.5-5.0); Albumin Globulin Ratio 1.2 (1.0-2.8); Alkaline Phosphatase 71 U/L (38-126); Aspartate Aminotransferase 34 IU/L (17-59); BUN Creatinine Ratio 13.3 (6-22); Bilirubin Total 0.5 mg/dL (0.2-1.3); Blood Urea Nitrogen 10 mg/dL (9-20); Calcium 8.6 mg/dL (8.4-10.2); Carbon Dioxide 28 mmol/L (22-32); Chloride 105 mmol/L (98-107); Estimated Glomerular Filt Rate > 60.0 mL/min (>60); Globulin 2.8 g/dL (1.7-4.1); Glucose 94 mg/dL (70-100); HEMOLYSIS 15 (0-50); Potassium 3.5 mmol/L (3.4-5.1); Sodium 135 mmol/L (137-145); Total Protein 6.2 g/dL (6.3-8.2)
--- NOTE | 2021-06-24 06:54 | PC.NURSE ---
Patient remains on Propofol @ 30 mcg/kg/min and Fentanyl 1 mcg/kg/hr. Patient sedate except when being repositioned @ 0600. Pt moves all extremities and attempting to sit up in bed with last repositioning. Propofol increased briefly to 35 mcg/kg/min. Able to resume at previous level within a few minutes. R pupil @ 3mm this am and sluggish reaction noted. L pupil remains @ 4mm and sluggish. O2 sats 99-100% on FiO2 0.21, RR 16, TV 460, Peep +5.
[2021-06-24] MEDS: POTASSIUM CHLORIDE 20 MEQ/15 ML UDC 40 MEQ TUBE (08:13)
[2021-06-24] MEDS: FAMOTIDINE 20 MG/2 ML VIAL IV (08:13)
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
--- NOTE | 2021-06-24 12:00 | PM.PN.EICU ---
Subjective Subjective :: This patient was seen via real time interactive two-way audiovisual telecommunication. patient extrubated this AM. Was awake and told me that he took both gabapentin and flexiril ( not on his home meds during m,y review) and unclear how much he took. when I asked if he has any intention of trying to hurt himself, he said it was too late for that Current Medications Current Medications Medications: Home Medications multivitamin-ferrous fumarate-folic acid 18 mg-400 mcg tablet (Centrum) 1 tab PO DAILY 10/18/20 [History Confirmed 06/23/21] omega-3 fatty acids 1,000 mg capsule (Fish Oil Concentrate) 1,000 mg PO DAILY 01/03/21 [History Confirmed 06/23/21] vitamin E 200 unit capsule 200 unit PO DAILY 01/03/21 [History Confirmed 06/23/21] bupropion HCl 200 mg tablet,12 hr sustained-release 200 mg PO BID #60 ea 03/14/21 [Rx Confirmed 06/23/21] quetiapine 200 mg tablet 200 mg PO DAILY #30 tab 04/15/21 [Rx Confirmed 06/23/21] tramadol 50 mg tablet See Rx Instructions .ROUTE .COMPLEX #60 tab 04/21/21 [Rx Confirmed 06/23/21] fluoxetine 20 mg capsule 80 mg PO DAILY 05/05/21 [History Confirmed 06/23/21] atomoxetine 40 mg capsule 40 mg PO BID #60 cap 05/13/21 [Rx Confirmed 06/23/21] lithium carbonate 300 mg capsule 300 mg PO BID #60 cap 05/13/21 [Rx Confirmed 06/23/21] clonazepam 1 mg tablet See Rx Instructions .ROUTE .COMPLEX #90 tab 06/16/21 [Rx Confirmed 06/23/21] Visit Medications (administered) Generic Name Dose Route Start Last Admin Trade Name Freq PRN Reason Stop Dose Admin Famotidine 20 mg 06/23/21 13:45 06/24/21 08:13 Famotidine 20 Mg/2 Ml Vial IV 20 mg BID DARLEEN Administration Objective Ventilator Parameters: Ventilator Settings FiO2 21 RT Vent Frequency 0 Ventilator Tidal Volume 0 Exhaled Vt/kg IBW 6 Positive End Expiratory 12 Pressure Ventilator Pressure Support 12 Inspiratory Phase Time 0.9 I:E Ratio 1:3.2 Patient Position HOB >= 30 degrees Labs Result Diagrams: 06/24/21 05:05 12/14/21 05:05 Labs: Laboratory Results - last 24 hr 06/23/21 06/23/21 06/23/21 12:25 15:40 15:40 WBC 13.5 H D RBC 3.81 L Hgb 11.9 L Hct 36.2 L MCV 94.8 MCH 31.1 MCHC 32.8 RDW 12.7 Plt Count 283 Neut % (Auto) Not Reportable Lymph % (Auto) Not Reportable Sharp % (Auto) Not Reportable Eos % (Auto) Not Reportable Baso % (Auto) Not Reportable Neut # (Auto) Lymph # (Auto) Not Reportable Sharp # (Auto) Not Reportable Eos # (Auto) Baso # (Auto) Not Reportable Total Counted 100 Seg Neutrophils % 74.0 H Band Neutrophils % 0.0 L Lymphocytes % (Manual) 15.0 L Atypical Lymphs % 0.0 Monocytes % (Manual) 11.0 Eosinophils % (Manual) 0.0 L Basophils % (Manual) 0.0 Neutrophils # (Manual) 9990 H RBC Morphology See below Anisocytosis 1+ H Sodium 140 Potassium 3.7 Chloride 104 Carbon Dioxide 31 BUN 14 Creatinine 0.73 Estimated GFR > 60.0 BUN/Creatinine Ratio 19.2 Glucose 97 Calcium 9.2 Total Bilirubin 0.7 AST 33 ALT 18 Alkaline Phosphatase 88 Total Creatine Kinase Total Protein 6.8 Albumin 4.1 Globulin 2.7 Albumin/Globulin Ratio 1.5 Nasal Screen MRSA (PCR) Negative for mrsa 06/23/21 06/23/21 06/24/21 15:40 20:01 05:05 WBC 8.2 RBC 3.50 L Hgb 11.2 L Hct 33.1 L MCV 94.4 MCH 32.0 MCHC 33.9 RDW 12.8 Plt Count 271 Neut % (Auto) 61.5 Lymph % (Auto) 20.6 L Sharp % (Auto) 11.2 Eos % (Auto) 4.0 Baso % (Auto) 2.7 H Neut # (Auto) 5100 Lymph # (Auto) 1700 Sharp # (Auto) 900 Eos # (Auto) 300 Baso # (Auto) 200 H Total Counted Seg Neutrophils % Band Neutrophils % Lymphocytes % (Manual) Atypical Lymphs % Monocytes % (Manual) Eosinophils % (Manual) Basophils % (Manual) Neutrophils # (Manual) RBC Morphology Anisocytosis Sodium Potassium Chloride Carbon Dioxide BUN Creatinine Estimated GFR BUN/Creatinine Ratio Glucose Calcium Total Bilirubin AST ALT Alkaline Phosphatase Total Creatine Kinase 264 H 221 H Total Protein Albumin Globulin Albumin/Globulin Ratio Nasal Screen MRSA (PCR) 06/24/21 05:05 WBC RBC Hgb Hct MCV MCH MCHC RDW Plt Count Neut % (Auto) Lymph % (Auto) Sharp % (Auto) Eos % (Auto) Baso % (Auto) Neut # (Auto) Lymph # (Auto) Sharp # (Auto) Eos # (Auto) Baso # (Auto) Total Counted Seg Neutrophils % Band Neutrophils % Lymphocytes % (Manual) Atypical Lymphs % Monocytes % (Manual) Eosinophils % (Manual) Basophils % (Manual) Neutrophils # (Manual) RBC Morphology Anisocytosis Sodium 135 L Potassium 3.5 Chloride 105 Carbon Dioxide 28 BUN 10 Creatinine 0.75 Estimated GFR > 60.0 BUN/Creatinine Ratio 13.3 Glucose 94 Calcium 8.6 Total Bilirubin 0.5 AST 34 ALT 15 Alkaline Phosphatase 71 Total Creatine Kinase Total Protein 6.2 L Albumin 3.4 L Globulin 2.8 Albumin/Globulin Ratio 1.2 Nasal Screen MRSA (PCR) Exam Vital Signs (past 8 hours): - 06/24/21 04:05 06/24/21 04:10 06/24/21 04:15 Temperature Pulse Rate 86 87 87 Respiratory Rate 16 16 16 Blood Pressure Pulse Oximetry 99 99 99 06/24/21 04:20 06/24/21 04:25 06/24/21 04:30 Temperature Pulse Rate 90 91 H 84 Respiratory Rate 16 16 16 Blood Pressure Pulse Oximetry 99 99 99 06/24/21 04:35 06/24/21 04:40 06/24/21 04:45 Temperature Pulse Rate 87 87 89 Respiratory Rate 16 16 16 Blood Pressure Pulse Oximetry 99 99 99 06/24/21 04:50 06/24/21 04:55 06/24/21 05:00 Temperature Pulse Rate 89 90 90 Respiratory Rate 16 16 16 Blood Pressure 107/67 Pulse Oximetry 99 99 99 06/24/21 05:05 06/24/21 05:10 06/24/21 05:15 Temperature Pulse Rate 90 85 86 Respiratory Rate 16 16 16 Blood Pressure Pulse Oximetry 99 99 99 06/24/21 05:20 06/24/21 05:25 06/24/21 05:30 Temperature Pulse Rate 88 87 85 Respiratory Rate 16 16 16 Blood Pressure Pulse Oximetry 99 99 99 06/24/21 05:35 06/24/21 05:40 06/24/21 05:45 Temperature Pulse Rate 86 87 88 Respiratory Rate 16 16 16 Blood Pressure Pulse Oximetry 99 99 99 06/24/21 05:50 06/24/21 05:55 06/24/21 06:00 Temperature Pulse Rate 89 89 90 Respiratory Rate 16 16 16 Blood Pressure 110/66 Pulse Oximetry 99 99 99 06/24/21 06:05 06/24/21 06:10 06/24/21 06:15 Temperature Pulse Rate 89 89 87 Respiratory Rate 16 16 16 Blood Pressure Pulse Oximetry 99 99 99 06/24/21 06:20 06/24/21 06:25 06/24/21 06:30 Temperature Pulse Rate 87 87 85 Respiratory Rate 16 16 16 Blood Pressure Pulse Oximetry 99 99 99 06/24/21 06:35 06/24/21 06:40 06/24/21 06:45 Temperature Pulse Rate 85 88 85 Respiratory Rate 16 18 16 Blood Pressure Pulse Oximetry 99 100 98 06/24/21 07:00 06/24/21 08:00 06/24/21 09:21 Temperature 97.9 F Pulse Rate 86 84 Respiratory Rate 16 16 Blood Pressure 106/58 L 100/57 L Pulse Oximetry 98 98 100 06/24/21 11:00 Temperature Pulse Rate 105 H Respiratory Rate 14 Blood Pressure 118/69 Pulse Oximetry 99 Fraction of Inspired Oxygen 21 Oxygen Delivery Method Mechanical Ventilation Oxygen Flow Rate 0 Narrative Exam Narrative: surrogate for exam is primary team Assessment & Plan Assessment & Plan narrative: [address] [address] Teleintensivist Consult Note Patient: Trav Wong MR#: [id number] : 1990 Acct:[id number] Age/Sex: 30 / M ? Date of Service: 06/23/21 Provider:?Ramakrishna Delgado MD History of Present Illness Consult details Chief complaint: Unresponsive :: This patient was seen via real time interactive two-way audiovisual telecommunication. Narrative: 30-year-old male, with medical H/o of polysubstance abuse, suicidal attempts, bipolar, ADHD, PTSD, last week was in ER for syncopal episode and right shoulder pain, found to have humeral #, today was brought by EMS for AMS after was found down for unknown time, intubated in the field for airway protection, urine drug screen and CT head neg, per nurse patient was confused, agitated and had no motor deficit prior to increasing sedation. ? ? Assessment: Acute toxic encephalopathy 2/2 gabapentin and flerixil use QTC prolongation (500) ? Rec: 1:1 obsveration psych eval and rec trasnfer to inpatient psych given I have a high suspecxion of suicidal ideations adat pt/ot trend bmp and cbc dvt ppx continue home anti-deprestants and mood stabilizers, seroquel Continuous QTc monitoring CCT 50 min Time Spent With Patient Critical Care time: I spent a total of [] minutes of critical care time on this patient's care today; this time is exclusive of procedural time.
--- NOTE | 2021-06-24 12:15 | PC.NURSE ---
Addendum entered by Kasey Pereira R.N. 06/24/21 18:00: Pt moved to room 210 from room 228. All belongings with pt including clothing, watch, and shoes. Wallet placed in hospital safe per pt request. Report given to Apryl MOE. One to one sitter continues. Addendum entered by Kasey Pereira R.N. 06/24/21 14:51: Sling placed to right arm per Dr. Walton. Original Note: Day Shift Note Patient sedated and on mechanical ventilator upon AM assessment. Sedated to RASS of -2 on propofol and fentanyl. Sedation gtts turned off at 0825 in preparation for SBT. Pt able to follow directions and answer yes or no questions by shaking or nodding head. Full movement to all extremities noted. Oriented patient to place, situation, and time. SBT attempted with RT at bedside, pt restless and agitated, biting at tube. Able to nod yes when asked if he would like tube out. When instructed on need to perform SBT prior to removing tube, pt continually shook head no and repeatedly attempted to reach up and grab tube, settled for few seconds at a time only. Pulling good volumes and maintaining SpO2 98-100% during short 3-[address] Garcia updated on pt status and order received to extubate patient. Patient extubated at 0908 by RT and OG removed at this time. Patient RA 98-99%. Soft wrist restraints removed at 0908. Able to cough and to answer questions. Bedside nurse swallow eval performed and pt passed without issue, ok to advance diet as tolerated per Dr. Garcia. Pt evaluated by Dr. Arnold and Dr. Garcia. One to one observation due to pt's expression of suicidal ideation during Dr. Arnold's eval. Pt is calm and mostly sleeping, SpO2 99%. Call light within reach, instructed on its use and need to call for assist prior to getting up, acknowledged understanding. Bed alarm on.
--- NOTE | 2021-06-24 13:15 | DI.RAD.S_ITS ---
PROCEDURE: XR CHEST 1V INDICATIONS: intubated TECHNIQUE: 2 AP view of the chest was acquired. COMPARISON: [facility], CR, XR CHEST 1V, 06/23/2021, 9:17. [facility], CR, XR CHEST 1V, 06/23/2021, 7:53. FINDINGS: Surgical changes and devices: Endotracheal tube in the upper trachea approximately 5.7 cm above the asiya. Enteric tube coursing down the esophagus. The tip is not seen. Lungs and pleura: Lungs are clear. No pleural effusions or pneumothorax. Mediastinum: Mediastinal contours appear normal. Heart size is within normal limits. Bones and chest wall: No suspicious bony lesions. Overlying soft tissues appear unremarkable. IMPRESSION: No acute cardiopulmonary abnormality identified. Endotracheal tube in the upper trachea appears unchanged. Dictated by: Catalino Thomas M.D. on 06/24/2021 at 8:23 Approved by: Catalino Thomas M.D. on 06/24/2021 at 8:26
--- NOTE | 2021-06-24 13:36 | DIET.CONS ---
Dietary Consultation Note Admission Date: 06/23/2021 10:25 RD Note: Pt successfully extubated, cleared for general diet, consumed 100%. Discharging pt from nutrition at this time, please reconsult prn. Ht: 182.88 cm Wt: 78.5 kg BMI: 23.4 MNA: Jose Alejandro Score: 13 Diet: 06/24/21 Lunch General (Regular) Diet Diet Modifications: Nutrition Percent Meal Consumed 100% 06/24/21 13:21 Labs: RBC 3.50 X10^6/uL (4.5-5.9) L 06/24/21 05:05 Hgb 11.2 g/dL (13.5-17.5) L 06/24/21 05:05 Hct 33.1 % (41-53) L 06/24/21 05:05 Creatinine 0.75 mg/dL (0.66-1.25) 06/24/21 05:05 Lactate 1.4 mmol/L (0.7-2.1) 06/23/21 08:49 Electronically Signed by: Kylee Vu 06/24/21 13:36 Clinical Dietitian [address] [address]
[2021-06-24] MEDS: clonazePAM 0.5 MG TABLET 1 MG PO (14:16)
--- NOTE | 2021-06-24 16:17 | CM.DANOTE ---
Discharge Assessment Note Patient is 30yo male admitted after being found in community nonresponsive. Patient has significant mental health history and concern for intentional overdose needs to be assessed. Patient resides at his mother's home with his girlfriend as well; also in home are his stepfather and younger/minor sister. Patient is alert and oriented after having been intubated/extubated. Plan: patient will require mental health assessment with possible DCR evaluation needed. Ins: [employer] with Medicaid as secondary. Arjun DUNN Discharge Planning/Care Management CM Discharge Assessment Start: 06/24/21 16:10 Freq: Status: Active Protocol: Document 06/24/21 16:11 EULALIA (Rec: 06/24/21 16:16 EULALIA [id number]) Discharge Planning Assessment Assigned Seam Closer Arjun DUNN DPOA/Assigned Designee Name Mother Contact Information [phone] Advance Directives? No History Provided By Patient,Medical Record Has Patient been admitted in last 30 No days? Prior Living Arrangements House Household Members significant other,family Type of transporation used prior to Relies on Others admit Independent with ADL's Yes Is patient alert and oriented? Yes Caregiver for Another No Comment possible inpatient hospitalization Barriers to Discharge No Discharge Plan Psychiatric Facility Review Status In Process Next Review Type Continued Stay Review
[2021-06-24] MEDS: HYDROMORPHONE 1 MG INJ IV ×2 (16:32→20:57)
[2021-06-24] MEDS: NICOTINE 21 MG PATCH TOP (16:32)
--- NOTE | 2021-06-24 16:44 | PM.HP.1 ---
History of Present Illness History of Present Illness Date Patient Seen: 06/24/21 Time Patient Seen: 14:00 Chief complaint: Unresponsive Narrative: This is a 30-year-old gentleman with multiple medical problems. He has a history of a recent right shoulder fracture dislocation. He underwent a closed reduction of his right shoulder at [facility] Emergency Room 06/13/2021. He was recently admitted after having been found down and unresponsive. A fracture of his right shoulder was noted incidentally on his CT scan done through the emergency room. He is having some right shoulder aching. He has a history of a fairly recent left glenoid fracture and was reportedly awaiting surgery with Dr. Ludwig for his left shoulder. He notes right greater than left shoulder pain. Patient History Medical History ADHD Anxiety Bankart lesion of left shoulder Cervical somatic dysfunction Chronic neck and back pain Cranial somatic dysfunction Depression Fractures History of bipolar disorder History of suicide attempt Left shoulder pain Migraines Overdose Partial blindness Pelvic somatic dysfunction Personality disorder PTSD (post-traumatic stress disorder) Rib pain on right side Right shoulder pain Routine screening for STI (sexually transmitted infection) Scoliosis Segmental and somatic dysfunction of abdomen and other regions Segmental and somatic dysfunction of lumbar region Segmental and somatic dysfunction of rib cage Segmental and somatic dysfunction of sacral region Segmental and somatic dysfunction of thoracic region Segmental and somatic dysfunction of upper extremity Suicide attempt by cutting of wrist Surgical History Anesthesia History of removal of cyst (~2018) Family & Social History Family History Father Mental health problem Mother Thyroid cancer Breast cancer Social History: household members significant other,family Prior Living Arrangements House Safety & Behavioral: Feels Safe in Current Unwilling to Answer Environment Been Physically Hurt or Unwilling to Answer Threatened By a Person Tobacco & Substance use: Tobacco type e-cigarettes Smoking Status Current every day smoker alcohol intake current alcohol intake frequency 3 or more drinks per day Substance Use Type does not use Meds Home Medications and Allergies Home Medications Medication Instructions Recorded Confirmed Type multivitamin-ferrous 1 tab PO DAILY 10/18/20 06/23/21 History fumarate-folic acid 18 mg-400 mcg tablet (Centrum) omega-3 fatty acids 1,000 mg 1,000 mg PO DAILY 01/03/21 06/23/21 History capsule (Fish Oil Concentrate) vitamin E 200 unit capsule 200 unit PO DAILY 01/03/21 06/23/21 History bupropion HCl 200 mg tablet,12 hr 200 mg PO BID #60 ea 03/14/21 06/23/21 Rx sustained-release quetiapine 200 mg tablet 200 mg PO DAILY #30 tab 04/15/21 06/23/21 Rx tramadol 50 mg tablet See Rx Instructions .ROUTE 04/21/21 06/23/21 Rx .COMPLEX #60 tab fluoxetine 20 mg capsule 80 mg PO DAILY 05/05/21 06/23/21 History atomoxetine 40 mg capsule 40 mg PO BID #60 cap 05/13/21 06/23/21 Rx lithium carbonate 300 mg capsule 300 mg PO BID #60 cap 05/13/21 06/23/21 Rx clonazepam 1 mg tablet See Rx Instructions .ROUTE 06/16/21 06/23/21 Rx .COMPLEX #90 tab Allergies Allergy/AdvReac Type Severity Reaction Status Date / Time aripiprazole [From Abilify] Allergy Verified 06/13/21 11:12 risperidone [From Risperdal] Allergy Verified 06/13/21 11:12 olanzapine AdvReac Severe suicidal Verified 06/13/21 11:12 ideations Review of Systems Review of Systems Narrative: Some moderate neck pain, ongoing significant right shoulder pain. Exam Vital Signs (past 8 hours): - 06/24/21 09:21 06/24/21 11:00 06/24/21 15:55 Temperature 98.7 F Pulse Rate 105 H 111 H Respiratory Rate 14 18 Blood Pressure 118/69 122/69 Pulse Oximetry 100 99 98 Fraction of Inspired Oxygen 21 Oxygen Delivery Method Mechanical Ventilation Oxygen Flow Rate 0 Narrative Exam Narrative: He is alert and oriented he is resting comfortably in bed, he is appropriate and answers questions. Has good range of motion in the left shoulder with minimal tenderness, has fair range of motion in the neck and minimal tenderness, he has moderate bruising along his right humerus, has weakness of external rotation against resistance moderate weakness of active forward flexion against resistance, mild to moderate pain over the glenohumeral joint, is good fair range of motion in his elbow wrist and hand, he does have focal tenderness on the left hand over the 3rd and 4th metacarpal head, there is no obvious rotational deformity Objective Labs Result Diagrams: 06/24/21 05:05 06/24/21 05:05 Labs: Laboratory Results - last 24 hr 06/23/21 06/23/21 06/24/21 15:40 20:01 05:05 WBC 8.2 RBC 3.50 L Hgb 11.2 L Hct 33.1 L MCV 94.4 MCH 32.0 MCHC 33.9 RDW 12.8 Plt Count 271 Neut % (Auto) 61.5 Lymph % (Auto) 20.6 L [place] % (Auto) 11.2 Eos % (Auto) 4.0 Baso % (Auto) 2.7 H Neut # (Auto) 5100 Lymph # (Auto) 1700 [place] # (Auto) 900 Eos # (Auto) 300 Baso # (Auto) 200 H Total Counted 100 Seg Neutrophils % 74.0 H Band Neutrophils % 0.0 L Lymphocytes % (Manual) 15.0 L Atypical Lymphs % 0.0 Monocytes % (Manual) 11.0 Eosinophils % (Manual) 0.0 L Basophils % (Manual) 0.0 Neutrophils # (Manual) 9990 H RBC Morphology See below Anisocytosis 1+ H Sodium Potassium Chloride Carbon Dioxide BUN Creatinine Estimated GFR BUN/Creatinine Ratio Glucose Calcium Total Bilirubin AST ALT Alkaline Phosphatase Total Creatine Kinase 221 H Total Protein Albumin Globulin Albumin/Globulin Ratio 06/24/21 05:05 WBC RBC Hgb Hct MCV MCH MCHC RDW Plt Count Neut % (Auto) Lymph % (Auto) [place] % (Auto) Eos % (Auto) Baso % (Auto) Neut # (Auto) Lymph # (Auto) [place] # (Auto) Eos # (Auto) Baso # (Auto) Total Counted Seg Neutrophils % Band Neutrophils % Lymphocytes % (Manual) Atypical Lymphs % Monocytes % (Manual) Eosinophils % (Manual) Basophils % (Manual) Neutrophils # (Manual) RBC Morphology Anisocytosis Sodium 135 L Potassium 3.5 Chloride 105 Carbon Dioxide 28 BUN 10 Creatinine 0.75 Estimated GFR > 60.0 BUN/Creatinine Ratio 13.3 Glucose 94 Calcium 8.6 Total Bilirubin 0.5 AST 34 ALT 15 Alkaline Phosphatase 71 Total Creatine Kinase Total Protein 6.2 L Albumin 3.4 L Globulin 2.8 Albumin/Globulin Ratio 1.2 x-rays of the right shoulder show fracture dislocation of the right shoulder on 06/13/2021. X-rays from 06/23/2021 show acceptable overall alignment of greater tuberosity fracture with anatomic glenohumeral joint, review of prior left shoulder x-rays show an anterior glenoid fracture with a bony Bankart. Assessment & Plan Assessment and plan (1) Anterior shoulder dislocation: Status: Acute (2) Closed fracture of proximal end of right humerus: Status: Acute (3) Bankart lesion of left shoulder: Qualifiers: Encounter type: initial encounter Qualified Code(s): S43.492A - Other sprain of left shoulder joint, initial encounter Status: Acute (4) Left shoulder pain: Qualifiers: Chronicity: acute Qualified Code(s): M25.512 - Pain in left shoulder Status: Acute (5) Altered mental status: Status: Acute (6) History of bipolar disorder: Status: Chronic Plan His right greater tuberosity fracture appears to be acceptably aligned. He Is about 2 weeks status post a fracture dislocation. I have recommended conservative treatment think it is appropriate to treat him with a sling and swath for his right arm. He needs to continue some precautions on his left shoulder is he has a history of a anterior left shoulder dislocation. He reportedly has an established relationship with Dr. Ludwig and again to be reasonable for him to consider follow-up with Dr. Ludwig. He is on the medical service and they are currently working on helping organized appropriate psychiatric follow-up as this was reportedly an attempted suicide attempt. Time Spent With Patient Critical Care time: I spent a total of [] minutes of critical care time on this patient's care today; this time is exclusive of procedural time.
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
--- NOTE | 2021-06-24 19:09 | PC.NURSE ---
Transported to room 210 from ICU around 1800. VSS. pain 8/10 in right shoulder. SCDs applied BLLE. 1:1. Good appetite. Call light within reach, bed low.
[2021-06-24] MEDS: FAMOTIDINE 20 MG TABLET PO (20:57)
[2021-06-24] MEDS: SODIUM CHLORIDE 0.9% FLUSH 10 ML IV (20:57)
--- NOTE | 2021-06-24 22:45 | PC.NURSE ---
Patient is alert and mostly oriented except did not know day of week and did not remember why he is in the hospital. When told about situation bringing him into the hospital he becomes tearful. Changes his story as to what medications he has been taking when discussing admit. Patient called his mother and she told him he had been drinking. Found scars from cutting behavior on left upper arm, and left upper/lower leg. Admits to cutting behavior and states he has not been able to get in to see a mental health counselor. Breath sound CTA with RA sat of 97%. HRR but tachy; telemetry reading was ST w/rate of 108. Denied nausea and has been requesting frequency snacks. BT present and abdomen is soft. Indwelling catheter is patent. Is moving himself in bed. Gait not assessed at this time. Wearing bilateral calf SCD's. Fall risk score is high and bed alarm is activated. Has right UE in sling with good CMS. Did complain of 6/10 pain in shoulders/neck and mouth and was medicated earlier with Dilaudid and now provided with ice pack. Has 1:1 observation.
[2021-06-24] MEDS: clonazePAM 0.5 MG TABLET PO (23:30)
[2021-06-25] MEDS: HYDROMORPHONE 1 MG INJ IV ×2 (00:31→08:17)
[2021-06-25] MEDS: SODIUM CHLORIDE 0.9% FLUSH 10 ML IV ×2 (00:32→08:20)
[2021-06-25 03:00] VITALS: BP 122/79; PULSE 102; RESP 18; TEMP 37.2; O2SAT 97
[2021-06-25 07:34] VITALS: BP 121/74; PULSE 100; RESP 19; TEMP 37.3; O2SAT 96
[2021-06-25] MEDS: FAMOTIDINE 20 MG TABLET PO ×2 (08:17→20:50)
[2021-06-25] MEDS: NICOTINE 21 MG PATCH TOP (08:17)
[2021-06-25] MEDS: FISH OIL 1,000 MG CAPSULE 1000 MG PO (09:56)
[2021-06-25] MEDS: MULTIVITAMIN 1 TABLET 1 TAB PO (09:56)
[2021-06-25 11:00] VITALS: BP 112/69; PULSE 85; RESP 19; TEMP 36.6; O2SAT 97
--- NOTE | 2021-06-25 12:14 | CM.SWNOTE ---
Addendum entered by LANEY Cole 06/25/21 15:43: ADD: Reviewed Dr uTrner's prog note; he continues to feel ip psychiatric unit would best fit patient's needs, for med reconciliation and crisis stabilization. Likely need MARIANO. Met w/patient, discussed goals for today. Discussed this WIRE PHOTO OPERATOR's concern for patient's safety. Patient states multiple times he would like to be on the medications that worked really well for me for years...medications that changed when patient moved to [facility].. patient could not secure a new prescriber. Patient denies suicidal ideation, states he thinks he had a manic episode and cannot tell this WIRE PHOTO OPERATOR details of events/thoughts leading up to this suspected intentional OD. Patient will not contract for safety w/this WIRE PHOTO OPERATOR; Is not agreeable to inpatient psych stay or outpatient f/u. Continues to state [facility] will not fill his prescriptions. Coordinating now w/RAINER Moise P# [phone] F# [phone]. Faxed clinical packet. This WIRE PHOTO OPERATOR in room while Antionette completed her eval w/patient via IPAD. Awaiting determination. [facility] Psychiatric unit has a bed and reviewing patient for possible admission this evening. ROBIN Original Note: WIRE PHOTO OPERATOR Note Patient is medically cleared. Dr Garcia requests call to [facility] to request dispatch of DCR to assess for detainment to an ip psychiatric unit. [facility] crisis line P# [phone] Placed call, spoke w/Linsey. Reviewed this referral. DCR being contacted and requested for dispatch. No medical attestation form needed for a patient admitted to the acute care floor Now awaiting f/u from DCR to evaluate for possible detainment/MARIANO ROBIN
[2021-06-25] MEDS: HYDROCODONE/ACET 10/325 TABLET 1 TAB PO ×2 (12:56→20:57)
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
--- NOTE | 2021-06-25 13:45 | CM.SWNOTE ---
FLIGHT ATTENDANT/INFLIGHT MANAGER contact with patient's mother with patient permission verbally provided. Patient's mother, Rhonda, stated she was not certain what led to patient being nonresponsive due to it happened on a friend of a friend's property. Mother reported patient has been spiraling behaviorally over the past few weeks. Mother stated patient can't stop using substances or behaving in unsafe ways he can't stop and he can't control himself. Mother reported patient will be triggered by something and he usually will drink like a fifth and take meds. Mother reported she nor the patient can see the trigger coming and we don't always know what sets him off. Patient's mother reported patient has a daughter who's mom ran off away from him. Mother clarified the daughter's mother is not the same female to whom patient has been . Patient's mother reported patient has an appt pending on 06/26 for shoulder surgery pre op. Mother stated patient had to wait for the surgery until they acquired a cadaver bone that's needed for the surgery. EMR review did not indicate this appt. Mother reported patient informed her of the cadaver bone need, she did not hear about this directly from a provider. Patient's mother reported her household, where patient resides, is facing severe financial difficulties due to her boyfriend (father to her 8yo daughter, pt's sister) losing employment and the family facing very small holiday prospects. Patient's mother reported she resides in her 's home and is not wanting patient to come back to the family residence unless he goes to a 30 day treatment stay or maybe not even then. Patient's mother reported she hoped he would be admitted to [facility] rehab. Mother reported patient definitely needs one of those dual treatment facilities where his TAMAR and MH can be addressed. Patient's mother reported she felt like he [patient] is still alive because he over relies on us to make sure his needs are met and he is safe. Mother reiterated patient has extreme impulsivity and urge control issues. Patient's mother can be reached at [phone]. Arjun [facility]
--- NOTE | 2021-06-25 14:43 | P.PN_ITS ---
Subjective Subjective Date Patient Seen: 06/25/21 Interval history: 30-year-old male admitted to the hospital after being found down for presumed intentional overdose. The patient was successfully extubated yesterday. Patient is awaiting DCS evaluation for involuntary psychiatric admission Exam Vital Signs (past 8 hours): - 06/25/21 07:34 06/25/21 11:00 Temperature 99.2 F 97.8 F Pulse Rate 100 H 85 Respiratory Rate 19 19 Blood Pressure 121/74 112/69 Pulse Oximetry 96 97 Fraction of Inspired Oxygen 21 Oxygen Delivery Method Room Air Oxygen Flow Rate 0 Narrative Exam Narrative: Pleasant male lying in bed complaining of right shoulder pain Resp Other: Lungs clear to auscultation Cardio Other: Cardiac exam: Regular rate and rhythm normal S1-S2 GI Other: Abdomen: Soft and nontender Extrem Other: Extremities: No edema Objective Labs Result Diagrams: 06/24/21 05:05 06/24/21 05:05 [facility] Medical History ADHD Anxiety Bankart lesion of left shoulder Cervical somatic dysfunction Chronic neck and back pain Cranial somatic dysfunction Depression Fractures History of bipolar disorder History of suicide attempt Left shoulder pain Migraines Overdose Partial blindness Pelvic somatic dysfunction Personality disorder PTSD (post-traumatic stress disorder) Rib pain on right side Right shoulder pain Routine screening for STI (sexually transmitted infection) Scoliosis Segmental and somatic dysfunction of abdomen and other regions Segmental and somatic dysfunction of lumbar region Segmental and somatic dysfunction of rib cage Segmental and somatic dysfunction of sacral region Segmental and somatic dysfunction of thoracic region Segmental and somatic dysfunction of upper extremity Suicide attempt by cutting of wrist Surgical History Anesthesia History of removal of cyst (~2018) Family History Father Mental health problem Mother Thyroid cancer Breast cancer Social History household members: significant other and family Smoking Status: Current every day smoker Smokeless tobacco user: other alcohol intake: current substance use type: does not use and former substance user Assessment & Plan Assessment & Plan narrative: 30-year-old male with a history of PTSD, ADHD, depression, bipolar affective disorder, history of suicide attempt, found unresponsive at home felt to be a presumed intentional overdose. -patient was intubated in the field for airway protection -patient was successfully extubated yesterday -Psychiatry evaluation much appreciated -will continue oral medications for pain -clonazepam for sleeping -awaiting DCR evaluation regarding involuntary treatment, given multilple suicide attempts Right shoulder fracture -continue sling/abdulkadir -outpatient surgery with Dr. Ludwig Time Spent With Patient Critical Care time: I spent a total of [] minutes of critical care time on this patient's care today; this time is exclusive of procedural time.
[2021-06-25 15:00] VITALS: BP 122/84; PULSE 102; RESP 17; TEMP 36.6; O2SAT 94
[2021-06-25 16:05] LABS: COVID19 -Nasal RAPID Negative (Negative)
--- NOTE | 2021-06-25 19:43 | CM.SWNOTE ---
DIESEL ENGINE FITTER Note DIESEL ENGINE FITTER receives calls from RAINER Adan who reports she is trying to identify an [facility] bed for patient. Antionette indicates at this time that [facility] in [facility] is reviewing as well as [facility]. Antionette reports that [facility] has no beds and recommends that there is a f/u call tomorrow morning to inquire about beds. Antionette reports that if patient is not accepted to [facility] bed tonight it will be a walkaway Antionette will refer [facility] team if patient cannot be placed tonight. Plan: DCP to f/u with RAINER for MARIANO bed determination and to work on safety plan if patient is to be d/c'd LANEY Shea
[2021-06-25 20:00] VITALS: BP 123/84; PULSE 101; RESP 18; TEMP 37; O2SAT 100
[2021-06-25] MEDS: clonazePAM 0.5 MG TABLET 1 MG PO (20:50)
--- NOTE | 2021-06-25 21:37 | PC.NURSE ---
Patient is alert and mostly oriented but off on day of month by 2 days and did not remember he was in the hospital or why he is here. Breath sounds diminished at bases; RA sat 100%. HRR but tachy at 101 bpm. Denied nausea. BT hypoactive. Denies dysuria, frequency or urgency with urination following catheter removal on previous shift. Complained of 6/10 back and bilateral shoulder pain and was medicated with Vicodin. Is up independent in room. Is restless and impulsive. Refused to wear SCD's. Currently talking about calling his mother and having her come to get him as does not want to go to a facility. Wanting to speak to MD regarding his medications. Dr. Spears and coordinator, Darlene, informed that he is talking about leaving.
[2021-06-25] MEDS: QUETIAPINE 100 MG TABLET 200 MG PO (22:08)
[2021-06-26 01:04] VITALS: BMI 23.8
[2021-06-26] MEDS: FISH OIL 1,000 MG CAPSULE 1000 MG PO (08:23)
[2021-06-26] MEDS: FAMOTIDINE 20 MG TABLET PO (08:23)
[2021-06-26] MEDS: clonazePAM 0.5 MG TABLET 1 MG PO ×2 (08:23→12:54)
[2021-06-26] MEDS: MULTIVITAMIN 1 TABLET 1 TAB PO (08:23)
[2021-06-26] MEDS: NICOTINE 21 MG PATCH TOP (08:23)
[2021-06-26] MEDS: HYDROCODONE/ACET 10/325 TABLET 1 TAB PO ×3 (08:28→17:45)
[2021-06-26 08:34] VITALS: BP 116/77; PULSE 108; RESP 17; TEMP 36.4; O2SAT 96
--- NOTE | 2021-06-26 11:38 | CM.DPNOTE ---
Faxed vital signs & labs to [facility] [phone] per Fernanda. Received fax conf. Meghan Aceves CM Asst.
--- NOTE | 2021-06-26 14:13 | P.DS_ITS ---
History of Present Illness History of Present Illness Chief complaint: Unresponsive Narrative: The patient is a of ADHD, anxiety, depression, bipolar affective disorder, multiple suicide attempts, PTSD, admitted to the hospital after being found down at home in the front yard. There is no one to corroborate history. We were informed that the patient had an verbal altercation with family members, he was in found unconscious this morning. The patient was transported to the hospital via EMS. He was unable to protect his airway and intubated in the field. Upon arrival the patient was evaluated with a head CT which was unremarkable, cervical spine CT which showed no evidence of fracture, chest x-ray which was negative for infiltrate. The patient had been seen in the emergency department on the for a humeral fracture. The patient is sedated on the ventilator at this time and unable to provide any further history. He does have multiple ecchymoses including bruising on the right arm, abrasions on the left leg, in addition to some bruising on the right buttock. Patient is admitted to the hosp ital for presumed overdose. Discharge Providers Provider Date of admission: 06/23/21 10:25 Discharge Date: 06/26/21 Primary care physician: Min Tinsley DO Consults: 06/23/21 09:14 Consult to Orthopedic Surgery Stat Comment: Consulting Provider: Macey Walton Reason for consultation: Proximal humerus fracture Has provider been notified: Yes 06/23/21 09:16 Consult to CLOTH HANDLER - Industrial Hire Sales Assistant Stat Comment: CLOTH HANDLER Consult: Behavioral Health Assess 06/23/21 13:01 Consult to Dietitian, Adult Routine Comment: Reason For Exam: Patient on Ventilator and NPO 06/23/21 13:24 Consult to Dietitian, Adult Routine Comment: Reason For Exam: Patient on Ventilator and NPO 06/24/21 10:31 Consult to Physician Routine Comment: Consulting Provider: Misael Turner Reason for consultation: over dose Has provider been notified: Yes Discharge provider: Mony Garcia MD Summary Hospital Course Discharge Diagnosis: Acute respiratory failure secondary to intentional overdose 2. Intentional overdose 3. Bipolar affective disorder 4. Humerus fracture on the right 5. left shoulder dislocation 6. Anxiety 7. Depression 8. History of Suicide Attempt 9. PTSD Hospital Course: Patient was admitted to the hospital having being found down and unresponsive. He was intubated in the field and admitted to the intensive care unit. The patient was successfully extubated 24 hours after arrival. He was seen in consultation by Psychiatry. All his usual home medications were held. It was recommended that the patient be admitted to an inpatient psych unit. The patient has his right arm in a sling which presents a risk for self-harm. We were unable to find a psychiatric facility that was able to accept him for involuntary treatment. He was evaluated by the DCS, they recommended involuntary treatment, unfortunately we were unable to find a bed for him. On the day of discharge he was evaluated again by Dr. Turner I psychiatrist. Based on his re-evaluation his recommendation was to discharge home with outpatient psychiatric follow-up. Patient also has a follow-up appointment with Dr. Ludwig for evaluation of his right and left shoulder. Patient was deemed appropriate for discharge home. Status at Discharge Cognitive/behavioral status at discharge: oriented Functional status at discharge: independent ambulation Overall status at discharge: patient is progressing back to baseline Exam Vital Signs (past 8 hours): - 06/26/21 08:34 Temperature 97.5 F L Pulse Rate 108 H Respiratory Rate 17 Blood Pressure 116/77 Pulse Oximetry 96 Fraction of Inspired Oxygen 21 Oxygen Delivery Method Room Air Oxygen Flow Rate 0 Narrative Exam Narrative: Young male lying in bed in no obvious distress Resp Other: Lungs clear to auscultation Cardio Other: Cardiac exam: Regular rate and rhythm normal S1-S2 GI Other: Abdomen soft nontender nondistended Extrem Other: Right arm in a sling, no lower extremity edema Objective Labs Result Diagrams: 06/24/21 05:05 06/24/21 05:05 Labs: Laboratory Results - last 24 hr 06/25/21 14:47 SARS-CoV-2 (PCR) Negative [facility] Medical History ADHD Anxiety Bankart lesion of left shoulder Cervical somatic dysfunction Chronic neck and back pain Cranial somatic dysfunction Depression Fractures History of bipolar disorder History of suicide attempt Left shoulder pain Migraines Overdose Partial blindness Pelvic somatic dysfunction Personality disorder PTSD (post-traumatic stress disorder) Rib pain on right side Right shoulder pain Routine screening for STI (sexually transmitted infection) Scoliosis Segmental and somatic dysfunction of abdomen and other regions Segmental and somatic dysfunction of lumbar region Segmental and somatic dysfunction of rib cage Segmental and somatic dysfunction of sacral region Segmental and somatic dysfunction of thoracic region Segmental and somatic dysfunction of upper extremity Suicide attempt by cutting of wrist Surgical History Anesthesia History of removal of cyst (~2018) Family History Father Mental health problem Mother Thyroid cancer Breast cancer Social History household members: significant other and family Smoking Status: Current every day smoker Smokeless tobacco user: other alcohol intake: current substance use type: does not use and former substance user Discharge Assessment & Plan Assessment and Plan Assessment: Acute respiratory failure secondary to intentional overdose 2. Intentional overdose 3. Bipolar affective disorder 4. Humerus fracture on the right 5. left shoulder dislocation 6. Anxiety 7. Depression 8. History of Suicide Attempt 9. PTSD Plan of Treatment: Discharge home with recommendations per Psychiatry see below: ?Recommend changing patient's status to voluntary. 2. Recommend patient be referred back to community mental health resources such as [facility] and/or [facility] for further follow-up. 3. Patient is already connected to the behavior Health integration program through his primary care provider, Dr. Tinsley.? They can assist with referral process. 4. Recommend minimal supplies of discharge medications in order require that the patient engage with the medical system more frequently to obtain refills and monitor use. 2. Recommending involving the DCR to place for inpatient stay.? Would also rec ommend patient be referred for long-term inpatient psychiatric treatment. 3. Recommend holding psychiatric meds for the time being pending further medical recovery following overdose and intubation.? May defer restarting any medications to the inpatient psychiatric team he is transferred to. 4. Will continue follow with you during this patient's stay.? We will also continue to further clarify history and diagnosis.? Discharge Plan Discharge Plan Patient Disposition: Home Discharge orders & Medications Prescriptions: Discontinued tramadol 50 mg tablet See Rx Instructions .ROUTE .COMPLEX Qty: 60 0RF Dose Instruction: TAKE ONE TABLET BY MOUTH THREE TIMES DAILY NEEDED for pain Rx Instructions: TAKE ONE TABLET BY MOUTH THREE TIMES DAILY NEEDED for pain atomoxetine 40 mg capsule 40 mg PO BID Qty: 60 1RF lithium carbonate 300 mg capsule 300 mg PO BID Qty: 60 5RF clonazepam 1 mg tablet See Rx Instructions .ROUTE .COMPLEX Qty: 90 5RF Rx Instructions: Take 1 tablet by 3 times as needed for anxiety bupropion HCl 200 mg tablet sustained-release 12 hr 200 mg PO BID Qty: 60 3RF Rx Instructions: TAKE ONE TABLET BY MOUTH TWICE DAILY quetiapine 200 mg tablet 200 mg PO DAILY Qty: 30 5RF vitamin E 200 unit capsule 200 unit PO DAILY 0RF omega-3 fatty acids [Fish Oil Concentrate] 1,000 mg capsule 1,000 mg PO DAILY 0RF Centrum 18-400 mg-mcg Tablet 1 tab PO DAILY 0RF fluoxetine 20 mg capsule 80 mg PO DAILY 0RF Follow up/Referrals: iMn Tinsley DO [Primary Care Provider] - Discharge Health Status Multidrug resistant organism: No MDRO Diet/Activity/Treatments Diet: Diet as Tolerated Discharge Data Primary Care Provider: Min Tinsley
--- NOTE | 2021-06-26 14:59 | CM.SWNOTE ---
Addendum entered by LANEY Cole 06/26/21 15:50: ADD: Follow up scheduled for VOA/Crisis Line supportive phone call to patient this evening at approx 1800, updated patient and gf. In addition, OT follow up scheduled to discuss additional outpatient resources, updated patient, patient appreciative and expecting DC w/gf this evening. JW Original Note: WOOL AND PELT GRADER Note According to conversation w/DCR Kaya Shaw; DCR Antionette Andrew attempted [facility] placement yesterday and patient's shoulder sling is the barrier, all [facility] beds declined. This is considered a walk away and DCR will need to be re-dispatched if an MAR[facility]O bed secured today. This WOOL AND PELT GRADER attempted bed placement again today; patient was declined at [facility] d/t sling. Spoke w/Tyrone in intake at [facility] in [facility] throughout the day. Inevitably, the provider at [facility] declined this patient d/t sling, safety concern. Spoke w/psychiatrist Dr Turner by phone; who agreed to visit this patient...and anticipated that patient will be cleared to return home w/family. In anticipation of patient's DC home; spoke w/ Dr Garcia who agreed to complete DC order if Dr Turner cleared this patient for less restrictive outpatient plan Met w/patient and his gf at bedside this afternoon to review efforts throughout his visit to secure inpatient psychiatric unit and discussed the barrier of shoulder sling. Patient calm, cooperative throughout the visit, currently denies suicidal ideation. States he is agreeable to outpatient f/u; requests information for pain management clinic, outpatient counseling and outpatient psychiatry. Gave him the following: -[facility] (Currently ONLY taking [facility] [employer] members and/or women for new referrals. Keep calling for any changes ) P# [phone] -[facility] P# [phone] -[facility] P# [phone] -[facility] P# [phone] -Dr Damon Kim, DO [facility] P# [phone] Patient also agreeable to call from OT (Mobile Crisis Outreach Team) P# [phone] LANEY Quinones
--- NOTE | 2021-06-26 15:14 | PC.NURSE ---
Pt. girlfriend visted and laid on the Pt bed with him on it. I asked her to move off the Pt. bed as I was told once that it is hospital policy to have only Pt. on bed. Pt girlfriend sat on recliner.
--- NOTE | 2021-06-26 15:22 | PC.NURSE ---
At 14:45 girlfriend came up and walked in room, made herself comfortable. The Pt. began packing his belongings and this WAGON DRIVER told Jesus to look for PAYAL Kimble while I stayed to watch. At 15:25 Pt. took recliner and moved it along with Pt girlfriend next to the bed. Pt spoke to girlfriend about how he was laying next to his grandma, and Pt girlfriend said she would see Pt. visitors laying beside/on he Pt. bed at other hospitals.
--- NOTE | 2021-06-26 17:30 | PC.NURSE ---
At 14:40 Pt asked this FIELD KILN BURNER if he could run to the [facility] real quick. I reported to nurse what he asked and replied to him no. Pt. refuses to wear hospital gown.
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
--- NOTE | 2021-06-26 18:41 | PC.NURSE ---
Addendum entered by Shyanne Ni R.N. 06/26/21 19:04: Pt's mother arrived and reviewed d/c instructions as well and signed the discharge. Pt out via w/c by SPOOLING OPERATOR to POV with Mother and all belongings. Original Note: Pt is dressed and ready for discharge home with family. Belongings returned to Pt from safe. Pt has no IV's. Went over d/c instructions with Pt - discussed d/c meds, time of last dose, reviewed recommendations from Dr. Turner and Dr. Garcia for follow up care and supportive services. Pt denied further questions. Will review d/c info with Pt's mother as well to verify understanding.
--- NOTE | 2021-07-24 07:50 | P.PN_ITS ---
Subjective Subjective Date Patient Seen: 06/24/21 Interval history: Patient admitted to the hospital after being found down and unresponsive. He remains intubated Exam Vital Signs (past 8 hours): Fraction of Inspired Oxygen 21 Oxygen Delivery Method Room Air Oxygen Flow Rate 0 Narrative Exam Narrative: Intubated male lying in bed Resp Other: Lungs: clear to ausculatation Cardio Other: CV: RRR nl Sl S2 GI Other: Abd: soft/ non tender/ non distended Extrem Other: no edema Objective Labs Result Diagrams: 06/24/21 05:05 06/24/21 05:05 [facility] Medical History ADHD Anxiety Bankart lesion of left shoulder Cervical somatic dysfunction Chronic neck and back pain Cranial somatic dysfunction Depression Fractures History of bipolar disorder History of suicide attempt Left shoulder pain Migraines Overdose Partial blindness Pelvic somatic dysfunction Personality disorder PTSD (post-traumatic stress disorder) Rib pain on right side Right shoulder pain Routine screening for STI (sexually transmitted infection) Scoliosis Segmental and somatic dysfunction of abdomen and other regions Segmental and somatic dysfunction of lumbar region Segmental and somatic dysfunction of rib cage Segmental and somatic dysfunction of sacral region Segmental and somatic dysfunction of thoracic region Segmental and somatic dysfunction of upper extremity Suicide attempt by cutting of wrist Surgical History Anesthesia History of removal of cyst (~2018) Family History Father Mental health problem Mother Thyroid cancer Breast cancer Social History household members: significant other and family Smoking Status: Current every day smoker Smokeless tobacco user: other alcohol intake: current substance use type: does not use and former substance user Assessment & Plan Assessment & Plan narrative: 30-year-old male with a history of PTSD, ADHD, depression, bipolar affective disorder, history of suicide attempt, found unresponsive at home felt to be a presumed intentional overdose. -patient was intubated in the field for airway protection -he remains intubated, chest x-ray is negative, head CT, cervical spine CT, facial CT all negative -urine drug screen positive for tricyclic X which is listed as 1 of the patient's medication -QT prolongation associated with triceps switches present on EKG -all usual home medications have been discontinued -the patient will remain sedated with fentanyl and propofol -will complain continue to follow daily labs -chest x-ray in the morning -DVT prophylaxis -H2 allan for GI protection -will monitor QT interval closely -continue IV hydration -spontaneous breathing trial today, with plans to extubate -Once the patient is extubated and alert, will consult psychiatry for furthe evaluation, anticipate need for inpatient psych transfer Time Spent With Patient Critical Care time: I spent a total of [] minutes of critical care time on this patient's care today; this time is exclusive of procedural time.
== END 2021-06-26 19:06 | disposition home or self-care (01) | DRG 812 ==
LOC: ED 09:15 → AC 10:26 → ICU 10:39 → AC 06-24 17:36
PROVIDERS: Internal Medicine Critical Care Medicine; Admitting Provider Internal Medicine; Emergency Provider Emergency Medicine; PCP Family Medicine; Referring Provider Emergency Medicine; Visit Provider Internal Medicine
DX: T42.6X2A Poisoning by other antiepileptic and sedative-hypnotic drugs, intentional self-harm, initial encounter (principal); Y92.9 Unspecified place or not applicable; G92.8 Other toxic encephalopathy; T48.1X2A Poisoning by skeletal muscle relaxants [neuromuscular blocking agents], intentional self-harm, initial encounter; F10.20 Alcohol dependence, uncomplicated; F31.30 Bipolar disorder, current episode depressed, mild or moderate severity, unspecified; Y90.0 Blood alcohol level of less than 20 mg/100 ml; S42.254A Nondisplaced fracture of greater tuberosity of right humerus, initial encounter for closed fracture; X58.XXXA Exposure to other specified factors, initial encounter; F60.3 Borderline personality disorder; R94.31 Abnormal electrocardiogram [ECG] [EKG]; F90.9 Attention-deficit hyperactivity disorder, unspecified type; F41.8 Other specified anxiety disorders; F43.10 Post-traumatic stress disorder, unspecified; Z20.822 Contact with and (suspected) exposure to COVID-19; F17.290 Nicotine dependence, other tobacco product, uncomplicated
CPT/HCPCS: 36415; 36600; 70450; 70486; 71045; 72125; 73030; 73060; 73502; 80053; 80178; 80305; 80320; 80329; 81001; 82140; 82550; 82553; 82805; 82962; 83605; 83690; 83735; 84443; 84484; 85007; 85025; 87635; 87797; 90792; 93005; 93010; 94002; 94003; 94799; 96361; 96365; 96366; 99231; 99285; 99291; C9803; A9270; G0480; J1170; J2704; J3010

== ENCOUNTER 2021-07-10 23:36 | Emergency (ER) | payer OTHER, MEDICAID, SELFPAY ==
[2021-06-24 09:21] VITALS: PULSE 98; RESP 28; O2SAT 100
[2021-07-10 23:49] VITALS: BP 129/59; PULSE 127; O2SAT 96
--- NOTE | 2021-07-10 23:50 | DI.CT.S_ITS ---
PROCEDURE: CT HEAD/BRAIN WO CON INDICATIONS: head injury with LOC TECHNIQUE: Noncontrast 4.5 mm thick angled axial sections acquired from the foramen magnum to the vertex, with coronal and sagittal reformats. For radiation dose reduction, the following was used: automated exposure control, adjustment of mA and/or kV according to patient size. COMPARISON: None. FINDINGS: Image quality: Excellent. CSF spaces: Basal cisterns are patent. No extra-axial fluid collections. Ventricles are normal in size and shape. Brain: No midline shift. No intracranial masses or hemorrhage. Queen-white matter interface is normal. Skull and face: Calvarium and visualized facial bones are intact, without suspicious lesions. Sinuses: Visualized sinuses and mastoids are clear. IMPRESSION: No acute intracranial finding. Dictated by: Que Reyes M.D. on 07/11/2021 at 0:25 Approved by: Que Reyes M.D. on 07/11/2021 at 0:26
[2021-07-10 23:52] VITALS: BP 129/59; PULSE 124; RESP 22; TEMP 36.9; O2SAT 96; BMI 25.5
[2021-07-11] VITALS: PULSE 105; RESP 33; O2SAT 93
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
[2021-07-11] MEDS: LIDO 1%/SOD BICARB 8.4% (10ML) 10 ML SYRINGE INJ (00:10)
[2021-07-11 00:30] VITALS: PULSE 102; RESP 20
[2021-07-11 01:00] VITALS: PULSE 100; RESP 19
[2021-07-11 01:07] VITALS: BP 110/55; PULSE 100; RESP 16; RESP 18; O2SAT 98
--- NOTE | 2021-07-11 01:10 | PC.NURSE ---
Pt became verbally abuse to this RN while assisting doctor with sutures, doctor asked multiple time for patient to treat staff better, he continue to curse at RN, flip her off and request that this RN get the fuck out of the room. This RN left as so as able. Doctor was able to complete sutures and elijah with the assist of the OFFICE MACHINE TECHNICIAN.
== END 2021-07-11 01:23 | disposition home or self-care (01) ==
PROVIDERS: Emergency Provider Emergency Medicine; PCP Family Medicine
DX: Z02.89 Encounter for other administrative examinations (principal); S01.81XA Laceration without foreign body of other part of head, initial encounter; S01.01XA Laceration without foreign body of scalp, initial encounter; W22.8XXA Striking against or struck by other objects, initial encounter; Z23 Encounter for immunization
CPT/HCPCS: 12002; 13132; 70450; 90471; 99283; 99284

== ENCOUNTER → 2021-09-12 13:16 | Outpatient (CLI) | payer OTHER, MEDICAID, SELFPAY ==
[2021-06-24 09:21] VITALS: PULSE 98; RESP 28; O2SAT 100
[2021-09-12 15:33] LABS: Urine N gonorrhoeae NOT DETECTED
[2021-09-12 15:39] LABS: Urine Chlamydia NOT DETECTED
== END ==
PROVIDERS: PCP Family Medicine; Visit Provider Nurse Practitioner Family
DX: Z72.51 High risk heterosexual behavior (principal)
CPT/HCPCS: 87491; 87591

== ENCOUNTER → 2021-09-12 13:34 | Outpatient (CLI) | payer OTHER, MEDICAID, SELFPAY ==
[2021-06-24 09:21] VITALS: PULSE 98; RESP 28; O2SAT 100
[2021-09-13 08:03] LABS: HSV 2 IGG AB < 0.91 index (0.00-0.90); HSV1IGG < 0.91 index (0.00-0.90)
== END ==
PROVIDERS: PCP Family Medicine; Referring Provider Nurse Practitioner Family; Visit Provider Nurse Practitioner Family
DX: Z11.3 Encounter for screening for infections with a predominantly sexual mode of transmission (principal); Z72.51 High risk heterosexual behavior
CPT/HCPCS: 36415; 86695; 86696; 87491; 87591

== ENCOUNTER → 2021-10-14 18:16 | Outpatient (CLI) | payer OTHER, MEDICAID, SELFPAY ==
[2021-06-24 09:21] VITALS: PULSE 98; RESP 28; O2SAT 100
--- NOTE | 2021-10-14 18:18 | DI.RAD.S_ITS ---
PROCEDURE: XR WRIST RT MIN 3V INDICATIONS: Wrist pain TECHNIQUE: 4 views of the wrist were acquired. COMPARISON: [facility], , XR WRIST RT MIN 3V, 11/08/2020, 20:04. FINDINGS: Bones: No fractures or dislocations. Deformity from remote comminuted distal radius fracture. No suspicious bony lesions. There is also deformity from a remote 5th metacarpal fracture. Scaphoid view: Scaphoid intact. Soft tissues: No suspicious soft tissue calcifications. IMPRESSION: Remote trauma. No evidence acute bony abnormality of the right wrist. If clinical suspicion and/or symptoms persist, further assessment with repeat plain films, or advanced imaging (e.g., CT, MRI, or bone scan) may be helpful for further assessment. Dictated by: Gerson Rockwell M.D. on 10/14/2021 at 18:51 Approved by: Gerson Rockwell M.D. on 10/14/2021 at 18:54
== END ==
PROVIDERS: PCP Family Medicine; Referring Provider Family Medicine; Visit Provider Family Medicine
DX: M25.531 Pain in right wrist (principal)
CPT/HCPCS: 73110

== ENCOUNTER → 2021-12-08 11:21 | Outpatient (CLI) | payer OTHER, MEDICAID, SELFPAY ==
[2021-06-24 09:21] VITALS: PULSE 98; RESP 28; O2SAT 100
[2021-12-08 12:23] LABS: Influenza A - CEPHEID Flu A NEGATIVE (NEGATIVE); Influenza B - CEPHEID Flu B NEGATIVE (NEGATIVE)
[2021-12-08 12:41] LABS: COVID-19 CEPHEID PCR (VTM/NP) POSITIVE (Negative)
== END ==
PROVIDERS: PCP Family Medicine; Visit Provider Physician Assistant
DX: U07.1 COVID-19 (principal); J31.2 Chronic pharyngitis; R11.2 Nausea with vomiting, unspecified; R19.7 Diarrhea, unspecified; Z20.822 Contact with and (suspected) exposure to COVID-19
CPT/HCPCS: 0240U; 87070; 87880

== ENCOUNTER 2022-01-04 21:23 | Emergency (ER) | payer OTHER, MEDICAID, SELFPAY ==
[2021-06-24 09:21] VITALS: PULSE 98; RESP 28; O2SAT 100
--- NOTE | 2022-01-04 22:15 | PC.NURSE ---
Was told by CURRENCY COUNTER, pt ready to talk to this rn. When RN back in room and asking triage questions or about what happened minerva pt would state I don't know When asked why the child development specialist had been called earlier, he had same response. Left patient in room at that time and stated I would be back when he was ready to talk.
--- NOTE | 2022-01-04 22:30 | PC.NURSE ---
After completing Vitals this ELECTRICAL TESTER was entering information into system when Pt left Rm 13 trying to leave facility with security following Pt. This ELECTRICAL TESTER was able to redirect PT back to where PT stated I will wait for the Nurse to ask her questions. This ELECTRICAL TESTER offered a cup of water while pt waited.
[2022-01-04 22:35] VITALS: BP 117/67; PULSE 132; TEMP 37.7; O2SAT 92
--- NOTE | 2022-01-04 22:35 | PC.NURSE ---
After patient left room and telemarketer was able to redirect patient back to room. Discussed with Provider about if patient was free to leave if he would like, did discuss with provider the phone call from the employment law specialist. stated pt was not allowed to leave.
--- NOTE | 2022-01-04 22:45 | PC.NURSE ---
Pt Left RM 13 towards exit to [facility]. Pt states I cant do this I want to go home This YARN DUMPER walked with PT to the front of the Emergency entrance. while standing outside the entrance with the pt this YARN DUMPER was able to convince the patient to return to the room again.This YARN DUMPER walked back to the Room with PT.
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
--- NOTE | 2022-01-05 05:05 | ED.PSYCH ---
HPI - Psych General Chief Complaint: Psychiatric Symptoms Stated Complaint: mental health Time Seen by Provider: 01/04/22 21:44 Source: patient and police Mode of arrival: Ambulatory History of Present Illness HPI Narrative: 30-year-old male smoker with extensive mental health history including borderline personality disorder and frequent suicidal ideation presents with his father for evaluation. He states that he is suicidal but not significantly more so than any other time. He has no specific plan and denies any homicidal ideation. He denies headache or blurred vision has no chest pain or shortness of breath. He states he has been taking his medications as directed but has had less access to mental health since [facility]. He denies any abdominal pain, nausea, vomiting or diarrhea. Related Data Previous Rx's Medication Instructions Recorded quetiapine 100 mg tablet (Seroquel) 200 mg PO BEDTIME #10 tabs 06/26/21 tramadol 50 mg tablet See Rx Instructions .Route 07/31/21 .COMPLEX #90 tabs clonazepam 1 mg tablet See Rx Instructions .Route 12/17/21 .COMPLEX #90 tabs Allergies Allergy/AdvReac Type Severity Reaction Status Date / Time aripiprazole [From Abilify] Allergy Verified 12/08/21 11:17 risperidone [From Risperdal] Allergy Verified 12/08/21 11:17 olanzapine AdvReac Severe suicidal Verified 12/08/21 11:17 ideations Review of Systems Review of Systems Narrative: GENERAL: Denies chills, fatigue, malaise, fever, sweats. HEENT: Denies sinus pain, ear pain, sore throat, difficulty swallowing, dizziness. RESPIRATORY: Denies dyspnea, cough, wheezing, hemoptysis, sputum. CARDIOVASCULAR: Denies chest pain, palpitations, orthopnea, edema, GASTROINTESTINAL: Denies nausea, vomiting, abdominal pain, diarrhea, constipation, melena. : Denies dysuria, frequency, incontinence, hematuria, urinary retention. MUSCULOSKELETAL: denies weakness, joint pain, or bony pain SKIN: Denies rash, skin lesions, or other NEUROLOGIC: Denies weakness, headache, numbness, change in speech, confusion, seizures, incoordination. PSYCHIATRIC: No concerning psychosocial issues. 12 point review of systems is negative except for those stated above Patient History Medical History Acute pain of right shoulder ADHD Anxiety Bankart lesion of left shoulder Cervical somatic dysfunction Chronic neck and back pain Cranial somatic dysfunction Depression Fractures History of bipolar disorder History of suicide attempt Left shoulder pain Migraines Overdose Partial blindness Pelvic somatic dysfunction Personality disorder PTSD (post-traumatic stress disorder) Rib pain on right side Right shoulder pain Routine screening for STI (sexually transmitted infection) Scoliosis Segmental and somatic dysfunction of abdomen and other regions Segmental and somatic dysfunction of lumbar region Segmental and somatic dysfunction of rib cage Segmental and somatic dysfunction of sacral region Segmental and somatic dysfunction of thoracic region Segmental and somatic dysfunction of upper extremity Suicide attempt by cutting of wrist Surgical History Anesthesia History of removal of cyst (~2018) Family History Father Mental health problem Mother Thyroid cancer Breast cancer Social History household members: significant other and family Smoking Status: Current every day smoker Smokeless tobacco user: other alcohol intake: current substance use type: does not use and former substance user Smoking Status: Current every day smoker tobacco type: vaping alcohol intake frequency: 3 or more drinks per day Alcohol type: hard liquor Substance Use Type: does not use Exam Narrative Exam Narrative: GENERAL: [31] year old patient appears stated age. Well-developed patient, in mild distress. HEAD: Atraumatic. Normocephalic. EYES: Pupils equal round and reactive. Extraocular motions intact. No scleral icterus. No injection or drainage. ENT: Nose without bleeding, purulent drainage. Throat without erythema, tonsillar hypertrophy or exudate. Airway patent. NECK: Trachea midline. Non tender CARDIOVASCULAR: Regular rate and rhythm without murmurs, gallops, or rubs. RESPIRATORY: Clear to auscultation. Breath sounds equal bilaterally. No wheezes, rales, or rhonchi. GASTROINTESTINAL: Abdomen soft, non-tender, nondistended. EXTREMITIES: No edema or joint tenderness. BACK: Nontender without deformity or crepitance. No flank tenderness. NEURO: AOx3. SKIN: No rash or erythema of visible areas Initial Vital Signs Initial Vital Signs: Vital Signs Temperature 99.8 F H 01/04/22 22:35 Pulse Rate 132 H 01/04/22 22:35 Blood Pressure 117/67 01/04/22 22:35 Pulse Oximetry 92 01/04/22 22:35 Oxygen Delivery Method 01/04/22 22:35 Course Course Course Narrative: Patient's course started off very benign and patient rather quickly stated he was fine in only here because his family wanted him out of the house. He denies any significant change in his mental health and feels relatively at his baseline. He had said he was going to leave 2 or 3 times and actually left the department before willingly coming back into the room. Given his report of ongoing suicidal ideation and subsequently learning that he had made a comment to police that he wanted to take their gun I asked that patient be kept in his room stating that he needed to be evaluated and there was some concern that he was not demonstrating good wayne. Attempts at verbal deescalation were unsuccessful and patient door which shot. He very quickly and rapidly escalated and attempts at verbal deescalation were unsuccessful. He began kicking the door forcefully multiple times and did not respond to any attempts a conversation. Myself and multiple nurses made attempts at speaking with him and he continued to kick the door, so hard in fact that it broke the lower magnetic lock, given concern for patient and staff safety as well as damage to property police were dispatched. The door was able to be opened with their presence. He was very upset and reluctant to talk, but did state multiple times that he wanted to leave and though he did feel suicidal that he always does, and I'm still here. AFter lengthy discussions with patient, police, and his family he was able to contract for safety and it became clear that he was largely at his baseline. When speaking with his father he assured me his mother was on her way to pick him up. Patient given return precautions and questions answered to his apparent satisfaction Orders Ordered: Discontinued Medications Diphenhydramine HCl (Diphenhydramine 50 Mg/Ml Vial) 50 mg IM NOW ONE Stop: 01/04/22 23:08 Haloperidol (Haloperidol 5 Mg/Ml Vial) 5 mg IM NOW ONE Stop: 01/04/22 23:08 Lorazepam (Lorazepam 2 Mg/Ml Inj) 2 mg IM NOW ONE Stop: 01/04/22 23:08 Vital Signs Vital signs: Vital Signs - 8 hr 01/04/22 22:35 Temperature 99.8 F H Pulse Rate 132 H Blood Pressure 117/67 Pulse Oximetry 92 Oxygen Delivery Method Room Air MDM - Psych Lab Data Labs: Urine Dip Bedside Urine Glucose Negative Bedside Urine Bilirubin - Negative Bedside Urine Ketone - Negative Urine Specific [place] 1.010 Bedside Urine Occult Blood - Negative Bedside Urine pH 6.0 Bedside Urine Protein - Negative Bedside Urine Urobilinogen - Negative Bedside Urine Nitrite - Negative Bedside Urine Leukocytes - Negative Esterase Restraint Tshz-gl-Tcjw Restraint Mktr-gj-Vwib Evaluation Lmcm-lo-Raba #1: Date: 01/04/22 Time: 23:17 Patient Appearance: Well Groomed and Inappropriate Level of Consciousness: Alert, Combative, Inappropriate and Restless Speech Pattern: Animated, Excessive and Excited Mood Description: Angry Ability to Follow Directions: Poor Hallucination Type: None Respirations: Normal respiratory rate Restraint Needs: Continue Restraints Additional Comments: patient continues to rapidly escalate and is violently kicking the door Discharge Plan Departure Patient Disposition: Home Clinical Impression: Suicidal thoughts Instructions: DI for Suicidal Ideation-Adult Activity Restrictions/Additional Instructions: *If you feel that you are entering into mental health crisis you have multiple options 1. Return to the ER immediately 2. Call the Crisis Line at [phone] 3. Send an anonymous text by sending the word [place] to [phone] 4. Navigate your web browser to smartclip to engage in anonymous chat with a mental health worker Prescriptions: No Action clonazepam 1 mg tablet See Rx Instructions .ROUTE .COMPLEX Qty: 90 0RF Rx Instructions: Take 1 tablet by mouth 3 times daily as needed for anxiety tramadol 50 mg tablet See Rx Instructions .ROUTE .COMPLEX Qty: 90 0RF Rx Instructions: Take 1 tablet by mouth 3 times daily as needed for pain quetiapine [Seroquel] 100 mg Tablet 200 mg PO BEDTIME Qty: 10 0RF Referrals: Min Tinsley DO [Primary Care Provider] -
== END 2022-01-04 23:55 | disposition home or self-care (01) ==
PROVIDERS: Emergency Provider Emergency Medicine; PCP Family Medicine
DX: R45.851 Suicidal ideations (principal)
CPT/HCPCS: 81003; 99284

== ENCOUNTER → 2022-06-02 14:55 | Outpatient (CLI) | payer OTHER, MEDICAID, SELFPAY ==
[2021-06-24 09:21] VITALS: PULSE 98; RESP 28; O2SAT 100
--- NOTE | 2022-06-02 14:57 | DI.RAD.S_ITS ---
PROCEDURE: XR WRIST RT MIN 3V INDICATIONS: pain TECHNIQUE: 4 views of the wrist were acquired. COMPARISON: [facility], CR, XR WRIST RT MIN 3V, 10/14/2021, 18:12. FINDINGS: Bones: No acute fractures or dislocations. Healed fracture deformity of the distal radial metaphysis. Chronic ununited ulnar styloid process tip fracture again seen. Chronic fracture deformity of the 5th metacarpal head/neck. No suspicious bony lesions. Scaphoid view: Intact scaphoid. Soft tissues: No suspicious soft tissue calcifications. IMPRESSION: Chronic fracture deformities are seen related to remote prior trauma. No acute fracture seen. Dictated by: Andrew DE LA TORRE Interpreted: Chris Pineda MD on 06/02/2022 at 15:37 Transcribed by: TA on 06/02/2022 at 15:39 Approved by: Chris Pineda M.D. on 06/03/2022 at 20:51
--- NOTE | 2022-06-02 14:57 | DI.RAD.S_ITS ---
PROCEDURE: XR WRIST LT MIN 3V INDICATIONS: pain TECHNIQUE: 4 views of the wrist were acquired. COMPARISON: [facility], CR, XR WRIST RT MIN 3V, 10/14/2021, 18:12. FINDINGS: Bones: No fractures or dislocations. No suspicious bony lesions. Probable chronic fracture deformity is seen at the 5th metacarpal neck. Scaphoid view: Intact scaphoid. Soft tissues: No suspicious soft tissue calcifications. IMPRESSION: No definite radiographic abnormality. If pain persists with conservative management, consider cross sectional imaging such as CT or MRI for further assessment. Dictated by: Andrew Lopez [facility] Interpreted: Chris Pineda MD on 06/02/2022 at 15:41 Transcribed by: TA on 06/02/2022 at 15:41 Approved by: Chris Pineda M.D. on 06/03/2022 at 20:54
== END ==
PROVIDERS: PCP Family Medicine; Referring Provider Family Medicine; Visit Provider Family Medicine
DX: M21.831 Other specified acquired deformities of right forearm (principal); M25.531 Pain in right wrist; M25.532 Pain in left wrist
CPT/HCPCS: 73110

== ENCOUNTER → 2022-08-15 09:26 | Outpatient (CLI) | payer OTHER, MEDICAID, SELFPAY ==
[2021-06-24 09:21] VITALS: PULSE 98; RESP 28; O2SAT 100
[2022-08-15 10:25] LABS: Influenza A - CEPHEID Flu A NEGATIVE (NEGATIVE); Influenza B - CEPHEID Flu B NEGATIVE (NEGATIVE); Respiratory Syncytial Virus Negative (Negative)
[2022-08-15 11:52] LABS: COVID-19 CEPHEID 4-PLEX PCR Negative (Negative)
== END ==
PROVIDERS: PCP Family Medicine; Visit Provider Nurse Practitioner Family
DX: J02.9 Acute pharyngitis, unspecified (principal); R53.83 Other fatigue
CPT/HCPCS: 0241U; 87070

== ENCOUNTER 2024-06-09 18:52 | Emergency (ER) | payer OTHER, MEDICAID, SELFPAY ==
[2021-06-24 09:21] VITALS: PULSE 98; RESP 28; O2SAT 100
[2024-06-09 18:45] VITALS: BP 135/70; PULSE 86; RESP 16; TEMP 36.1; O2SAT 100; BMI 23.7
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
[2024-06-09 19:40] VITALS: BP 130/70; PULSE 85; RESP 16; O2SAT 100
== END 2024-06-09 19:40 | disposition home or self-care (01) ==
PROVIDERS: Emergency Provider Emergency Medicine; PCP Family Medicine
DX: Z00.8 Encounter for other general examination (principal); V89.2XXA Person injured in unspecified motor-vehicle accident, traffic, initial encounter
CPT/HCPCS: 99281